=== PATIENT | female | born 1980 | race Caucasian/White ===

== ENCOUNTER 2016-06-12 15:00 | Inpatient (IN) | payer OTHER ==
--- NOTE | 2016-06-12 16:43 | ED ---
General Adult HPI - General Chief complaint: Extremity Problem,Nontraumatic Stated complaint: Arm Swelling Time Seen by Provider: 06/12/16 16:05 Source: patient, RN notes reviewed Mode of arrival: ambulatory Limitations: no limitations - History of Present Illness Initial comments: Patient is a 36-year-old female who presents emergency room today with a chief complaint of increased swelling to the left wrist and hand. She states she first noticed this approximately 4 days ago. She states swelling seemed to come and go until today where the swelling has stayed. She states there is some local tenderness. Denies any injury or trauma. States never had similar symptoms in the past. Patient does admit to history of blood clot. States she' s not on any blood thinners. Does admit that she is she please approximate 5 months. Denies any vaginal bleeding or discharge. Denies any abdominal pain. Admits that at times she's felt short of breath. Denies any shortness breath at this time. Patient denies any recent fever, chills, chest pain, back pain, abdominal pain, nausea or vomiting, numbness or tingling, dysuria or hematuria, constipation or diarrhea, headaches or visual changes, or any other complaints. - Related Data Home Medications Medication Instructions Recorded Confirmed Albuterol Inhaler [Ventolin Hfa 1 - 2 puff INHALATION RT-Q4H PRN 06/12/16 Inhaler] Albuterol Nebulized [Ventolin 2.5 mg INHALATION RT-Q4H PRN 06/12/16 06/12/16 Nebulized] Gabapentin [Neurontin] 300 mg PO TID 06/12/16 06/12/16 Methadone [Dolophine] 90 mg PO DAILY 06/12/16 06/12/16 Njp-Xqnq-Hxzoy Acid 1 cap PO DAILY 06/12/16 06/12/16 [-U Capsule (formulary)] Allergies Allergy/AdvReac Type Severity Reaction Status Date / Time moxifloxacin [From Avelox] Allergy Unknown Verified 06/12/16 16:30 shellfish derived [Shellfish] Allergy Unknown Verified 06/12/16 16:30 Review of Systems ROS Statement: Those systems with pertinent positive or pertinent negative responses have been documented in the HPI. ROS Other: All systems not noted in ROS Statement are negative. 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 Eye: Pupils are equal, round and reactive to light, extra-ocular movements are intact. No nystagmus. There is normal conjunctiva bilaterally. No signs of icterus. Ears, nose, mouth and throat: There are moist mucous membranes and no oral lesions. Neck: The neck is supple, there is no tenderness or JVD. Cardiovascular: There is a regular rate and rhythm. No murmur, rub or gallop is appreciated. Respiratory: Lungs are clear to auscultation, respirations are non-labored, breath sounds are equal. No wheezes, stridor, rales, or rhonchi. Gastrointestinal: Soft, non-distended, non-tender abdomen without masses or organomegaly noted. There is no rebound or guarding present. No CVA tenderness. Bowel sounds are unremarkable. Musculoskeletal: Normal ROM, no tenderness. Strength 5/5. Sensation intact. Pulses equal bilaterally 2+. Neurological: A&O x 3. CN II-XII intact, There are no obvious motor or sensory deficits. Coordination appears grossly intact. Speech is normal. Skin: Patient does have moderate swelling to the left wrist and hand. There is some local redness mild to the posterior aspect of the left hand. No lymphangitic streaking. Mild tenderness locally. No skin breakdown. Psychiatric: Cooperative, appropriate mood & affect, normal judgment. Limitations: no limitations Course Vital Signs 06/12/16 06/12/16 06/12/16 15:04 19:04 19:07 Temperature 98.1 F 97.0 F L Pulse Rate 94 94 100 Respiratory 20 18 Rate Blood Pressure 117/54 108/52 O2 Sat by Pulse 99 100 Oximetry Medical Decision Making - Medical Decision Making Case discussed in detail with attending physician Dr. Farris. Patient's labs reviewed. Patient's ultrasound does show single IUP measuring 24 weeks 4 days. Patient's ultrasound of the left upper extremity is negative for any evidence of DVT. Patient started on antibiotics here in the emergency room to cover for sinusitis infection of the left upper extremity. Patient does admit to use of short of breath with history of asthma. She states she's been doing. She was on and off at home. Given breathing treatment here in the emergency room is feeling better. Patient denies any other complaints or symptoms. Case was discussed with the admitting physician who will admit the patient. Also discussed case with [facility] doctor Krys will be consult. - Lab Data Result diagrams: 06/12/16 16:49 06/12/16 16:49 Lab Results 06/12/16 06/12/16 06/12/16 Range/Units 16:49 16:49 16:49 WBC 5.5 (3.8-10.6) k/uL RBC 3.20 L (3.80-5.40) m/uL Hgb 9.6 L (11.4-16.0) gm/dL Hct 28.7 L (34.0-46.0) % MCV 89.7 (80.0-100.0) fL MCH 29.9 (25.0-35.0) pg MCHC 33.4 (31.0-37.0) g/dL RDW 14.8 (11.5-15.5) % Plt Count 208 (150-450) k/uL Neutrophils % 77 % Lymphocytes % 18 % Monocytes % 2 % Eosinophils % 2 % Basophils % 0 % Neutrophils # 4.2 (1.3-7.7) k/uL Lymphocytes # 1.0 (1.0-4.8) k/uL Monocytes # 0.1 (0-1.0) k/uL Eosinophils # 0.1 (0-0.7) k/uL Basophils # 0.0 (0-0.2) k/uL Poikilocytosis Slight PT 9.9 (9.0-12.0) sec INR 1.0 (<1.1) APTT 22.2 (22.0-30.0) sec Sodium 138 (137-145) mmol/L Potassium 3.5 (3.5-5.1) mmol/L Chloride 101 (98-107) mmol/L Carbon Dioxide 26 (22-30) mmol/L Anion Gap 11 mmol/L BUN 11 (7-17) mg/dL Creatinine 0.62 (0.52-1.04) mg/dL Est GFR (MDRD) Af Amer >60 (>60 ml/min/1.73 sqM) Est GFR (MDRD) Non-Af >60 (>60 ml/min/1.73 sqM) Glucose 94 (74-99) mg/dL Calcium 9.4 (8.4-10.2) mg/dL Total Bilirubin 0.5 (0.2-1.3) mg/dL AST 38 H (14-36) U/L ALT 38 (9-52) U/L Alkaline Phosphatase 113 (38-126) U/L Total Protein 6.1 L (6.3-8.2) g/dL Albumin 3.2 L (3.5-5.0) g/dL Urine Color Urine Appearance (Clear) Urine pH (5.0-8.0) Ur Specific [place] (1.001-1.035) Urine Protein (Negative) Urine Glucose (UA) (Negative) Urine Ketones (Negative) Urine Blood (Negative) Urine Nitrite (Negative) Urine Bilirubin (Negative) Urine Urobilinogen (<2.0) mg/dL Ur Leukocyte Esterase (Negative) Urine RBC (0-5) /hpf Urine WBC (0-5) /hpf Ur Squamous Epith Cells (0-4) /hpf Urine Bacteria (None) /hpf Hyaline Casts (0-2) /lpf Urine Mucus (None) /hpf 06/12/16 Range/Units 16:49 WBC (3.8-10.6) k/uL RBC (3.80-5.40) m/uL Hgb (11.4-16.0) gm/dL Hct (34.0-46.0) % MCV (80.0-100.0) fL MCH (25.0-35.0) pg MCHC (31.0-37.0) g/dL RDW (11.5-15.5) % Plt Count (150-450) k/uL Neutrophils % % Lymphocytes % % Monocytes % % Eosinophils % % Basophils % % Neutrophils # (1.3-7.7) k/uL Lymphocytes # (1.0-4.8) k/uL Monocytes # (0-1.0) k/uL Eosinophils # (0-0.7) k/uL Basophils # (0-0.2) k/uL Poikilocytosis PT (9.0-12.0) sec INR (<1.1) APTT (22.0-30.0) sec Sodium (137-145) mmol/L Potassium (3.5-5.1) mmol/L Chloride (98-107) mmol/L Carbon Dioxide (22-30) mmol/L Anion Gap mmol/L BUN (7-17) mg/dL Creatinine (0.52-1.04) mg/dL Est GFR (MDRD) Af Amer (>60 ml/min/1.73 sqM) Est GFR (MDRD) Non-Af (>60 ml/min/1.73 sqM) Glucose (74-99) mg/dL Calcium (8.4-10.2) mg/dL Total Bilirubin (0.2-1.3) mg/dL AST (14-36) U/L ALT (9-52) U/L Alkaline Phosphatase (38-126) U/L Total Protein (6.3-8.2) g/dL Albumin (3.5-5.0) g/dL Urine Color Yellow Urine Appearance Clear (Clear) Urine pH 6.5 (5.0-8.0) Ur Specific [place] 1.019 (1.001-1.035) Urine Protein Negative (Negative) Urine Glucose (UA) Negative (Negative) Urine Ketones Negative (Negative) Urine Blood Negative (Negative) Urine Nitrite Negative (Negative) Urine Bilirubin Negative (Negative) Urine Urobilinogen <2.0 (<2.0) mg/dL Ur Leukocyte Esterase Trace H (Negative) Urine RBC 1 (0-5) /hpf Urine WBC <1 (0-5) /hpf Ur Squamous Epith Cells 2 (0-4) /hpf Urine Bacteria Rare H (None) /hpf Hyaline Casts 1 (0-2) /lpf Urine Mucus Rare H (None) /hpf Disposition Clinical Impression: Cellulitis Disposition: ADMITTED IP TO THIS [facility] Condition: Good Referrals: Nonstaff,Physician [Primary Care Provider] - 1-2 days Time of Disposition: 18:50
[2016-06-12 17:06] LABS: Basophils % (A) 0 %; CH 29.9; CHCM 33.5; Eosinophils # (A) 0.1 k/uL (0-0.7); Eosinophils % (A) 2 %; HCT 28.7 % (34.0-46.0); HDW 3.56; HGB 9.6 gm/dL (11.4-16.0); Luc # (Auto) 0.06; Luc % (Auto) 1; Lymphocytes % (A) 18 %; MCH 29.9 pg (25.0-35.0); MCHC 33.4 g/dL (31.0-37.0); MCV 89.7 fL (80.0-100.0); Mean Platelet Volume 7.5; Monocytes # (A) 0.1 k/uL (0-1.0); Monocytes % (A) 2 %; Neutrophils # (A) 4.2 k/uL (1.3-7.7); Neutrophils % (A) 77 %; Poikilocytosis Slight; RDW 14.8 % (11.5-15.5); WBC 5.5 k/uL (3.8-10.6); WBC (Perox) 5.33
[2016-06-12 17:14] LABS: ALT 38 U/L (9-52); AST 38 U/L (14-36); Alkaline Phosphatase 113 U/L (38-126); Anion Gap 11 mmol/L; Blood Urea Nitrogen 11 mg/dL (7-17); Calcium 9.4 mg/dL (8.4-10.2); Carbon Dioxide 26 mmol/L (22-30); Chloride 101 mmol/L (98-107); Glucose 94 mg/dL (74-99); Non-African American GFR(MDRD) >60 (>60 ml/min/1.73 sqM); Partial Thromboplastin Time 22.2 sec (22.0-30.0); Potassium 3.5 mmol/L (3.5-5.1); Prothrombin Time 9.9 sec (9.0-12.0); Sodium 138 mmol/L (137-145); Total Bilirubin 0.5 mg/dL (0.2-1.3); Total Protein 6.1 g/dL (6.3-8.2)
--- NOTE | 2016-06-12 17:17 | XR ---
EXAMINATION TYPE: XR wrist complete LT DATE OF EXAM: 06/12/2016 5:08 PM COMPARISON: NONE HISTORY: Wrist swelling for 2 days. Pain. TECHNIQUE: 4 views FINDINGS: I see no fracture nor dislocation. There is soft tissue swelling of the forearm. This is mo re noticeable on the anterior aspect. There are no erosions. IMPRESSION: Subcutaneous edema. No fracture seen.
[2016-06-12 17:18] LABS: Appearance,Urine Clear (Clear); Bacteria,Urine Rare /hpf; Bilirubin,Urine Negative (Negative); Glucose,Urine (UA) Negative (Negative); Ketones,Urine Negative (Negative); Leukocyte Esterase,Urine Trace (Negative); Mucus,Urine Rare /hpf; Nitrite,Urine Negative (Negative); PH, Urine 6.5 (5.0-8.0); Particle Count 2675; Protein,Urine Negative (Negative); RBC,Urine 1 /hpf (0-5); Specific Gravity,Urine 1.019 (1.001-1.035); Squamous Epithelial Cell,Urine 2 /hpf (0-4); UA Billing (MACRO vs. MICRO) MICRO; Urobilinogen,Urine <2.0 mg/dL (<2.0); WBC,Urine <1 /hpf (0-5)
--- NOTE | 2016-06-12 18:47 | US ---
EXAMINATION TYPE: US OB >= 14 wk fetus DATE OF EXAM: 06/12/2016 6:07 PM COMPARISON: None CLINICAL HISTORY: PainUnknown LMP. Patient states not having a period for a few years-- Positive pre gnancy test in January. Has not seen an OB yet for this . . TECHNIQUE: Transabdominal (TA) GESTATIONAL AGE / DATING Dates by LMP: Unknown EDC: Dates by Current Scan: (24 weeks/4 days) EDC: 09/28/2016 SURVEY IUP: Single PLACENTA: Posterior PREVIA: No Previa DELIA: 16.3 cm Normal CERVICAL LENGTH (transabdominal: norm > 3.0cm): 3.9 cm BIOMETRY PRESENTATION: Vertex LIE: Longitudinal BPD: 6.2 cm 25 weeks / 1 days HC: 22.6 cm 24 weeks / 5 days AC: 21.2 cm 25 weeks / 5 days FL: 4.4 cm 24 weeks / 3 days ESTIMATED WEIGHT IN GRAMS: 770.0 grams ESTIMATED WEIGHT IN LBS/OZS: 1 lbs. 11 oz. WEIGHT PERCENTAGE BASED ON ESTABLISHED DATES: unknown HC/AC: 1.1 Normal FL/AC: 20.7 Normal HEART RATE: 166 bpm RHYTHM: Normal Live single IUP measuring 24 weeks 4 days IMPRESSION: The ultrasound gestational age is 24 weeks 4 days. I see no complicating process.
--- NOTE | 2016-06-12 18:47 | US ---
EXAMINATION TYPE: US venous doppler duplex UE LT DATE OF EXAM: 06/12/2016 6:37 PM COMPARISON: NONE CLINICAL HISTORY: Pain. Swelling left wrist SIDE PERFORMED: Left Left Arm: Negative for DVT IMPRESSION: Negative exam. No evidence of deep venous thrombosis in the left arm.
[2016-06-12] MEDS ORDERED: AMPICILLIN-SULBACTAM 1.5 GM in SODIUM CHLORIDE 0.9% 50 ML IVPB STA (18:54)
[2016-06-12] MEDS ORDERED: ALBUTEROL NEBULIZED 2.5 MG/3 ML INHALATION STA (18:55)
[2016-06-12] MEDS ORDERED: NALOXONE 0.4 MG/ML 1 ML VIAL IV PRN (19:11)
[2016-06-12] MEDS ORDERED: SODIUM CHLORIDE 0.9% 1,000 ML IV ONE (19:11)
[2016-06-12] MEDS: ACETAMINOPHEN TAB 325 MG TAB PO PRN (19:37)
[2016-06-12] MEDS ORDERED: ALBUTEROL NEBULIZED 2.5 MG/3 ML INHALATION PRN (21:04)
[2016-06-12] MEDS: GABAPENTIN 300 MG CAP PO SCH (22:05)
[2016-06-12] MEDS: ALBUTEROL NEBULIZED 2.5 MG/3 ML INHALATION PRN (22:25)
[2016-06-13] MEDS: AMPICILLIN-SULBACTAM 1.5 GM in SODIUM CHLORIDE 0.9% 50 ML IVPB SCH ×4 (01:06→17:04)
[2016-06-13] MEDS: ALBUTEROL NEBULIZED 2.5 MG/3 ML INHALATION PRN ×6 (02:06→19:26)
[2016-06-13 08:11] LABS: Anion Gap 8 mmol/L; Blood Urea Nitrogen 8 mg/dL (7-17); Calcium 8.9 mg/dL (8.4-10.2); Carbon Dioxide 23 mmol/L (22-30); Chloride 105 mmol/L (98-107); Glucose 88 mg/dL (74-99); Non-African American GFR(MDRD) >60 (>60 ml/min/1.73 sqM); Potassium 3.8 mmol/L (3.5-5.1); Sodium 136 mmol/L (137-145)
[2016-06-13] MEDS: BUDESONIDE 1 MG/2 ML NEBU INHALATION SCH ×2 (09:00→19:27)
[2016-06-13] MEDS: FORMOTEROL FUMARATE 20 MCG/2 ML NEBU INHALATION SCH ×2 (09:00→19:26)
[2016-06-13] MEDS: PRENATAL VIT-IRON-FOLIC ACID 1 EACH CAP PO SCH (09:12)
[2016-06-13] MEDS: GABAPENTIN 300 MG CAP PO SCH ×2 (09:12→15:45)
[2016-06-13] MEDS: METHADONE 10 MG TAB PO SCH (09:12)
--- NOTE | 2016-06-13 09:42 | HP ---
DATE OF ADMISSION: DATE OF SERVICE: 06/12/2016 Chief complaints are left arm swelling as well as shortness of breath. HISTORY OF PRESENT ILLNESS: This 36-year-old woman with a past medical history of multiple medical problems including heroin abuse, history of asthma, DVT, history of GERD, history of pneumonia, history of seizure disorder, history of cellulitis of the hand, history of C-sections, history of 5 miscarriages, history of bone marrow transplantation, history of depression, being followed by a primary physician in the [place] area. Is apparently having rehab in [place] regarding methadone. The patient is 24 weeks and patient did not have any care so far. In the [place], the patient was noted to have swelling over the left arm with some pain and some increased in shortness of breath and coughing with mucoid sputum and patient was referred to [facility] and was admitted for further evaluation and treatment. A venous Doppler was done on admission, which showed no evidence of any DVT in the left arm. 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 A wrist x-ray was also done, which showed subcutaneous edema. There was no fractures seen and ultrasound was also done which showed gestation of 24 weeks and no complicating process also noted. There is no history of any fever, rigors. No history of headache, loss of consciousness or seizures. PAST MEDICAL HISTORY: History of asthma, DVT, history of rhabdomyosarcoma of the left arm, history of liver disease, history of pneumonia, seizure disorder, cellulitis, history of empyema, bone marrow transplant, history of heroin abuse, history of MRSA. Medications prior to admission include: 1. Methadone 90 mg p.o. daily. 2. Multivitamin 1 p.o. daily. 3. Ventolin 2.5 q.4 p.r.n. 4. Neurontin 300 mg t.i.d. 5. Albuterol 2 puffs q.4 p.r.n. Allergies are AVELOX and SHELLFISH. FAMILY HISTORY: History of overdose with methadone and Xanax. SOCIAL HISTORY: History of smoking and history of substance abuse. The patient's last heroin use was in 2004 according to her. REVIEW OF SYSTEMS: ENT: No diminishing hearing, diminished vision. CARDIOVASCULAR: As mentioned earlier. RESPIRATORY: As mentioned earlier. GI: As mentioned earlier. : As mentioned earlier. NERVOUS SYSTEM: No numbness or weakness. ALLERGY/IMMUNOLOGY: No asthma. MUSCULOSKELETAL: As mentioned earlier. HEMATOLOGY: As mentioned earlier. ENDOCRINE: No history of diabetes or hypothyroidism. CONSTITUTIONAL: As mentioned earlier. DERMATOLOGY: As mentioned earlier. RHEUMATOLOGY: Negative. PSYCHIATRY: As mentioned earlier. PHYSICAL EXAM: Patient is alert and oriented x3. The pulse is 100, blood pressure 108/52, respirations 18, temperature 97 degrees, pulse ox 100% on room air. HEENT: Conjunctivae normal, oral mucosa moist. NECK: No jugular venous distention. No carotid bruit, no lymph node enlargement. CARDIOVASCULAR: S1, S2, muffled. No S3, no S4. RESPIRATORY: Markedly increased, bilateral scattered rhonchi and expiratory wheezing and crackles also. ABDOMEN: Distended, 24 weeks . EXTREMITIES: Legs bilateral leg edema present. Pulses normal. NERVOUS SYSTEM: Higher function as mentioned earlier. Moves all 4 limbs. No focal motor or sensory deficits. LYMPHATICS: No lymph node enlargement in the neck, axillae or groin. SKIN: No ulcer, rash, bleeding. Minimal erythema of the left arm present and examination of the left arm shows status post old surgery, surgical scar and as well as significant swelling and some erythema also in the distal part of the left arm. There is a finger amputation of the left index finger as well. LAB INVESTIGATION: WBC 5.5, hemoglobin is 9.6 as well as AST is 38, and albumin is 3.2. UA some bacteria noted. ASSESSMENT: 1. Pain and swelling of the left arm with possible acute cellulitis. 2. Bronchial asthma acute exacerbation with acute purulent tracheobronchitis. 3. Anemia, normocytic; secondary to poor intake possibly. 4. Hypoalbuminemia with mild to moderate protein calorie malnutrition. 5. Increased AST. 6. 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 7. History of deep venous thrombosis. 8. History of asthma. 9. History of gastroesophageal reflux disease. 10. History of liver disease. 11. History of pneumonia. 12. History of seizure disorder. 13. History of IV drug abuse, on methadone. 14. History of scoliosis. 15. History of sections. 16. History of multiple miscarriages. 17. History of bone marrow transplant. 18. History of empyema. 19. 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 20. Depression, not otherwise specified. 21. History of nicotine dependence. 22. FULL CODE. RECOMMENDATION: In this 36-year-old woman who presented with multiple complex medical issues, will monitor the patient closely. I would recommend empiric antibiotics and bronchodilators. The overall prognosis extremely guarded because of the multiple complex medical issues. I would also recommend evaluation with [facility]. Dr. Dhillon also has been requested. Otherwise, prognosis guarded. See orders, resume the home medications. Discussed with the patient who understands. Further recommendations to follow.
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
[2016-06-13] MEDS: FOLIC ACID 1 MG TAB PO SCH (12:26)
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
--- NOTE | 2016-06-13 14:57 | US ---
EXAMINATION TYPE: US OB anatomy transabd DATE OF EXAM: 06/13/2016 2:35 PM COMPARISON: NONE HISTORY: 24 weeks anatomical ultrasound Anatomy scan TECHNIQUE: Transabdominal (TA) EXAM MEASUREMENTS: GESTATIONAL AGE / DATING Physician Established: Not yet established Dates by LMP: Unknown Dates by First Scan: (24 weeks/5 days) EDC: 09/28/2016 Dates by Current Scan for: (24 weeks/4 days) EDC: 09/29/2016 SURVEY IUP: Single PLACENTA: Posterior PREVIA: No previa DELIA: 12.9 cm Normal CERVICAL LENGTH (transabdominal: norm > 3.0cm): 3.3 cm BIOMETRY PRESENTATION: Vertex BPD: 6.4 cm 26 weeks / 0 days HC: 23.7 cm 25 weeks / 6 days AC: 20.4 cm 25 weeks / 0 days FL: 4.2 cm 23 weeks / 4 days ESTIMATED WEIGHT IN GRAMS: 715 grams ESTIMATED WEIGHT IN LBS/OZS: 1 lbs. 9 oz. WEIGHT PERCENTAGE BASED ON ESTABLISHED DATE: 35.5 % HC/AC: 1.17 Normal FL/AC: 21 Normal HEART RATE: 142 bpm RHYTHM: Normal ANATOMY SEEN (within normal limits): * Lateral Vent (< 1 cm) 0.4 cm * Cisterna Magna (< 1.1 cm) 0.5 cm * Nuchal Fold (< 0.6 cm) 0.3 cm * Cerebellum (varies with age) 2.9 cm Choroid Plexus (bilateral) Midline Falx Cavus Septi Pellucidi Four Chamber Heart Outflow tracts: LVOT/RVOT Nose / Lips Diaphragm Kidneys (bilateral) Bladder Cord Insert Three Vessel Cord Longitudinal Spine Transverse Spine Arms (bilateral) Legs (bilateral) ANATOMY NOT SEEN: Stomach- Not visualized during entire exam Situs Single, viable IUP/ Stomach not visualized during entire exam, otherwise appeared wnl The femur length to biparietal diameter and femur length head circumference are slightly diminished i n ratio from the normal range. IMPRESSION: 1. Single intrauterine gestation estimated at 24 weeks 4 days gestation based on current ultrasound m easurements. This would have a calculated EDC of 09/29/2016. 2. Cardiac activity measures 142 bpm. 3. Ratio slightly off which may be related to femur length. Monitoring is recommended.
[2016-06-13] MEDS: METOCLOPRAMIDE 5 MG TAB PO PRN (15:44)
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
[2016-06-13] MEDS: CALCIUM CARBONATE 500 MG CHEWABLE PO PRN (20:32)
[2016-06-13] MEDS: diphenhydrAMINE 25 MG CAP PO SCH (20:33)
[2016-06-13] MEDS: ACETAMINOPHEN TAB 325 MG TAB PO PRN (20:33)
[2016-06-13] MEDS: levETIRAcetam 500 MG TAB PO SCH (20:35)
[2016-06-13] MEDS: DAPTOmycin 500 MG in SODIUM CHLORIDE 0.9% 50 ML IV SCH (21:19)
--- NOTE | 2016-06-13 22:08 | PN ---
DATE OF SERVICE: 06/13/2016 This 36-year-old woman who was admitted with pain and swelling of the left arm with possible acute cellulitis, also bronchial asthma acute exacerbation with significant Patient feeling slightly better. Patient also complaining of right breast swelling and some minimal discharge, also. The patient is being closely monitored. Patient is 24 weeks . The patient has no care. PAST MEDICAL HISTORY: Reviewed. REVIEW OF SYSTEMS: CARDIOVASCULAR: No angina, palpitations. RESPIRATORY: As mentioned earlier. GI: As mentioned earlier. : No dysuria. NERVOUS: No numbness or weakness. Current medications are reviewed and include: 1. Tylenol 650 every 6 hours p.r.n. 2. Ventolin. 3. Unasyn 1.5 every 6. 4. Pulmicort 1 b.i.d. 5. Folic acid 1 mg daily. 6. Perforomist b.i.d. 7. Neurontin 300 mg t.i.d. 9. Reglan. 10. Narcan. PHYSICAL EXAM: Patient is alert and oriented x3. Pulse 93, blood pressure 90/60, respirations 18, temperature 97.8, pulse ox 97% on room air. HEENT: Conjunctivae normal. NECK: No jugular venous distension. CARDIOVASCULAR: S1 and S2 muffled. RESPIRATORY: Breath sounds diminished in the bases. A few scattered rhonchi. No crackles. ABDOMEN: Soft, 24 weeks . LEGS: No edema. No swelling. NERVOUS SYSTEM: No focal deficits. Right breast has swelling and some induration also present in the right lateral part; otherwise, pain and swelling and erythema of the left distal arm also present. LABS: Sodium 136. Hemoglobin 9.6. Urine tox screen is methadone positive. ASSESSMENT: 1. Pain and swelling of the left arm with possible acute cellulitis. 2. Bronchial asthma acute exacerbation with acute purulent tracheobronchitis with significant difficulties, present on admission. 3. Right breast swelling and some tenderness, cellulitis, rule out breast abscess. 4. Anemia, normocytic; secondary to poor intake possibly. 5. Hypoalbuminemia with mild to moderate protein-calorie malnutrition. 6. Hyponatremia, hypovolemic. 7. Increased AST. 8. 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 9. History of deep venous thrombosis. 10. History of asthma. 11. History of gastroesophageal reflux disease. 12. History of liver disease. 13. History of pneumonia. 14. History of seizure disorder. 15. IV drug abuse on methadone. 16. History of scoliosis. 17. section. 18. Multiple miscarriages. 19. History of bone marrow transplant. 20. History of empyema. 21. 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 22. Depression, not otherwise specified. 23. History of nicotine dependence. 24. History of seizure disorder. 25. FULL CODE. RECOMMENDATIONS AND DISCUSSION: In this 36-year-old woman who presented with multiple complex medical issues, will monitor the patient closely. Continue the current medications. Continue symptomatic treatment. Continue with bronchodilators. Continue with treatment. Continue with IV antibiotics. Infectious Disease evaluation, breast ultrasound. Guarded prognosis because of multiple complex medical issues. Further recommendations to follow. Otherwise, SCRUB NURSE consult appreciated from Dr. Marcano. Will also recommend Neurology to be seen because of history of seizure disorder. [facility]
--- NOTE | 2016-06-13 22:22 | P.CON ---
Consult Note - . 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 She also has history of hepatitis C which has not been treated. She is currently 24 weeks . Patient states that since Friday she's had increased swelling to the left hand and distal forearm that comes and goes. She denies any redness to the area. She denies any fever or chills. She also states she's had some itchiness all over her body that's been coming and going for the past month. She presented to [facility] emergency center with the above complaints. She underwent an ultrasound of the left upper extremity which was negative for DVT. X-ray of the left wrist showed soft tissue swelling and no fracture. She underwent a ultrasound that showed 24 week 4 day gestation with no complications. She was started on Unasyn and admitted to the oncology floor. She has been afebrile, white count 5.5, GFR greater than 60, albumin 3.2. Urinalysis was clear, leukoesterase trace, nitrate negative. Urine culture is in progress. Urine drug screen was positive for methadone. Patient does have history of heroin use and last use in December 2014. Patient denies any vaginal bleeding or drainage. She has had some nausea due to but no vomiting or diarrhea. She denies any cough , sputum production, but does have some shortness of breath. Patient is also complaining of painful right breast that has been going on for 1 week. Please see the consult note as dictated by nurse practitioner Amalia Seda. With the nurse present she is evaluated there is evidence of tenderness to the right breast under the aerola at about the 9 o'clock position, it is quite tender. There appears to be a drained pustule in the inferior aspect of the breast that is less tender. The extensive swelling to her left arm is distally improved. She's come to Hospital has had some antibiotic therapy. As noted she staying in a rehabilitation center which further increases her risk of MRSA infection. Is noted has a history of prior heroin use. Also has the cancer in the left arm status post resection as well as left axillary resection and radiation therapy. The patient likely is having difficulties with intermittent lymphedema and venous stasis as a result of her injection drug use and prior cancer interventions. 40 she's improving however why cultures are process will utilize daptomycin, category B agent. Elevation of the wrist while she is at rest is helpful. Methadone as per the primary care service She does have evidence of the process to the right breast which is concerned to a potential abscess and ultrasound was ordered been requested. Gynecology will also evaluate that tomorrow to assure there is no need for any surgical drainage. Cultures are process. I agree with evaluation, assessment and plan as dictated by nurse practitioner Mrs. Amalia Casillas.
[2016-06-14] MEDS: ALBUTEROL NEBULIZED 2.5 MG/3 ML INHALATION PRN ×5 (02:22→20:17)
[2016-06-14] MEDS: ACETAMINOPHEN TAB 325 MG TAB PO PRN (03:57)
[2016-06-14] MEDS: CALCIUM CARBONATE 500 MG CHEWABLE PO PRN (03:57)
--- NOTE | 2016-06-14 06:45 | USB ---
Reason for exam: clinical finding. US Breast RT Right breast ultrasound includes all four quadrants, the retroareolar region and axilla. Finding demonstrate edematous tissue throughout breast, no cystic or solid lesion seen. ASSESSMENT: Probably benign, BI-RAD 3 RECOMMENDATION: Clinical management of the right breast. Manage patient on a clinical basis.
[2016-06-14] MEDS: FORMOTEROL FUMARATE 20 MCG/2 ML NEBU INHALATION SCH ×2 (07:47→20:17)
[2016-06-14] MEDS: BUDESONIDE 1 MG/2 ML NEBU INHALATION SCH ×2 (07:47→20:17)
[2016-06-14 08:36] LABS: Anion Gap 8 mmol/L; Blood Urea Nitrogen 8 mg/dL (7-17); Calcium 9.2 mg/dL (8.4-10.2); Carbon Dioxide 27 mmol/L (22-30); Chloride 104 mmol/L (98-107); Glucose 84 mg/dL (74-99); Non-African American GFR(MDRD) >60 (>60 ml/min/1.73 sqM); Potassium 4.1 mmol/L (3.5-5.1); Sodium 139 mmol/L (137-145)
[2016-06-14] MEDS: diphenhydrAMINE 25 MG CAP PO SCH ×3 (08:41→19:50)
[2016-06-14] MEDS: PRENATAL VIT-IRON-FOLIC ACID 1 EACH CAP PO SCH (08:41)
[2016-06-14] MEDS: METHADONE 10 MG TAB PO SCH (08:41)
[2016-06-14] MEDS: levETIRAcetam 500 MG TAB PO SCH ×2 (08:42→21:40)
[2016-06-14] MEDS: FOLIC ACID 1 MG TAB PO SCH (12:04)
--- NOTE | 2016-06-14 18:28 | P.PN ---
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 She also has history of hepatitis C which has not been treated. She is currently 24 weeks . Patient states that since Friday she's had increased swelling to the left hand and distal forearm that comes and goes. She denies any redness to the area. She denies any fever or chills. She also states she's had some itchiness all over her body that's been coming and going for the past month. She presented to [facility] emergency center with the above complaints. She underwent an ultrasound of the left upper extremity which was negative for DVT. X-ray of the left wrist showed soft tissue swelling and no fracture. She underwent a ultrasound that showed 24 week 4 day gestation with no complications. She was started on Unasyn and admitted to the oncology floor. She has been afebrile, white count 5.5, GFR greater than 60, albumin 3.2. Urinalysis was clear, leukoesterase trace, nitrate negative. Urine culture is in progress. Urine drug screen was positive for methadone. Patient does have history of heroin use and last use in December 2014. Patient denies any vaginal bleeding or drainage. She has had some nausea due to but no vomiting or diarrhea. She denies any cough , sputum production, but does have some shortness of breath. Patient is also complaining of painful right breast that has been going on for 1 week. Ultrasound has now been performed without evidence of abscess. Arm is improved. Follow-up with obstetrics gynecology is pending Objective - Vital Signs Vital signs: Vital Signs Temp 97.7 F 06/14/16 15:00 Pulse 88 06/14/16 16:24 Resp 18 06/14/16 16:00 BP 98/61 06/14/16 15:00 Pulse Ox 98 06/14/16 15:00 Intake & Output 06/13/16 06/14/16 06/14/16 18:59 06:59 18:59 Intake Total 300 Output Total 800 Balance -500 Weight 70.307 kg Intake: IV 300 0.9 NS @20 300 Output: Urine 800 Other: Voiding Method Toilet # Voids 2 3 - Exam Gen: This is a 86-year-old female. She is sitting up in bed and appears to be in no acute distress. HEENT: Head is atraumatic, normocephalic. Pupils equal, round. Sclerae is anicteric. Conjunctiva pink. Mucous members of the mouth are moist. Patient is edentulous. No lesions or thrush noted. NECK: Supple. No JVD. No lymphadenopathy. No thyromegaly. LUNGS: Clear to auscultation. No wheezes or rhonchi. No intercostal retractions. HEART: Regular rate and rhythm. No murmur. BREASTS: With the nurse present the right breast is evaluated. At the areola at about the 9 o'clock position is a area that still very tender. The ultrasound was done at the site and did not find an abscess. ABDOMEN: abdomen. Soft. Bowel sounds are present. No masses. No tenderness. EXTREMITIES: No pedal edema. No calf tenderness. Dorsalis pedis +2 bilaterally. The swelling to the left wrist has resolved No redness or warmth. NEUROLOGICAL: Patient is awake, alert and oriented x3 - Labs CBC & Chem 7: 06/12/16 16:49 06/14/16 07:32 Labs: Laboratory Results WBC 5.5 k/uL (3.8-10.6) 06/12/16 16:49 RBC 3.20 m/uL (3.80-5.40) L 06/12/16 16:49 Hgb 9.6 gm/dL (11.4-16.0) L 06/12/16 16:49 Hct 28.7 % (34.0-46.0) L 06/12/16 16:49 MCV 89.7 fL (80.0-100.0) 06/12/16 16:49 MCH 29.9 pg (25.0-35.0) 06/12/16 16:49 MCHC 33.4 g/dL (31.0-37.0) 06/12/16 16:49 RDW 14.8 % (11.5-15.5) 06/12/16 16:49 Plt Count 208 k/uL (150-450) 06/12/16 16:49 Neutrophils % 77 % 06/12/16 16:49 Lymphocytes % 18 % 06/12/16 16:49 Monocytes % 2 % 06/12/16 16:49 Eosinophils % 2 % 06/12/16 16:49 Basophils % 0 % 06/12/16 16:49 Neutrophils # 4.2 k/uL (1.3-7.7) 06/12/16 16:49 Lymphocytes # 1.0 k/uL (1.0-4.8) 06/12/16 16:49 Monocytes # 0.1 k/uL (0-1.0) 06/12/16 16:49 Eosinophils # 0.1 k/uL (0-0.7) 06/12/16 16:49 Basophils # 0.0 k/uL (0-0.2) 06/12/16 16:49 Poikilocytosis Slight 06/12/16 16:49 PT 9.9 sec (9.0-12.0) 06/12/16 16:49 INR 1.0 (<1.1) 06/12/16 16:49 APTT 22.2 sec (22.0-30.0) 06/12/16 16:49 Sodium 139 mmol/L (137-145) 06/14/16 07:32 Potassium 4.1 mmol/L (3.5-5.1) 06/14/16 07:32 Chloride 104 mmol/L (98-107) 06/14/16 07:32 Carbon Dioxide 27 mmol/L (22-30) 06/14/16 07:32 Anion Gap 8 mmol/L 06/14/16 07:32 BUN 8 mg/dL (7-17) 06/14/16 07:32 Creatinine 0.56 mg/dL (0.52-1.04) 06/14/16 07:32 Est GFR (MDRD) Af Amer >60 (>60 ml/min/1.73 sqM) 06/14/16 07:32 Est GFR (MDRD) Non-Af >60 (>60 ml/min/1.73 sqM) 06/14/16 07:32 Glucose 84 mg/dL (74-99) 06/14/16 07:32 Calcium 9.2 mg/dL (8.4-10.2) 06/14/16 07:32 Total Bilirubin 0.5 mg/dL (0.2-1.3) 06/12/16 16:49 AST 38 U/L (14-36) H 06/12/16 16:49 ALT 38 U/L (9-52) 06/12/16 16:49 Alkaline Phosphatase 113 U/L (38-126) 06/12/16 16:49 Total Protein 6.1 g/dL (6.3-8.2) L 06/12/16 16:49 Albumin 3.2 g/dL (3.5-5.0) L 06/12/16 16:49 Urine Color Yellow 06/12/16 16:49 Urine Appearance Clear (Clear) 06/12/16 16:49 Urine pH 6.5 (5.0-8.0) 06/12/16 16:49 Ur Specific [place] 1.019 (1.001-1.035) 06/12/16 16:49 Urine Protein Negative (Negative) 06/12/16 16:49 Urine Glucose (UA) Negative (Negative) 06/12/16 16:49 Urine Ketones Negative (Negative) 06/12/16 16:49 Urine Blood Negative (Negative) 06/12/16 16:49 Urine Nitrite Negative (Negative) 06/12/16 16:49 Urine Bilirubin Negative (Negative) 06/12/16 16:49 Urine Urobilinogen <2.0 mg/dL (<2.0) 06/12/16 16:49 Ur Leukocyte Esterase Trace (Negative) H 06/12/16 16:49 Urine RBC 1 /hpf (0-5) 06/12/16 16:49 Urine WBC <1 /hpf (0-5) 06/12/16 16:49 Ur Squamous Epith Cells 2 /hpf (0-4) 06/12/16 16:49 Urine Bacteria Rare /hpf (None) H 06/12/16 16:49 Hyaline Casts 1 /lpf (0-2) 06/12/16 16:49 Urine Mucus Rare /hpf (None) H 06/12/16 16:49 Urine Opiates Screen Not Detected (NotDetected) 06/13/16 05:47 Ur Oxycodone Screen Not Detected (NotDetected) 06/13/16 05:47 Urine Methadone Screen Detected (NotDetected) H 06/13/16 05:47 Ur Propoxyphene Screen Not Detected (NotDetected) 06/13/16 05:47 Ur Barbiturates Screen Not Detected (NotDetected) 06/13/16 05:47 U Tricyclic Antidepress Not Detected (NotDetected) 06/13/16 05:47 Ur Phencyclidine Scrn Not Detected (NotDetected) 06/13/16 05:47 Ur Amphetamines Screen Not Detected (NotDetected) 06/13/16 05:47 U Methamphetamines Scrn Not Detected (NotDetected) 06/13/16 05:47 U Benzodiazepines Scrn Not Detected (NotDetected) 06/13/16 05:47 Urine Cocaine Screen Not Detected (NotDetected) 06/13/16 05:47 U Marijuana (THC) Screen Not Detected (NotDetected) 06/13/16 05:47 Microbiology 06/12/16 16:49 Urine,Voided Urine Culture - Final 06/12/16 16:49 Blood Blood Culture - Preliminary No Growth after 24 hours Assessment and Plan (1) Cellulitis Narrative/Plan: 36-year-old woman who presents to Hospital because of swelling and discomfort to her left arm. This is of concern with her history of prior rhabdomyosarcoma the area that required surgical correction as well as lymph node dissection to her axilla. This unfortunately is doing quite well despite a well-developed current antibiotic therapy. The right breast is evaluate with the nurse. Is still quite tender. Ultrasound failed to show evidence of abscess. Is likely swollen ductal tissue that is quite tender. Cold is applied to the area to see if this will not help. Await DIRECTOR OF RETAIL OPERATIONS input as to potential for discharge. She has responded well to the therapy with daptomycin. At the time of discharge since she is in her second trimester be placed on trimethoprim sulfamethoxazole to complete 7 day course of therapy cellulitis to the wrist which is much improved. Status: Acute (2) Seizure disorder in Status: Acute (3) Heroin use disorder, severe, in early remission, in controlled environment, dependence Status: Acute
[2016-06-14] MEDS: DAPTOmycin 500 MG in SODIUM CHLORIDE 0.9% 50 ML IV SCH (20:08)
--- NOTE | 2016-06-14 20:57 | PN ---
DATE OF ADMISSION: 06/13/2016 This 36 -year-old woman who was admitted with pain and swelling in her left arm as well as acute cellulitis, also had bronchial asthma, acute exacerbations as well as cellulitis of the right breast. The patient improved significantly. No chest pain. No palpitations. No fever. On exam, alert and oriented x3. Pulse is 95. Blood pressure 98/61. Respirations 18, temperature 97.7. Pulse ox 99% on room air. HEENT: Conjunctivae normal. NECK: No jugular venous distention. CARDIOVASCULAR: S1, S2 muffled. No S3, no S4. RESPIRATORY: Breath sounds diminished at the bases. Scattered rhonchi and crackles. No cough. ABDOMEN: Soft. 24 weeks . LEGS: No edema. No swelling. Nervous system: No focal deficits. Examination of the left arm, cellulitis present. Right breast also cellulitis and some induration. LABS: WBC 5.0, hemoglobin is 9.6. Sodium 130, potassium 3.9. ASSESSMENT: 1. Pain and swelling of the left arm with possible acute cellulitis. 2. Bronchial asthma acute exacerbation with acute purulent tracheobronchitis with significant difficulties present on admission. 3. Right breast swelling and some tenderness, possibly breast cellulitis, no evidence of abscess on the ultrasound. 4. Anemia, normocytic; secondary to poor p.o. intake. 5. Hypoalbuminemia with mild to moderate protein calorie malnutrition. 6. Hyponatremia hypovolemic. 7. Increased AST. 8. History of rhabdomyosarcoma of the left arm surgery. 9. History of deep venous thrombosis. 10. History of asthma. 11. History of gastroesophageal reflux disease. 13. History of pneumonia. 14. History of seizure disorder. 15. IV drug abuse on methadone. 16. History of scoliosis. 17. History of section. 18. Multiple miscarriages. 19. History of bone marrow transplant. 20. History of empyema. 21. 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 22. Depression not otherwise specified. 23. Nicotine dependence. 24. History of seizure disorder. 25. FULL CODE. RECOMMENDATIONS AND DISCUSSION: In this 36 -year-old woman who presented with multiple complex medical issues. We will monitor the patient closely. Continue the current medications. Continue symptomatic. We will continue broad spectrum IV antibiotics. Ultrasound as mentioned earlier. Guarded prognosis because of multiple complex medical issues. Further recommendations to follow. MTDD
[2016-06-14] MEDS: DOCUSATE 100 MG CAP PO SCH (21:40)
[2016-06-14] MEDS: MAG HYDROX/AL HYDROX/SIMETH 30 ML CUP PO PRN (23:30)
[2016-06-15] MEDS: diphenhydrAMINE 25 MG CAP PO SCH ×4 (00:16→18:08)
[2016-06-15] MEDS: ALBUTEROL NEBULIZED 2.5 MG/3 ML INHALATION PRN ×5 (02:24→21:23)
[2016-06-15] MEDS: FORMOTEROL FUMARATE 20 MCG/2 ML NEBU INHALATION SCH ×2 (07:36→21:23)
[2016-06-15] MEDS: BUDESONIDE 1 MG/2 ML NEBU INHALATION SCH ×2 (07:36→21:23)
[2016-06-15] MEDS: PRENATAL VIT-IRON-FOLIC ACID 1 EACH CAP PO SCH (07:50)
[2016-06-15] MEDS: levETIRAcetam 500 MG TAB PO SCH ×2 (07:50→21:45)
[2016-06-15] MEDS: DOCUSATE 100 MG CAP PO SCH ×2 (07:55→21:45)
[2016-06-15 09:28] LABS: Anion Gap 10 mmol/L; Blood Urea Nitrogen 8 mg/dL (7-17); Calcium 8.8 mg/dL (8.4-10.2); Carbon Dioxide 25 mmol/L (22-30); Chloride 102 mmol/L (98-107); Glucose 77 mg/dL (74-99); Non-African American GFR(MDRD) >60 (>60 ml/min/1.73 sqM); Sodium 137 mmol/L (137-145)
[2016-06-15] MEDS: METHADONE 10 MG TAB PO SCH (09:49)
[2016-06-15] MEDS: METOCLOPRAMIDE 5 MG TAB PO PRN (09:50)
[2016-06-15] MEDS: MICONAZOLE 2% VAGINAL CREAM 45 GM TUBE/KIT VAGINAL SCH (12:54)
--- NOTE | 2016-06-15 13:01 | P.PN ---
Progress Note - Text Patient states baby is moving well. Denies any pain or bleeding. States she forgot to tell me about her right breast tenderness when I saw her the 1st time. She stated approximately 2 days before she came into the hospital, she noticed some pimple-like areas that she picked at and got some thicker pussy discharge out. Since then it has been very tender to touch and she feels a lump in the area. She has been using cold packs which does help a little with the pain. Breast US was done and was negative. She does state she has a new appt. on . with a doctor out of [facility] for OB care. I reviewed that her anatomy US was normal. R. breast: lump approximately 3 cm, tender on edge of areola 7-9 o'clock position., no redness seen Impression is at approximately 25 weeks, R. breast lump with tenderness. Plan: I am in agreement with her outpatient follow-up with maternal medicine for OB care. I would suggest general surgery evaluation for her breast lump, since it has not improved with IV antibiotics. No further LICENSED LOAN OFFICER ASSISTANT recommendations.
[2016-06-15] MEDS: MAG HYDROX/AL HYDROX/SIMETH 30 ML CUP PO PRN (15:06)
[2016-06-15] MEDS: DAPTOmycin 500 MG in SODIUM CHLORIDE 0.9% 50 ML IV SCH (19:24)
[2016-06-16] MEDS: diphenhydrAMINE 25 MG CAP PO SCH ×5 (02:25→20:14)
[2016-06-16] MEDS: ALBUTEROL NEBULIZED 2.5 MG/3 ML INHALATION PRN ×5 (03:10→19:37)
[2016-06-16] MEDS: FORMOTEROL FUMARATE 20 MCG/2 ML NEBU INHALATION SCH ×2 (06:56→19:37)
[2016-06-16] MEDS: BUDESONIDE 1 MG/2 ML NEBU INHALATION SCH ×2 (06:56→19:37)
[2016-06-16 07:37] LABS: Anion Gap 8 mmol/L; Blood Urea Nitrogen 8 mg/dL (7-17); Calcium 9.1 mg/dL (8.4-10.2); Carbon Dioxide 25 mmol/L (22-30); Chloride 103 mmol/L (98-107); Glucose 90 mg/dL (74-99); Non-African American GFR(MDRD) >60 (>60 ml/min/1.73 sqM); Potassium 4.1 mmol/L (3.5-5.1); Sodium 136 mmol/L (137-145)
[2016-06-16] MEDS: levETIRAcetam 500 MG TAB PO SCH ×2 (07:52→20:13)
[2016-06-16] MEDS: METHADONE 10 MG TAB PO SCH (07:52)
[2016-06-16] MEDS: DOCUSATE 100 MG CAP PO SCH ×2 (07:52→20:14)
[2016-06-16] MEDS: PRENATAL VIT-IRON-FOLIC ACID 1 EACH CAP PO SCH (07:53)
[2016-06-16 08:01] VITALS: RESP 16
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
--- NOTE | 2016-06-16 10:24 | PN ---
DATE OF SERVICE: 06/15/2016 This 36-year-old woman who was admitted with significant cellulitis as well as breast cellulitis is on IV antibiotics. Patient being closely monitored. Patient is 24 weeks . The patient also had seizure yesterday, history of seizure disorder and substance abuse also. No chest pain or palpitation. No fever. On exam, alert and oriented x3. Pulse is 92, blood pressure 90/57, respiratory rate 16, temperature 97.4, pulse ox 97% on room air. HEENT: Conjunctivae normal. NECK: No jugular venous distention. CARDIOVASCULAR: S1 and S2, muffled. RESPIRATORY: Breath sounds diminished in the bases. A few rhonchi, no crackles. ABDOMEN: Soft, nontender. LEGS: No edema, no swelling. NERVOUS SYSTEM: No focal deficits. LABS: Hemoglobin 9.6, sodium 137. ASSESSMENT: 1. Pain and swelling of the left arm with possible acute cellulitis. 2. Bronchial asthma acute exacerbation with acute purulent tracheobronchitis with significant difficulties present on admission. 3. There is right breast swelling and cellulitis with no evidence of abscess on ultrasound. 4. Anemia, normocytic; secondary to poor p.o. intake. 5. Hypoalbuminemia with mild to moderate protein calorie malnutrition. 6. Hyponatremia hypovolemic. 7. Increased AST. 8. History of rhabdomyosarcoma with left arm surgery. 9. History of deep venous thrombosis. 10. History of asthma. 11. History of gastroesophageal reflux disease. 12. History of pneumonia. 13. History of seizure disorder. 14. IV drug abuse on methadone. 15. History of scoliosis. 16. History of section. 17. Multiple miscarriages. 18. History of bone marrow transplant. 19. History empyema. 20. 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 21. Depression, not otherwise specified. 22. History of nicotine dependence. 23. History of seizure disorder. 24. FULL CODE. RECOMMENDATIONS AND DISCUSSION: I recommend to continue the current medications, continue monitoring and symptomatic treatment. Continue with antibiotics. Will also obtain a surgical evaluation also. Further recommendations to follow.
[2016-06-16] MEDS: METOCLOPRAMIDE 5 MG TAB PO PRN ×2 (10:47→20:13)
--- NOTE | 2016-06-16 19:28 | PN ---
DATE OF SERVICE: 06/16/2016 This 36-year-old woman who was admitted with pain and swelling of the left arm with possible acute cellulitis, also had bronchial asthma and other multiple medical issues, also. The patient is 24 weeks . No chest pain, no palpitation. Dr. Mistry has seen the patient and recommended continue the current medications for breast cellulitis. No evidence of abscess currently. On exam, alert and oriented x3. Pulse is 96, blood pressure 90/50, respiratory rate 16, temperature 96.8, pulse ox 99% on room air. HEENT: Conjunctivae normal. NECK: No jugular venous distention. CARDIOVASCULAR: S1 and S2, muffled. RESPIRATORY: Breath sounds diminished in the bases. A few scattered rhonchi and end respiratory wheezes. ABDOMEN: Soft. 24 weeks . Right breast induration present. No mass. NERVOUS SYSTEM: No focal deficits. LABS: Sodium 136. Urine methadone is positive. ASSESSMENT: 1. Pain and swelling of the left arm with possible acute cellulitis. 2. Bronchial asthma acute exacerbation with acute purulent tracheobronchitis with significant difficulties present on admission. 3. There is right breast swelling with cellulitis with no evidence of breast abscess on ultrasound at this time. 4. Anemia, normocytic; secondary to extreme poor p.o. intake. 5. Hypoalbuminemia with mild to moderate protein calorie malnutrition. 6. Hyponatremia hypovolemic. 7. Increased AST. 8. History of rhabdomyosarcoma with left arm surgery. 9. History of deep venous thrombosis. 10. History of asthma. 11. History of gastroesophageal reflux disease. 12. History of pneumonia. 13. History of seizure disorder. 14. 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 15. History of scoliosis. 16. History of section. 17. Multiple miscarriages. 18. History of bone marrow transplant. 19. History empyema. 20. 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 21. Depression, not otherwise specified. 22. History of nicotine dependence. 23. History of seizure disorder. 24. FULL CODE. RECOMMENDATIONS AND DISCUSSION: In this 36-year-old woman who presented with multiple complex medical issues, will monitor the patient closely, continue the current medication, continue symptomatic treatment. Otherwise, at this time, continue the antibiotics and bronchodilators. Otherwise, case operator arrange Brovana and Pulmicort in the outpatient. Further recommendations to follow.
[2016-06-16] MEDS: DAPTOmycin 500 MG in SODIUM CHLORIDE 0.9% 50 ML IV SCH (19:54)
[2016-06-16] MEDS: MICONAZOLE 2% VAGINAL CREAM 45 GM TUBE/KIT VAGINAL SCH (20:14)
[2016-06-16] MEDS: MAG HYDROX/AL HYDROX/SIMETH 30 ML CUP PO PRN (23:13)
[2016-06-17] MEDS: ALBUTEROL NEBULIZED 2.5 MG/3 ML INHALATION PRN ×4 (00:08→11:00)
[2016-06-17] MEDS: FORMOTEROL FUMARATE 20 MCG/2 ML NEBU INHALATION SCH (07:19)
[2016-06-17] MEDS: BUDESONIDE 1 MG/2 ML NEBU INHALATION SCH (07:19)
[2016-06-17 08:00] VITALS: BP 99/55; TEMP 98.4
[2016-06-17 08:31] LABS: Anion Gap 9 mmol/L; Blood Urea Nitrogen 9 mg/dL (7-17); Carbon Dioxide 22 mmol/L (22-30); Chloride 105 mmol/L (98-107); Glucose 98 mg/dL (74-99); Non-African American GFR(MDRD) >60 (>60 ml/min/1.73 sqM); Potassium 3.9 mmol/L (3.5-5.1); Sodium 136 mmol/L (137-145)
[2016-06-17] MEDS: levETIRAcetam 500 MG TAB PO SCH (08:40)
[2016-06-17] MEDS: diphenhydrAMINE 25 MG CAP PO SCH ×2 (08:40→12:19)
[2016-06-17] MEDS: DOCUSATE 100 MG CAP PO SCH (08:40)
[2016-06-17] MEDS: PRENATAL VIT-IRON-FOLIC ACID 1 EACH CAP PO SCH (08:40)
[2016-06-17] MEDS: METHADONE 10 MG TAB PO SCH (09:24)
[2016-06-17 11:02] VITALS: PULSE 84
--- NOTE | 2016-06-17 18:11 | PN ---
The patient is seen on rounds in followup of her breast cellulitis. She says she is having less pain. PHYSICAL EXAM: She has been afebrile. The erythema on the breast is much improved. The area at the 9 o'clock position is softer. No evidence of any drainable abscess. ASSESSMENT: Cellulitis of the breast, improving. PLAN: Currently nonsurgical. Will follow up on a p.r.n. basis.
--- NOTE | 2016-06-18 11:51 | DS ---
DATE OF ADMISSION: 06/13/2016 DATE OF DISCHARGE: 06/17/2016 FINAL DIAGNOSES: 1. Pain and swelling of the left arm with possible acute cellulitis. 2. Some bronchial asthma acute exacerbation, with acute purulent tracheobronchitis with significant difficulties present on admission. 3. Right breast swelling with cellulitis with no evidence of breast capsule ultrasound and the ultrasound at this time. 4. Anemia, normocytic; secondary to extremely poor p.o. intake. 5. Hypoalbuminemia with mild to moderate protein calorie malnutrition. 6. Hyponatremia, hypovolemia. 7. Increased AST. 8. 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 9. History of deep venous thrombosis. 10. History of asthma. 11. History of gastroesophageal reflux disease. 12. History of pneumonia. 13. History of seizure disorder. 14. 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 15. History of scoliosis. 16. History of section, multiple miscarriages. 17. History of bone marrow transplant. 18. History of emphysema. 19. 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 20. Depression, not otherwise specified. 21. History of nicotine dependence. 22. History of seizure disorder. 23. FULL CODE. DISCHARGE DISPOSITION: The patient will be discharged in a stable condition with guarded prognosis. Multiple consultants cleared the patient for discharge. HISTORY OF PRESENT ILLNESS: This is a 36-year-old woman with the past medical history of multiple medical problems admitted with significant cellulitis in the arm and in the breast deferred from [facility]. and the cultures are negative and ultrasound of the breast did not show any acute abscess. The surgeons recommended continued followup with. On exam, vitals are stable. CARDIOVASCULAR SYSTEM: S1, S2, muffled. ABDOMEN: Soft. NERVOUS SYSTEM: No focal deficits. DISCHARGE ADVICE: 1. Diet is cardiac. 2. Activity limited until followup. 3. Followup with the primary physician after discharge from the rehab. 4. Otherwise, follow with Dr. Mistry as advised. 5. Follow up with Dr. Rigo Choi as advised. 6. Follow up with Dr. Dhillon as recommended. Medications are: 1. Ventolin nebulizer q.i.d. and p.r.n. 2. Symbicort 160/4.5 two puffs b.i.d. 3. Methadone 90 mg p.o. daily. 4. Miconazole 2% cream as before. 5. vitamins. 6. Bactrim DS 1 p.o. b.i.d. for 7 days. 7. Keppra 500 mg p.o. b.i.d. per Neurology. Once again, the patient will be discharged in a stable condition with guarded prognosis. MTDD
== END 2016-06-17 13:30 | disposition designated cancer center or children's hospital (05) | DRG 781 ==
LOC: EC 15:00 → 5ONC 19:39 → OBSVTOIN 06-13 15:08
PROVIDERS: ADMIT Internal Medicine; ATTEND Internal Medicine
DX: O99.712 Diseases of the skin and subcutaneous tissue complicating pregnancy, second trimester (principal); G40.919 Epilepsy, unspecified, intractable, without status epilepticus; Z94.81 Bone marrow transplant status; E87.1 Hypo-osmolality and hyponatremia; O99.352 Diseases of the nervous system complicating pregnancy, second trimester; O98.412 Viral hepatitis complicating pregnancy, second trimester; J45.901 Unspecified asthma with (acute) exacerbation; L03.114 Cellulitis of left upper limb; M41.9 Scoliosis, unspecified; E86.1 Hypovolemia; J20.9 Acute bronchitis, unspecified; O09.32 Supervision of pregnancy with insufficient antenatal care, second trimester; O91.112 Abscess of breast associated with pregnancy, second trimester; O99.512 Diseases of the respiratory system complicating pregnancy, second trimester; O99.012 Anemia complicating pregnancy, second trimester; O99.322 Drug use complicating pregnancy, second trimester; O25.12 Malnutrition in pregnancy, second trimester; Z3A.24 24 weeks gestation of pregnancy; O99.342 Other mental disorders complicating pregnancy, second trimester; O99.332 Smoking (tobacco) complicating pregnancy, second trimester; O99.282 Endocrine, nutritional and metabolic diseases complicating pregnancy, second trimester; O99.612 Diseases of the digestive system complicating pregnancy, second trimester; F11.99 Opioid use, unspecified with unspecified opioid-induced disorder; B19.20 Unspecified viral hepatitis C without hepatic coma; D64.9 Anemia, unspecified; K21.9 Gastro-esophageal reflux disease without esophagitis; F32.9 Major depressive disorder, single episode, unspecified; I87.8 Other specified disorders of veins; I89.0 Lymphedema, not elsewhere classified; F17.210 Nicotine dependence, cigarettes, uncomplicated; Z86.718 Personal history of other venous thrombosis and embolism; Z87.01 Personal history of pneumonia (recurrent); Z86.14 Personal history of Methicillin resistant Staphylococcus aureus infection; Z85.831 Personal history of malignant neoplasm of soft tissue; Z92.3 Personal history of irradiation; Z92.21 Personal history of antineoplastic chemotherapy; Z79.899 Other long term (current) drug therapy
CPT/HCPCS: 36415; 76805; 76811; 80048; 80053; 80306; 81001; 85025; 85610; 85730; 87040; 87086; 94640; 96361; 96365; 96366; 99285

== ENCOUNTER 2016-07-14 16:02 | Inpatient (IN) | payer OTHER ==
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
--- NOTE | 2016-07-14 17:14 | US ---
EXAMINATION TYPE: US venous doppler duplex UE LT DATE OF EXAM: 07/14/2016 4:58 PM COMPARISON: Previous upper extremity Doppler duplex 12 June 2016 CLINICAL HISTORY: Pain. left hand and wrist are swollen SIDE PERFORMED: left Soft tissue edema noted at wrist. Grayscale, color Doppler, spectral Doppler imaging performed of the deep veins of the left upper extr emity. The left internal jugular vein, visualized portions of the subclavian vein, axillary vein, bra chial vein, radial veins, ulnar veins are compressible and show no abnormal luminal echoes. There is normal color flow. Cephalic vein and basilic vein also normal. Left Arm: Negative for DVT IMPRESSION: No evident deep venous thrombosis within the visualized left upper extremity. Soft tissue swelling is present.
[2016-07-14] MEDS ORDERED: AMPICILLIN-SULBACTAM 3 GM in SODIUM CHLORIDE 0.9% 100 ML IVPB STA (17:23)
[2016-07-14] MEDS ORDERED: SODIUM CHLORIDE 0.9% 1,000 ML IV ONE (17:34)
[2016-07-14] MEDS ORDERED: ACETAMINOPHEN TAB 325 MG TAB PO PRN (17:34)
[2016-07-14] MEDS ORDERED: NALOXONE 0.4 MG/ML 1 ML VIAL IV PRN (17:34)
[2016-07-14 18:23] LABS: Basophils % (A) 0 %; CH 30.3; CHCM 32.7; Eosinophils # (A) 0.1 k/uL (0-0.7); Eosinophils % (A) 3 %; HCT 31.3 % (34.0-46.0); HDW 2.81; HGB 10.1 gm/dL (11.4-16.0); Luc # (Auto) 0.13; Luc % (Auto) 3; Lymphocytes % (A) 23 %; MCH 30.1 pg (25.0-35.0); MCHC 32.3 g/dL (31.0-37.0); MCV 93.2 fL (80.0-100.0); Mean Platelet Volume 7.6; Monocytes # (A) 0.1 k/uL (0-1.0); Monocytes % (A) 3 %; Neutrophils # (A) 2.9 k/uL (1.3-7.7); Neutrophils % (A) 68 %; RBC 3.36 m/uL (3.80-5.40); RDW 14.9 % (11.5-15.5); WBC 4.3 k/uL (3.8-10.6); WBC (Perox) 4.35
[2016-07-14 18:37] LABS: ALT 45 U/L (9-52); AST 42 U/L (14-36); Alkaline Phosphatase 105 U/L (38-126); Anion Gap 6 mmol/L; Blood Urea Nitrogen 8 mg/dL (7-17); Calcium 9.4 mg/dL (8.4-10.2); Carbon Dioxide 26 mmol/L (22-30); Chloride 105 mmol/L (98-107); Glucose 65 mg/dL (74-99); Non-African American GFR(MDRD) >60 (>60 ml/min/1.73 sqM); Potassium 3.7 mmol/L (3.5-5.1); Sodium 137 mmol/L (137-145); Total Bilirubin 0.5 mg/dL (0.2-1.3)
[2016-07-14] MEDS ORDERED: DOCUSATE 100 MG CAP PO PRN (20:55)
[2016-07-14] MEDS: FAMOTIDINE 20 MG TAB PO SCH (21:17)
[2016-07-14] MEDS: levETIRAcetam 500 MG TAB PO SCH (21:17)
[2016-07-14] MEDS: SYMBICORT 160-4.5 MCG INHALER INHALATION SCH (22:22)
[2016-07-14] MEDS: AMPICILLIN-SULBACTAM 3 GM in SODIUM CHLORIDE 0.9% 100 ML IVPB SCH (23:37)
[2016-07-15 07:40] VITALS: BP 108/76; PULSE 104; RESP 16; TEMP 97.5
[2016-07-15] MEDS: SYMBICORT 160-4.5 MCG INHALER INHALATION SCH (07:45)
[2016-07-15] MEDS: AMPICILLIN-SULBACTAM 3 GM in SODIUM CHLORIDE 0.9% 100 ML IVPB SCH (08:29)
[2016-07-15] MEDS: FAMOTIDINE 20 MG TAB PO SCH (08:30)
[2016-07-15] MEDS: levETIRAcetam 500 MG TAB PO SCH (08:30)
[2016-07-15] MEDS ORDERED: METHADONE 10 MG TAB PO SCH (12:00)
--- NOTE | 2016-07-15 17:34 | HP ---
H&P AND DISCHARGE SUMMARY DATE OF ADMISSION: Patient is a 36-year-old who came in from drug abuse rehab facility. Patient is currently . Patient came from the facility where they treat drug abuse in women. Patient apparently was admitted for cellulitis of the left hand a few centimeters proximal to the wrist, although when I evaluated the patient, patient did not have any redness. Patient does have a little bit of swelling. Patient was telling me that she did have swelling and some redness, which she believes is just because of the . She states she does not have any localization of temperature. Patient denied any fever or chills. Patient denied any nausea or vomiting. Patient denied any abdominal pain. I did not see any cellulitis on exam, although patient may have had cellulitis. Because of that reason, patient will be discharged with Keflex, which is safe for , for 5 days, although my suspicion is extremely low for cellulitis. Patient denied any pain at present. Patient had a little bit of discomfort in that area, because of which I do not suspect any fractures. Patient's last drug abuse was last year around December. Ultrasound is negative for any DVT in the left upper arm. REVIEW OF SYSTEMS: CONSTITUTIONAL: No fever, no malaise, no fatigue. HEENT: No recent visual problems or hearing problems. Denied any sore throat. CARDIOVASCULAR: No chest pain, orthopnea, PND, no palpitations, no syncope. PULMONARY: No shortness of breath, no cough, no hemoptysis. GASTROINTESTINAL: No diarrhea, no nausea, no vomiting, no abdominal pain. Normoactive bowel sounds. NEUROLOGICAL: No headaches, no weakness, no numbness. HEMATOLOGICAL: Denies any bleeding or petechiae. GENITOURINARY: Denies any burning micturition, frequency, or urgency. MUSCULOSKELETAL/RHEUMATOLOGICAL: Denies any joint pain, swelling, or any muscle pain. ENDOCRINE: Denies any polyuria or polydipsia. DERMATOLOGIC: As described in HPI. The rest of the 14 point review of systems is negative. HOME MEDICATIONS: 1. Acetaminophen. 2. Albuterol. 3. Budesonide/Formoterol. 4. Symbicort. 5. Calcium carbonate. 6. Ferrous sulfate. 7. Metoclopramide. 8. Ranitidine. 9. Diphenhydramine. 10. Levetriacetam. ALLERGIES: 1. MOXIFLOXACIN. 2. SHELLFISH. Past medical history is significant for: 1. Asthma. 2. Rhabdomyosarcoma in the past. 3. DVT in the past. 4. Gastroesophageal reflux disease. 5. Liver disease. 6. Pneumonia. 7. Seizure disorder. 8. History of hepatitis C from IV drug use. SOCIAL HISTORY: Significant for smoking 2 packs per day. Denied any alcohol abuse or ( ) FAMILY HISTORY: Significant for father dying from overdose. Mother from overdose of methadone and Xanax. Other siblings without any major medical problems. PHYSICAL EXAMINATION: VITAL SIGNS: Temperature 97.5, pulse of 100, respiratory rate of 16. Blood pressure is 108/76. Saturating at 97% on room air. Patient is starting to have opiate withdrawal, because of which I will go ahead and give her a dose of methadone that she is getting at the rehabilitation facility. GENERAL: The patient is alert and oriented x3, not in any acute distress. Well developed, well nourished. HEENT: Pupils are round and equally reacting to light. EOMI. No scleral icterus. No conjunctival pallor. Normocephalic, atraumatic. No pharyngeal erythema. No thyromegaly. CARDIOVASCULAR: S1 and S2 present. No murmurs, rubs, or gallops. PULMONARY: Chest is clear to auscultation, no wheezing or crackles. ABDOMEN: Soft, nontender, nondistended, normoactive bowel sounds. No palpable organomegaly. MUSCULOSKELETAL: No joint swelling or deformity. EXTREMITIES: No cyanosis, clubbing, or pedal edema. NEUROLOGICAL: Gross neurological examination did not reveal any focal deficits. SKIN: No rashes. LABORATORY DATA: CBC, CMP essentially within normal limits except for mildly low hemoglobin of 10.1. ASSESSMENT AND PLAN: 1. Possible cellulitis of the left hand, completely resolved. I am not sure whether patient actually had cellulitis when she came in, as I did not examine her at that time. I do not believe patient has fractures. Patient will be discharged on Keflex, giving her benefit of doubt, although patient herself does not believe she had cellulitis. 2. Opioid rehabilitation program, through which patient is getting methadone. Will go ahead and give her methadone. I believe patient started having withdrawals; started having tachycardia at this time. 3. status. Management as per her [employer] as an outpatient. 4. Asthma or chronic obstructive pulmonary disease without any acute exacerbation. Patient can continue her home medication. 5. Patient does have seizure disorder, for which she is on Keppra, which will be continued. 6. History of deep venous thrombosis in the past. No such issues at this point of time. 7. Gastroesophageal reflux disease. This dictation is both H&P and discharge summary.
== END 2016-07-15 13:28 | DRG 781 ==
LOC: EC 16:02 → 4MS4W 17:56
PROVIDERS: ADMIT Hospitalist; ATTEND Hospitalist
DX: O98.812 Other maternal infectious and parasitic diseases complicating pregnancy, second trimester (principal); O99.322 Drug use complicating pregnancy, second trimester; L03.114 Cellulitis of left upper limb; F11.23 Opioid dependence with withdrawal; M41.9 Scoliosis, unspecified; O99.352 Diseases of the nervous system complicating pregnancy, second trimester; G40.909 Epilepsy, unspecified, not intractable, without status epilepticus; O99.89 Other specified diseases and conditions complicating pregnancy, childbirth and the puerperium; O98.412 Viral hepatitis complicating pregnancy, second trimester; B19.20 Unspecified viral hepatitis C without hepatic coma; Z3A.24 24 weeks gestation of pregnancy; O99.512 Diseases of the respiratory system complicating pregnancy, second trimester; J44.9 Chronic obstructive pulmonary disease, unspecified; J45.909 Unspecified asthma, uncomplicated; O99.612 Diseases of the digestive system complicating pregnancy, second trimester; K21.9 Gastro-esophageal reflux disease without esophagitis; O99.342 Other mental disorders complicating pregnancy, second trimester; O99.332 Smoking (tobacco) complicating pregnancy, second trimester; F32.9 Major depressive disorder, single episode, unspecified; F17.210 Nicotine dependence, cigarettes, uncomplicated; Z86.718 Personal history of other venous thrombosis and embolism; Z79.51 Long term (current) use of inhaled steroids; Z79.899 Other long term (current) drug therapy
CPT/HCPCS: 80053; 85025; 87040; 94640; 96365; 99285

== ENCOUNTER 2016-07-21 17:25 | Emergency (ER) | payer OTHER ==
[2016-07-21] MEDS ORDERED: ACETAMINOPHEN TAB 500 MG TAB PO STA (17:58)
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
[2016-07-21 18:47] LABS: Basophils % (A) 0 %; CHCM 30.5; Eosinophils # (A) 0.1 k/uL (0-0.7); Eosinophils % (A) 1 %; HCT 35.9 % (34.0-46.0); HDW 2.65; Hypochromasia Moderate; Luc # (Auto) 0.07; Luc % (Auto) 1; Lymphocytes # (A) 0.8 k/uL (1.0-4.8); Lymphocytes % (A) 14 %; MCH 30.4 pg (25.0-35.0); MCHC 30.7 g/dL (31.0-37.0); Mean Platelet Volume 7.6; Monocytes # (A) 0.1 k/uL (0-1.0); Monocytes % (A) 2 %; Neutrophils # (A) 5.1 k/uL (1.3-7.7); Neutrophils % (A) 82 %; RBC 3.63 m/uL (3.80-5.40); RDW 14.4 % (11.5-15.5); WBC 6.2 k/uL (3.8-10.6); WBC (Perox) 6.13
[2016-07-21 18:51] LABS: MCV 98.8 fL (80.0-100.0)
--- NOTE | 2016-07-21 19:26 | XR ---
EXAMINATION TYPE: XR wrist complete LT DATE OF EXAM: 07/21/2016 7:00 PM COMPARISON: NONE HISTORY: Pain TECHNIQUE: 4 views FINDINGS: I see no fracture nor dislocation. Joint spaces are normal. Carpal bones are intact. There is soft tissue swelling of the wrist IMPRESSION: Soft tissue swelling. No fracture.
--- NOTE | 2016-07-21 19:26 | XR ---
EXAMINATION TYPE: XR hand complete LT DATE OF EXAM: 07/21/2016 7:01 PM COMPARISON: NONE HISTORY: Pain TECHNIQUE: 3 views FINDINGS: There is amputation deformity of the index finger at the DIP joint. I see no fracture nor d islocation. There is soft tissue swelling of the hand. IMPRESSION: Soft tissue swelling. No fracture.
[2016-07-21 19:32] LABS: ALT 54 U/L (9-52); AST 50 U/L (14-36); Alkaline Phosphatase 117 U/L (38-126); Anion Gap 11 mmol/L; Blood Urea Nitrogen 10 mg/dL (7-17); Calcium 9.2 mg/dL (8.4-10.2); Carbon Dioxide 21 mmol/L (22-30); Chloride 104 mmol/L (98-107); Glucose 131 mg/dL (74-99); Non-African American GFR(MDRD) >60 (>60 ml/min/1.73 sqM); Potassium 3.4 mmol/L (3.5-5.1); Sodium 136 mmol/L (137-145); Total Bilirubin 0.4 mg/dL (0.2-1.3); Total Protein 5.9 g/dL (6.3-8.2)
--- NOTE | 2016-07-21 19:50 | US ---
EXAMINATION TYPE: US venous doppler duplex UE LT DATE OF EXAM: 07/21/2016 7:37 PM COMPARISON: done 1 wk ago CLINICAL HISTORY: Pain. left arm swelling and pain, pt states she may have had a dvt over 10 yrs ago, not currently on thinners, preg in 3rd trimester SIDE PERFORMED: left Left Arm: neg for LUE dvt IMPRESSION: Normal exam. No evidence of deep venous thrombosis in the left arm.
[2016-07-21 19:52] LABS: Prothrombin Time 10.2 sec (9.0-12.0)
[2016-07-21 20:07] LABS: Partial Thromboplastin Time 20.1 sec (22.0-30.0)
[2016-07-21] MEDS ORDERED: ALBUTEROL NEBULIZED 2.5 MG/3 ML INHALATION STA (20:18)
[2016-07-21] MEDS ORDERED: PIPERACILLIN-TAZOBACTAM 3.375 GM in DEXTROSE/WATER 1 50ML.BAG IVPB STA (20:47)
[2016-07-21] MEDS ORDERED: SODIUM CHLORIDE 0.9% 1,000 ML IV SCH (21:00)
[2016-07-21 21:18] VITALS: BP 122/67; PULSE 100; RESP 18; TEMP 98.3
== END 2016-07-21 21:18 | disposition left against medical advice (07) ==
LOC: EC 17:25
DX: O99.713 Diseases of the skin and subcutaneous tissue complicating pregnancy, third trimester (principal); L03.114 Cellulitis of left upper limb; O99.353 Diseases of the nervous system complicating pregnancy, third trimester; G40.909 Epilepsy, unspecified, not intractable, without status epilepticus; O99.513 Diseases of the respiratory system complicating pregnancy, third trimester; J45.909 Unspecified asthma, uncomplicated; O99.613 Diseases of the digestive system complicating pregnancy, third trimester; K21.9 Gastro-esophageal reflux disease without esophagitis; O99.333 Smoking (tobacco) complicating pregnancy, third trimester; F17.210 Nicotine dependence, cigarettes, uncomplicated; Z86.14 Personal history of Methicillin resistant Staphylococcus aureus infection; Z3A.24 24 weeks gestation of pregnancy; Z85.828 Personal history of other malignant neoplasm of skin; Z89.022 Acquired absence of left finger(s); Z79.51 Long term (current) use of inhaled steroids; Z79.899 Other long term (current) drug therapy; Z88.1 Allergy status to other antibiotic agents; Z91.013 Allergy to seafood
CPT/HCPCS: 36415; 80053; 85025; 85610; 85730; 94640; 99284

== ENCOUNTER 2016-08-25 14:59 | Emergency (ER) | payer OTHER ==
[2016-08-25] MEDS ORDERED: SODIUM CHLORIDE 0.9% 1,000 ML IV STA (15:04)
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
[2016-08-25] MEDS ORDERED: levETIRAcetam IV 1,000 MG in SALINE 1 100ML.BAG IVPB STA (15:26)
[2016-08-25] MEDS: MAGNESIUM SULFATE-D5W PMX 1 GM in DEXTROSE/WATER 1 100ML.BAG IVPB SCH ×2 (16:30→17:47)
[2016-08-25 16:34] LABS: Appearance,Urine Clear (Clear); Bilirubin,Urine Negative (Negative); Glucose,Urine (UA) Negative (Negative); Ketones,Urine Negative (Negative); Leukocyte Esterase,Urine Trace (Negative); Mucus,Urine Rare /hpf; Nitrite,Urine Negative (Negative); Particle Count 1888; Protein,Urine Negative (Negative); RBC,Urine <1 /hpf (0-5); Specific Gravity,Urine 1.024 (1.001-1.035); Squamous Epithelial Cell,Urine 1 /hpf (0-4); UA Billing (MACRO vs. MICRO) MICRO; WBC,Urine <1 /hpf (0-5)
[2016-08-25 16:44] LABS: Basophils % (A) 0 %; CH 30.7; CHCM 32.9; Eosinophils # (A) 0.1 k/uL (0-0.7); Eosinophils % (A) 2 %; HCT 31.9 % (34.0-46.0); HDW 2.83; HGB 10.7 gm/dL (11.4-16.0); Luc # (Auto) 0.05; Luc % (Auto) 1; Lymphocytes % (A) 22 %; MCH 31.3 pg (25.0-35.0); MCHC 33.5 g/dL (31.0-37.0); Mean Platelet Volume 7.3; Monocytes # (A) 0.1 k/uL (0-1.0); Monocytes % (A) 2 %; Neutrophils # (A) 3.5 k/uL (1.3-7.7); Neutrophils % (A) 73 %; RBC 3.41 m/uL (3.80-5.40); RDW 14.2 % (11.5-15.5); WBC 4.8 k/uL (3.8-10.6); WBC (Perox) 5.07
[2016-08-25 16:55] LABS: ALT 52 U/L (9-52); AST 47 U/L (14-36); Alcohol <10 mg/dL; Alkaline Phosphatase 160 U/L (38-126); Anion Gap 9 mmol/L; Blood Urea Nitrogen 10 mg/dL (7-17); Calcium 9.3 mg/dL (8.4-10.2); Carbon Dioxide 21 mmol/L (22-30); Chloride 107 mmol/L (98-107); Glucose 72 mg/dL (74-99); Magnesium 1.2 mg/dL (1.6-2.3); Non-African American GFR(MDRD) >60 (>60 ml/min/1.73 sqM); Potassium 3.5 mmol/L (3.5-5.1); Sodium 137 mmol/L (137-145); Total Bilirubin 0.6 mg/dL (0.2-1.3); Total Protein 5.5 g/dL (6.3-8.2)
[2016-08-25 17:04] LABS: MCV 93.6 fL (80.0-100.0)
[2016-08-25 17:36] VITALS: TEMP 97.6
[2016-08-25 18:01] VITALS: BP 103/64; PULSE 92; RESP 18
== END 2016-08-25 18:01 | disposition other institution (70) ==
LOC: EC 14:59
DX: O99.353 Diseases of the nervous system complicating pregnancy, third trimester (principal); G40.409 Other generalized epilepsy and epileptic syndromes, not intractable, without status epilepticus; O99.333 Smoking (tobacco) complicating pregnancy, third trimester; F17.210 Nicotine dependence, cigarettes, uncomplicated; Z3A.32 32 weeks gestation of pregnancy; Z88.1 Allergy status to other antibiotic agents; Z91.013 Allergy to seafood; Z79.899 Other long term (current) drug therapy
CPT/HCPCS: 99285; 96365; 96366; 96368; 36415; 93005; 80053; 83735; 85025; 81001; 80306; 80320; J3475; J1953

== ENCOUNTER 2016-09-08 15:36 | Outpatient (CLI) | payer OTHER ==
[2016-09-08 19:25] VITALS: BP 103/55; PULSE 78; RESP 20; TEMP 36.2
== END 2016-09-08 17:25 | disposition home or self-care (01) ==
LOC: FBPOP 15:36
PROVIDERS: ATTEND Obstetrics & Gynecology
DX: O47.1 False labor at or after 37 completed weeks of gestation (principal); Z3A.37 37 weeks gestation of pregnancy
CPT/HCPCS: 59025; G0463; 99213

== ENCOUNTER → 2016-11-18 | Outpatient (CLI) | payer OTHER ==
[2016-11-18 10:41] LABS: ALT 126 U/L (9-52); AST 104 U/L (14-36); Alkaline Phosphatase 120 U/L (38-126); Anion Gap 9 mmol/L; Blood Urea Nitrogen 14 mg/dL (7-17); Calcium 9.4 mg/dL (8.4-10.2); Carbon Dioxide 31 mmol/L (22-30); Chloride 100 mmol/L (98-107); Glucose 93 mg/dL (74-99); Non-African American GFR(MDRD) >60 (>60 ml/min/1.73 sqM); Potassium 4.4 mmol/L (3.5-5.1); Sodium 140 mmol/L (137-145); Total Bilirubin 0.9 mg/dL (0.2-1.3)
[2016-11-18 11:13] LABS: Basophils % (A) 0 %; Eosinophils # (A) 0.1 k/uL (0-0.7); Eosinophils % (A) 5 %; HCT 39.4 % (34.0-46.0); HDW 2.74; HGB 12.9 gm/dL (11.4-16.0); Luc # (Auto) 0.03; Luc % (Auto) 1; Lymphocytes # (A) 1.1 k/uL (1.0-4.8); Lymphocytes % (A) 33 %; MCHC 32.9 g/dL (31.0-37.0); MCV 94.3 fL (80.0-100.0); Mean Platelet Volume 7.1; Monocytes # (A) 0.1 k/uL (0-1.0); Monocytes % (A) 3 %; Neutrophils # (A) 1.8 k/uL (1.3-7.7); Neutrophils % (A) 58 %; RBC 4.17 m/uL (3.80-5.40); RDW 13.7 % (11.5-15.5); WBC 3.1 k/uL (3.8-10.6)
[2016-11-18 15:33] LABS: Treponemal Ab Non-Reactive (Non-Reactive)
[2016-11-18 16:58] LABS: Hepatitis B Surface Antibody Non-Reactive (Non-Reactive)
== END | disposition home or self-care (01) ==
LOC: LABWHC1 09:26
PROVIDERS: ATTEND Psychologist Clinical
DX: F19.10 Other psychoactive substance abuse, uncomplicated (principal)
CPT/HCPCS: 36415; 80053; 85025; 86706; 86780

== ENCOUNTER → 2017-04-30 | Outpatient (CLI) | payer OTHER ==
[2017-04-30 14:33] LABS: ALT 87 U/L (9-52); AST 93 U/L (14-36); Albumin 4.1 g/dL (3.5-5.0); Alkaline Phosphatase 92 U/L (38-126); Anion Gap 9 mmol/L; Blood Urea Nitrogen 15 mg/dL (7-17); Calcium 9.1 mg/dL (8.4-10.2); Carbon Dioxide 31 mmol/L (22-30); Chloride 100 mmol/L (98-107); Glucose 78 mg/dL (74-99); Potassium 4.2 mmol/L (3.5-5.1); Sodium 140 mmol/L (137-145); Total Bilirubin 0.7 mg/dL (0.2-1.3)
[2017-04-30 20:55] LABS: T4, Free (Free Thyroxine) 0.36 ng/dL (0.78-2.19)
== END | disposition home or self-care (01) ==
LOC: LABWHC1 13:33
PROVIDERS: ATTEND Nurse Practitioner Family
DX: E03.9 Hypothyroidism, unspecified (principal)
CPT/HCPCS: 36415; 80053; 84439; 84443

== ENCOUNTER → 2017-05-14 | Outpatient (CLI) | payer OTHER ==
--- NOTE | 2017-05-14 13:07 | US ---
EXAMINATION TYPE: US thyroid st tissue head/neck DATE OF EXAM: 05/14/2017 COMPARISON: NONE CLINICAL HISTORY: E04.1 history of thyroid nodule. Pt states history of thyroid issues many years ago , was recently put on thyroid meds GLAND SIZE: Right Lobe: 3.8 x 1.9 x 1.5 cm Overall Parenchyma: heterogenous Left Lobe: 3.6 x 1.4 x 1.3 cm Overall Parenchyma: heterogeneous Isthmus Thickness: 0.5 cm NODULES RIGHT: # of nodules measured on right: 1 1. 0.6 X 0.5 x 0.6 cm echogenic solid nodule at the lower pole with well-defined margins; This nod ule is wider than tall and shows intranodular vascularity. Prior size: No prior LEFT: # of nodules measured on left: 1 1. 0.6 X 0.6 x 0.6 cm calcified nodule at the mid pole; This nodule is wider than tall and shows no intranodular vascularity. Prior size: No prior Bilateral neck scanned, no evidence of lymphadenopathy. Sub-centimeter nodules right and left lobes. IMPRESSION: Subcentimeter nodules bilateral heterogenous appearing thyroid lobes
== END | disposition home or self-care (01) ==
LOC: RADUSWWP 10:58
PROVIDERS: ATTEND Family Medicine
DX: Z09 Encounter for follow-up examination after completed treatment for conditions other than malignant neoplasm (principal); E04.2 Nontoxic multinodular goiter
CPT/HCPCS: 76536

== ENCOUNTER → 2017-08-21 | Outpatient (CLI) | payer OTHER ==
[2017-08-21 09:00] LABS: Basophils % (A) 0 %; Eosinophils # (A) 0.2 k/uL (0-0.7); Eosinophils % (A) 4 %; HCT 44.1 % (34.0-46.0); HGB 14.3 gm/dL (11.4-16.0); Lymphocytes # (A) 0.9 k/uL (1.0-4.8); Lymphocytes % (A) 20 %; MCH 30.4 pg (25.0-35.0); MCHC 32.4 g/dL (31.0-37.0); MCV 93.6 fL (80.0-100.0); Mean Platelet Volume 7.1; Monocytes # (A) 0.1 k/uL (0-1.0); Monocytes % (A) 3 %; Neutrophils # (A) 3.3 k/uL (1.3-7.7); Neutrophils % (A) 72 %; Platelet Count 137 k/uL (150-450); RBC 4.71 m/uL (3.80-5.40); RDW 13.5 % (11.5-15.5); WBC 4.6 k/uL (3.8-10.6)
[2017-08-21 09:35] LABS: ALT 66 U/L (9-52); AST 71 U/L (14-36); Albumin 4.4 g/dL (3.5-5.0); Alkaline Phosphatase 125 U/L (38-126); Anion Gap 15 mmol/L; Blood Urea Nitrogen 14 mg/dL (7-17); Calcium 9.5 mg/dL (8.4-10.2); Carbon Dioxide 29 mmol/L (22-30); Chloride 99 mmol/L (98-107); Cholesterol 167 mg/dL (<200); Glucose 84 mg/dL (74-99); HDL Cholesterol 30 mg/dL (40-60); LDL Cholesterol,Calculated 113 mg/dL (0-99); Potassium 4.2 mmol/L (3.5-5.1); Sodium 143 mmol/L (137-145); Total Bilirubin 1.2 mg/dL (0.2-1.3); Total Protein 7.3 g/dL (6.3-8.2); Triglycerides 121 mg/dL (<150)
[2017-08-22 15:22] LABS: Hepatits C Virus RNA DETECTED (Not detected)
== END | disposition home or self-care (01) ==
LOC: LABWHC1 08:20
PROVIDERS: ATTEND Nurse Practitioner Family
DX: J40 Bronchitis, not specified as acute or chronic (principal); J02.9 Acute pharyngitis, unspecified; M79.89 Other specified soft tissue disorders
CPT/HCPCS: 36415; 80053; 80061; 82306; 83036; 84443; 85025; 87522

== ENCOUNTER 2017-10-17 10:32 | Emergency (ER) | payer OTHER ==
[2017-10-17 10:41] VITALS: BP 104/71; PULSE 78; RESP 18; TEMP 98.7
[2017-10-17] MEDS ORDERED: ONDANSETRON 4 MG TAB PO STA (10:55)
[2017-10-17] MEDS ORDERED: KETOROLAC 30 MG/ML 1 ML VIAL IM STA (10:55)
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
--- NOTE | 2017-10-17 11:51 | US ---
EXAMINATION TYPE: US venous doppler duplex LE BI DATE OF EXAM: 10/17/2017 11:42 AM COMPARISON: NONE CLINICAL HISTORY: 37-year-old female Pain and swelling. SIDE PERFORMED: Bilateral TECHNIQUE: The lower extremity deep venous system is examined utilizing real time linear array sonog eva with graded compression, doppler sonography and color-flow sonography. FINDINGS: VESSELS IMAGED: External Iliac Vein (EIV) Common Femoral Vein Deep Femoral Vein Greater Saphenous Vein * Femoral Vein Popliteal Vein Small Saphenous Vein * Proximal Calf Veins (* superficial vessels) Metal Grader notes: Patient of large body habitus. Right Leg: Negative for DVT Left Leg: Negative for DVT IMPRESSION: No evidence for DVT within the bilateral lower extremities imaged from the groin to the upper calves.
== END 2017-10-17 12:57 | disposition home or self-care (01) ==
LOC: EC 10:32
DX: M25.571 Pain in right ankle and joints of right foot (principal); M25.572 Pain in left ankle and joints of left foot; M25.471 Effusion, right ankle; M25.472 Effusion, left ankle; G40.909 Epilepsy, unspecified, not intractable, without status epilepticus; F17.200 Nicotine dependence, unspecified, uncomplicated; Z85.831 Personal history of malignant neoplasm of soft tissue; Z86.718 Personal history of other venous thrombosis and embolism; Z92.21 Personal history of antineoplastic chemotherapy; Z86.14 Personal history of Methicillin resistant Staphylococcus aureus infection; Z98.890 Other specified postprocedural states; Z79.899 Other long term (current) drug therapy; Z88.1 Allergy status to other antibiotic agents; Z91.013 Allergy to seafood
CPT/HCPCS: 93970; 99283; 96372; J1885

== ENCOUNTER 2017-12-25 16:11 | Emergency (ER) | payer OTHER ==
[2017-12-25 16:15] VITALS: RESP 20; TEMP 98.2
[2017-12-25] MEDS ORDERED: SODIUM CHLORIDE 0.9% 1,000 ML IV STA (16:43)
[2017-12-25 17:19] LABS: Basophils % (A) 0 %; Eosinophils # (A) 0.2 k/uL (0-0.7); Eosinophils % (A) 6 %; HCT 39.3 % (34.0-46.0); HGB 13.1 gm/dL (11.4-16.0); Lymphocytes # (A) 1.5 k/uL (1.0-4.8); Lymphocytes % (A) 41 %; MCH 31.7 pg (25.0-35.0); MCHC 33.3 g/dL (31.0-37.0); MCV 95.2 fL (80.0-100.0); Mean Platelet Volume 7.2; Monocytes # (A) 0.1 k/uL (0-1.0); Monocytes % (A) 2 %; Neutrophils # (A) 1.8 k/uL (1.3-7.7); Neutrophils % (A) 49 %; Platelet Count 148 k/uL (150-450); RBC 4.12 m/uL (3.80-5.40); RDW 13.6 % (11.5-15.5); WBC 3.6 k/uL (3.8-10.6)
[2017-12-25 17:27] LABS: ALT 65 U/L (9-52); AST 72 U/L (14-36); Acetaminophen <10.0 ug/mL; Albumin 4.1 g/dL (3.5-5.0); Alcohol <10 mg/dL; Alkaline Phosphatase 101 U/L (38-126); Anion Gap 7 mmol/L; Blood Urea Nitrogen 11 mg/dL (7-17); Calcium 9.1 mg/dL (8.4-10.2); Carbon Dioxide 30 mmol/L (22-30); Chloride 101 mmol/L (98-107); Glucose 125 mg/dL (74-99); Potassium 3.8 mmol/L (3.5-5.1); Salicylate <1.0 mg/dL; Sodium 138 mmol/L (137-145); Total Bilirubin 0.9 mg/dL (0.2-1.3)
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
[2017-12-25 18:30] VITALS: BP 116/80; PULSE 82
--- NOTE | 2017-12-25 18:42 | CT ---
EXAMINATION TYPE: CT brain wo con DATE OF EXAM: 12/25/2017 COMPARISON: None HISTORY: Seizure yesterday. Complain of memory loss and headache CT DLP: 889.1 mGycm. Automated Exposure Control for Dose Reduction was Utilized. TECHNIQUE: CT scan of the head is performed without contrast. FINDINGS: Ventricles and sulci appear normal. There is no mass effect nor midline shift. There is no sign of intracranial hemorrhage. The calvarium is intact. There is mucosal thickening right maxillary sinus. IMPRESSION: Right maxillary sinusitis. Negative CT scan of the brain.
[2017-12-25 18:52] LABS: Amphetamine Screen,Urine Not Detected (NotDetected); Barbiturate Screen,Urine Not Detected (NotDetected); Benzodiazepines Screen,Urine Not Detected (NotDetected); Cocaine Screen,Urine Not Detected (NotDetected); Methadone Screen, Urine Detected (NotDetected); Opiate Screen,Urine Not Detected (NotDetected); Oxycodone Screen, Urine Not Detected (NotDetected); Phencyclidine Screen,Urine Not Detected (NotDetected); Tricyclic Antidepressant,Urine Not Detected (NotDetected); Urn Cannabinoid Scrn Not Detected (NotDetected)
== END 2017-12-25 18:55 | disposition home or self-care (01) ==
LOC: EC 16:11
DX: O99.352 Diseases of the nervous system complicating pregnancy, second trimester (principal); G40.909 Epilepsy, unspecified, not intractable, without status epilepticus; O99.512 Diseases of the respiratory system complicating pregnancy, second trimester; J45.909 Unspecified asthma, uncomplicated; O99.612 Diseases of the digestive system complicating pregnancy, second trimester; K21.9 Gastro-esophageal reflux disease without esophagitis; O99.332 Smoking (tobacco) complicating pregnancy, second trimester; F17.200 Nicotine dependence, unspecified, uncomplicated; Z3A.24 24 weeks gestation of pregnancy; Z86.14 Personal history of Methicillin resistant Staphylococcus aureus infection; Z86.19 Personal history of other infectious and parasitic diseases; Z79.899 Other long term (current) drug therapy; Z88.1 Allergy status to other antibiotic agents; Z91.013 Allergy to seafood; Z85.89 Personal history of malignant neoplasm of other organs and systems
CPT/HCPCS: 36415; 80053; 85025; 80306; 83520 ×2; 70450; 99284; 96360; G0480; 80320

== ENCOUNTER 2018-01-23 09:15 | Emergency (ER) | payer OTHER ==
--- NOTE | 2018-01-23 10:59 | XR ---
EXAMINATION TYPE: XR wrist complete LT DATE OF EXAM: 01/23/2018 COMPARISON: NONE HISTORY: Pain TECHNIQUE: Four views submitted. FINDINGS: The osseous structures are intact. The joint spaces are preserved and there is no acute fracture or dislocation. Sclerotic density overlying the capitate most typical of bone island. IMPRESSION: 1. No definite acute fracture or dislocation if symptoms persist, follow-up study in 7 to 10 days wo uld be suggested
[2018-01-23] MEDS ORDERED: KETOROLAC 60 MG/2 ML VIAL IVP STA (11:08)
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
--- NOTE | 2018-01-23 12:12 | XR ---
EXAMINATION TYPE: XR forearm LT DATE OF EXAM: 01/23/2018 CLINICAL HISTORY: Hand and wrist swelling. TECHNIQUE: Two views of the left forearm are obtained. COMPARISON: None. FINDINGS: Moderate diffuse subcutaneous edema and soft tissue swelling is seen. No acute fracture or dislocation is evident. Visualized elbow and wrist joints are within normal limits. IMPRESSION: As above.
[2018-01-23] MEDS ORDERED: KETOROLAC 30 MG/ML 1 ML VIAL IM STA (12:21)
[2018-01-23 12:43] LABS: Basophils % (A) 0 %; Eosinophils # (A) 0.2 k/uL (0-0.7); Eosinophils % (A) 5 %; HCT 39.2 % (34.0-46.0); HGB 13.3 gm/dL (11.4-16.0); Lymphocytes # (A) 1.7 k/uL (1.0-4.8); Lymphocytes % (A) 37 %; MCH 32.1 pg (25.0-35.0); MCV 94.6 fL (80.0-100.0); Mean Platelet Volume 7.3; Monocytes # (A) 0.2 k/uL (0-1.0); Monocytes % (A) 4 %; Neutrophils # (A) 2.4 k/uL (1.3-7.7); Neutrophils % (A) 53 %; Platelet Count 146 k/uL (150-450); RBC 4.15 m/uL (3.80-5.40); RDW 13.7 % (11.5-15.5); WBC 4.5 k/uL (3.8-10.6)
[2018-01-23 12:56] LABS: Albumin 4.3 g/dL (3.5-5.0); Anion Gap 9 mmol/L; Blood Urea Nitrogen 15 mg/dL (7-17); C Reactive Protein 20.8 mg/L (<10.0); Calcium 9.4 mg/dL (8.4-10.2); Carbon Dioxide 29 mmol/L (22-30); Chloride 101 mmol/L (98-107); Glucose 85 mg/dL (74-99); Sodium 139 mmol/L (137-145); Total Bilirubin 0.8 mg/dL (0.2-1.3); Total Protein 7.4 g/dL (6.3-8.2)
[2018-01-23 12:57] LABS: ALT 61 U/L (9-52); AST 82 U/L (14-36); Potassium 4.8 mmol/L (3.5-5.1)
[2018-01-23 12:58] LABS: Alkaline Phosphatase 103 U/L (38-126)
--- NOTE | 2018-01-23 13:14 | US ---
EXAMINATION TYPE: US venous doppler duplex UE LT DATE OF EXAM: 01/23/2018 COMPARISON: Prior left upper extremity venous ultrasound July 21, 2016 CLINICAL HISTORY: Pain. Pain and edema left arm SIDE PERFORMED: left Left Arm: No evidence of DVT or SVT as visualized. Technical limitations due to large amount of soft tissue edema Grayscale, color doppler, spectral doppler imaging performed of the deep veins of the left upper extr emity. There is normal flow, compressibility and vascular waveforms. IMPRESSION: Suboptimal study due to extensive subcutaneous edema especially distally, no evidence of acute DVT or SVT in the left upper extremity.
[2018-01-23 15:12] VITALS: BP 104/70; PULSE 93; RESP 18; TEMP 97.7
--- NOTE | 2018-01-26 13:35 | XR ---
EXAMINATION TYPE: XR hand complete LT DATE OF EXAM: 01/23/2018 CLINICAL HISTORY: EXAMINATION TYPE: XR hand complete LT DATE OF EXAM: 01/23/2018 CLINICAL HISTORY: pain TECHNIQUE: Frontal, lateral and oblique images of the left wrist and hand are obtained. COMPARISON: None. FINDINGS: There is no acute fracture/dislocation evident. The joint spaces appear within normal limits. Moderate soft tissue swelling about the wrist and left hand which may be posttraumatic in nature or related to cellulitis. Correlate clinically. IMPRESSION: There is no acute fracture or dislocation seen. MTDD
== END 2018-01-23 15:11 | disposition home or self-care (01) ==
LOC: EC 09:15
DX: M79.89 Other specified soft tissue disorders (principal); J45.909 Unspecified asthma, uncomplicated; K21.9 Gastro-esophageal reflux disease without esophagitis; F17.200 Nicotine dependence, unspecified, uncomplicated; Z79.899 Other long term (current) drug therapy; Z86.718 Personal history of other venous thrombosis and embolism; Z88.1 Allergy status to other antibiotic agents; Z91.013 Allergy to seafood
CPT/HCPCS: 36415; 80053; 85025; 86140; 73090; 73110; 73130; 93971; 99284; 96372; J1885

== ENCOUNTER → 2019-11-05 | Outpatient (CLI) | payer OTHER ==
--- NOTE | 2019-11-05 13:12 | US ---
EXAMINATION TYPE: US abdomen complete DATE OF EXAM: 11/05/2019 COMPARISON: NONE CLINICAL HISTORY: Chronic HEP C B18.2. Hep C EXAM MEASUREMENTS: Liver Length: 15.3 cm Gallbladder Wall: .2 cm CBD: 1.1 cm Spleen: 14 cm Right Kidney: 8.5 x 3.9 x 4.0 cm Left Kidney: 8.2 x 4.7 x 3.8 cm Pancreas: Tail obscured by overlying bowel gas Liver: Increased attenuation Gallbladder: No stones seen Evidence for sonographic Ding's sign: No CBD: Dilated Spleen: Splenomegaly Right Kidney: Limited due to bowel gas Left Kidney: Limited due to bowel gas Upper IVC: wnl Abd Aorta: wnl The liver is homogenous. The intrahepatic portion of the IVC and proximal abdominal aorta are within normal limits. There is no evidence of cholelithiasis. The Visualized portions of the pancreas are homogenous. Kidneys are symmetric and free of hydronephrosis. No renal lesions are seen. IMPRESSION: 1. Splenomegaly. 2. Dilated common bile duct of uncertain etiology.
== END | disposition home or self-care (01) ==
LOC: RADUSWWP 12:25
PROVIDERS: ATTEND Internal Medicine Gastroenterology
DX: B18.2 Chronic viral hepatitis C (principal); K83.8 Other specified diseases of biliary tract
CPT/HCPCS: 76700

== ENCOUNTER 2020-02-05 11:21 | Emergency (ER) | payer OTHER ==
[2020-02-05 11:35] VITALS: BP 141/92; PULSE 109; RESP 18; TEMP 99.5
--- NOTE | 2020-02-05 12:45 | XR ---
EXAMINATION TYPE: XR knee 4V RT DATE OF EXAM: 02/05/2020 CLINICAL HISTORY: Pain after fall injury. TECHNIQUE: 4 views of the right knee are obtained. COMPARISON: None. FINDINGS: There is no acute fracture/dislocation evident in right knee. The tri-compartment joint s paces appear within normal limits. Meniscal calcification is present. Patellar articulation satisfac tory and sunrise view. Mild diffuse subcutaneous edema is seen. IMPRESSION: There is no acute fracture or dislocation in the right knee.
[2020-02-05] MEDS ORDERED: cefTRIAXone 1,000 MG VIAL (IM USE) IM STA (13:12)
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
[2020-02-05] MEDS ORDERED: IBUPROFEN 600 MG TAB PO STA (13:26)
== END 2020-02-05 13:52 | disposition home or self-care (01) ==
LOC: EC 11:21
DX: L03.115 Cellulitis of right lower limb (principal); J45.909 Unspecified asthma, uncomplicated; K21.9 Gastro-esophageal reflux disease without esophagitis; G40.909 Epilepsy, unspecified, not intractable, without status epilepticus; Z79.51 Long term (current) use of inhaled steroids; Z79.899 Other long term (current) drug therapy; Z91.013 Allergy to seafood; Z88.1 Allergy status to other antibiotic agents; Z85.831 Personal history of malignant neoplasm of soft tissue; Z86.718 Personal history of other venous thrombosis and embolism; Z92.3 Personal history of irradiation; Z92.21 Personal history of antineoplastic chemotherapy; Z98.890 Other specified postprocedural states
CPT/HCPCS: 73564; 99284; 96372; J0696

== ENCOUNTER 2020-02-08 13:15 | Observation (INO) | payer OTHER ==
[2020-02-08] MEDS ORDERED: SODIUM CHLORIDE 0.9% 500 ML 500 ML IV STA (14:02)
[2020-02-08] MEDS ORDERED: KETOROLAC 15 MG/ML 1 ML VIAL IVP STA (14:03)
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
[2020-02-08 14:49] LABS: Basophils % (A) 0 %; Eosinophils # (A) 0.2 k/uL (0-0.7); Eosinophils % (A) 2 %; HCT 34.8 % (34.0-46.0); HGB 11.8 gm/dL (11.4-16.0); Lymphocytes # (A) 1.1 k/uL (1.0-4.8); Lymphocytes % (A) 16 %; MCH 31.8 pg (25.0-35.0); MCHC 33.8 g/dL (31.0-37.0); Mean Platelet Volume 7.2; Monocytes # (A) 0.2 k/uL (0-1.0); Monocytes % (A) 2 %; Neutrophils # (A) 5.5 k/uL (1.3-7.7); Neutrophils % (A) 78 %; Platelet Count 149 k/uL (150-450); RDW 13.1 % (11.5-15.5)
[2020-02-08 15:02] LABS: ALT 20 U/L (4-34); AST 28 U/L (14-36); African American GFR (CKD) >90 (>60 ml/min/1.73 sqM); Albumin 3.5 g/dL (3.5-5.0); Alkaline Phosphatase 104 U/L (38-126); Anion Gap 6 mmol/L; Blood Urea Nitrogen 12 mg/dL (7-17); Calcium 8.8 mg/dL (8.4-10.2); Carbon Dioxide 31 mmol/L (22-30); Chloride 97 mmol/L (98-107); Glucose 155 mg/dL (74-99); Non-African American GFR(CKD) 84 (>60 ml/min/1.73 sqM); Potassium 3.5 mmol/L (3.5-5.1); Sodium 134 mmol/L (137-145); Total Bilirubin 1.2 mg/dL (0.2-1.3); Total Protein 6.3 g/dL (6.3-8.2)
[2020-02-08 15:16] LABS: C Reactive Protein 264.4 mg/L (<10.0)
[2020-02-08] MEDS ORDERED: VANCOMYCIN IV PER PHARMACY 1 EACH MISC MISCELLANE PRN (15:32)
[2020-02-08] MEDS ORDERED: VANCOMYCIN 1,500 MG in SODIUM CHLORIDE 0.9% 250 ML IVPB STA (15:37)
[2020-02-08] MEDS ORDERED: cefTRIAXone IN SWFI 1,000 MG/10 ML SYRINGE IVP STA (15:54)
[2020-02-08] MEDS ORDERED: NALOXONE 0.4 MG/ML 1 ML VIAL IV PRN (15:56)
[2020-02-08] MEDS ORDERED: ONDANSETRON 4 MG/2 ML VIAL IVP PRN (15:56)
[2020-02-08] MEDS: SODIUM CHLORIDE 0.9% 1,000 ML IV SCH (17:26)
--- NOTE | 2020-02-08 18:26 | US ---
EXAMINATION TYPE: US venous doppler duplex LE RT DATE OF EXAM: 02/08/2020 6:15 PM COMPARISON: NONE CLINICAL HISTORY: pain in right lower leg, swelling. SIDE PERFORMED: Right TECHNIQUE: The lower extremity deep venous system is examined utilizing real time linear array sonog eva with graded compression, doppler sonography and color-flow sonography. VESSELS IMAGED: Common Femoral Vein Deep Femoral Vein Greater Saphenous Vein * Femoral Vein Popliteal Vein Small Saphenous Vein * Proximal Calf Veins (* superficial vessels) Right Leg: Negative for DVT IMPRESSION: No evidence of deep vein thrombosis in the right leg.
[2020-02-08] MEDS: KETOROLAC 15 MG/ML 1 ML VIAL IVP PRN (20:15)
[2020-02-09] MEDS: VANCOMYCIN 1,250 MG in SODIUM CHLORIDE 0.9% 250 ML IVPB SCH ×3 (01:04→15:47)
[2020-02-09] MEDS: KETOROLAC 15 MG/ML 1 ML VIAL IVP PRN ×4 (03:52→23:41)
[2020-02-09] MEDS ORDERED: DOXEPIN 25 MG CAP PO PRN (09:03)
[2020-02-09] MEDS ORDERED: DICLOFENAC SODIUM GEL 100 GM TUBE TOPICAL PRN (09:03)
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
--- NOTE | 2020-02-09 10:17 | XR ---
Right knee HISTORY: Swelling, erythema, infection, trauma 3 views the right knee Correlation to prior exam 02/05/2020 There is no significant change. Chondrocalcinosis is noted. There is soft tissue swelling suspected. Suprapatellar joint effusion is suspected. IMPRESSION: Stable exam. Correlate for cellulitis, prepatellar bursitis, edema or hematoma. Joint eff usion.
[2020-02-09] MEDS: METHADONE 10 MG TAB PO SCH (11:08)
[2020-02-09 11:23] LABS: African American GFR (CKD) 106.9 (60.0-200.0); Non-African American GFR(CKD) 92.2 (60.0-200.0)
[2020-02-09] MEDS: ALBUTEROL NEBULIZED 2.5 MG/3 ML INHALATION PRN ×2 (11:34→20:51)
[2020-02-09] MEDS: PANTOPRAZOLE 40 MG/10 ML VIAL IVP SCH (11:34)
[2020-02-09] MEDS: LEVOTHYROXINE 125 MCG TAB PO SCH (11:35)
[2020-02-09] MEDS: SODIUM CHLORIDE 0.9% 1,000 ML IV SCH (11:37)
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
--- NOTE | 2020-02-09 20:01 | CONS ---
CONSULTATION DATE OF SERVICE: 02/09/2020 REASON FOR CONSULTATION: Right knee cellulitis. HISTORY OF PRESENT ILLNESS: The patient is a 39-year-old female who presented to the ER at [facility] yesterday afternoon for evaluation of right knee pain, swelling, redness and the pain started about 4 days ago. The patient mentioned that it started as a small pimple that has gradually increased in size to becoming more swollen, red and painful. The patient described the pain to be more of a throbbing at times dull aching 5-6/10, no radiation and the pain is worse when she walks on it. Currently with no open wound or any drainage. The patient did have some chills. Denies high-grade fever. With these symptoms the patient was evaluated by the ER physician. On arrival to the ER, the patient was afebrile. The patient did have a normal white count. Kidney function was normal. The patient did have x-rays of the right knee that shows cellulitis, prepatellar bursitis. Venous Doppler was negative for DVT. The patient was started on vancomycin. Infectious Disease was consulted for further management of antibiotic therapy. REVIEW OF SYSTEMS: Positive points have been mentioned in HPI. Rest of systems are negative. PAST MEDICAL HISTORY: Asthma, DVT, gastroesophageal reflux disease, pneumonia, seizure disorder, also history of rhabdomyosarcoma, previous history of MRSA infection. PAST SURGICAL HISTORY: , right lower lobe lobectomy secondary to empyema and bone marrow transplant. SOCIAL HISTORY: Current everyday smoker. Denies drinking or drug use. FAMILY HISTORY: Father from overdose and mother from overdose as well. ALLERGIES: MOXIFLOXACIN. MEDICATIONS: The patient is currently on vancomycin, Pharmacy to dose, Tylenol, doxepin, Motrin, Toradol, Synthroid, methadone, morphine sulfate, Narcan, Zofran, Protonix and IV fluid. PHYSICAL EXAMINATION: VITAL SIGNS: Blood pressure 142/91 with a pulse of 100, temperature 98.4. She is 96% on room air. GENERAL DESCRIPTION: A middle-aged female lying in bed in no distress. No tachypnea or accessory muscles of respiration use. HEENT: Examination shows no pallor or scleral icterus. Oral mucous membranes are dry. No pharyngeal erythema or thrush. NECK: Trachea central. No thyromegaly. LUNGS: Unlabored breathing, clear to auscultation anteriorly. No wheeze or crackle. HEART: S1, S2. Regular rate and rhythm. ABDOMEN: Soft, no tenderness. Right knee did have swelling on the prepatellar area, slightly warm and tender to touch. No open wound or any drainage. NEUROLOGICAL: Patient is awake, alert, oriented times three. Mood and affect normal. LABS: Hemoglobin 1.1, white count 7.0, BUN of 12, creatinine 0.87. CRP 264. X-rays of the knee and ultrasound report as mentioned above. DIAGNOSTIC IMPRESSION AND PLAN: 1. Patient with right knee prepatellar bursitis, likely from a gram-positive skin olga with a previous history of MRSA infection, could be MRSA, MSSA or strep. PLAN: 1. Ortho evaluation for possible right knee bursectomy deep culture. 2. Vancomycin to pharmacy to dose target of 15 while watching kidney function and Vancomycin trough closely. 3. We will follow on clinical condition and culture to further adjust medication if needed. Thank you for this consultation. Will follow this patient along with you. MMODL / IJN: [id number] /
[2020-02-09] MEDS ORDERED: VANCOMYCIN TROUGH DUE 1 EACH MISC MISCELLANE ONE (23:00)
[2020-02-10] MEDS: VANCOMYCIN 1,250 MG in SODIUM CHLORIDE 0.9% 250 ML IVPB SCH ×3 (00:54→19:23)
[2020-02-10] MEDS: SODIUM CHLORIDE 0.9% 1,000 ML IV SCH ×2 (00:57→21:30)
[2020-02-10] MEDS: ACETAMINOPHEN TAB 325 MG TAB PO PRN ×2 (04:55→11:29)
[2020-02-10] MEDS: LEVOTHYROXINE 125 MCG TAB PO SCH (05:32)
[2020-02-10] MEDS: NEOMYCIN-BACITRACIN-POLY OINT 14 GM TUBE TOPICAL PRN (06:21)
[2020-02-10] MEDS: LACTATED RINGERS 1,000 ML IV SCH ×2 (06:29→19:23)
[2020-02-10] MEDS: ALBUTEROL NEBULIZED 2.5 MG/3 ML INHALATION PRN ×3 (07:20→20:28)
[2020-02-10 09:20] LABS: African American GFR (CKD) >90 (>60 ml/min/1.73 sqM); Non-African American GFR(CKD) 87 (>60 ml/min/1.73 sqM)
[2020-02-10] MEDS: METHADONE 10 MG TAB PO SCH (09:31)
[2020-02-10] MEDS: MORPHINE SULFATE 4 MG/ML SYRINGE IV PRN ×2 (09:33→14:44)
[2020-02-10] MEDS: PANTOPRAZOLE 40 MG/10 ML VIAL IVP SCH (09:33)
[2020-02-10] MEDS ORDERED: hydrALAZINE HCL 20 MG/ML 1 ML VIAL IVP PRN (12:08)
[2020-02-10] MEDS ORDERED: IV FLUID CONTINUATION 600 ML IV ONE (15:27)
[2020-02-10] MEDS ORDERED: ONDANSETRON 4 MG/2 ML VIAL IVP ONE (15:57)
[2020-02-10] MEDS ORDERED: DEXAMETHASONE SOD PHOSPHATE 4 MG/ML 1 ML VIAL IVP ONE (15:58)
[2020-02-10] MEDS ORDERED: LIDOCAINE 1% INJ 10MG/ML (20 ML MDV) ONE (16:55)
[2020-02-10] MEDS ORDERED: GLYCOPYRROLATE 0.2 MG/ML 2 ML VIAL ONE (16:55)
[2020-02-10] MEDS ORDERED: PROPOFOL 10 MG/ML 20 ML VIAL IV ONE (16:55)
[2020-02-10] MEDS ORDERED: KETAMINE 10 MG/ML 20 ML VIAL ONE (16:55)
[2020-02-10] MEDS ORDERED: MIDAZOLAM 2 MG/2 ML VIAL ONE (16:55)
[2020-02-10] MEDS ORDERED: fentaNYL (PF) 50 MCG/ML 2 ML AMP ONE (16:55)
[2020-02-10] MEDS ORDERED: HYDROmorphone 0.5 MG/0.5 ML SYRINGE IVP PRN (17:47)
[2020-02-10] MEDS ORDERED: ONDANSETRON 4 MG/2 ML VIAL IVP PRN (17:47)
[2020-02-10] MEDS ORDERED: HYDROcodone/APAP 5-325MG 1 EACH TAB PO PRN ×2 (17:47)
[2020-02-10] MEDS ORDERED: HYDROmorphone 0.2 MG/1 ML SYRINGE IVP PRN (17:47)
--- NOTE | 2020-02-10 17:47 | P.OP ---
Date of Procedure: 02/10/20 Preoperative Diagnosis: Right knee septic prepatellar bursitis Postoperative Diagnosis: Same Procedure(s) Performed: 1. Right knee prepatellar bursectomy 2. Incision with irrigation right knee Anesthesia: FRANCA Surgeon: Gerson Martinez Financial Data Analyst #1: Kamlesh Gloria Estimated Blood Loss (ml): 10 Pathology: other (Cultures) Condition: stable Disposition: PACU Indications for Procedure: 39-year-old patient seen with right knee septic prepatellar bursitis. We discussed incision with irrigation and bursectomy. Patient was agreeable and consent was obtained. Operative Findings: See description of procedure Description of Procedure: The patient was taken to the operative suite. The patient underwent a general anesthetic by the department of anesthesia. A well-padded tourniquet placed proximal right thigh. The right lower extremity was prepped and draped in the normal sterile orthopedic fashion. The extremity was elevated and tourniquet insufflated to 300. An incision was made sharply through the anterior aspect of the right knee. We immediately encountered a significant amount of purulent fluid. Cultures were obtained. I now evaluated the wound. There was thickened bursal tissue subcutaneously. There was no penetration of the capsule as a quadriceps and patellar tendon as well as a were all intact. I now performed a partial prepatellar bursectomy. The residual tissue appeared stable. The wound was irrigated copiously with pulse lavage mechanical irrigation. The subcutaneous soft tissues were tacked down to the capsule with 2-0 Vicryl. The Skin Was Then approximated nylon suture over a drain. Sterile dressings were applied. The tourniquet was released with immediate capillary refill noted. A sterile Alec bandage was applied. The patient was awakened having entire procedure well. Zaid SIMENTAL assisted the procedure.
[2020-02-10] MEDS: HYDROmorphone 1 MG/ML 1 ML SYRINGE IVP ONE ×4 (18:10→18:24)
[2020-02-10] MEDS ORDERED: diphenhydrAMINE 50 MG/ML 1 ML VIAL IVP ONE (18:10)
[2020-02-10] MEDS: HYDROmorphone 0.5 MG/0.5 ML SYRINGE IVP PRN (19:27)
--- NOTE | 2020-02-10 23:30 | PN ---
PROGRESS NOTE DATE OF SERVICE: 02/10/2020 REASON FOR FOLLOWUP: Right knee septic prepatellar bursitis. INTERVAL HISTORY: The patient is currently afebrile. The patient did have spontaneous drainage from her right knee area. Culture has been obtained. She was also taken to the OR and is status post bursectomy by Orthopedics. The patient denies having any chest pain or shortness of breath or cough. Still complains of pain in the knee, but no worsening. PHYSICAL EXAMINATION: Blood pressure 155/93 with a pulse of 95, temperature 98. She is 94% on 3 L nasal cannula. General description is a middle-aged female lying in bed in no distress. RESPIRATORY SYSTEM: Unlabored breathing. Clear to auscultation anteriorly. HEART: S1, S2. Regular rate and rhythm. ABDOMEN: Soft. No tenderness. Right knee did have swelling, redness; minimal drainage. LABS: Blood culture negative so far. DIAGNOSTIC IMPRESSION AND PLAN: Patient with right knee prepatellar bursitis followed by surgical drainage. We will wait for the culture to finalize. Patient will benefit from IV antibiotic on discharge. Continue vancomycin. Adjust antibiotic further on the basis of culture report. Continue with supportive care. MMODL / IJN: [id number] / STACI
--- NOTE | 2020-02-11 00:04 | P.PN ---
Subjective This is a pleasant 39 years old female with multiple medical problems as below, she is a patient of Dr. denny. She presents because and has given they last she fell from a height while she was trying to hang something and she hurt her right knee and then gradually started to get more swollen red and tender so she decided to come to the hospital. She denies chest pain or dyspnea, no nausea vomiting or coughing. No fever She states that her knee looks better today after she got antibiotics in the emergency room Patient smokes about 8 cigarettes per day, patient was counseled to quit and she agrees but she declines the nicotine patch, no alcohol or illicit drugs Patient denies (although it was mentioned by mistake she is and 23, she agrees to check for hCG in the serum) She denies depression or suicidal ideation She states she has history of blood in her neck about 10 years ago and currently she is not on anticoagulation She is currently taking methadone from [facility] She states that she was to take seizure medication for history of seizure but now she is off this medication by her doctor Labs showing no leukocytosis and an unremarkable CBC, BMP and liver enzymes are unremarkable Venous ultrasound is negative for DVT in the right leg In the emergency room she received ceftriaxone and started on vancomycin Also I discussed with bed side nurse, she contacted the pharmacy point informed her that the patient is on methadone from [facility] and that is been verified. The patient has the medicine actually on her pocket and is going to be sent to the pharmacy to be verified 02/10/2020 Her right knee bursa still swollen and tender, there is some spontaneous opening on the top with some purulent discharge we going to send it for culture. No other issue Orthopedic team are planning to do I&D with right knee prepatellar bursectomy today Patient remains on IV vancomycin with creatinine is a stable and normal Review of Systems CONSTITUTIONAL: No fever, no malaise, no fatigue. HEENT: No recent visual problems or hearing problems. Denied any sore throat. CARDIOVASCULAR: No orthopnea, PND, no palpitations, no syncope. PULMONARY: No shortness of breath, no cough, no hemoptysis. GASTROINTESTINAL: No diarrhea, no nausea, no vomiting, no abdominal pain. Normoactive bowel sounds. NEUROLOGICAL: No headaches, no weakness, no numbness. HEMATOLOGICAL: Denies any bleeding or petechiae. Active Medications Generic Name Dose Route Start Last Admin Trade Name Freq PRN Reason Stop Dose Admin Acetaminophen 650 mg 02/08/20 15:56 02/10/20 11:29 Acetaminophen Tab 325 Mg Tab PO 650 mg Q6HR PRN Administration Mild Pain or Fever > 100.5 Hydrocodone Bitart/Acetaminophen 1 each 02/10/20 17:47 Hydrocodone/Apap 5-325mg 1 Each Tab PO Q6HR PRN Pain Scale 1 to 5 Hydrocodone Bitart/Acetaminophen 2 each 02/10/20 17:47 Hydrocodone/Apap 5-325mg 1 Each Tab PO Q6HR PRN Pain Scale 6 to 10 Albuterol Sulfate 2.5 mg 02/09/20 09:03 02/10/20 20:28 Albuterol Nebulized 2.5 Mg/3 Ml INHALATION 2.5 mg RT-QID PRN Administration Shortness Of Breath Diclofenac Sodium 4 gm 02/09/20 09:03 Diclofenac Sodium Gel 100 Gm Tube TOPICAL QID PRN Pain Doxepin HCl 50 mg 02/09/20 09:03 Doxepin 25 Mg Cap PO HS PRN SLEEP Heparin Sodium (Porcine) 5,000 unit 02/11/20 00:00 Heparin Sodium,Porcine 5,000 Unit/Ml 1 Ml Vial SQ Q8HR [facility] Hydralazine HCl 10 mg 02/10/20 12:08 Hydralazine Hcl 20 Mg/Ml 1 Ml Vial IVP ONCE PRN Blood Pressure - High Hydromorphone HCl 0.5 mg 02/10/20 17:47 02/10/20 19:27 Hydromorphone 0.5 Mg/0.5 Ml Syringe IVP 0.5 mg Q3HR PRN Administration Pain Scale 7 to 10 Hydromorphone HCl 0.125 mg 02/10/20 17:47 Hydromorphone 0.5 Mg/0.5 Ml Syringe IVP Q3HR PRN Pain Scale 1 to 3 Hydromorphone HCl 0.2 mg 02/10/20 17:47 Hydromorphone 0.2 Mg/1 Ml Syringe IVP Q3HR PRN Pain Scale 4 to 6 Vancomycin HCl 1,250 mg/ 250 mls @ 125 mls/hr 02/09/20 00:00 02/10/20 19:23 Sodium Chloride IVPB 125 mls/hr Q8HR [facility] Administration Sodium Chloride 1,000 mls @ 60 mls/hr 02/08/20 16:00 02/10/20 21:30 Saline 0.9% IV Not Given .[id number] [facility] Lactated Ringer's 1,000 mls @ 20 mls/hr 02/10/20 05:53 02/10/20 06:29 Lactated Ringers IV Not Given .Q24H [facility] Lactated Ringer's 1,000 mls @ 100 mls/hr 02/10/20 18:00 02/10/20 19:23 Lactated Ringers IV 100 mls/hr .Q10H [facility] Administration Ibuprofen 400 mg 02/08/20 15:56 Ibuprofen 400 Mg Tab PO Q6HR PRN Mild Pain or Fever > 100.5 Ketorolac Tromethamine 15 mg 02/08/20 15:56 02/09/20 23:41 Ketorolac 15 Mg/Ml 1 Ml Vial IVP 02/11/20 15:57 15 mg Q6HR PRN Administration Moderate Pain Levothyroxine Sodium 125 mcg 02/09/20 09:30 02/10/20 05:32 Levothyroxine 125 Mcg Tab PO 125 mcg DAILY@0630 [facility] Administration Methadone HCl 130 mg 02/09/20 09:30 02/10/20 09:31 Methadone 10 Mg Tab PO Not Given DAILY [facility] Miscellaneous Information 0 each 02/11/20 07:00 Vancomycin Trough Due 1 Each Misc MISCELLANE 02/11/20 07:01 DIRECTED ONE Morphine Sulfate 4 mg 02/08/20 15:56 02/10/20 14:44 Morphine Sulfate 4 Mg/Ml Syringe IV 4 mg Q4HR PRN Administration Severe Pain Naloxone HCl 0.2 mg 02/08/20 15:56 Naloxone 0.4 Mg/Ml 1 Ml Vial IV Q2M PRN Opioid Reversal Neomycin/Polymyxin/Bacitracin 1 applic 02/09/20 13:27 02/10/20 06:21 Hrubeunk-Ncpllbgspr-Fsyp Oint 14 Gm Tube TOPICAL 1 applic DAILY PRN Administration Skin Irritation Ondansetron HCl 4 mg 02/08/20 15:56 Ondansetron 4 Mg/2 Ml Vial IVP Q8HR PRN Nausea And Vomiting Ondansetron HCl 4 mg 02/10/20 17:47 Ondansetron 4 Mg/2 Ml Vial IVP DAILY PRN Nausea And Vomiting Pantoprazole Sodium 40 mg 02/09/20 09:30 02/10/20 09:33 Pantoprazole 40 Mg/10 Ml Vial IVP 40 mg DAILY [facility] Administration Objective - Vital Signs Vital signs: Vital Signs Temp 98.2 F 02/10/20 15:19 Pulse 103 H 02/10/20 15:19 Resp 16 02/10/20 15:19 BP 168/97 02/10/20 15:19 Pulse Ox 95 02/10/20 15:19 Intake & Output 02/09/20 02/10/20 02/10/20 18:59 06:59 18:59 Intake Total 200 240 Balance 200 240 Intake: Oral 240 Other 200 Other: Voiding Method Toilet Toilet Toilet # Voids 1 1 - Exam GENERAL: The patient is alert and oriented x3, not in any acute distress. Well developed, well nourished. HEENT: Pupils are round and equally reacting to light. EOMI. No scleral icterus. No conjunctival pallor. Normocephalic, atraumatic. No pharyngeal erythema. No thyromegaly. CARDIOVASCULAR: S1 and S2 present. No murmurs, rubs, or gallops. PULMONARY: Chest is clear to auscultation, no wheezing or crackles. ABDOMEN: Soft, nontender, nondistended, normoactive bowel sounds. No palpable organomegaly. MUSCULOSKELETAL: No joint swelling or deformity. -EXTREMITIES: No cyanosis, clubbing, or pedal edema. Right knee prepatellar bursa is a swollen, red and tender NEUROLOGICAL: Gross neurological examination did not reveal any focal deficits. SKIN: No rashes. no petechiae. 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 Continue with antibiotics, but we will consult infectious disease for antibiotics and follow- up. We'll order a right knee x-ray and consult orthopedic service. Continue gentle hydration. Labs and medication were reviewed.. Continue same treatment. Continue with symptomatic treatment. Resume home medication. Monitor lytes and vitals. DVT and GI prophylaxis. Further recommendations depends on the clinical course of the patient DVT prophylaxis: Subcutaneous heparin GI Prophylaxis: Pepcid PT/OT: Pending. Alert after orthopedic evaluation and knee x-ray Prognosis is guarded
[2020-02-11] MEDS: HEPARIN SODIUM,PORCINE 5,000 UNIT/ML 1 ML VIAL SQ SCH ×4 (01:27→20:14)
[2020-02-11] MEDS: VANCOMYCIN 1,250 MG in SODIUM CHLORIDE 0.9% 250 ML IVPB SCH ×2 (01:27→08:26)
[2020-02-11] MEDS: LACTATED RINGERS 1,000 ML IV SCH ×3 (03:44→15:20)
[2020-02-11] MEDS: HYDROmorphone 0.5 MG/0.5 ML SYRINGE IVP PRN ×4 (05:01→23:20)
[2020-02-11] MEDS: LEVOTHYROXINE 125 MCG TAB PO SCH (05:02)
[2020-02-11] MEDS ORDERED: VANCOMYCIN TROUGH DUE 1 EACH MISC MISCELLANE ONE (07:00)
[2020-02-11] MEDS: ALBUTEROL NEBULIZED 2.5 MG/3 ML INHALATION PRN (07:48)
[2020-02-11] MEDS: PANTOPRAZOLE 40 MG/10 ML VIAL IVP SCH (08:25)
[2020-02-11] MEDS: METHADONE 10 MG TAB PO SCH (08:43)
[2020-02-11 09:09] LABS: African American GFR (CKD) >90 (>60 ml/min/1.73 sqM); Non-African American GFR(CKD) >90 (>60 ml/min/1.73 sqM)
--- NOTE | 2020-02-11 10:41 | P.PN ---
Subjective Progress Note Date: 02/11/20 Principal diagnosis: Status post I&D right septic prepatellar bursitis Patient evaluated at bedside, she is resting comfortably. Her pain is well- controlled. She's ambulated minimally at this time. She denies any fever or chills. She has no shortness of breath or chest pain. Objective - Vital Signs Vital signs: Vital Signs Temp 98.9 F 02/11/20 10:17 Pulse 92 02/11/20 10:17 Resp 12 02/11/20 10:17 BP 135/80 02/11/20 10:17 Pulse Ox 98 02/11/20 08:21 Intake & Output 02/10/20 02/11/20 02/11/20 18:59 06:59 18:59 Intake Total 400 Output Total 10 Balance 390 Intake: IV 400 Output: Estimated Blood Loss 10 Other: Voiding Method Toilet Toilet Bedside Commode # Voids 1 2 - Exam Right lower extremity: Postop bandage was removed, dry bloody drainage noted on the bandage. No active drainage visualized. Gladys drain is in good position, stitches are in good position. Minimal soft tissue swelling over the anterior aspect of the knee, erythema has improved. No streaking erythema noted proximal distal to the incision. No effusion is appreciated over the knee. Calf is soft, no tenderness with palpation. Plantar flexion, dorsiflexion, EHL, FHL are intact. Sensory exam to light touch throughout the extremity is intact, dorsalis pedis pulses 2+. - Labs CBC & Chem 7: 02/08/20 14:33 02/11/20 08:24 Labs: Microbiology - Last 24 Hours (Table) 02/10/20 10:30 Gram Stain - Preliminary Knee - Right Wound Culture - Preliminary Presumptive MRSA 02/10/20 17:36 Gram Stain - Preliminary Knee - Right Wound Culture - Preliminary 02/10/20 17:36 Anaerobic Culture - Preliminary Knee - Right 02/10/20 10:30 Anaerobic Culture - Preliminary Knee - Right 02/08/20 15:55 Blood Culture - Preliminary Blood No Growth after 48 hours Assessment and Plan Assessment: Status post I&D right septic prepatellar bursitis Plan: Dressing was changed today at bedside, we'll leave drain intact for 1 additional day, I will pull tomorrow morning Pain control, restart patient's methadone and plan for discontinuation of [place] and other narcotics Await final culture and sensitivity results, appreciate infectious disease recommendations Anticipated patient will be here in hospital through the weekend for continuation of IV antibiotics and waiting for final cultures Other nuclear medical technologist and recommendations DVT prophylaxis, continue current medication Further recommendations to follow Time with Patient: Less than 30
[2020-02-11] MEDS: SODIUM CHLORIDE 0.9% 1,000 ML IV SCH (13:43)
[2020-02-11] MEDS: VANCOMYCIN 1,000 MG in SODIUM CHLORIDE 0.9% 250 ML IVPB SCH ×2 (15:28→23:37)
--- NOTE | 2020-02-11 22:22 | PN ---
PROGRESS NOTE DATE OF SERVICE: 02/11/2020 REASON FOR FOLLOWUP: Right knee septic prepatellar bursitis. INTERVAL HISTORY: Patient is currently afebrile. Patient is breathing comfortably. Pain to the right knee is currently controlled. No chest pain, shortness of breath or cough. No abdominal pain. No diarrhea. PHYSICAL EXAMINATION: Blood pressure 148/76, pulse of 93, temperature 97.9. She is 98% on room air. General description: The patient is a middle-aged female lying in bed in no distress. Respiratory system: Unlabored breathing, clear to auscultation anteriorly. Heart S1, S2. Regular rate and rhythm. Abdomen soft, no tenderness. Right leg is currently dressed up. No obvious drainage on the dressing. LABS: Blood culture negative. Right knee culture with presumptive MRSA. DIAGNOSTIC IMPRESSION AND PLAN: Patient with right knee septic prepatellar bursitis status post bursectomy. Culture with presumptive MRSA. Patient is covered with vancomycin in view of extensive infection, she will benefit from a PICC line and at least 2 weeks of IV vancomycin in the outpatient setting. Continue supportive care. MMODL / IJN: [id number] /
[2020-02-12] MEDS: LACTATED RINGERS 1,000 ML IV SCH ×3 (02:59→22:18)
[2020-02-12] MEDS: ACETAMINOPHEN TAB 325 MG TAB PO PRN ×2 (04:17→16:19)
[2020-02-12] MEDS: PANTOPRAZOLE 40 MG TABLET PO SCH (06:54)
[2020-02-12] MEDS: LEVOTHYROXINE 125 MCG TAB PO SCH (06:54)
[2020-02-12] MEDS: HYDROmorphone 0.5 MG/0.5 ML SYRINGE IVP PRN (07:58)
[2020-02-12] MEDS: HEPARIN SODIUM,PORCINE 5,000 UNIT/ML 1 ML VIAL SQ SCH ×2 (08:07→16:19)
[2020-02-12] MEDS: ALBUTEROL NEBULIZED 2.5 MG/3 ML INHALATION PRN (08:31)
--- NOTE | 2020-02-12 09:31 | P.PN ---
Subjective Progress Note Date: 02/12/20 Principal diagnosis: Status post I&D right septic prepatellar bursitis Patient evaluated at bedside, she is resting comfortably. Her pain is well- controlled. She denies any fever or chills. She has no shortness of breath or chest pain. Objective - Vital Signs Vital signs: Vital Signs Temp 97.0 F L 02/12/20 08:03 Pulse 98 02/12/20 08:40 Resp 18 02/12/20 08:40 BP 134/65 02/12/20 08:03 Pulse Ox 95 02/12/20 08:03 Intake & Output 02/11/20 02/12/20 02/12/20 18:59 06:59 18:59 Intake Total 2580 Balance 2580 Intake: Intake, IV Titration 1000 Amount Sodium Chloride 0.9% 1, 500 000 ml @ 60 mls/hr IV . [id number] [facility] Rx#:[id number] Vancomycin 1,000 mg In 500 Sodium Chloride 0.9% 250 ml @ 125 mls/hr IVPB Q8HR [facility] Rx#:[id number] Oral 1580 Other: Voiding Method Bedside Commode Toilet # Voids 5 1 - Exam Right lower extremity: Gladys drain was removed today at bedside, small amount of bloody drainage noted. No streaking erythema noted proximal distal to the incision. No effusion is appreciated over the knee. Calf is soft, no tenderness with pal pation. Plantar flexion, dorsiflexion, EHL, FHL are intact. Sensory exam to light touch throughout the extremity is intact, dorsalis pedis pulses 2+. - Labs CBC & Chem 7: 02/08/20 14:33 02/11/20 08:24 Labs: Microbiology - Last 24 Hours (Table) 02/10/20 17:36 Gram Stain - Preliminary Knee - Right Wound Culture - Preliminary Presumptive MRSA 02/08/20 15:55 Blood Culture - Preliminary Blood No Growth after 72 hours 02/10/20 10:30 Gram Stain - Preliminary Knee - Right Wound Culture - Preliminary Presumptive MRSA Assessment and Plan Assessment: Status post I&D right septic prepatellar bursitis Plan: Monitor dressing, okay to change every 2 days Discontinued all narcotics, patient can resume her methadone along with Tylenol Await final culture and sensitivity results, appreciate infectious disease recommendations Other medical hospital sales and recommendations DVT prophylaxis, continue current medication Plan for discharge 02/14/2020 Time with Patient: Less than 30
[2020-02-12] MEDS: METHADONE 10 MG TAB PO SCH (09:47)
[2020-02-12] MEDS: VANCOMYCIN 1,000 MG in SODIUM CHLORIDE 0.9% 250 ML IVPB SCH ×2 (10:00→17:29)
[2020-02-12 10:09] LABS: Basophils % (A) 0 %; Eosinophils # (A) 0.2 k/uL (0-0.7); Eosinophils % (A) 4 %; HCT 35.4 % (34.0-46.0); HGB 11.4 gm/dL (11.4-16.0); Hypochromasia Slight; Lymphocytes # (A) 2.4 k/uL (1.0-4.8); Lymphocytes % (A) 43 %; MCH 29.9 pg (25.0-35.0); MCHC 32.3 g/dL (31.0-37.0); MCV 92.5 fL (80.0-100.0); Mean Platelet Volume 8.5; Monocytes # (A) 0.2 k/uL (0-1.0); Monocytes % (A) 3 %; Neutrophils # (A) 2.7 k/uL (1.3-7.7); Neutrophils % (A) 49 %; Platelet Count 200 k/uL (150-450); RBC 3.82 m/uL (3.80-5.40); RDW 13.5 % (11.5-15.5); WBC 5.6 k/uL (3.8-10.6)
[2020-02-12 10:21] LABS: African American GFR (CKD) >90 (>60 ml/min/1.73 sqM); Anion Gap 8 mmol/L; Blood Urea Nitrogen 21 mg/dL (7-17); Calcium 9.2 mg/dL (8.4-10.2); Carbon Dioxide 33 mmol/L (22-30); Chloride 101 mmol/L (98-107); Glucose 104 mg/dL (74-99); Non-African American GFR(CKD) 86 (>60 ml/min/1.73 sqM); Sodium 142 mmol/L (137-145)
[2020-02-12 10:25] LABS: Potassium 4.3 mmol/L (3.5-5.1)
--- NOTE | 2020-02-12 10:28 | P.PN ---
Subjective This is a pleasant 39 years old female with multiple medical problems as below, she is a patient of Dr. denny. She presents because and has given they last she fell from a height while she was trying to hang something and she hurt her right knee and then gradually started to get more swollen red and tender so she decided to come to the hospital. She denies chest pain or dyspnea, no nausea vomiting or coughing. No fever She states that her knee looks better today after she got antibiotics in the emergency room Patient smokes about 8 cigarettes per day, patient was counseled to quit and she agrees but she declines the nicotine patch, no alcohol or illicit drugs Patient denies (although it was mentioned by mistake she is and 23, she agrees to check for hCG in the serum) She denies depression or suicidal ideation She states she has history of blood in her neck about 10 years ago and currently she is not on anticoagulation She is currently taking methadone from [place] She states that she was to take seizure medication for history of seizure but now she is off this medication by her doctor Labs showing no leukocytosis and an unremarkable CBC, BMP and liver enzymes are unremarkable Venous ultrasound is negative for DVT in the right leg In the emergency room she received ceftriaxone and started on vancomycin Also I discussed with bed side nurse, she contacted the pharmacy point informed her that the patient is on methadone from [facility] and that is been verified. The patient has the medicine actually on her pocket and is going to be sent to the pharmacy to be verified 02/10/2020 Her right knee bursa still swollen and tender, there is some spontaneous opening on the top with some purulent discharge we going to send it for culture. No other issue Orthopedic team are planning to do I&D with right knee prepatellar bursectomy today Patient remains on IV vancomycin with creatinine is a stable and normal 01/12/2020 Patient is a status post I&D for her right knee prepatellar bursitis. Culture is growing MRSA. Patient is on IV vancomycin and infectious disease on the case. Patient looks pleasant and improvement with significantly less pain and warmth and tenderness around her right knee. Objective - Vital Signs Vital signs: Vital Signs Temp 98.5 F 02/11/20 15:16 Pulse 89 02/11/20 15:16 Resp 19 02/11/20 15:16 BP 129/78 02/11/20 15:16 Pulse Ox 98 02/11/20 15:16 Intake & Output 02/10/20 02/11/20 02/11/20 18:59 06:59 18:59 Intake Total 400 Output Total 10 Balance 390 Intake: IV 400 Output: Estimated Blood Loss 10 Other: Voiding Method Toilet Toilet Bedside Commode # Voids 1 2 - Exam GENERAL: The patient is alert and oriented x3, not in any acute distress. Well developed, well nourished. HEENT: Pupils are round and equally reacting to light. EOMI. No scleral icterus. No conjunctival pallor. Normocephalic, atraumatic. No pharyngeal erythema. No thyromegaly. CARDIOVASCULAR: S1 and S2 present. No murmurs, rubs, or gallops. PULMONARY: Chest is clear to auscultation, no wheezing or crackles. ABDOMEN: Soft, nontender, nondistended, normoactive bowel sounds. No palpable organomegaly. MUSCULOSKELETAL: No joint swelling or deformity. -EXTREMITIES: No cyanosis, clubbing, or pedal edema. Right knee prepatellar bursa is a swollen, red and tender NEUROLOGICAL: Gross neurological examination did not reveal any focal deficits. SKIN: No rashes. no petechiae. - Labs CBC & Chem 7: 02/12/20 09:22 02/12/20 09:22 Labs: Microbiology - Last 24 Hours (Table) 02/10/20 10:30 Gram Stain - Preliminary Knee - Right Wound Culture - Preliminary Presumptive MRSA 02/10/20 17:36 Gram Stain - Preliminary Knee - Right Wound Culture - Preliminary 02/10/20 17:36 Anaerobic Culture - Preliminary Knee - Right 02/10/20 10:30 Anaerobic Culture - Preliminary Knee - Right 02/08/20 15:55 Blood Culture - Preliminary Blood No Growth after 48 hours Assessment and Plan Assessment: Right leg cellulitis versus right knee septic arthritis Recent history of trauma and falling from a height GERD History of DVT Chronic asthma, not in active tissue 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 Continue with antibiotics, but we will consult infectious disease for antibiotics and follow- up. Follow-up with orthopedic team recommendations. Continue gentle hydration. Labs and medication were reviewed.. Continue same treatment. Continue with symptomatic treatment. Resume home medication. Monitor lytes and vitals. DVT and GI prophylaxis. Further recommendations depends on the clinical course of the patient DVT prophylaxis: Subcutaneous heparin GI Prophylaxis: Pepcid PT/OT: Pending. Alert after orthopedic evaluation and knee x-ray Prognosis is guarded
--- NOTE | 2020-02-12 11:19 | P.PN ---
Subjective Progress Note Date: 02/12/20 Principal diagnosis: Right knee bursitis This patient was cared for during the [facility] and [facility] state of emergency secondary to COVID -19. Ms. Cortez is a 39-year-old female with multiple medical problems admitted to the hospital with a chief complaint of right knee pain. Patient is evaluated by orthopedic team due to suspicion for right knee bursitis. Patient had I & D of the right knee and also prepatellar bursectomy done on 02/10/2020. Patient's cultures grew MRSA and she is currently on IV vancomycin as per ID recommendations. Patient is comfortably sitting up in a chair by the bedside and states that her pain is much better. She does not have any active complaints. No fever chills or rigors, no chest pain or palpitations. No cough or difficulty in breathing. No abdominal pain nausea vomiting or diarrhea. No dysuria or hematuria. On reviewing the vitals temperature 90.7, heart rate 80, blood pressure 134 with 65, saturating at 95% on room air. On reviewing the labs from this morning white count of 5.6. Sodium 142. Creatinine 0.85. Vancomycin trough level 21.9. Objective - Vital Signs Vital signs: Vital Signs Temp 97.0 F L 02/12/20 08:03 Pulse 98 02/12/20 08:40 Resp 18 02/12/20 08:40 BP 134/65 02/12/20 08:03 Pulse Ox 95 02/12/20 10:45 Intake & Output 02/11/20 02/12/20 02/12/20 18:59 06:59 18:59 Intake Total 2580 480 Balance 2580 480 Intake: Intake, IV Titration 1000 Amount Sodium Chloride 0.9% 1, 500 000 ml @ 60 mls/hr IV . [id number] [facility] Rx#:[id number] Vancomycin 1,000 mg In 500 Sodium Chloride 0.9% 250 ml @ 125 mls/hr IVPB Q8HR [facility] Rx#:[id number] Oral 1580 480 Other: Voiding Method Bedside Commode Toilet Toilet # Voids 5 1 1 - Exam GENERAL: The patient is alert and oriented x3, not in any acute distress. Well developed, well nourished. HEENT: no pallor or icterus CARDIOVASCULAR: S1 and S2 present. No murmurs, rubs, or gallops. PULMONARY: Chest is clear to auscultation, no wheezing or crackles. ABDOMEN: Soft, nontender, nondistended, normoactive bowel sounds. No palpable organomegaly. MUSCULOSKELETAL: No joint swelling or deformity. -EXTREMITIES: No cyanosis, clubbing, or pedal edema. Right knee wrapped in dressing NEUROLOGICAL: Gross neurological examination did not reveal any focal deficits. SKIN: No rashes. no petechiae. - Labs CBC & Chem 7: 02/12/20 09:22 02/12/20 09:22 Labs: Abnormal Lab Results - Last 24 Hours (Table) 02/12/20 Range/Units 09:22 Carbon Dioxide 33 H (22-30) mmol/L BUN 21 H (7-17) mg/dL Glucose 104 H (74-99) mg/dL Microbiology - Last 24 Hours (Table) 02/10/20 17:36 Gram Stain - Preliminary Knee - Right Wound Culture - Preliminary Presumptive MRSA 02/08/20 15:55 Blood Culture - Preliminary Blood No Growth after 72 hours 02/10/20 10:30 Gram Stain - Preliminary Knee - Right Wound Culture - Preliminary Presumptive MRSA Assessment and Plan Assessment: Assessment Right leg cellulitis versus right knee septic arthritis Recent history of trauma and falling from a height GERD History of DVT Chronic asthma, not in active tissue 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 Orthopedics team on board and following the patient closely. Continue with GI DVT prophylaxis. Plan is to get a PICC line placed on Friday as the patient will require 2 weeks of IV antibiotics. Further recommendations depending on the progress of the patient.
[2020-02-12] MEDS: NEOMYCIN-BACITRACIN-POLY OINT 14 GM TUBE TOPICAL PRN (12:43)
--- NOTE | 2020-02-12 21:35 | PN ---
PROGRESS NOTE DATE OF SERVICE: 02/12/2020 REASON FOR FOLLOWUP: Right knee septic prepatellar bursitis and MRSA. INTERVAL HISTORY: Patient is currently afebrile. Patient is breathing comfortably. Patient denies having any chest pain. No shortness of breath or cough. Overall pain and discomfort to the right knee is currently controlled. No nausea, vomiting or diarrhea. PHYSICAL EXAMINATION: Blood pressure 106/77, pulse of 84, temperature 99. She is 94% on room air. General description: The patient is a middle-aged female up in the room in no distress. Respiratory system: Unlabored breathing. Clear to auscultation anteriorly. Heart S1, S2. Regular rate and rhythm. Abdomen soft, no tenderness. Right knee is currently dressed up. No obvious drainage on the dressing. LABS: Hemoglobin 11.4, white count 5.7, BUN of 21, creatinine 0.85. Vancomycin trough is mildly elevated. DIAGNOSTIC IMPRESSION AND PLAN: Patient with MRSA right knee septic prepatellar bursitis status post bursectomy in view of extensive infection, she may benefit from a short course of IV vancomycin on discharge for about 10 days for a total of 2 week course of therapy. Continue supportive care. MMODL / IJN: [id number] /
[2020-02-13] MEDS: HEPARIN SODIUM,PORCINE 5,000 UNIT/ML 1 ML VIAL SQ SCH ×4 (00:10→23:27)
[2020-02-13] MEDS: ACETAMINOPHEN TAB 325 MG TAB PO PRN ×3 (00:22→15:58)
[2020-02-13] MEDS: VANCOMYCIN 1,000 MG in SODIUM CHLORIDE 0.9% 250 ML IVPB SCH ×2 (01:53→17:32)
[2020-02-13] MEDS: ALBUTEROL NEBULIZED 2.5 MG/3 ML INHALATION PRN ×3 (02:39→20:29)
[2020-02-13] MEDS: LACTATED RINGERS 1,000 ML IV SCH ×2 (06:08→19:48)
[2020-02-13] MEDS: LEVOTHYROXINE 125 MCG TAB PO SCH (06:09)
[2020-02-13] MEDS: PANTOPRAZOLE 40 MG TABLET PO SCH (06:09)
[2020-02-13 07:52] LABS: African American GFR (CKD) >90 (>60 ml/min/1.73 sqM); Anion Gap 10 mmol/L; Blood Urea Nitrogen 20 mg/dL (7-17); Calcium 9.2 mg/dL (8.4-10.2); Carbon Dioxide 32 mmol/L (22-30); Chloride 100 mmol/L (98-107); Glucose 81 mg/dL (74-99); Non-African American GFR(CKD) 78 (>60 ml/min/1.73 sqM); Sodium 142 mmol/L (137-145)
[2020-02-13 07:57] LABS: Potassium 4.5 mmol/L (3.5-5.1)
[2020-02-13] MEDS: METHADONE 10 MG TAB PO SCH (08:28)
[2020-02-13] MEDS ORDERED: VANCOMYCIN TROUGH DUE 1 EACH MISC MISCELLANE ONE (09:00)
[2020-02-13] MEDS: NEOMYCIN-BACITRACIN-POLY OINT 14 GM TUBE TOPICAL PRN (11:35)
--- NOTE | 2020-02-13 12:48 | P.PN ---
Subjective Progress Note Date: 02/13/20 Principal diagnosis: Status post I&D right septic prepatellar bursitis Patient evaluated at bedside, she is resting comfortably. Her pain is well- controlled. She denies any fever or chills. She has no shortness of breath or chest pain. Objective - Vital Signs Vital signs: Vital Signs Temp 97.2 F L 02/13/20 12:05 Pulse 84 02/13/20 12:05 Resp 16 02/13/20 12:05 BP 125/83 02/13/20 12:05 Pulse Ox 95 02/13/20 12:05 Intake & Output 02/12/20 02/13/20 02/13/20 18:59 06:59 18:59 Intake Total 1560 2000 Balance 1560 1999 Intake: Intake, IV Titration 1250 Amount Lactated Ringers 1,000 ml 1000 @ 100 mls/hr IV .Q10H [facility] Rx#:[id number] Vancomycin 1,000 mg In 250 Sodium Chloride 0.9% 250 ml @ 125 mls/hr IVPB Q8HR [facility] Rx#:[id number] Oral 1560 750 Other: Voiding Method Toilet Toilet Toilet # Voids 1 6 1 # Bowel Movements 1 - Exam Right lower extremity: Incision is clean, dry and intact, no active drainage visualized. No fluctuance is appreciated over the prepatellar bursal region. Calf is soft, no tenderness with palpation. Plantar flexion, dorsiflexion, EHL, FHL are intact. Sensory exam to light touch throughout the extremity is intact, dorsalis pedis pulses 2+. - Labs CBC & Chem 7: 02/12/20 09:22 02/13/20 07:02 Labs: Abnormal Lab Results - Last 24 Hours (Table) 02/13/20 02/13/20 Range/Units 07:02 07:02 Carbon Dioxide 32 H (22-30) mmol/L BUN 20 H (7-17) mg/dL Vancomycin Trough 30.3 H* ug/mL Microbiology - Last 24 Hours (Table) 02/10/20 17:36 Anaerobic Culture - Preliminary Knee - Right 02/10/20 17:36 Gram Stain - Final Knee - Right Wound Culture - Final Methicillin resist S. aureus 02/08/20 15:55 Blood Culture - Preliminary Blood No Growth after 96 hours 12/03/20 10:30 Anaerobic Culture - Preliminary Knee - Right 02/10/20 10:30 Gram Stain - Final Knee - Right Wound Culture - Final Methicillin resist S. aureus Assessment and Plan Assessment: Status post I&D right septic prepatellar bursitis Plan: Continue daily dressing changes, okay to shower continue covering incision when showering. Continue Tylenol and methadone Final cultures are showing MRSA, patient is scheduled for PICC line on 02/14/2020 Other medical staff director and recommendations DVT prophylaxis, continue current medication Plan for discharge 02/14/2020 after placement of PICC line and set up for IV antibiotics Time with Patient: Less than 30
--- NOTE | 2020-02-13 18:30 | PN ---
PROGRESS NOTE DATE OF SERVICE: 02/13/2020. REASON FOR CONSULTATION: Right knee septic prepatellar bursitis. The patient is currently afebrile. Patient is breathing comfortably. The patient denies having any chest pain or shortness of breath or cough. No nausea or vomiting. The patient PAIN to the right knee is currently controlled with PHYSICAL EXAMINATION: Blood pressure 110/60 pulse of 84, temperature 99.2, she is 95 % on room air. General description: The patient is a middle-aged female sitting in the chair in no distress. Respiratory system: Unlabored breathing. Clear to auscultation anteriorly. Heart S1, S2. Regular rate and rhythm. Abdomen soft, no tenderness. Right knee swelling and redness is slightly decreased. LABS: BUN of 20, creatinine 0.92. Vancomycin trough of 30.3. DIAGNOSTIC IMPRESSION AND PLAN: Patient with MRSA right knee septic prepatellar bursitis status post bursectomy. In view of extensive infection, may benefit from another ten day course of IV Vancomycin. However, the dosing should be cut back to keep the trough around 15 and kidney functions monitored closely. MMODL / IJN: [id number] / [facility]
[2020-02-14] MEDS: ACETAMINOPHEN TAB 325 MG TAB PO PRN (00:37)
[2020-02-14] MEDS: LACTATED RINGERS 1,000 ML IV SCH (02:13)
[2020-02-14 02:14] VITALS: RESP 16
[2020-02-14] MEDS: IBUPROFEN 400 MG TAB PO PRN ×2 (05:29→14:53)
[2020-02-14] MEDS: VANCOMYCIN 1,000 MG in SODIUM CHLORIDE 0.9% 250 ML IVPB SCH ×2 (05:30→14:34)
[2020-02-14] MEDS: LEVOTHYROXINE 125 MCG TAB PO SCH (05:36)
[2020-02-14] MEDS: PANTOPRAZOLE 40 MG TABLET PO SCH (06:31)
[2020-02-14 07:47] LABS: INR 1.1 (<1.2); Prothrombin Time 10.9 sec (9.0-12.0)
[2020-02-14 08:04] LABS: C Reactive Protein 34.5 mg/L (<10.0)
[2020-02-14] MEDS: HEPARIN SODIUM,PORCINE 5,000 UNIT/ML 1 ML VIAL SQ SCH ×2 (08:15→16:52)
[2020-02-14] MEDS: METHADONE 10 MG TAB PO SCH (08:49)
--- NOTE | 2020-02-14 10:25 | P.PN ---
Subjective Progress Note Date: 02/14/20 Principal diagnosis: Status post I&D right septic prepatellar bursitis Patient evaluated at bedside, she is resting comfortably. Her pain is well- controlled. She denies any fever or chills. She has no shortness of breath or chest pain. Objective - Vital Signs Vital signs: Vital Signs Temp 98 F 02/14/20 09:09 Pulse 74 02/14/20 08:48 Resp 16 02/14/20 08:48 BP 105/69 02/14/20 08:48 Pulse Ox 96 02/14/20 02:13 Intake & Output 02/13/20 02/14/20 02/14/20 18:59 06:59 18:59 Intake Total 980 237 Balance 980 237 Intake: Oral 980 237 Other: Voiding Method Toilet Toilet # Voids 1 1 1 # Bowel Movements 1 - Exam Right lower extremity: Bandages in good position and condition. Calf is soft, no tenderness with palp ation. Plantar flexion, dorsiflexion, EHL, FHL are intact. Sensory exam to light touch throughout the extremity is intact, dorsalis pedis pulses 2+. - Labs CBC & Chem 7: 02/12/20 09:22 02/14/20 07:19 Labs: Abnormal Lab Results - Last 24 Hours (Table) 02/14/20 02/14/20 Range/Units 07:19 07:19 ESR 63 H (0-20) mm/hr Chloride 97 L (98-107) mmol/L Carbon Dioxide 33 H (22-30) mmol/L Glucose 136 H (74-99) mg/dL C-Reactive Protein 34.5 H (<10.0) mg/L Microbiology - Last 24 Hours (Table) 02/08/20 15:55 Blood Culture - Preliminary Blood No Growth after 120 hours Assessment and Plan Assessment: Status post I&D right septic prepatellar bursitis Plan: Continue daily dressing changes, okay to shower continue covering incision when showering. Continue Tylenol and methadone Patient scheduled for PICC line today Other medical cash poster and recommendations Orthopedically stable for discharge today Time with Patient: Less than 30
[2020-02-14] MEDS: LIDOCAINE 1% INJ 10MG/ML (20 ML MDV) SQ ONE ×2 (10:36→10:43)
--- NOTE | 2020-02-14 11:23 | IR ---
PICC LINE PLACEMENT: HISTORY: Infection requiring long-term antibiotic therapy PROCEDURE: Ultrasound and fluoroscopic guidance of PICC line placement. COMPLICATIONS: None ANESTHESIA: 1. 1% Lidocaine locally. FINDINGS/TECHNIQUE: The procedure was explained to the patient. The risks, complications, benefits and alternatives were discussed and any questions were answered. Informed consent was obtained. The patient was placed supine on the fluoroscopic table and prepped and draped in the usual sterile fash ion. Utilizing a 21 gauge needle and sonographic and fluoroscopic guidance, access in the right bas ilic vein was achieved and there is placement of a 0.018 guidewire. The vein is patent. A 4-F sheat h was placed over the guidewire. The guidewire and dilator were removed and a 4-F. PICC line was martin audra through the sheath with the tip at the level of the SVC. The sheath was removed, the catheter wa s flushed and sutured into position. The patient was stable throughout the procedure and remained st able upon discharge from the Department of Radiology. The vein puncture was patent under ultrasound. A harper scale image was obtained to document patency of the vein punctured. All elements of the maximal barrier technique were utilized. FLUOROSCOPY TIME: 0.4 minutes and one image submitted IMPRESSION: Successful PICC line placement under ultrasound and fluoroscopic guidance.
[2020-02-14 15:14] VITALS: BP 115/77; PULSE 85; TEMP 97.1
--- NOTE | 2020-02-14 15:39 | P.PN ---
Subjective Progress Note Date: 02/13/20 Principal diagnosis: Right knee bursitis This patient was cared for during the [facility] and [facility] state of emergency secondary to COVID -19. Ms. Cortez is a 39-year-old female with multiple medical problems admitted to the hospital with a chief complaint of right knee pain. Patient is evaluated by orthopedic team due to suspicion for right knee bursitis. Patient had I & D of the right knee and also prepatellar bursectomy done on 02/10/2020. Patient's cultures grew MRSA and she is currently on IV vancomycin as per ID recommendations. Patient is comfortably sitting up in a chair by the bedside and states that her pain is much better. She does not have any active complaints. No fever chills or rigors, no chest pain or palpitations. No cough or difficulty in breathing. No abdominal pain nausea vomiting or diarrhea. No dysuria or hematuria. On reviewing the vitals temperature 90.7, heart rate 80, blood pressure 134 with 65, saturating at 95% on room air. On reviewing the labs from this morning white count of 5.6. Sodium 142. Creatinine 0.85. Vancomycin trough level 21.9. On 02/13/2020 - patient was seen and examined. She is comfortably sitting up in a chair by the bedside and appears to be no acute distress. She denies having any pain in her right knee. No swelling of her right leg. Patient denies having any chest pain or palpitations or cough or difficulty in breathing. No abdominal pain nausea vomiting or diarrhea. No dysuria or hematuria. On reviewing vitals she is afebrile, heart rate 84, respiratory 16, blood pressure 120/80, saturating at 95% on room air. Reviewed patient's labs and urine lites within normal limits. Vancomycin trough level 30.3. Active Medications Acetaminophen (Acetaminophen Tab 325 Mg Tab) 650 mg PO Q6HR PRN PRN Reason: Mild Pain or Fever > 100.5 Last Admin: 02/14/20 00:37 Dose: 650 mg Documented by: Albuterol Sulfate (Albuterol Nebulized 2.5 Mg/3 Ml) 2.5 mg INHALATION RT-QID PRN PRN Reason: Shortness Of Breath Last Admin: 02/13/20 20:29 Dose: 2.5 mg Documented by: Diclofenac Sodium (Diclofenac Sodium Gel 100 Gm Tube) 4 gm TOPICAL QID PRN PRN Reason: Pain Doxepin HCl (Doxepin 25 Mg Cap) 50 mg PO HS PRN PRN Reason: SLEEP Heparin Sodium (Porcine) (Heparin Sodium,Porcine 5,000 Unit/Ml 1 Ml Vial) 5,000 unit SQ Q8HR [facility] Last Admin: 02/13/20 23:27 Dose: 5,000 unit Documented by: Hydralazine HCl (Hydralazine Hcl 20 Mg/Ml 1 Ml Vial) 10 mg IVP ONCE PRN PRN Reason: Blood Pressure - High Lactated Ringer's (Lactated Ringers) 1,000 mls @ 100 mls/hr IV .Q10H [facility] Last Admin: 02/13/20 19:48 Dose: Not Given Documented by: Vancomycin HCl 1,000 mg/ (Sodium Chloride) 250 mls @ 125 mls/hr IVPB Q12H [facility] Last Admin: 02/13/20 17:32 Dose: 125 mls/hr Documented by: Ibuprofen (Ibuprofen 400 Mg Tab) 400 mg PO Q6HR PRN PRN Reason: Mild Pain or Fever > 100.5 Levothyroxine Sodium (Levothyroxine 125 Mcg Tab) 125 mcg PO DAILY@0630 [facility] Last Admin: 02/13/20 06:09 Dose: 125 mcg Documented by: Methadone HCl (Methadone 10 Mg Tab) 130 mg PO DAILY [facility] Last Admin: 02/13/20 08:28 Dose: 130 mg Documented by: Naloxone HCl (Naloxone 0.4 Mg/Ml 1 Ml Vial) 0.2 mg IV Q2M PRN PRN Reason: Opioid Reversal Neomycin/Polymyxin/Bacitracin (Rdrpglkx-Qljsljwwtb-Majb Oint 14 Gm Tube) 1 applic TOPICAL DAILY PRN PRN Reason: Skin Irritation Last Admin: 02/13/20 11:35 Dose: 1 applic Documented by: Ondansetron HCl (Ondansetron 4 Mg/2 Ml Vial) 4 mg IVP Q8HR PRN PRN Reason: Nausea And Vomiting Last Admin: 02/13/20 19:12 Dose: 4 mg Documented by: Ondansetron HCl (Ondansetron 4 Mg/2 Ml Vial) 4 mg IVP DAILY PRN PRN Reason: Nausea And Vomiting Pantoprazole Sodium (Pantoprazole 40 Mg Tablet) 40 mg PO AC-BRKFST [facility] Last Admin: 12/06/20 06:09 Dose: 40 mg Documented by: Objective - Vital Signs Vital signs: Vital Signs Temp 97.9 F 02/13/20 20:10 Pulse 88 02/13/20 20:38 Resp 18 02/13/20 20:10 BP 126/60 02/13/20 20:10 Pulse Ox 92 L 02/13/20 20:10 Intake & Output 02/13/20 02/13/20 02/14/20 06:59 18:59 06:59 Intake Total 1999 980 Balance 1999 980 Intake: Intake, IV Titration 1250 Amount Lactated Ringers 1,000 ml 1000 @ 100 mls/hr IV .Q10H [facility] Rx#:[id number] Vancomycin 1,000 mg In 250 Sodium Chloride 0.9% 250 ml @ 125 mls/hr IVPB Q8HR [facility] Rx#:[id number] Oral 750 980 Other: Voiding Method Toilet Toilet Toilet # Voids 6 1 # Bowel Movements 1 - Exam PHYSICAL EXAM GENERAL: The patient is alert and oriented x3, not in any acute distress. Well developed, well nourished. HEENT: no pallor or icterus CARDIOVASCULAR: S1 and S2 present. No murmurs, rubs, or gallops. PULMONARY: Chest is clear to auscultation, no wheezing or crackles. ABDOMEN: Soft, nontender, nondistended, normoactive bowel sounds. No palpable organomegaly. MUSCULOSKELETAL: No joint swelling or deformity. -EXTREMITIES: No cyanosis, clubbing, or pedal edema. Right knee wrapped in dressing NEUROLOGICAL: Gross neurological examination did not reveal any focal deficits. SKIN: No rashes. no petechiae. - Labs CBC & Chem 7: 02/12/20 09:22 02/14/20 07:19 Labs: Abnormal Lab Results - Last 24 Hours (Table) 02/13/20 02/13/20 Range/Units 07:02 07:02 Carbon Dioxide 32 H (22-30) mmol/L BUN 20 H (7-17) mg/dL Vancomycin Trough 30.3 H* ug/mL Microbiology - Last 24 Hours (Table) 02/08/20 15:55 Blood Culture - Preliminary Blood No Growth after 120 hours 02/10/20 17:36 Anaerobic Culture - Preliminary Knee - Right Assessment and Plan Assessment: Assessment Right leg cellulitis versus right knee septic arthritis Recent history of trauma and falling from a height GERD History of DVT Chronic asthma, not in active tissue 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 Orthopedics team on board and following the patient closely. Continue with GI DVT prophylaxis. Plan is to get a PICC line placed tomorrow as the patient will require 2 weeks of IV antibiotics. Further recommendations depending on the progress of the patient.
--- NOTE | 2020-02-14 15:50 | P.DS ---
Providers Date of admission: 02/08/20 15:53 Expected date of discharge: 02/14/20 Attending physician: Willem Dodd Consults: 02/09/20 08:33 Consult Physician Routine Consulting Provider: Bhavani Bragg Consult Reason/Comments: right knee cellulits Do you want consulting provider notified?: Yes 02/09/20 13:09 Consult Physician Routine Consulting Provider: Gerson Martinez Consult Reason/Comments: right knee swelling Do you want consulting provider notified?: Yes Primary care physician: Eloisa [facility] Course: HPI - Ms. Cortez is a pleasant 39 years old female with multiple medical problems as below, she is a patient of Dr. Amin. She presents because and has given they last she fell from a height while she was trying to hang something and she hurt her right knee and then gradually started to get more swollen red and tender so she decided to come to the hospital. She denies chest pain or dyspnea, no nausea vomiting or coughing. No fever She states that her knee looks better today after she got antibiotics in the emergency room Patient smokes about 8 cigarettes per day, patient was counseled to quit and she agrees but she declines the nicotine patch, no alcohol or illicit drugs Patient denies (although it was mentioned by mistake she is and 23, she agrees to check for hCG in the serum) She denies depression or suicidal ideation She states she has history of blood in her neck about 10 years ago and currently she is not on anticoagulation She is currently taking methadone from [place] She states that she was to take seizure medication for history of seizure but now she is off this medication by her doctor Hospital course - patient was started on ceftriaxone and vancomycin and admitted for further management. Lower extremity Doppler was negative for DVT. Orthopedic services have been consulted and she had I & D of the right knee and also prepatellar bursectomy done on 02/10/2020. Patient's cultures grew MRSA and she is currently was IV vancomycin. Patient showed significant improvement in her symptoms. I did Dr. Bragg he suggested the patient be on IV vancomycin for 2 weeks for which a PICC line was done on 02/14/2020. Patient is being discharged home on IV antibiotics in the form of IV vancomycin for 2 weeks. Home health care has been arranged. Vital Signs 02/14/20 02/14/20 02/14/20 08:48 09:09 14:28 Temperature 98 F 97.1 F L Pulse Rate [ 74 85 Pulse Oximetery ] Respiratory 16 16 Rate Blood Pressure 105/69 115/77 [Left Arm] O2 Sat by Pulse 97 94 L Oximetry PHYSICAL EXAM GENERAL: The patient is alert and oriented x3, not in any acute distress. Well developed, well nourished. HEENT: no pallor or icterus CARDIOVASCULAR: S1 and S2 present. No murmurs, rubs, or gallops. PULMONARY: Chest is clear to auscultation, no wheezing or crackles. ABDOMEN: Soft, nontender, nondistended, normoactive bowel sounds. No palpable organomegaly. MUSCULOSKELETAL: No joint swelling or deformity. -EXTREMITIES: No cyanosis, clubbing, or pedal edema. Right knee wrapped in dressing NEUROLOGICAL: Gross neurological examination did not reveal any focal deficits. SKIN: No rashes. no petechiae. 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 Home health care has been arranged. Patient to follow-up with his primary care physician in 2-3 days and orthopedic in couple of weeks. More than 33 minutes spent towards the discharge of the patient. Patient Condition at Discharge: Stable Plan - Discharge Summary New Discharge Prescriptions: New Pantoprazole [Protonix] 40 mg PO -KFST 30 Days #30 tablet. Vancomycin 1,000 mg IVPB Q12H vial Continue Levothyroxine Sodium 125 mcg PO DAILY Ibuprofen [Motrin Ib] 600 mg PO Q8H PRN PRN Reason: SLEEP Acetaminophen [Tylenol] 1,000 mg PO Q4-6H PRN PRN Reason: Pain Omeprazole 20 mg PO DAILY Doxepin HCl 50 mg PO HS PRN PRN Reason: SLEEP Diclofenac Sodium [Voltaren Gel] 1 applicate TOPICAL QID PRN PRN Reason: Pain Cephalexin [Keflex] 500 mg PO QID Albuterol Sulfate [Proair Hfa] 1 - 2 puff INHALATION RT-Q4H PRN PRN Reason: Shortness Of Breath Albuterol Nebulized [Ventolin Nebulized] 2.5 mg INHALATION RT-QID PRN PRN Reason: Shortness Of Breath Fluticasone/Salmeterol [Advair 500-50 Diskus] 1 puff INHALATION RT-BID Methadone HCl [Methadone Intensol] 132 mg PO DAILY Discharge Medication List Levothyroxine Sodium 125 mcg PO DAILY 12/25/17 [History] Acetaminophen [Tylenol] 1,000 mg PO Q4-6H PRN 02/08/20 [History] Albuterol Nebulized [Ventolin Nebulized] 2.5 mg INHALATION RT-QID PRN 02/08/20 [History] Albuterol Sulfate [Proair Hfa] 1 - 2 puff INHALATION RT-Q4H PRN 02/08/20 [History] Cephalexin [Keflex] 500 mg PO QID 02/08/20 [History] Diclofenac Sodium [Voltaren Gel] 1 applicate TOPICAL QID PRN 02/08/20 [History] Doxepin HCl 50 mg PO HS PRN 02/08/20 [History] Fluticasone/Salmeterol [Advair 500-50 Diskus] 1 puff INHALATION RT-BID 02/08/20 [History] Ibuprofen [Motrin Ib] 600 mg PO Q8H PRN 02/08/20 [History] Methadone HCl [Methadone Intensol] 132 mg PO DAILY 02/08/20 [History] Omeprazole 20 mg PO DAILY 02/08/20 [History] Pantoprazole [Protonix] 40 mg PO AC-BRKFST 30 Days #30 tablet. 02/14/20 [Rx] Vancomycin 1,000 mg IVPB Q12H vial 02/14/20 [Rx] Follow up Appointment(s)/Referral(s): [facility], [NON-STAFF] - Eloisa Cordova MD [Primary Care Provider] - 1-2 days Kamlesh Gloria PAC [PHYSICIAN REPAIR DEPARTMENT SUPERVISOR] - 03/01/20 1:30 pm [facility], [REFERRING] - Activity/Diet/Wound Care/Special Instructions: Orthopedic discharge instructions: 1. Daily dressing changes 2. Keep incision covered and dry while showering 3. Avoid excess flexion of knee, avoid kneeling 4. Follow up with infectious disease with regards to the PICC line and IV antibiotics 5. Plan for follow-up in the outpatient setting at [facility] in 2 weeks Last received Motrin 400mg at 3PM Home Care to follow up tomorrow with first home dose of Antibiotics. Regular diet. drink fluids. Activity as tolerated with limitations stated by [facility]. Home care to [facility]. [facility] should be contacted with any fever, chills, increased pain not controlled with over the counter pain meds, increased redness or discolored drainage from incision site or any concerns. no tub baths or soaks. Good Hand washing for all in the house. Discharge Disposition: HOME SELF-CARE
--- NOTE | 2020-02-14 16:38 | PN ---
PROGRESS NOTE DATE OF SERVICE: 02/14/2020 REASON FOR FOLLOWUP: Right knee septic prepatellar bursitis. INTERVAL HISTORY: The patient is currently afebrile. The patient is feeling better, breathing comfortably. Overall pain is improved, no chest pain. No cough. She did get a PICC line. Currently on outpatient antibiotic and discharged. PHYSICAL EXAMINATION: Blood pressure 115/77, pulse of 85, temperature 97.1. She is 94% on room air. General description is a middle-aged female up in the chair in no distress. RESPIRATORY SYSTEM: Unlabored breathing, clear to auscultation anteriorly. HEART: S1, S2. Regular rate and rhythm. ABDOMEN: Soft, no tenderness. Right knee is currently dressed up. No obvious drainage on the dressing. LABS: Sedimentation rate of 63. C-reactive 34.5, creatinine 0.97. DIAGNOSTIC IMPRESSION AND PLAN: Patient with right knee septic prepatellar bursitis, status post bursectomy. Patient to continue vancomycin for at least 2 weeks. Kidney function will be monitored closely and follow up in the office in 2 weeks. MMODL / IJN: [id number] / [facility]
[2020-02-14] MEDS ORDERED: VANCOMYCIN TROUGH DUE 1 EACH MISC MISCELLANE ONE (17:00)
== END 2020-02-14 18:08 | disposition home or self-care (01) ==
LOC: EC 13:15 → INTOOBSV 15:53 → 4SSUR 15:53 → 5NMEDONC 22:47 → 6PED 02-11 21:46 → UNDODISIN 02-14 18:08
PROVIDERS: ADMIT Hospitalist; ATTEND Hospitalist
DX: M71.161 Other infective bursitis, right knee (principal); L03.115 Cellulitis of right lower limb; F17.210 Nicotine dependence, cigarettes, uncomplicated; B95.62 Methicillin resistant Staphylococcus aureus infection as the cause of diseases classified elsewhere; F32.9 Major depressive disorder, single episode, unspecified; K21.9 Gastro-esophageal reflux disease without esophagitis; G40.909 Epilepsy, unspecified, not intractable, without status epilepticus; M41.9 Scoliosis, unspecified; J45.909 Unspecified asthma, uncomplicated; Z79.2 Long term (current) use of antibiotics; Z79.890 Hormone replacement therapy; Z86.14 Personal history of Methicillin resistant Staphylococcus aureus infection; Z86.718 Personal history of other venous thrombosis and embolism; Z92.21 Personal history of antineoplastic chemotherapy; Z92.3 Personal history of irradiation; Z88.1 Allergy status to other antibiotic agents; Z91.013 Allergy to seafood; Z87.01 Personal history of pneumonia (recurrent); Z98.891 History of uterine scar from previous surgery; Z98.890 Other specified postprocedural states; Z91.81 History of falling; Z85.89 Personal history of malignant neoplasm of other organs and systems; Z79.891 Long term (current) use of opiate analgesic; Z86.19 Personal history of other infectious and parasitic diseases; Z86.711 Personal history of pulmonary embolism; M79.89 Other specified soft tissue disorders; F19.11 Other psychoactive substance abuse, in remission; Z90.2 Acquired absence of lung [part of]; Z94.81 Bone marrow transplant status; Z79.1 Long term (current) use of non-steroidal anti-inflammatories (NSAID); Z84.89 Family history of other specified conditions; J44.9 Chronic obstructive pulmonary disease, unspecified; E66.9 Obesity, unspecified; Z68.31 Body mass index [BMI] 31.0-31.9, adult
CPT/HCPCS: 96376 ×2; 96366 ×2; 96375 ×2; 96365; 99284; 36415; 94640 ×8; 36573; 81025; 80053; 80048 ×3; 85652; 82565 ×3; 83605; 85025 ×2; 80202 ×3; 85610; 86140 ×2; 84703; 87040; 87070; 87205; 87075; 87077; 87186; 73562; 93971; 27340; 27301; G0378 ×9; C1751; C1769; J2250; J3370 ×7; J2270; J1200; J1644 ×4; J1100; J2405 ×2; J2001 ×2; J0696; J3010; S0109 ×5; J1170 ×4; J1885 ×2; J2704; C9113 ×3

== ENCOUNTER 2020-02-24 12:10 | Emergency (ER) | payer OTHER ==
[2020-02-24 12:20] VITALS: RESP 18
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
[2020-02-24 13:49] LABS: Basophils % (A) 0 %; Eosinophils # (A) 0.2 k/uL (0-0.7); Eosinophils % (A) 6 %; HCT 33.4 % (34.0-46.0); Hypochromasia Slight; Lymphocytes # (A) 1.5 k/uL (1.0-4.8); Lymphocytes % (A) 40 %; MCH 30.9 pg (25.0-35.0); MCHC 33.1 g/dL (31.0-37.0); MCV 93.4 fL (80.0-100.0); Mean Platelet Volume 7.3; Monocytes # (A) 0.1 k/uL (0-1.0); Monocytes % (A) 3 %; Neutrophils # (A) 1.8 k/uL (1.3-7.7); Neutrophils % (A) 49 %; Platelet Count 163 k/uL (150-450); RBC 3.58 m/uL (3.80-5.40); RDW 13.9 % (11.5-15.5); WBC 3.7 k/uL (3.8-10.6)
[2020-02-24 14:16] LABS: African American GFR (CKD) >90 (>60 ml/min/1.73 sqM); Anion Gap 4 mmol/L; Blood Urea Nitrogen 12 mg/dL (7-17); C Reactive Protein 20.1 mg/L (<10.0); Calcium 9.3 mg/dL (8.4-10.2); Carbon Dioxide 32 mmol/L (22-30); Chloride 100 mmol/L (98-107); Glucose 164 mg/dL (74-99); Non-African American GFR(CKD) 86 (>60 ml/min/1.73 sqM); Sodium 136 mmol/L (137-145)
[2020-02-24 14:57] VITALS: BP 130/77; PULSE 90; TEMP 98
== END 2020-02-24 14:57 | disposition home or self-care (01) ==
LOC: EC 12:10
DX: T82.898A Other specified complication of vascular prosthetic devices, implants and grafts, initial encounter (principal); J45.909 Unspecified asthma, uncomplicated; K21.9 Gastro-esophageal reflux disease without esophagitis; F32.9 Major depressive disorder, single episode, unspecified; F17.200 Nicotine dependence, unspecified, uncomplicated; Z79.51 Long term (current) use of inhaled steroids; Z79.890 Hormone replacement therapy; Z79.899 Other long term (current) drug therapy; Z79.891 Long term (current) use of opiate analgesic; Z88.1 Allergy status to other antibiotic agents; Z91.013 Allergy to seafood; Z94.81 Bone marrow transplant status; Z86.718 Personal history of other venous thrombosis and embolism; Z85.831 Personal history of malignant neoplasm of soft tissue
CPT/HCPCS: 36415; 80048; 85025; 80202; 86140; 99283; 96374; J1642

== ENCOUNTER 2020-02-27 13:22 | Emergency (ER) | payer OTHER ==
[2020-02-27 13:35] VITALS: RESP 18; TEMP 98.3
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
[2020-02-27 14:37] LABS: Basophils % (A) 1 %; Eosinophils # (A) 0.3 k/uL (0-0.7); Eosinophils % (A) 9 %; HCT 32.7 % (34.0-46.0); HGB 10.8 gm/dL (11.4-16.0); Hypochromasia Slight; Lymphocytes # (A) 1.3 k/uL (1.0-4.8); Lymphocytes % (A) 36 %; MCHC 33.1 g/dL (31.0-37.0); MCV 93.7 fL (80.0-100.0); Monocytes # (A) 0.1 k/uL (0-1.0); Monocytes % (A) 3 %; Neutrophils # (A) 1.8 k/uL (1.3-7.7); Neutrophils % (A) 49 %; Platelet Count 121 k/uL (150-450); RBC 3.49 m/uL (3.80-5.40); RDW 13.7 % (11.5-15.5); WBC 3.7 k/uL (3.8-10.6)
[2020-02-27 14:46] LABS: ALT 18 U/L (4-34); AST 31 U/L (14-36); African American GFR (CKD) >90 (>60 ml/min/1.73 sqM); Albumin 3.5 g/dL (3.5-5.0); Alkaline Phosphatase 91 U/L (38-126); Anion Gap 3 mmol/L; Blood Urea Nitrogen 12 mg/dL (7-17); Carbon Dioxide 33 mmol/L (22-30); Chloride 101 mmol/L (98-107); Glucose 120 mg/dL (74-99); Non-African American GFR(CKD) 86 (>60 ml/min/1.73 sqM); Potassium 4.1 mmol/L (3.5-5.1); Sodium 137 mmol/L (137-145); Total Bilirubin 0.8 mg/dL (0.2-1.3); Total Protein 6.2 g/dL (6.3-8.2)
[2020-02-27 14:58] LABS: INR 1.1 (<1.2); Partial Thromboplastin Time 23.2 sec (22.0-30.0); Prothrombin Time 10.8 sec (9.0-12.0)
[2020-02-27 15:04] LABS: D-Dimer 1.05 mg/L FEU (<0.60)
--- NOTE | 2020-02-27 15:18 | XR ---
EXAMINATION TYPE: XR chest 1V portable DATE OF EXAM: 02/27/2020 COMPARISON: NONE HISTORY: Short of breath TECHNIQUE: Single view FINDINGS: Heart is normal. Lungs are clear of consolidation. There is slight coarsening of the lung m arkings. There are no hilar masses. There are chest leads. There is no pleural effusion. IMPRESSION: Mild increased lung markings. No pulmonary consolidation or heart failure.
--- NOTE | 2020-02-27 15:48 | US ---
EXAMINATION TYPE: US venous doppler duplex LE DATE OF EXAM: 02/27/2020 2:25 PM COMPARISON: US's CLINICAL HISTORY: B/l LE swelling, pain. SIDE PERFORMED: Bilateral TECHNIQUE: The lower extremity deep venous system is examined utilizing real time linear array sonog eva with graded compression, doppler sonography and color-flow sonography. VESSELS IMAGED: Common Femoral Vein Deep Femoral Vein Greater Saphenous Vein * Femoral Vein Popliteal Vein Small Saphenous Vein * Proximal Calf Veins (* superficial vessels) Right Leg: Negative for DVT Left Leg: Negative for DVT IMPRESSION: No evidence of deep vein thrombosis in both legs.
--- NOTE | 2020-02-27 16:04 | CT ---
EXAMINATION TYPE: CT angio chest DATE OF EXAM: 02/27/2020 COMPARISON: None HISTORY: SOB, elevated d-dimer CT DLP: 326 mGycm Automated exposure control for dose reduction was used. CONTRAST: Performed with IV Contrast, patient injected with 68cc mL of Isovue 370. There are 3-D post processed images. There is some mild patchy peripheral pulmonary interstitial infiltrates. There is no suspicious pulmo nary mass. There is no pleural effusion. Heart size is fairly normal. There is no pericardial effusio n. There is normal contrast opacification of the pulmonary arteries. There are no filling defects. There are a few anterior mediastinal lymph nodes that measure up to 1 cm. There is 1.3 cm pretracheal lymp h node. Thoracic aorta is intact. There is no aneurysm or dissection. There is thoracic dextroscoliosis. I see no bony destructive process. IMPRESSION: No evidence of pulmonary embolism. Mild pulmonary patchy interstitial pneumonia.
[2020-02-27 16:43] VITALS: BP 118/57; PULSE 94
== END 2020-02-27 16:43 | disposition home or self-care (01) ==
LOC: EC 13:22
DX: R60.0 Localized edema (principal); R91.8 Other nonspecific abnormal finding of lung field; R79.89 Other specified abnormal findings of blood chemistry; R06.02 Shortness of breath; J45.909 Unspecified asthma, uncomplicated; K21.9 Gastro-esophageal reflux disease without esophagitis; G40.909 Epilepsy, unspecified, not intractable, without status epilepticus; F32.9 Major depressive disorder, single episode, unspecified; M41.9 Scoliosis, unspecified; K59.00 Constipation, unspecified; F17.210 Nicotine dependence, cigarettes, uncomplicated; Z79.51 Long term (current) use of inhaled steroids; Z79.899 Other long term (current) drug therapy; Z88.1 Allergy status to other antibiotic agents; Z91.013 Allergy to seafood; Z86.19 Personal history of other infectious and parasitic diseases; Z86.718 Personal history of other venous thrombosis and embolism; Z79.890 Hormone replacement therapy; Z86.14 Personal history of Methicillin resistant Staphylococcus aureus infection
CPT/HCPCS: 36415; 93005; 85379; 83880; 80053; 85025; 85610; 85730; 71045; 93970; 71275; 99285; Q9967

== ENCOUNTER → 2020-03-01 | Outpatient (CLI) | payer OTHER ==
[~2020-03-01] MED LIST: ALTEPLASE 2 MG VIAL (CATHFLO) IV STA; DAPTOmycin 500 MG in SODIUM CHLORIDE 0.9% 50 ML IVPB NR; SODIUM CHLORIDE 0.9% 500 ML 500 ML in EMPTY BAG 1 BAG IV PRN
[2020-03-01 11:04] VITALS: BP 132/88; PULSE 94; RESP 16; TEMP 98.4
[2020-03-01 12:29] LABS: Basophils % (A) 0 %; Eosinophils # (A) 0.3 k/uL (0-0.7); Eosinophils % (A) 9 %; HCT 32.4 % (34.0-46.0); HGB 10.6 gm/dL (11.4-16.0); Hypochromasia Slight; Lymphocytes # (A) 1.5 k/uL (1.0-4.8); Lymphocytes % (A) 41 %; MCH 30.6 pg (25.0-35.0); MCHC 32.8 g/dL (31.0-37.0); MCV 93.3 fL (80.0-100.0); Mean Platelet Volume 7.4; Monocytes # (A) 0.1 k/uL (0-1.0); Monocytes % (A) 4 %; Neutrophils # (A) 1.6 k/uL (1.3-7.7); Neutrophils % (A) 44 %; Platelet Count 140 k/uL (150-450); RBC 3.48 m/uL (3.80-5.40); RDW 13.7 % (11.5-15.5); WBC 3.6 k/uL (3.8-10.6)
[2020-03-01 13:10] LABS: Albumin 3.7 g/dL (3.5-5.0); C Reactive Protein 17.4 mg/L (<10.0); Calcium 8.6 mg/dL (8.4-10.2); Potassium 3.8 mmol/L (3.5-5.1); Total Bilirubin 0.9 mg/dL (0.2-1.3); Total Protein 6.7 g/dL (6.3-8.2)
[2020-03-01 13:42] LABS: Erythrocyte Sedimentation Rate 19 mm/hr (0-20)
== END | disposition home or self-care (01) ==
LOC: PROCWHC3 10:48
PROVIDERS: ATTEND Internal Medicine Infectious Disease
DX: M70.41 Prepatellar bursitis, right knee (principal); A49.02 Methicillin resistant Staphylococcus aureus infection, unspecified site
CPT/HCPCS: 80053; 85652; 82553; 85025; 86140; 96365; 36591; 36593; J0878; J2997

== ENCOUNTER 2020-03-07 12:56 | Day surgery (SDC) | payer OTHER ==
[2020-03-06 14:12] VITALS: BMI 31.1
[~2020-03-07 12:56] MED LIST changes: -ALTEPLASE 2 MG VIAL (CATHFLO) IV STA; -DAPTOmycin 500 MG in SODIUM CHLORIDE 0.9% 50 ML IVPB NR; +GLYCOPYRROLATE 0.2 MG/ML 2 ML VIAL ONE; +HYDROmorphone (PF) 1 MG/ML ONE; +LIDOCAINE 1% INJ 10MG/ML (20 ML MDV) ONE; +NEOSTIGMINE 1 MG/ML 10 ML VIAL ONE; +PHENYLEPHRINE 10 MG/ML VIAL ONE; +PROPOFOL 10 MG/ML 20 ML VIAL IV ONE; +ROCURONIUM 10 MG/ML (10 ML VIAL) IV ONE; +SODIUM CHLORIDE 0.9% 100 ML BAG ONE; -SODIUM CHLORIDE 0.9% 500 ML 500 ML in EMPTY BAG 1 BAG IV PRN; +SUCCINYLCHOLINE CHLORIDE 100 MG/5 ML SYR IV ONE; +TRANEXAMIC ACID 1,000 MG/10 ML VIAL ONE; +fentaNYL (PF) 50 MCG/ML 2 ML AMP ONE
[2020-03-07 14:07] LABS: Glucose,Whole Blood 99 mg/dL (75-99)
[2020-03-07] MEDS ORDERED: LACTATED RINGERS 1,000 ML IV ONE ×2 (14:07→17:31)
[2020-03-07] MEDS ORDERED: ONDANSETRON 4 MG/2 ML VIAL ONE (14:31)
[2020-03-07] MEDS ORDERED: ONDANSETRON 4 MG/2 ML VIAL IVP ONE ×2 (14:33→18:14)
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
[2020-03-07] MEDS ORDERED: LIDOCAINE 1% INJ 10MG/ML (20 ML MDV) ONE (16:06)
[2020-03-07] MEDS ORDERED: fentaNYL (PF) 50 MCG/ML 2 ML AMP ONE (16:06)
[2020-03-07] MEDS ORDERED: PROPOFOL 10 MG/ML 20 ML VIAL IV ONE (16:06)
[2020-03-07] MEDS ORDERED: MIDAZOLAM 2 MG/2 ML VIAL ONE (16:06)
[2020-03-07] MEDS ORDERED: CEFAZOLIN IRRIGATION ONE (16:42)
[2020-03-07] MEDS ORDERED: SODIUM CHLORIDE 0.9% IRRIGATION ONE (16:42)
[2020-03-07] MEDS ORDERED: ACETAMINOPHEN TAB 325 MG TAB PO PRN (17:44)
[2020-03-07] MEDS ORDERED: HYDROmorphone 0.5 MG/0.5 ML SYRINGE IVP PRN (17:44)
[2020-03-07] MEDS ORDERED: NALOXONE 0.4 MG/ML 1 ML VIAL IV PRN (17:44)
[2020-03-07] MEDS ORDERED: ONDANSETRON 4 MG/2 ML VIAL IVP PRN (17:44)
[2020-03-07] MEDS ORDERED: ALBUTEROL HFA INHALER INHALATION PRN (17:50)
[2020-03-07] MEDS ORDERED: DOXEPIN 25 MG CAP PO PRN (17:50)
[2020-03-07] MEDS ORDERED: DICLOFENAC SODIUM GEL 100 GM TUBE TOPICAL PRN (17:50)
[2020-03-07] MEDS: HYDROmorphone 1 MG/ML 1 ML SYRINGE IVP ONE ×4 (17:55→18:16)
[2020-03-07] MEDS ORDERED: KETOROLAC 15 MG/ML 1 ML VIAL IVP ONE (18:05)
[2020-03-07] MEDS: SYMBICORT 160-4.5 MCG INHALER INHALATION SCH (19:54)
[2020-03-07] MEDS: ALBUTEROL NEBULIZED 2.5 MG/3 ML INHALATION PRN (19:54)
[2020-03-07] MEDS ORDERED: SENNOSIDES-DOCUSATE SODIUM 1 EACH TAB PO SCH (21:00)
[2020-03-07] MEDS ORDERED: DAPTOmycin 500 MG in SODIUM CHLORIDE 0.9% 50 ML IVPB SCH (23:30)
[2020-03-08] MEDS: HYDROmorphone 1 MG/ML 1 ML SYRINGE IVP PRN ×3 (00:28→09:00)
[2020-03-08] MEDS ORDERED: CYCLOBENZAPRINE 10 MG TAB PO PRN (05:47)
[2020-03-08] MEDS ORDERED: LEVOTHYROXINE 125 MCG TAB PO SCH (06:30)
[2020-03-08 06:36] LABS: Basophils % (A) 1 %; Eosinophils # (A) 0.5 k/uL (0-0.7); Eosinophils % (A) 8 %; HCT 38.7 % (34.0-46.0); HGB 12.4 gm/dL (11.4-16.0); Hypochromasia Moderate; Lymphocytes # (A) 2.4 k/uL (1.0-4.8); Lymphocytes % (A) 43 %; MCH 29.8 pg (25.0-35.0); MCHC 31.9 g/dL (31.0-37.0); MCV 93.3 fL (80.0-100.0); Mean Platelet Volume 7.9; Monocytes # (A) 0.2 k/uL (0-1.0); Monocytes % (A) 3 %; Neutrophils # (A) 2.5 k/uL (1.3-7.7); Neutrophils % (A) 44 %; Platelet Count 204 k/uL (150-450); RBC 4.15 m/uL (3.80-5.40); WBC 5.6 k/uL (3.8-10.6)
[2020-03-08] MEDS: ALBUTEROL NEBULIZED 2.5 MG/3 ML INHALATION PRN ×2 (07:21→11:00)
[2020-03-08] MEDS: SYMBICORT 160-4.5 MCG INHALER INHALATION SCH (07:26)
[2020-03-08] MEDS ORDERED: PANTOPRAZOLE 40 MG TABLET PO SCH (07:30)
[2020-03-08 08:22] VITALS: BP 118/81; PULSE 88; RESP 16; TEMP 98.6
[2020-03-08] MEDS ORDERED: ENOXAPARIN 40 MG/0.4 ML SYRINGE SQ SCH (09:00)
[2020-03-08] MEDS ORDERED: METHADONE 10 MG TAB PO SCH (11:00)
--- NOTE | 2020-03-08 11:08 | P.PN ---
Subjective Progress Note Date: 03/08/20 Principal diagnosis: Status post revision incision and drainage with irrigation and debridement, wound closure Patient evaluated at bedside today, she is resting comfortably. She did have some muscle spasms earlier this morning, a flexeril was given which provided relief. She has ambulated with therapy. Her pain is controlled with current medication. Currently he has no headaches, lightheadedness, chest pain, shortness of breath, fever or chills. Objective - Vital Signs Vital signs: Vital Signs Temp 98.6 F 03/08/20 08:20 Pulse 88 03/08/20 08:20 Resp 16 03/08/20 08:20 BP 118/81 03/08/20 08:20 Pulse Ox 99 03/08/20 08:20 Intake & Output 03/07/20 03/08/20 03/08/20 18:59 06:59 18:59 Intake Total 1001 Output Total 25 Balance 976 Weight 77.111 kg Intake: IV 1001 Output: Estimated Blood Loss 25 Other: # Voids 3 - Exam Right lower extremity: Postoperative bandage was removed today at bedside, all nylon stitches are in good position and condition. There is very minimal erythema noted. Skin edges are well approximated at this time. No areas of fluctuance appreciated. Range of motion was not assessed of the knee. Calf is soft, no tenderness with palpation. Plantar flexion, dorsiflexion, EHL, FHL are intact. Her sensory exam to light touch throughout the extremity is intact. Her distalis pedis pulses 2+. - Labs CBC & Chem 7: 03/08/20 06:05 Assessment and Plan Assessment: Postop day #1 status post revision incision and drainage with irrigation and debridement, wound closure Plan: Patient continues to do very well at this time, I was able to discuss the case with the infectious disease doctor. She'll remain on the daptomycin via the PICC line that is in place. She is scheduled to follow-up with the infectious disease doctor in the next 7-10 days. Local wound care was discussed with the patient today at bedside, I did change postop bandage Activity level and restrictions were discussed, this included mainly avoiding flexion of the knee We'll prescribe Flexeril 5 mg #21 as needed for muscle spasms Plan for discharge home today, she'll follow up in the outpatient setting in 2 weeks Time with Patient: Less than 30
--- NOTE | 2020-03-08 11:13 | P.DS ---
Providers Date of admission: 03/07/2020 Expected date of discharge: 03/08/20 Attending physician: Maldonado Galaviz DO Consults: 03/07/20 17:44 Consult Physician Routine Consulting Provider: Bhavani Bragg Consult Reason/Comments: Recent picc line, possible outpatient antibiotic change Do you want consulting provider notified?: Yes Primary care physician: [facility] Course: Date of admission: 03/07/2020 Date of discharge: 03/08/2020 Admission diagnosis: Status post revision incision and drainages irrigation and debridement right prepatellar bursitis, wound closure Discharge diagnosis: Same Attending physician: Dr. Galaviz Surgical procedures: Revision incision and drainage with irrigation and debridement right prepatellar bursitis, wound closure Brief history: Patient is a 40-year-old female who was initially seen back in early February by Dr. Martinez in the inpatient setting for a septic prepatellar bursitis. She didn't initially underwent incision and drainage with irrigation and debridement procedure. She was also prescribed a PICC line via the infectious disease team and was discharged home. At the patient's most recent postoperative visit, there was notable wound dehiscence with small amounts of drainage and erythema. It was determined the patient would benefit from a revision incision and drainages irrigation and debridement procedure along with secondary wound closure. She was scheduled for 03/07/2020 Hospital course: Details of patient's surgery can be found in operative report. Patient tolerated the procedure well and was subsequently transported to orthopedic floor. Patient's orthopeidc and medical care was provided daily. Patient had daily laboratory tests performed for evaluation of overall blood counts. Patient had daily physical therapy to include strengthening range of motion as well as education with walker ambulation. Patient was noted to have a relatively uneventful postoperative course. Patient reported satisfactory pain control with oral pain medications by postoperative day 0. Patient showed satisfactory progress with physical therapy. Patient moved steadily through the program and had no difficulty meeting the goals by postoperative day 1. Given patient's otherwise satisfactory course and having met physical therapy goals, plan is to discharge patient home on postoperative day 1. Discharge condition/disposition: Patient will be discharged home in stable condition. Discharge medications: Instructions are given on resumption of patient's normal daily medications per primary care recommendation, in addition patient will be prescribed Flexeril 5 mg. Discharge instructions: 1. Wound care and infection precautions, keep incision dry and covered while showering, no lotions, creams, moisturizers. No soaking, tubs, pools, hottubs. Do not scrub over the incision. 2. Weight-bear as tolerated with walker / cane until follow-up. 3. Ice and elevate when necessary. Do not exceed 20 minutes per hour with ice pack. 4. Utilize compression sleeve until seen at first follow up appointment. 5. Visiting nursing care. 6. Home physical therapy including home CPM. 7. Pain meds and anticoagulants per prescription. 8. Pain medication has potential to cause constipation. Increase oral fluid and fiber intake. Contact primary care provider if you have not had a bowel movement within 48 hours after discharge 9. No anti-inflammatory medication until discussed at first post operative visit, this including Motrin, Aleve, Mobic, Diclofenac. 10. Follow up in office at 2 weeks postop with Zaid Gloria PA-C 11. Follow up with your primary care doctor 7-10 days after discharge. 12. Contact [facility] with any questions, . Procedures: Revision incision and drainage with irrigation and debridement, wound closure Patient Condition at Discharge: Good Plan - Discharge Summary Discharge Rx Participant: Yes New Discharge Prescriptions: New Cyclobenzaprine [Flexeril] 5 mg PO BID PRN #21 tablet PRN Reason: Muscle Spasm No Action Levothyroxine Sodium 125 mcg PO DAILY Acetaminophen [Tylenol] 1,000 mg PO Q4-6H PRN PRN Reason: Pain Omeprazole 20 mg PO DAILY Doxepin HCl 50 mg PO HS PRN PRN Reason: SLEEP Diclofenac Sodium [Voltaren Gel] 1 applicate TOPICAL QID PRN PRN Reason: Pain Albuterol Sulfate [Proair Hfa] 1 - 2 puff INHALATION RT-Q4H PRN PRN Reason: Shortness Of Breath Albuterol Nebulized [Ventolin Nebulized] 2.5 mg INHALATION RT-QID PRN PRN Reason: Shortness Of Breath Fluticasone/Salmeterol [Advair 500-50 Diskus] 1 puff INHALATION RT-BID Methadone HCl [Methadone Intensol] 132 mg PO 1100 ondansetron HCL [Zofran] 8 mg PO Q8HR PRN PRN Reason: Nausea DAPTOmycin [Cubicin] 500 mg IV DAILY predniSONE 50 mg PO DAILY Discharge Medication List Levothyroxine Sodium 125 mcg PO DAILY 12/25/17 [History] Acetaminophen [Tylenol] 1,000 mg PO Q4-6H PRN 02/08/20 [History] Albuterol Nebulized [Ventolin Nebulized] 2.5 mg INHALATION RT-QID PRN 02/08/20 [History] Albuterol Sulfate [Proair Hfa] 1 - 2 puff INHALATION RT-Q4H PRN 02/08/20 [History] Diclofenac Sodium [Voltaren Gel] 1 applicate TOPICAL QID PRN 02/08/20 [History] Doxepin HCl 50 mg PO HS PRN 02/08/20 [History] Fluticasone/Salmeterol [Advair 500-50 Diskus] 1 puff INHALATION RT-BID 02/08/20 [History] Methadone HCl [Methadone Intensol] 132 mg PO 1100 02/08/20 [History] Omeprazole 20 mg PO DAILY 02/08/20 [History] ondansetron HCL [Zofran] 8 mg PO Q8HR PRN 02/27/20 [History] DAPTOmycin [Cubicin] 500 mg IV DAILY 03/06/20 [History] predniSONE 50 mg PO DAILY 03/06/20 [History] Cyclobenzaprine [Flexeril] 5 mg PO BID PRN #21 tablet 03/08/20 [Rx] Follow up Appointment(s)/Referral(s): Maldonado Galaviz DO [Doctor of Osteopathic Medicine] - 2 Weeks Activity/Diet/Wound Care/Special Instructions: Orthopedic discharge instructions: 1. Resume home medications after discharge 2. Flexeril 5 mg as needed for muscle spasms 3. Dressing changes every 1-2 days, keep incision dry and covered while showering 4. Avoid excess flexion of the knee 5. Continue use of the IV antibiotics prescribed by infectious disease, plan for follow-up with infectious disease doctor in the next 7-10 days 6. Plan for follow-up at [facility] in 10-14 days for recheck, please contact office with any questions Discharge Disposition: HOME WITH HOME HEALTH SERVICES
--- NOTE | 2020-03-08 13:13 | P.OP ---
Date of Procedure: 03/07/20 Preoperative Diagnosis: 1. R knee wound dehiscence with continued drainage s/p I&D for septic prepatellar bursitis. Postoperative Diagnosis: 1. R knee wound dehiscence with continued drainage s/p I&D for septic prepatellar bursitis. Procedure(s) Performed: 1. INcision and drainage of R prepatellar bursa using 10 blade 2. Irrigation and debridment of skin, soft tissue and muscle Right knee using the following: -15 blade for necrotic skin debridement -Curette and ronguere for soft tissue, bursa and skin debridmenet of nerotic fat and skin -Irrigation with betadine solution, irricept and NSS for washout. 3. Complex wound closure R knee 9 cm x 5 cm x 2 cm Implants: none Anesthesia: MAC Surgeon: Maldonado Galaviz Neurology Epilepsy Physician #1: Kamlesh Gloria (KAMILLE Pearson was present for the entire case and was necessary due to the complexity of the case) Estimated Blood Loss (ml): 25 IV fluids (ml): 900 Urine output (ml): 0 Pathology: none sent Condition: stable Disposition: PACU Indications for Procedure: 40 yo female presented with continued drainage from her R knee after I&D 4 weeks ago my my partner Dr. Martinez. She continues to have swelling and pain about this knee with purulent drainage and the proximal portion has come back open. She states subjective chills and fevers. Deneis any numbness tingling. Denies any weakness. No sob/cp at this time. Operative Findings: Wound dehiscence of R knee proximally with continued drainage. Description of Procedure: The patient was seen and examined in the preoperative area. All preoperative protocols were followed. Informed consent was obtained risks and benefits of the procedure were discussed at length. Risks including bleeding infection damage to the surrounding tissue and risk of reoperation were discussed with the patient. Risk of anesthesia up to and including was a discussed with the patient. These are outlined in the risk reviewed. They were willing to accept these risks and all of the risks of surgery. The patient was given a weight- based dose of antibiotics in the form of 2 g of Ancef preoperatively the patient was on daptomycin previously through her PICC line. The patient was seen and evaluated by the anesthesia team who deemed them fit for surgery. The site was marked, the patient was willing to proceed with the procedure. The patient was transferred to the operative suite by the Department of anesthesia. There were then drifted off to sleep by the department of anesthesia and LMA anesthesia was used. Once adequate anesthesia had been obtained the patient was carefully transferred to the operative bed. All bony prominences were padded accordingly. SCDs were placed on the nonoperative lower extremities. Arms were well padded. The right lower extremity was then exposed, a bump was placed underneath the patient's right hip. A tourniquet was placed around the patient's right upper thigh and was well-padded. Preoperative briefing was done with the operative team and everyone was ready for the procedure to start. The patients right leg was then prepped and draped in the normal sterile fashion. Timeout was then performed and all parties in agreement with the procedure to be performed. Previous nylon sutures were then removed from the wound which was dehisced. The wound was then easily reopened and curet and rongeur were used to remove necrotic subcutaneous fat as well as previous Vicryl stitches. Curet was used to obtain bleeding surfaces within the subcu region as well as over the retinaculum and patellar tendon. The patellar tendon and the quad tendon were completely intact. A Betadine irrigation solution was then used through the pulse house wrecker followed by normal sterile saline 1 L followed by Irricept followed by 3 L of normal sterile saline all the while irrigating and curetting out any and/or dying material and loose material. Once this was accomplished a 15 blade was used to freshen the skin edges which had been come necrotic. The 15 blade was used to remove the skin edges as well as the subcutaneous fat that had become necrotic. This created some tension on closure and so tension stitches were placed in the form of open PDS. A complex wound closure was then performed using 2-0 PDS in the subcu tissue followed by a horizontal mattress stitch in the skin. This is done sequentially from proximal to distal and when the tension sutures were encountered they were snapped and replaced with nylon sutures. Once the closure had been accomplished which was in 30 of flexion, the wound was then cleaned with alcohol and dressed sterilely with sterile Adaptic 4 x 4's ABDs Kerlix and an Alec wrap. The patient was then transferred back to their hospital bed. There were awakened by department of anesthesia having tolerated the procedure very well with no complications. The patient was then transported to the postoperative care unit in stable condition.
--- NOTE | 2020-03-08 14:39 | CONS ---
CONSULTATION DATE OF SERVICE: 03/08/2020 REASON FOR CONSULTATION: Right knee septic prepatellar bursitis and nonhealing wound. HISTORY OF PRESENT ILLNESS: The patient is a 40-year-old female who was recently admitted to this facility with right knee septic prepatellar bursitis in this patient status post bursectomy. The patient's cultures were positive for MRSA. Blood cultures were negative. In view of the extensive infection, she did get a PICC line and was advised a 2-week course of IV vancomycin with the patient receiving outpatient setting. She was evaluated in the outpatient setting. Still having some inflammatory changes and the wound was not healing. Antibiotic at that time was switched over to daptomycin. The patient subsequently has been evaluated by Orthopedics with nonhealing of the wound and wound dehiscence. The patient has been readmitted to the hospital. This patient is status post debridement and primary closure of her wound. As per discussion with Surgery, there was no purulent material so no cultures were done. The patient did have a normal white count. Infectious Disease was consulted for continued followup on antibiotic therapy. She was on preoperative cefazolin and was switched to daptomycin last night. As of this morning, the patient denies having any fever or any chills. The patient's pain to the right knee is currently covered, more of a dull aching pain at 3 to 4 out of 10, no radiation. Denies having any chest pain. No shortness of breath or cough. No nausea, no vomiting, no abdominal pain and no diarrhea. REVIEW OF SYSTEMS: Positive points have been mentioned in HPI. Rest of systems are negative. PAST MEDICAL HISTORY: Her past medical history is significant for asthma, DVT, gastroesophageal reflux disease, pneumonia, seizure disorder, rhabdomyosarcoma, and previous MRSA right knee septic bursitis. PAST SURGICAL HISTORY: Patient's past surgical history is , right lower lobectomy empyema, bone marrow transplant and right knee bursectomy. SOCIAL HISTORY: Patient a current everyday smoker. Denies drinking or drug use. FAMILY HISTORY: Father from overdose. Mother from overdose as well. ALLERGIES: Allergies to MOXIFLOXACIN and SHELLFISH. MEDICATIONS: The medications include the patient is currently on Tylenol, Ventolin, Flexeril, daptomycin 500 mg daily. She is on Voltaren gel, doxepin, Lovenox, Dilaudid, Synthroid, Narcan, Zofran, Protonix. PHYSICAL EXAMINATION: Blood pressure 118/81 with a pulse of 88, temperature 98.6. She is 99% on 2 L nasal cannula. General description is a middle-aged female lying in bed in no distress. No tachypnea or accessory muscle respiration use. HEENT: Examination shows no pallor or scleral icterus. Oral mucous membranes are dry. NECK: Trachea central. No thyromegaly. LUNGS: Unlabored breathing, clear to auscultation anteriorly. No wheeze or crackle. HEART: S1, S2. Regular rate and rhythm. ABDOMEN: Soft, no tenderness. Right leg is currently dressed with no obvious drainage on the dressing. EXTREMITIES: No edema of feet. NEUROLOGICAL: Patient is awake, alert, oriented x3. Mood and affect normal. LABS: Hemoglobin is 12.4, white count 5.6. DIAGNOSTIC IMPRESSION: Patient with right knee septic prepatellar bursitis in this patient who is status post bursectomy. Previous culture positive for MRSA. The patient admitted to the hospital with dehiscence of the wound, more likely acute dehiscence as no evidence of any worsening infection as per recommendation with Surgery. PLAN: 1. We will keep the patient on daptomycin 4 mg/kg daily for another 10 days to 2 weeks. 2. Local wound care per Surgery. 3. . Thank you for this consultation. Will follow this patient along with you. MMODL / IJN: [id number] /
== END 2020-03-08 14:24 | disposition home health service (06) ==
LOC: OR 12:56 → EDSTATUS 14:30 → 4SSUR 17:41 → OR 03-08 14:24
PROVIDERS: ATTEND Orthopaedic Surgery
DX: T81.31XA Disruption of external operation (surgical) wound, not elsewhere classified, initial encounter (principal); M71.161 Other infective bursitis, right knee; B95.62 Methicillin resistant Staphylococcus aureus infection as the cause of diseases classified elsewhere; Z88.1 Allergy status to other antibiotic agents; Z91.013 Allergy to seafood; J45.909 Unspecified asthma, uncomplicated; F17.210 Nicotine dependence, cigarettes, uncomplicated; K21.9 Gastro-esophageal reflux disease without esophagitis; C49.9 Malignant neoplasm of connective and soft tissue, unspecified; G40.909 Epilepsy, unspecified, not intractable, without status epilepticus; M41.9 Scoliosis, unspecified; Z79.890 Hormone replacement therapy; Z79.51 Long term (current) use of inhaled steroids; Z79.52 Long term (current) use of systemic steroids; Z79.899 Other long term (current) drug therapy; Z86.718 Personal history of other venous thrombosis and embolism; Z86.19 Personal history of other infectious and parasitic diseases; Z87.01 Personal history of pneumonia (recurrent); Z98.891 History of uterine scar from previous surgery; Z98.890 Other specified postprocedural states; Z92.21 Personal history of antineoplastic chemotherapy; Z92.3 Personal history of irradiation
CPT/HCPCS: 94640 ×3; 97161; 81025; 85025; 11043; 11046 ×2; J2250; J2370; J2710; J2405; J0690; J2001; J1650; J3010; J0878; S0109; J1170 ×3; J1885; J0330; J2704

== ENCOUNTER 2020-03-15 01:39 | Inpatient (IN) | payer OTHER ==
[2020-03-15] MEDS ORDERED: HYDROmorphone 1 MG/ML 1 ML SYRINGE IVP STA (01:43)
[2020-03-15] MEDS ORDERED: ONDANSETRON 4 MG/2 ML VIAL IVP STA (01:43)
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
--- NOTE | 2020-03-15 02:40 | XR ---
EXAM: XR Right Knee, 3 Views CLINICAL HISTORY: ITS.REASON XR Reason: Right knee injury; recent surgery TECHNIQUE: Three views of the right knee. COMPARISON: Right knee radiograph on 02/09/2020 FINDINGS: Bones/joints: No displaced fracture or dislocation identified. Chondrocalcinosis in the medial and lateral compartments. No significant knee joint effusion. Osteopenia. Soft tissues: Soft tissue swelling. IMPRESSION: No displaced fracture or dislocation identified.
[2020-03-15] MEDS ORDERED: ONDANSETRON 4 MG/2 ML VIAL IVP PRN (02:46)
[2020-03-15] MEDS ORDERED: NALOXONE 0.4 MG/ML 1 ML VIAL IV PRN (02:46)
[2020-03-15] MEDS: SODIUM CHLORIDE 0.9% 1,000 ML IV SCH ×3 (04:26→23:14)
[2020-03-15] MEDS: HYDROmorphone 1 MG/ML 1 ML SYRINGE IVP PRN ×4 (04:54→19:26)
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
[2020-03-15] MEDS ORDERED: ACETAMINOPHEN TAB 500 MG TAB PO PRN (09:21)
[2020-03-15] MEDS ORDERED: ONDANSETRON 4 MG TAB PO PRN (09:21)
[2020-03-15] MEDS ORDERED: ALBUTEROL HFA INHALER INHALATION PRN (09:21)
[2020-03-15] MEDS ORDERED: DICLOFENAC SODIUM GEL 100 GM TUBE TOPICAL PRN (09:21)
[2020-03-15] MEDS ORDERED: CYCLOBENZAPRINE 5 MG TAB PO PRN (09:21)
[2020-03-15] MEDS ORDERED: DOXEPIN 25 MG CAP PO PRN (09:21)
[2020-03-15] MEDS: ALBUTEROL NEBULIZED 2.5 MG/3 ML INHALATION PRN ×3 (09:55→20:17)
[2020-03-15] MEDS: METHADONE 10 MG TAB PO SCH (10:07)
[2020-03-15 10:22] LABS: Basophils % (A) 1 %; Eosinophils # (A) 0.3 k/uL (0-0.7); Eosinophils % (A) 6 %; HCT 33.8 % (34.0-46.0); HGB 10.9 gm/dL (11.4-16.0); Hypochromasia Moderate; Lymphocytes # (A) 1.8 k/uL (1.0-4.8); Lymphocytes % (A) 41 %; MCHC 32.4 g/dL (31.0-37.0); MCV 92.7 fL (80.0-100.0); Mean Platelet Volume 7.5; Monocytes # (A) 0.1 k/uL (0-1.0); Monocytes % (A) 3 %; Neutrophils % (A) 47 %; Platelet Count 132 k/uL (150-450); RBC 3.65 m/uL (3.80-5.40); RDW 13.8 % (11.5-15.5); WBC 4.4 k/uL (3.8-10.6)
[2020-03-15 10:35] LABS: African American GFR (CKD) >90 (>60 ml/min/1.73 sqM); Anion Gap 2 mmol/L; Blood Urea Nitrogen 11 mg/dL (7-17); C Reactive Protein 20.2 mg/L (<10.0); Carbon Dioxide 36 mmol/L (22-30); Chloride 101 mmol/L (98-107); Glucose 84 mg/dL (74-99); Non-African American GFR(CKD) >90 (>60 ml/min/1.73 sqM); Potassium 4.5 mmol/L (3.5-5.1); Sodium 139 mmol/L (137-145)
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
[2020-03-15] MEDS: DAPTOmycin 500 MG in SODIUM CHLORIDE 0.9% 50 ML IVPB SCH (11:54)
[2020-03-15 12:07] LABS: Erythrocyte Sedimentation Rate 18 mm/hr (0-20)
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
[2020-03-15] MEDS ORDERED: PROPOFOL 10 MG/ML 20 ML VIAL IV ONE (16:37)
[2020-03-15] MEDS ORDERED: fentaNYL (PF) 50 MCG/ML 2 ML AMP ONE (16:37)
[2020-03-15] MEDS ORDERED: MIDAZOLAM 2 MG/2 ML VIAL ONE (16:37)
[2020-03-15] MEDS ORDERED: KETAMINE 10 MG/ML 20 ML VIAL ONE (16:37)
[2020-03-15] MEDS ORDERED: LIDOCAINE 1% INJ 10MG/ML (20 ML MDV) ONE (16:37)
[2020-03-15] MEDS ORDERED: LACTATED RINGERS 1,000 ML IV ONE (16:39)
--- NOTE | 2020-03-15 17:54 | P.OP ---
Date of Procedure: 03/15/20 Preoperative Diagnosis: Right knee wound dehiscence status post fall from standing Postoperative Diagnosis: Same Procedure(s) Performed: 1. Irrigation and debridement of right anterior knee wound skin soft tissue and tendon 9 cm x 4 cm x 2 cm with the following instruments -Curettes and rongeur were used to debride necrotic fat in the subcutaneous region as well as necrotic skin. -Curet was used to scrape the anterior portion of the patellar retinaculum and tendon for debridement. 2. Complex wound closure right knee 9 cm x 4 cm x 2 cm Implants: None Anesthesia: GETA Surgeon: Maldonado Galaviz Estimated Blood Loss (ml): 20 IV fluids (ml): 150 Urine output (ml): 0 Pathology: none sent Condition: stable Disposition: PACU Indications for Procedure: 40-year-old female who is a week and a half out from a revision irrigation and debridement of her right knee and bursectomy with primary closure presents status post fall from standing. Patient states that she was using her walker when it caught on the edge of a rug and she went down into her bilateral knees. She complains of pain in her right knee as well as left knee. Her incision split open and her stitches failed on the right knee causing dehiscence in this area secondary to the fall. Patient also complains of pain in her left knee with an abrasion over the anterior portion of her left knee. She denies any other symptoms at this time. She states she did not break anything but she simply split open her wound which is painful. She states that she thought it was healing very well as well and so she is frustrated. She denies any fevers chills shortness of breath or chest pain at this time. She denies any leg pain she denies any weakness. Operative Findings: Incisional dehiscnence of the RIGHT knee. No note of infectious process. Description of Procedure: The patient was seen and examined in the preoperative area. All preoperative protocols were followed. Informed consent was obtained risks and benefits of the procedure were discussed at length. Risks including bleeding infection damage to the surrounding tissue and risk of reoperation were discussed with the patient. Risk of anesthesia up to and including was a discussed with the patient. These are outlined in the risk reviewed. They were willing to accept these risks and all of the risks of surgery. The patient was given a weight- based dose of antibiotics in the form of 2 g and foot soft IVPB 1 patient is also on daptomycin through her PICC line. The patient was seen and evaluated by the anesthesia team who deemed them fit for surgery. The site was marked, the patient was willing to proceed with the procedure. The patient was transferred to the operative suite by the Department of anesthesia. There were then drifted off to sleep by the department of anesthesia and general endotracheal intubation anesthesia was used. Once adequate anesthesia had been obtained the patient was carefully transferred to the operative bed. All bony prominences were padded accordingly. SCDs were placed on the nonoperative lower extremities. Arms were well padded. Right leg was exposed. Tourniquet was placed on the patient's right upper thigh and secured and well padded. 10:15 was placed from this. Patient's right hip was bumped. Preoperative briefing was done with the operative team and everyone was ready for the procedure to start. The patients right leg was then prepped and draped in the normal sterile fashion. Timeout was then performed and all parties in agreement with the procedure to be performed. Dehisced wound was cleaned. Previous sutures were removed with a rongeur as well as a curet. Patient's wound was then irrigated with 3 L normal sterile saline intermittently with Irricept. This is done through a pulse lavage. Curet was used to scrape skin soft tissue and tendon in this area. There is no evidence of purulence. The stitches proximally and distally had broken open secondary to the patient's fall. Once irrigation was complete any necrotic tissue fat or skin was debrided. There are good skin edges for closure. 0 PDS was then used in the subcu region to approximate the wound edges for airtight closure this was done without any issues. 2-0 nylon was then placed in the skin in a horizontal mattress fashion. Skin braulio and were placed over these 2 relieve tension on the skin and continue with closure. The wound was then cleaned and dried and dressed sterilely with sterile Adaptic 4 x 4 ABDs and web roll. This was overwrapped with an Alec wrap and the patient was placed in a knee immobilizer that was well-padded and well fitted. After drape removal of the patient's left knee was attended to and a sterile dressing was placed on this as she has a superficial abrasion of this knee. The patient was then transferred back to their hospital bed. There were awakened by department of anesthesia having tolerated the procedure very well with no complications. The patient was then transported to the postoperative care unit in stable condition.
[2020-03-15] MEDS: SYMBICORT 160-4.5 MCG INHALER INHALATION SCH (20:17)
[2020-03-15] MEDS: HYDROcodone/APAP 5-325MG 1 EACH TAB PO PRN (20:41)
[2020-03-15] MEDS: HEPARIN SODIUM,PORCINE 5,000 UNIT/ML 1 ML VIAL SQ SCH (20:41)
[2020-03-16] MEDS: HYDROmorphone 1 MG/ML 1 ML SYRINGE IVP PRN ×2 (01:50→09:21)
[2020-03-16] MEDS: HYDROcodone/APAP 5-325MG 1 EACH TAB PO PRN (05:57)
[2020-03-16] MEDS ORDERED: LEVOTHYROXINE 125 MCG TAB PO SCH (06:30)
[2020-03-16] MEDS ORDERED: PANTOPRAZOLE 40 MG TABLET PO SCH (07:30)
[2020-03-16] MEDS: HEPARIN SODIUM,PORCINE 5,000 UNIT/ML 1 ML VIAL SQ SCH (07:33)
[2020-03-16] MEDS: METHADONE 10 MG TAB PO SCH (07:36)
[2020-03-16 07:51] VITALS: BP 110/61; RESP 18; TEMP 99
[2020-03-16] MEDS: SYMBICORT 160-4.5 MCG INHALER INHALATION SCH (09:26)
[2020-03-16] MEDS: ALBUTEROL NEBULIZED 2.5 MG/3 ML INHALATION PRN (09:26)
[2020-03-16 09:40] VITALS: PULSE 101
[2020-03-16] MEDS: DAPTOmycin 500 MG in SODIUM CHLORIDE 0.9% 50 ML IVPB SCH (10:40)
--- NOTE | 2020-03-16 11:10 | P.PN ---
Subjective Progress Note Date: 03/16/20 Principal diagnosis: s/p irrigation and debridement right knee wound with complex closure Patient was evaluated today at bedside, she is resting comfortably. She has generalized discomfort on the anterior aspect of the knee. It is controlled with current medication. She has no fevers, chills, nausea or vomiting at this time. She is utilizing a knee immobilizer. She has been evaluated by both internal medicine and infectious disease. She'll be following up with infectio us disease in 1 week, likely discontinuation of the PICC line at that time. Patient denies any headaches, lightheadedness, chest pain or shortness of breath. Objective - Vital Signs Vital signs: Vital Signs Temp 99.0 F 03/16/20 07:50 Pulse 101 H 03/16/20 09:36 Resp 18 03/16/20 07:50 BP 110/61 03/16/20 07:50 Pulse Ox 93 L 03/16/20 09:26 Intake & Output 03/15/20 03/16/20 03/16/20 18:59 06:59 18:59 Intake Total 450 1200 Output Total 20 Balance 430 1200 Intake: IV 450 Intake, IV Titration 900 Amount Sodium Chloride 0.9% 1, 900 000 ml @ 75 mls/hr IV . [id number] LENCHO Rx#:[id number] Oral 300 Output: Estimated Blood Loss 20 Other: # Voids 3 2 - Exam Right lower extremity: Postoperative bandage was removed Bedside, the incision is clean, dry and intact. Nylon stitches and braulio are all in good position and condition. There is minimal erythema noted over the anterior aspect of the knee, the skin edges appear well adhered. There is no effusion present over the knee, there is no areas of fluctuance. Mild tenderness with palpation of the anterior aspect knee. Patient remains in extension at this time, flexion was not assessed. Compartments the lower leg are soft. Calf is soft, tenderness with palpation. Plantar flexion, dorsiflexion, EHL, FHL are intact, no strength deficits appreciated. Dorsalis pedis pulse and posterior tibialis pulses 2+ - Labs CBC & Chem 7: 03/15/20 09:50 03/15/20 09:50 Assessment and Plan Assessment: Status post irrigation and debridement right knee wound with wound closure Plan: Pain control, patient will resume her normal and prescribed methadone after discharge DVT prophylaxis, she has received during inpatient stay Wound care instructions were discussed with patient, she will utilize daily dressing changes Activity level instructions are discussed, she will utilize the knee immobilizer. She will avoid any flexion with the knee at this time. Recommend weight-bear with a walker over the next week or 2 Other medical billing clerk recommendations Plan for follow-up in the outpatient setting in 2 weeks Time with Patient: Less than 30
--- NOTE | 2020-03-16 11:20 | P.DS ---
Providers Date of admission: 03/15/20 10:20 Expected date of discharge: 03/16/20 Attending physician: Naveed Bartholomew Consults: 03/15/20 09:08 Consult Physician Routine Consulting Provider: Bhavani Bragg Consult Reason/Comments: R knee septic prepatellar bursitis, wound dehiscence Do you want consulting provider notified?: Yes 03/15/20 11:23 Consult Physician Routine Consulting Provider: Herbert Solorio Consult Reason/Comments: medical management Do you want consulting provider notified?: Already Contacted Primary care physician: Eloisa Cordova [facility] Course: Date of admission: 03/15/2020 Date of discharge: 03/16/2020 Admission diagnosis: Right knee wound dehiscence Discharge diagnosis: Status post irrigation and debridement with closure right knee wound Attending physician: Dr. Galaviz Surgical procedures: Irrigation and debridement with closure right knee wound Brief history: Patient is a 40-year female who had initially undergone an incision and drainage and irrigation and debridement of a septic prepatellar bursitis involving the right knee back in early February 2020. At her first postop visit, it was noted the patient had developed some superficial dehiscence along with continuation of erythema on the skin edges. She was boarded for irrigation and debridement with wound closure on 03/07/2020. Patient was doing very well postoperatively, on 03/15/2020 she did trip and fall over her walker and rug and landed directly on the right knee. She noticed immediate dehiscence of the wound, she reported to [facility] for further evaluation. She was then admitted under our care with plan for likely surgical intervention. Hospital course: Details of patient's surgery can be found in operative report. Patient tolerated the procedure well and was subsequently transported to orthopedic floor. Patient's orthopeidc and medical care was provided daily. Patient had daily laboratory tests performed for evaluation of overall blood counts. Patient was treated with heparin for their postoperative DVT prophylaxis during their inpatient stay. Patient was noted to have a relatively uneventful postoperative course. Patient reported satisfactory pain control with oral pain medications by postoperative day 0. atient showed satisfactory progress with physical therapy. Patient moved steadily through the program and had no difficulty meeting the goals by postoperative day 1. Given patient's otherwise satisfactory course and having met physical therapy goals, plan is to discharge patient home on postoperative day 1. Discharge condition/disposition: Patient will be discharged home in stable condition. Discharge medications: Instructions are given on resumption of patient's normal daily medications per primary care recommendation, in addition patient will be prescribed no new medication Discharge instructions: 1. Wound care and infection precautions, keep incision dry and covered while showering, no lotions, creams, moisturizers. No soaking, tubs, pools, hottubs. Do not scrub over the incision. 2. Weight-bear as tolerated with walker / cane until follow-up. Utilize the immobilizer when up and about. 3. Ice and elevate when necessary. Do not exceed 20 minutes per hour with ice pack. 4. Utilize compression sleeve until seen at first follow up appointment. 5. Visiting nursing care. 7. Pain meds and anticoagulants per prescription. 8. Pain medication has potential to cause constipation. Increase oral fluid and fiber intake. Contact primary care provider if you have not had a bowel movement within 48 hours after discharge 9. No anti-inflammatory medication until discussed at first post operative visit, this including Motrin, Aleve, Mobic, Diclofenac 10. Follow up in office at [address] Galaviz 11. Follow up with your primary care doctor 7-10 days after discharge. 12. Contact [facility] with any questions, . Procedures: Irrigation and debridement right knee wound with wound closure Patient Condition at Discharge: Serious Plan - Discharge Summary New Discharge Prescriptions: No Action Levothyroxine Sodium 125 mcg PO DAILY Acetaminophen [Tylenol] 1,000 mg PO Q4-6H PRN PRN Reason: Pain Omeprazole 20 mg PO DAILY Doxepin HCl 50 mg PO HS PRN PRN Reason: SLEEP Diclofenac Sodium [Voltaren Gel] 1 applicate TOPICAL QID PRN PRN Reason: Pain Albuterol Sulfate [Proair Hfa] 1 - 2 puff INHALATION RT-Q4H PRN PRN Reason: Shortness Of Breath Albuterol Nebulized [Ventolin Nebulized] 2.5 mg INHALATION RT-QID PRN PRN Reason: Shortness Of Breath Fluticasone/Salmeterol [Advair 500-50 Diskus] 1 puff INHALATION RT-BID Methadone HCl [Methadone Intensol] 132 mg PO DAILY@1100 ondansetron HCL [Zofran] 8 mg PO Q8HR PRN PRN Reason: Nausea DAPTOmycin [Cubicin] 500 mg IV DAILY Cyclobenzaprine [Flexeril] 5 mg PO BID PRN #21 tablet PRN Reason: Muscle Spasm Discharge Medication List Levothyroxine Sodium 125 mcg PO DAILY 12/25/17 [History] Acetaminophen [Tylenol] 1,000 mg PO Q4-6H PRN 02/08/20 [History] Albuterol Nebulized [Ventolin Nebulized] 2.5 mg INHALATION RT-QID PRN 02/08/20 [History] Albuterol Sulfate [Proair Hfa] 1 - 2 puff INHALATION RT-Q4H PRN 02/08/20 [History] Diclofenac Sodium [Voltaren Gel] 1 applicate TOPICAL QID PRN 02/08/20 [History] Doxepin HCl 50 mg PO HS PRN 02/08/20 [History] Fluticasone/Salmeterol [Advair 500-50 Diskus] 1 puff INHALATION RT-BID 02/08/20 [History] Methadone HCl [Methadone Intensol] 132 mg PO DAILY@1100 02/08/20 [History] Omeprazole 20 mg PO DAILY 02/08/20 [History] ondansetron HCL [Zofran] 8 mg PO Q8HR PRN 02/27/20 [History] DAPTOmycin [Cubicin] 500 mg IV DAILY 03/06/20 [History] Cyclobenzaprine [Flexeril] 5 mg PO BID PRN #21 tablet 03/08/20 [Rx] Follow up Appointment(s)/Referral(s): [facility], [NON-STAFF] - As Needed Eloisa Cordova MD [Primary Care Provider] - 1-2 days [facility], [REFERRING] - As Needed Maldonado Galaviz DO [Doctor of Osteopathic Medicine] - 1 Week Patient Instructions/Handouts: Joint Incision and Drainage (DC) Activity/Diet/Wound Care/Special Instructions: Orthopedic discharge instructions: 1. Daily dressing changes, keep incision dry and covered while showering 2. Utilize knee immobilizer when ambulating 3. Utilize walker when ambulating 4. Continue with IV antibiotics as prescribed infectious disease 5. Ice and elevate often 6. Plan for follow-up at [facility] weeks, contact office for any questions or Discharge Disposition: HOME WITH HOME HEALTH SERVICES
--- NOTE | 2020-03-16 13:16 | P.PN ---
Subjective Progress Note Date: 03/16/20 - Reason for Consult Prepatellar bursitis headaches - History of Present Illness Patient is a 40-year-old female admitted for a right knee prepatellar bursitis and patient is status post incision and drainage. Patient had similar events and had IND in month of February. Patient was treated at the time with daptomycin and patient was started on daptomycin again infectious disease evaluated the patient patient denied any nausea vomiting fever chills. Patient had history of IV drug use in the past history of hepatitis C and the on methadone rehabilitation at this time. 03/16/2020 Patient is seen and evaluated today with no acute overnight issues. Patient is maintained on IV daptomycin and will continue at this time. Disease is following. Patient does have a PICC line and will continue with outpatient IV antibiotic therapy. Review of systems: Constitutional: No reports of fatigue, fever, or chills Cardiovascular: No reports of chest pain or palpitations Respiratory: No reports of shortness of breath or cough GI: No reports of nausea, vomiting, or diarrhea : No reports of dysuria or retention Neurovascular: No reports of weakness or numbness All medications have been reviewed Objective - Vital Signs Vital signs: Vital Signs Temp 99.0 F 03/16/20 07:50 Pulse 101 H 03/16/20 09:36 Resp 18 03/16/20 07:50 BP 110/61 03/16/20 07:50 Pulse Ox 93 L 03/16/20 09:26 Intake & Output 03/15/20 03/16/20 03/16/20 18:59 06:59 18:59 Intake Total 450 1200 Output Total 20 Balance 430 1200 Intake: IV 450 Intake, IV Titration 900 Amount Sodium Chloride 0.9% 1, 900 000 ml @ 75 mls/hr IV . [id number] [facility] Rx#:[id number] Oral 300 Output: Estimated Blood Loss 20 Other: # Voids 3 2 - Exam GENERAL: The patient is alert and oriented x3, not in any acute distress. Well developed, well nourished. HEENT: Pupils are round and equally reacting to light. EOMI. No scleral icterus. No conjunctival pallor. Normocephalic, atraumatic. No pharyngeal erythema. No thyromegaly. CARDIOVASCULAR: S1 and S2 present. No murmurs, rubs, or gallops. PULMONARY: Chest is clear to auscultation, no wheezing or crackles. ABDOMEN: Soft, nontender, nondistended, normoactive bowel sounds. No palpable organomegaly. MUSCULOSKELETAL: Right knee, surgical bandage and dressing is dry and intact and right knee immobilizer noted EXTREMITIES: No cyanosis, clubbing, or pedal edema. NEUROLOGICAL: Gross neurological examination did not reveal any focal deficits. SKIN: No rashes. - Labs CBC & Chem 7: 03/15/20 09:50 03/15/20 09:50 Assessment and Plan Assessment: -Right knee prepatellar bursitis, infected: Patient is maintained on daptomycin and will continue in the outpatient setting, patient has a PICC line -Status post incision and drainage -History of DVT in the past, patient is presently not on anticoagulation, defer to orthopedic surgery for possible outpatient anticoagulant -Asthma without any acute exacerbation, smoking cessation counseling was provided -Continued ongoing nicotine dependence -Gastroesophageal reflux disease -Seizure disorder last seizure was in 2016. Patient is presently not on any antiseizure medications -Hypothyroidism continue with levothyroxine Plan: Continue current medications. Home medications have been resumed. Will cont inue to follow with orthopedic surgery rehospitalization. Patient is maintained on IV daptomycin and has a PICC line and will continue in the outpatient setting. Further recommendations to follow. Patient states she is being discharged today.
--- NOTE | 2020-03-16 15:02 | PN ---
PROGRESS NOTE DATE OF SERVICE: 03/16/2020 REASON FOR FOLLOWUP: Right knee septic bursitis and recent trauma. INTERVAL HISTORY: The patient was seen on rounds early this morning. The patient has been afebrile. Overall pain and discomfort to the right knee is currently controlled. The patient denies having any chest pain, no shortness of breath or cough. No abdominal pain or diarrhea. PHYSICAL EXAMINATION: Blood pressure 110/61 with a pulse of 72, temperature 99. She is 93% on room air. General description is a middle-aged female up in the chair in no distress. RESPIRATORY SYSTEM: Unlabored breathing, clear to auscultation anteriorly. HEART: S1, S2. Regular rate and rhythm. ABDOMEN: Soft, no tenderness. Right knee is currently dressed. LABS: Hemoglobin is 10.9, white count 4.4, BUN of 11, creatinine 0.78. DIAGNOSTIC IMPRESSION AND PLAN: Patient with right knee laceration following trauma in this patient with recent right knee septic prepatellar bursitis. Culture with MRSA. Patient to continue with IV daptomycin until March 27. At that time, patient will be evaluated in the office to see if need for any further antibiotic therapy. Continue supportive care. MMODL / IJN: [id number] /
--- NOTE | 2020-03-24 09:11 | CDI ---
Documentation Clarification Form Date: 03/24/2020 08:48:00 AM From: Amena Peguero Phone: If you have a question about this query, please contact Lenka Carroll Physician Interventional Cardiologist at [phone] between 8am and 5pm. Admit Date: 03/15/2020 10:20:00 AM Patient Name: Jazz Cortez Visit Number: [id number] Discharge Date: 03/16/2020 12:20:00 PM ATTENTION: The Clinical Documentation Specialists (CDI) and [facility] Coding Staff appreciate your assistance in clarifying documentation. Please respond to the clarification below the line at the bottom and electronically sign. The CDI & [facility] Coding staff will review the response and follow-up if needed. Please note: Queries are made part of the Legal Health Record. If you have any questions, please contact the author of this message via ITS. Dr. Maldonado Galaviz, Per your operative note, a debridement was performed on 03/15. History/Risk Factors: asthma, cancer, DVT, GERD/reflux, liver disease, pneumonia, seizure disorder Clinical Indicators: Right knee wound dehiscence following a fall from standing. Treatment: 1.Irrigation and debridement of right anterior knee wound skin soft tissue and tendon 9 cm x 4 cm x 2 cm with the following instruments -Curettes and rongeur were used to debride necrotic fat in the subcutaneous region as well as necrotic skin. Five elements required for accurate and compliant documentation of a debridement: 1. Technique used (e.g., excisional, excised, cutting, etc.) 2. Instrument(s) used (e.g., scalpel, curette, etc.) 3. Nature of the tissue removed (e.g., necrotic, devitalized tissues, non- viable tissue, etc.) 4. Appearance and size of the wound (e.g., down to fresh bleeding tissue, 7cm x 10cm, etc.) 5. Depth of the debridement* (e.g., skin, subcutaneous tissue, fascia, muscle, bone, etc.) In order to capture the severity of condition and code the appropriate procedure; could you please document the following: Excisional debridement (the removal of necrotic, devitalized tissue or slough by means of cutting away of tissue) Non-excisional debridement (the removal of necrotic, devitalized tissue or slough by means of flushing, brushing, or washing. (Irrigation) Other; please specify Unable to determine Non-excisional debridement (the removal of necrotic, devitalized tissue or slough by means of flushing, brushing, or washing. (Irrigation) MIGUED
== END 2020-03-16 12:20 | disposition home health service (06) | DRG 908 ==
LOC: EC 01:39 → 4SSUR 03:23 → OBSVTOIN 10:20
PROVIDERS: ADMIT Orthopaedic Surgery; ATTEND Orthopaedic Surgery
PROC: 0QDD0ZZ Extraction of Right Patella, Open Approach (ICD-10-PCS; principal; 2020-03-15 14:10)
DX: T81.31XA Disruption of external operation (surgical) wound, not elsewhere classified, initial encounter (principal); I96 Gangrene, not elsewhere classified; Z94.81 Bone marrow transplant status; S81.011A Laceration without foreign body, right knee, initial encounter; G40.909 Epilepsy, unspecified, not intractable, without status epilepticus; F11.21 Opioid dependence, in remission; M71.161 Other infective bursitis, right knee; S80.212A Abrasion, left knee, initial encounter; S80.02XA Contusion of left knee, initial encounter; M41.9 Scoliosis, unspecified; K21.9 Gastro-esophageal reflux disease without esophagitis; J45.909 Unspecified asthma, uncomplicated; K76.9 Liver disease, unspecified; F17.210 Nicotine dependence, cigarettes, uncomplicated; Z71.6 Tobacco abuse counseling; Z79.890 Hormone replacement therapy; Z79.2 Long term (current) use of antibiotics; Z79.51 Long term (current) use of inhaled steroids; Z79.899 Other long term (current) drug therapy; Z86.59 Personal history of other mental and behavioral disorders; Z86.718 Personal history of other venous thrombosis and embolism; Z86.19 Personal history of other infectious and parasitic diseases; Z87.01 Personal history of pneumonia (recurrent); Z90.2 Acquired absence of lung [part of]; Z87.828 Personal history of other (healed) physical injury and trauma; Z86.14 Personal history of Methicillin resistant Staphylococcus aureus infection; Z85.831 Personal history of malignant neoplasm of soft tissue; Z92.21 Personal history of antineoplastic chemotherapy; Z92.3 Personal history of irradiation; Z89.022 Acquired absence of left finger(s); Z98.891 History of uterine scar from previous surgery; Z98.890 Other specified postprocedural states; Z88.1 Allergy status to other antibiotic agents; Z91.013 Allergy to seafood; Y92.009 Unspecified place in unspecified non-institutional (private) residence as the place of occurrence of the external cause; W01.0XXA Fall on same level from slipping, tripping and stumbling without subsequent striking against object, initial encounter; Z81.4 Family history of other substance abuse and dependence
CPT/HCPCS: 80048; 81025; 82550; 85025; 85652; 86140; 94640; 94760; 96374; 96375; 99284

== ENCOUNTER 2020-03-30 14:43 | Inpatient (IN) | payer OTHER ==
[2020-03-30] MEDS ORDERED: ONDANSETRON 4 MG/2 ML VIAL IVP PRN (16:16)
[2020-03-30] MEDS ORDERED: ACETAMINOPHEN TAB 325 MG TAB PO PRN (16:16)
[2020-03-30] MEDS ORDERED: ALPRAZolam 0.25 MG TAB PO PRN (16:16)
[2020-03-30] MEDS ORDERED: DOCUSATE 100 MG CAP PO PRN (16:16)
[2020-03-30] MEDS ORDERED: NALOXONE 0.4 MG/ML 1 ML VIAL IV PRN (16:16)
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
[2020-03-30 16:51] LABS: Basophils % (A) 1 %; Eosinophils # (A) 0.2 k/uL (0-0.7); Eosinophils % (A) 5 %; HCT 34.1 % (34.0-46.0); HGB 11.4 gm/dL (11.4-16.0); Hypochromasia Slight; Lymphocytes % (A) 52 %; MCH 29.9 pg (25.0-35.0); MCHC 33.5 g/dL (31.0-37.0); MCV 89.3 fL (80.0-100.0); Mean Platelet Volume 7.3; Monocytes # (A) 0.1 k/uL (0-1.0); Monocytes % (A) 3 %; Neutrophils # (A) 1.4 k/uL (1.3-7.7); Neutrophils % (A) 37 %; Platelet Count 174 k/uL (150-450); RBC 3.82 m/uL (3.80-5.40); RDW 13.7 % (11.5-15.5); WBC 3.8 k/uL (3.8-10.6)
[2020-03-30 17:01] LABS: African American GFR (CKD) >90 (>60 ml/min/1.73 sqM); Anion Gap 5 mmol/L; Blood Urea Nitrogen 11 mg/dL (7-17); Calcium 8.8 mg/dL (8.4-10.2); Carbon Dioxide 32 mmol/L (22-30); Chloride 102 mmol/L (98-107); Glucose 70 mg/dL (74-99); Non-African American GFR(CKD) 89 (>60 ml/min/1.73 sqM); Potassium 3.9 mmol/L (3.5-5.1); Sodium 139 mmol/L (137-145)
[2020-03-30] MEDS: SODIUM CHLORIDE 0.9% 1,000 ML IV SCH (17:51)
[2020-03-30] MEDS: MORPHINE SULFATE 4 MG/ML SYRINGE IV PRN (20:27)
[2020-03-30] MEDS ORDERED: ALBUTEROL NEBULIZED 2.5 MG/3 ML INHALATION PRN (23:02)
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
--- NOTE | 2020-03-30 23:14 | CONS ---
CONSULTATION DATE OF SERVICE: 03/30/2020 REASON FOR CONSULTATION: Right knee infection. HISTORY OF PRESENT ILLNESS: The patient is a 40-year-old female, initially presenting to the hospital at the beginning of February 2020 with right knee septic prepatellar bursitis in this patient who was status post bursectomy. The patient's cultures were positive for MRSA. Blood cultures were negative. The patient did get a PICC line and she was advised a 3- week course of IV vancomycin. Subsequently the patient was readmitted to the hospital on March 07, 2020, with concern about continued drainage status post bursectomy. The patient did have a repeat I and D on the same bursa. The patient was continued on daptomycin in the outpatient setting with a readmission hospital on March 15, 2020, after the patient did have a fall with resulting laceration to the right hip area. The patient did have a repeat I and D and closure of the laceration. The patient was discharged again on IV daptomycin, which the patient completed yesterday after almost 7 weeks of antibiotic therapy. The patient was evaluated by the orthopedist today and she was noted to have more swelling and inflammation to the right knee area. The patient has been complaining of more pain to the right knee, more of a dull aching to sharp, 6 to 7 out of 10, and no radiation. She did have mild drainage. Apparently she was complaining of some subjective fever to the surgeon, though no fever has been recorded here. The patient subsequently was admitted to the hospital with a planned incision and drainage tomorrow. On admission to the hospital the patient did have a normal white count with no left shift. Kidney function has been normal. Blood culture has been obtained; currently pending. Infectious Disease was consulted for further management of antibiotic therapy. REVIEW OF SYSTEMS: Positive points have been mentioned in HPI. Rest of the systems are negative. PAST MEDICAL HISTORY: Right knee septic prepatellar bursitis and MRSA, history of asthma and DVT, gastroesophageal reflux disease, pneumonia, seizure disorder, rhabdomyosarcoma. PAST SURGICAL HISTORY: , right lower lobectomy for empyema, bone marrow transplant, right knee bursectomy x3. SOCIAL HISTORY: Current everyday smoker. Denies drinking or any drug use. FAMILY HISTORY: Father from overdose. Mother from overdose as well. ALLERGIES: MOXIFLOXACIN. MEDICATIONS: The patient is currently on Tylenol, Xanax, Colace, Narcan, Zofran, Percocet and IV fluid. PHYSICAL EXAMINATION: Blood pressure 124/83 with a pulse of 90, temperature 98.8. She is 92% on room air. General description is a middle-aged female lying in bed in no distress. No tachypnea or accessory muscle of respiration use. HEENT: Examination shows no pallor or scleral icterus. Oral mucous membrane is dry. No pharyngeal erythema or thrush. NECK: Trachea is central. No thyromegaly. LUNGS: Unlabored breathing. Clear to auscultation anteriorly. No wheeze or crackle. HEART: S1, S2. Regular rate and rhythm. ABDOMEN: Soft. No tenderness. No guarding or rigidity. No organomegaly. EXTREMITIES: No edema of the feet. Examination of the right knee did show incision slightly opened up with minimal swelling, minimal redness, minimal drainage, not foul-smelling. Neurologically the patient is awake, alert, oriented x3. Mood and affect normal. LABS: Hemoglobin 11.4, white count 3.8. BUN of 11, creatinine 0.82. DIAGNOSTIC IMPRESSION AND PLAN: Patient admitted to hospital with right knee pain with non-healing right knee surgery in this patient who did have a history of right knee septic bursitis, status post multiple bursectomies with laceration after a fall and trauma. Initial cultures were positive for MRSA, for which the patient received almost 7 weeks of IV antibiotic therapy. The PICC line was just discontinued yesterday, as the patient was feeling better and never called the office with concern for any worsening of her wound. No fever or elevated white count has been recorded so far. Concern for possible continued infectious process. PLAN: 1. Blood culture has been await the ID tomorrow. 2. Will request cultures to make sure they show no evidence of any infection with a different bacteria. 3. The patient is currently not septic; did not have elevated white count and no IV access. Will hold on any systemic antibiotic therapy at this point. 4. Will follow her clinical condition and culture to further adjust medication if needed. Thank you for this consultation. Will follow this patient along with you. MMODL / IJN: [id number] /
[2020-03-30] MEDS ORDERED: DOXEPIN 25 MG CAP PO PRN (23:30)
[2020-03-31] MEDS: MORPHINE SULFATE 4 MG/ML SYRINGE IV PRN ×2 (04:43→11:59)
[2020-03-31] MEDS: LEVOTHYROXINE 125 MCG TAB PO SCH (04:45)
[2020-03-31] MEDS: PANTOPRAZOLE 40 MG TABLET PO SCH (07:06)
[2020-03-31] MEDS: SYMBICORT 160-4.5 MCG INHALER INHALATION SCH ×2 (07:29→19:55)
[2020-03-31 07:58] LABS: Basophils % (A) 1 %; Eosinophils # (A) 0.2 k/uL (0-0.7); Eosinophils % (A) 5 %; HCT 38.3 % (34.0-46.0); HGB 12.5 gm/dL (11.4-16.0); Hypochromasia Slight; Lymphocytes # (A) 1.7 k/uL (1.0-4.8); Lymphocytes % (A) 42 %; MCH 29.2 pg (25.0-35.0); MCHC 32.7 g/dL (31.0-37.0); MCV 89.2 fL (80.0-100.0); Mean Platelet Volume 6.8; Monocytes # (A) 0.1 k/uL (0-1.0); Monocytes % (A) 3 %; Neutrophils # (A) 1.9 k/uL (1.3-7.7); Neutrophils % (A) 47 %; Platelet Count 174 k/uL (150-450); RBC 4.29 m/uL (3.80-5.40); WBC 4.1 k/uL (3.8-10.6)
--- NOTE | 2020-03-31 08:32 | P.PN ---
Subjective Progress Note Date: 03/31/20 Principal diagnosis: Right knee wound dehiscence Patient seen and examined spine. No issues overnight. Resting comfortably. Objective - Vital Signs Vital signs: Vital Signs Temp 98.4 F 03/31/20 01:07 Pulse 95 03/31/20 08:00 Resp 18 03/31/20 08:00 BP 137/84 03/31/20 01:07 Pulse Ox 96 03/31/20 01:07 Intake & Output 03/30/20 03/31/20 03/31/20 18:59 06:59 18:59 Intake Total 980 160 Balance 980 160 Weight 81 kg Intake: Intake, IV Titration 20 160 Amount Sodium Chloride 0.9% 1, 20 160 000 ml @ 20 mls/hr IV . Q24H LENCHO Rx#:[id number] Oral 960 Other: Voiding Method Toilet Toilet Toilet # Voids 2 2 - Exam Stable exam. Dehiscence of the distal portion of her right knee incision. Erythema surrounding the incision. Painful tenderness to palpation throughout. No pain with range of motion of the knee. 5 out of 5 dorsiflexion plantar flexion and EHL FHL currently bilaterally. Sensation is intact to light touch. She has positive distal pulses. - Labs CBC & Chem 7: 03/31/20 07:43 03/30/20 16:41 Labs: Abnormal Lab Results - Last 24 Hours (Table) 03/30/20 Range/Units 16:41 Carbon Dioxide 32 H (22-30) mmol/L Glucose 70 L (74-99) mg/dL Assessment and Plan Assessment: Right prepatellar septic bursitis continued infection and wound dehiscence status post multiple debridements Plan: Medicine and ID input appreciated Pain control Nothing by mouth after midnight GI DVT prophylaxis Plan for OR today Orthopedic Surgery Risk Review Jazz Cortez is a 40 yo female with history of septic prepatellar bursitis s/p I&D presenting for evaluation of continued drainage, purulence, erythema and extreme pain, difficulty with ambulation secondary to this and subjective chills. It was my pleasure to have seen and examined Jazz Cortez. In our visit today we have had a chance to go over subjective complaints, physical examination findings and treatments including the natural course history without intervention and various interventional options. Her imaging demonstrates intact R knee with no evidence of effusion. On physical exam, Jazz Cortez demonstrates pain with motion of R knee with continued drainage 4 weeks s/p I&D with purulence and erythema about the knee, which is NV intact at this time. I have explained to the patient that this fracture needs stabilization. Based on the patients imaging, physical exam, and the rapid progression and disabling nature of her symptoms, at this time I recommend surgery in the form or a: incision and drainage with irrigation and debridment of R knee patellar bursa I discussed the risk and benefits of this procedure at length with Jazz Cortez. Questions were invited and answered, and the patient wishes to proceed as outlined below. Currently, I am recommendin. Revision incision and drainage with irrigation and debridment of RIGHT pre patellar bursa 2. Review of surgical risks and benefits as well as an educational packet on the proposed surgical procedure. Risks: All surgical procedures come with inherent risks, including those related to positioning, anesthesia, intraoperative findings, and postoperative com plications. It is important to understand that surgery does not come with any guarantee of a successful outcome as complications and adverse events are always possible. The patient was given a handout discussing the surgical procedure and risks associated with the intervention, both of which were discussed with the patient. These risks include but are not limited to the following: - Experiencing same, different or even worse symptoms compared to before surgery. - Requiring further surgery or other forms of treatment presently or at some time in the future . - On an extreme but fortunately relatively rare basis severe complication such as blindness, stroke, heart attack, temporary and/or permanent nerve injury, paralysis, coma, or may occur, sometimes without known explanation. - Surgical complications may include but are not limited to risk of inf ection, fluid accumulation in the surgical dissection site, including a seroma or hematoma, that requires additional surgery, wound drainage, bleeding, new numbness or weakness, vision changes/loss, spinal fluid leakage, non-healing and/or infected incision, headaches, difficulty or inability to swallow, hoarseness, hemopneumothorax, pneumothorax, injury to nerves, spinal cord, blood vessels, lymphatics or other vital organs (i.e., bowel injury, injury to the great vessels); heterotopic bone formation; complications related to the hardware such as screws, rods, including misplaced hardware, device failure, hardware fracture/breakage, or hardware loosening; retained surgical instrumentations or devices and the need for further surgery. - Medical risks of the planned surgery include but are not limited to generalized Infections to the whole body or local areas outside of the surgical site (sepsis), heart attack, bleeding, anaphylaxis, meningitis, seizure, epilepsy, hearing loss, burn cleaning, laceration of the head or other areas of the body, bruising, hypersensitivity of the skin, bladder over distension; allergic reaction; shoulder injury related to positioning; fat, blood and air clots to other areas of the body like heart, lungs, brain; failure of internal organs james ch as lungs, kidneys, liver and excessive bleeding. If blood transfusions are necessary, note that transfusions may cause intolerance reactions such as anaphylaxis or other complex reactions. Despite best efforts, the results of surgery might not heal in terms of bone, soft tissues such as skin, fascia, ligaments, and joints. [facility] is an educational center that serves as a training facility for physician assistants, nurses, orthopedic residents and fellows. Residents are physicians who are completing their surgical intensive training following medical school. They assist in the operating room with direct supervision of the attending surgeons. Nelson are surgeons who have completed their training and eligible for board certification. They have opted for an elective year of more specialized training in their field. They assist in the operating room under the supervision of the attending surgeons. Physician assistants are medically trained surgical providers who function in the outpatient, inpatient, and operating room setting under the direct supervision of the attending surgeon. [facility] has multiple operating rooms with single and overlapping rooms running daily. They currently function under the required guidelines as produced by the [facility] Finance Committee with regards to the overlapping rooms and will continue to comply with changes to this policy as they occur. The requirements include and are complied with as follows: (1) the critical portions of the overlapping rooms will not occur at the same time, (2) the attending phys ician will be physically present during the critical portions of the procedure and immediately available during the entire case, and (3) a back-up attending is designated should the primary attending not be immediately available. The patient has had a chance to review all the listed information, has been given print outs detailing this information, and has had all his/her questions answered to their satisfaction. It was my pleasure to have seen and examined Jazz Cortez. In our visit today we have had a chance to go over my understanding of our patient's current cond ition, the natural course history without intervention and various interventional options. Questions were invited and answered, and the patient wishes to proceed as outlined above. I have seen and examined the patient for 25 minutes and we have spent more than 50% of the time in repeat and detailed counseling about the patient's condition, its natural course history with out and as much as can be predicted with surgery and re-review of various surgical treatment options. In conclusion, Jazz Cortez requested we proceed with the above suggested surgery and are willing to accept risks and limitations of the suggested surgery as nature of the disease process and our best attempts at treatment for the condition. Thank you again for allowing us to be part of your patient's care. Please don't hesitate to contact me if you have any further questions.
[2020-03-31 09:17] LABS: Erythrocyte Sedimentation Rate 17 mm/hr (0-20)
[2020-03-31 11:24] LABS: Anion Gap 7.7 mmol/L (4.00-12.00); C Reactive Protein 1.2 mg/dL (0.0-0.8); Calcium 9.4 mg/dL (8.7-10.3); Carbon Dioxide 30.3 mmol/L (21.6-31.8); Non-African American GFR(CKD) 69.9 (60.0-200.0); Potassium 4.2 mmol/L (3.5-5.5)
[2020-03-31] MEDS ORDERED: LACTATED RINGERS 1,000 ML IV ONE (13:22)
[2020-03-31] MEDS ORDERED: DEXAMETHASONE SOD PHOSPHATE 4 MG/ML 1 ML VIAL IVP ONE (13:30)
[2020-03-31] MEDS ORDERED: ONDANSETRON 4 MG/2 ML VIAL IVP ONE (13:30)
[2020-03-31] MEDS ORDERED: VANCOMYCIN 1,000 MG in SODIUM CHLORIDE 0.9% 250 ML IVPB STA (13:30)
[2020-03-31] MEDS ORDERED: PROPOFOL 10 MG/ML 20 ML VIAL IV ONE (13:42)
[2020-03-31] MEDS ORDERED: HYDROmorphone (PF) 1 MG/ML ONE (13:42)
[2020-03-31] MEDS ORDERED: LIDOCAINE 1% INJ 10MG/ML (20 ML MDV) ONE (13:42)
[2020-03-31] MEDS ORDERED: MIDAZOLAM 2 MG/2 ML VIAL ONE (13:42)
[2020-03-31] MEDS ORDERED: SUCCINYLCHOLINE CHLORIDE VIAL 200 MG/10 ML VIAL IV ONE (13:42)
[2020-03-31] MEDS ORDERED: fentaNYL (PF) 50 MCG/ML 2 ML AMP ONE (13:42)
[2020-03-31] MEDS ORDERED: ceFAZolin 3,000 MG in SODIUM CHLORIDE 0.9% IRRIGATIO 3,000 ML IRRIGATION ONE (14:12)
--- NOTE | 2020-03-31 15:21 | P.OP ---
Date of Procedure: 03/31/20 Preoperative Diagnosis: Right prepatellar wound dehiscence Postoperative Diagnosis: Right prepatellar wound dehiscence Procedure(s) Performed: 1. Incision and drainage of right knee prepatellar bursa 2. Irrigation and debridment of skin soft tissue and tendon of the right knee pre-patellar region -Knife used to remove necrotic skin -Curette used to remove necrotic fat and subcutaneous tissue 3. Complex wound closure of right prepatellar region 8 cm x 4 cm x 2 cm Implants: Cellerate Anesthesia: MORENITAA Surgeon: Maldonado Galaviz Estimated Blood Loss (ml): 25 IV fluids (ml): 500 Urine output (ml): 0 Pathology: other (x4 right knee) Condition: stable Disposition: PACU Indications for Procedure: 40-year-old female presented to the office today complaining of continued right knee pain as well as wound dehiscence and drainage. Patient states that she recently had her PICC line discontinued as she was doing better but as she presented today her knee is in severe pain it is erythematous swollen and continue to have drainage from the inferior portion of the wound. She has been ambulating with her knee immobilizer which she has been wearing. She states she is not bending the knee. Previously she had an irrigation debridement of a septic prepatellar bursitis she then had a fall and he has to the wound. This was again fixed. She has not had any falls recently. She states some subjective fevers at home however nothing measured. She denies any shortness of breath chest pain nausea or vomiting at this time. She denies any numbness or tingling she states only pain around her knee which is fairly severe and getting worse Operative Findings: Non purulent drainage with distal and proximal wound dehiscence. Description of Procedure: The patient was seen and examined in the preoperative area. All preoperative protocols were followed. Informed consent was obtained risks and benefits of the procedure were discussed at length. Risks including bleeding infection damage to the surrounding tissue and risk of reoperation were discussed with the patient. Risk of anesthesia up to and including was a discussed with the patient. These are outlined in the risk reviewed. They were willing to accept these risks and all of the risks of surgery. The patient was given a weight- based dose of antibiotics in the form of vancomycin 1 g IV PB 1. The patient was seen and evaluated by the anesthesia team who deemed them fit for surgery. The site was marked, the patient was willing to proceed with the procedure. The patient was transferred to the operative suite by the Department of anesthesia. There were then drifted off to sleep by the department of anesthesia and Gen. intubation anesthesia was used. Once adequate anesthesia had been obtained the patient was carefully transferred to the operative bed. All bony prominences were padded accordingly. SCDs were placed on the nonoperative lower extremities. Arms were well padded. Right leg was then exposed to your was placed around the patient's right upper thigh and well-padded. 10:15 was placed on the patient's tourniquet. Preoperative briefing was done with the operative team and everyone was ready for the procedure to start. The patients right leg was then prepped and draped in the normal sterile fashion. Timeout was then performed and all parties in agreement with the procedure to be performed. Patient's previous incision was then cleaned sutures were removed as were in place and holding fairly well except for one portion in the proximal portion of the incision was dehiscence of the wound as well as the distal portion incision approximately 1-2 cm from the distal end where there is a large dehiscence portion which tracked down. There is some granulation tissue in this area which over live the patellar tendon which was not involved but the skin had not granulated in this area very well. The skin edges were not approximated and the sutures had pulled through the skin. Skin knife was then used to incise the incision from proximal to distal and open up the PDS sutures which were in place were removed. Supra patellar and prepatellar bursal areas were then bluntly dissected there is no purulence noted. Cultures were then taken of the distal portion and the proximal portion and labeled 12 and 3 perspective lay. 3 L of antibiotic irrigation were then passed in the wound along with curetting of the see danelle David M.D. various terminal necrotic fat skin knife was used to remove necrotic skin due to the stellate nature of the distal wound dehiscence a skin incision was made perpendicular to the original incision to allow for closure of this approximation as best as possible. Once irrigation and debridement had ensued cellerate powder was placed in the subcu region and the subcu was closed with 2-0 Vicryl in a simple fashion and the skin was closed with a 2-0 nylon in simple fashion. The stellate region was able to be approximated however there is still a small quarter by quarter area that was unable to be approximated at the skin edges due to high tensile forces on the skin and friable skin tissue which was extremely evident throughout. The rest of this closed very well more of the sellar it was then placed over the incision and it was sterilely cleaned and dressed with sterile Telfa 4 x 4's Kerlix and overwrapped with an Alec wrap. The patient was placed in a knee immobilizer. The patient was then transferred back to their hospital bed. There were awakened by department of anesthesia having tolerated the procedure very well with no complications. The patient was then transported to the postoperative care unit in stable condition.
[2020-03-31] MEDS: DAPTOmycin 500 MG in SODIUM CHLORIDE 0.9% 50 ML IVPB SCH (17:31)
[2020-03-31] MEDS: SODIUM CHLORIDE 0.9% 1,000 ML IV SCH (17:32)
--- NOTE | 2020-03-31 18:23 | PN ---
PROGRESS NOTE DATE OF SERVICE: 03/31/2020 REASON FOR FOLLOWUP: Recurrent right knee infection. INTERVAL HISTORY: The patient was taken to the OR. The patient is status post I and D of the right knee prepatellar bursa, debridement of soft tissue and tendon of the right knee prepatellar region. Patient did have cultures, which are currently pending. The patient denies having any chest pain or shortness of breath or cough. No nausea, vomiting. No abdominal pain or diarrhea. PHYSICAL EXAMINATION: Blood pressure 116/64 with a pulse of 91, temperature 98. She is 93% on room air. General description is a middle-aged female lying in bed in no distress. RESPIRATORY SYSTEM: Unlabored breathing. Clear to auscultation anteriorly. HEART: S1, S2. Regular rate and rhythm. ABDOMEN: Soft. No tenderness. Right knee is currently dressed. No obvious drainage on the dressing. LABS: Hemoglobin is 12.5, white count 4.1 with a BUN of 10, creatinine 1.0. DIAGNOSTIC IMPRESSION AND PLAN: Patient with a recurrent problem to the right knee in this patient whose symptoms started with right knee septic arthritis, status post bursectomy with multiple surgeries. Patient at this time will be started on vancomycin in view of the previous culture positive for MRSA while waiting for the culture to finalize to determine her discharge antibiotics. Continue supportive care. MMODL / IJN: [id number] /
[2020-04-01] MEDS: MORPHINE SULFATE 4 MG/ML SYRINGE IV PRN ×2 (01:45→23:18)
[2020-04-01] MEDS: oxyCODONE-APAP 5-325MG 1 EACH TAB PO PRN ×3 (03:01→17:39)
[2020-04-01] MEDS: LEVOTHYROXINE 125 MCG TAB PO SCH (06:41)
[2020-04-01] MEDS: SYMBICORT 160-4.5 MCG INHALER INHALATION SCH ×2 (07:53→19:56)
[2020-04-01] MEDS: PANTOPRAZOLE 40 MG TABLET PO SCH (08:33)
--- NOTE | 2020-04-01 11:24 | P.PN ---
Progress Note - Text Progress Note Date: 04/01/20 SUBJECTIVE: Patient seen and examined. She is doing fairly well. Her pain is better controlled. She is due for her methadone however. Denies any fevers chills shortness of breath or chest pain. The patient's past medical history; past surgical history; family history; medicines; allergies and social history have been reviewed and are as stated elsewhere in the chart. 14 points review of systems completed and as stated in HPI, all other systems reviewed are negative. PHYSICAL EXAM: Stable. Vital signs stable. Patient is afebrile. Right lower extremity dressing is removed incision is clean dry and intact slightly erythematous but better. No drainage. Patient is intact light touch pinprick sensation L2 S1 nerve this patient. She is 5 of 5 strength in dorsi flexion 5 flexion EHL FHL bilateral lower extremity's. She has distal pulses intact to a 4. RADIOGRAPHS: No new films ASSESSMENT: 1. Postoperative day 1 right knee revision I&D with complex closure doing well PLAN: -Appreciate medicine management. -Pain control: [ methadone 130 mg at 8 AM daily] -Aggressive ambulation protocol. OOB with all meals. OOB or in chair 4-5x daily. -PT/OT -Knee immobilizer at all times when up and about do not bend knee. -TEDs, SCDs, mechanical ppx. OK for heparin today. Early ambulation is best. -GI ppx. -[No further imaging needed at this time] -Trend labs. -Dispo: Pending
[2020-04-01] MEDS: METHADONE 10 MG TAB PO SCH (13:02)
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
[2020-04-01] MEDS: DAPTOmycin 500 MG in SODIUM CHLORIDE 0.9% 50 ML IVPB SCH (17:41)
[2020-04-01] MEDS: SODIUM CHLORIDE 0.9% 1,000 ML IV SCH (17:54)
[2020-04-01] MEDS ORDERED: CALCIUM CARBONATE 500 MG CHEWABLE PO PRN (19:21)
--- NOTE | 2020-04-01 20:30 | PN ---
PROGRESS NOTE DATE OF SERVICE: 04/01/2020 REASON FOR FOLLOWUP: Right knee infection. INTERVAL HISTORY: The patient is currently afebrile. The patient is breathing comfortably. Denies having any chest pain or any cough. No abdominal pain. Pain to the right knee is currently controlled. No diarrhea. PHYSICAL EXAMINATION: Blood pressure 152/74 with a pulse of 71. Temperature 97.9. She is 95% on room air. General description: The patient is a middle-aged female lying in bed in no distress. Respiratory system: Unlabored breathing. Clear to auscultation anteriorly. Heart S1, S2. Regular rate and rhythm. Abdomen soft, no tenderness. LABS: Wound culture showing Gram-negative bacilli. DIAGNOSTIC IMPRESSION AND PLAN: Patient with right knee septic arthritis status post bursectomy. Previous culture positive for MRSA in this patient admitted to the hospital with recurrent cellulitis, now with culture showing a Gram-negative. Antibiotic will be adjusted to cefepime 2 grams q.12 hours while waiting for the final ID to determine discharge antibiotics. Continue supportive care. MMODL / IJN: [id number] /
[2020-04-01] MEDS: CEFEPIME 2 GM in SODIUM CHLORIDE 0.9% 100 ML IVPB SCH (20:36)
[2020-04-02] MEDS: MORPHINE SULFATE 4 MG/ML SYRINGE IV PRN ×3 (06:32→20:44)
[2020-04-02] MEDS: LEVOTHYROXINE 125 MCG TAB PO SCH (06:33)
[2020-04-02 07:24] LABS: Basophils % (A) 0 %; Eosinophils # (A) 0.2 k/uL (0-0.7); Eosinophils % (A) 3 %; HCT 38.9 % (34.0-46.0); HGB 12.6 gm/dL (11.4-16.0); Hypochromasia Slight; Lymphocytes # (A) 2.8 k/uL (1.0-4.8); Lymphocytes % (A) 37 %; MCH 28.6 pg (25.0-35.0); MCHC 32.3 g/dL (31.0-37.0); MCV 88.7 fL (80.0-100.0); Mean Platelet Volume 6.9; Monocytes # (A) 0.2 k/uL (0-1.0); Monocytes % (A) 3 %; Neutrophils # (A) 4.2 k/uL (1.3-7.7); Neutrophils % (A) 56 %; Platelet Count 175 k/uL (150-450); RBC 4.39 m/uL (3.80-5.40); RDW 14.2 % (11.5-15.5); WBC 7.5 k/uL (3.8-10.6)
[2020-04-02 07:41] LABS: Calcium 9.8 mg/dL (8.4-10.2); Potassium 4.1 mmol/L (3.5-5.1)
[2020-04-02] MEDS: SYMBICORT 160-4.5 MCG INHALER INHALATION SCH ×2 (07:49→19:07)
[2020-04-02] MEDS: METHADONE 10 MG TAB PO SCH (08:23)
[2020-04-02] MEDS: PANTOPRAZOLE 40 MG TABLET PO SCH ×2 (08:23→17:13)
[2020-04-02] MEDS: CEFEPIME 2 GM in SODIUM CHLORIDE 0.9% 100 ML IVPB SCH ×2 (08:24→20:45)
[2020-04-02] MEDS ORDERED: METHADONE 10 MG TAB PO SCH (09:00)
--- NOTE | 2020-04-02 10:10 | P.PN ---
Subjective Progress Note Date: 04/02/20 Principal diagnosis: Status post revision incision and drainage right septic prepatellar bursitis. The patient notes improvement. She's been ambulatory with her brace on. Objective - Vital Signs Vital signs: Vital Signs Temp 98.0 F 04/02/20 08:00 Pulse 92 04/02/20 08:00 Resp 18 04/02/20 08:00 BP 122/83 04/02/20 08:00 Pulse Ox 96 04/02/20 08:00 Intake & Output 04/01/20 04/02/20 04/02/20 18:59 06:59 18:59 Intake Total 80 Balance 80 Intake: Oral 80 Other: Voiding Method Toilet # Voids 2 1 1 - Exam Right knee incision/mild serosanguineous drainage. Mild erythema. Homans negative right lower extremity. Right lower extremity distal neurovascular exam intact. - Labs CBC & Chem 7: 04/02/20 07:02 04/02/20 07:12 Labs: Abnormal Lab Results - Last 24 Hours (Table) 04/02/20 Range/Units 07:12 Sodium 136 L (137-145) mmol/L BUN 18 H (7-17) mg/dL Microbiology - Last 24 Hours (Table) 03/30/20 16:41 Blood Culture - Preliminary Blood No Growth after 48 hours 03/31/20 14:34 Gram Stain - Preliminary Knee - Right Wound Culture - Preliminary Gram Neg Bacilli 03/31/20 14:33 Gram Stain - Preliminary Knee - Right Wound Culture - Preliminary Gram Neg Bacilli 03/31/20 14:32 Gram Stain - Preliminary Knee - Right Wound Culture - Preliminary Gram Neg Bacilli Assessment and Plan Assessment: Status post revision incision and drainage and wound closure right septic prepatellar bursitis Plan: Continue antibiotics per infectious disease. Continue mobilization in the brace. Continue wound care. Time with Patient: Less than 30
[2020-04-02] MEDS: oxyCODONE-APAP 5-325MG 1 EACH TAB PO PRN ×3 (10:21→22:28)
[2020-04-02] MEDS: SODIUM CHLORIDE 0.9% 1,000 ML IV SCH (17:10)
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
--- NOTE | 2020-04-02 18:51 | PN ---
PROGRESS NOTE DATE OF SERVICE: 04/02/2020 REASON FOR FOLLOWUP: Right knee infection. INTERVAL HISTORY: The patient is currently afebrile. The patient is feeling better. Breathing comfortably. Complaining of more pain to the right knee area, but no worsening. Denies any chest pain or shortness of breath or cough. No abdominal pain. No diarrhea. PHYSICAL EXAMINATION: Blood pressure 124/80 with a pulse of 87. Temperature 97.9. She is 96% on room air. General description: The patient is a middle-aged female up in the bed in no distress. Respiratory system: Unlabored breathing. Clear to auscultation anteriorly. Heart S1, S2. Regular rate and rhythm. Abdomen soft, no tenderness. LABS: Hemoglobin is 12.6, white count 7.5, creatinine 0.95. DIAGNOSTIC IMPRESSION AND PLAN: Patient with right knee septic arthritis, multiple surgeries. At this time, culture now showing gram-negative. Patient is covered with cefepime. We will wait for the ID sensitivity to determine discharge antibiotics. Continue supportive care. MMODL / IJN: [id number] /
[2020-04-03] MEDS: MORPHINE SULFATE 4 MG/ML SYRINGE IV PRN ×2 (02:44→11:21)
[2020-04-03 04:18] LABS: Basophils % (A) 0 %; Eosinophils # (A) 0.2 k/uL (0-0.7); Eosinophils % (A) 4 %; HCT 38.4 % (34.0-46.0); HGB 12.4 gm/dL (11.4-16.0); Hypochromasia Slight; Lymphocytes # (A) 2.7 k/uL (1.0-4.8); Lymphocytes % (A) 46 %; MCHC 32.3 g/dL (31.0-37.0); MCV 89.6 fL (80.0-100.0); Monocytes # (A) 0.2 k/uL (0-1.0); Monocytes % (A) 4 %; Neutrophils # (A) 2.6 k/uL (1.3-7.7); Neutrophils % (A) 45 %; Platelet Count 161 k/uL (150-450); RBC 4.29 m/uL (3.80-5.40); RDW 14.2 % (11.5-15.5); WBC 5.8 k/uL (3.8-10.6)
[2020-04-03 04:36] LABS: Calcium 9.4 mg/dL (8.4-10.2); Potassium 3.8 mmol/L (3.5-5.1)
[2020-04-03 05:01] VITALS: RESP 16
[2020-04-03] MEDS: PANTOPRAZOLE 40 MG TABLET PO SCH (06:28)
[2020-04-03] MEDS: LEVOTHYROXINE 125 MCG TAB PO SCH (06:28)
[2020-04-03] MEDS: oxyCODONE-APAP 5-325MG 1 EACH TAB PO PRN ×2 (06:37→14:58)
[2020-04-03] MEDS: SYMBICORT 160-4.5 MCG INHALER INHALATION SCH (07:14)
[2020-04-03] MEDS: CEFEPIME 2 GM in SODIUM CHLORIDE 0.9% 100 ML IVPB SCH (08:57)
[2020-04-03] MEDS: METHADONE 10 MG TAB PO SCH (08:58)
--- NOTE | 2020-04-03 09:11 | P.PN ---
Subjective Progress Note Date: 04/03/20 Principal diagnosis: Right knee wound dehiscence Patient seen and examined she is doing fairly well as morning. She denies any fevers chills shortness of breath or chest pain. She states some pain in her right knee and is getting better. She has been wearing a knee immobilizer and walking around the halls. She denies any purulence from the wound. Objective - Vital Signs Vital signs: Vital Signs Temp 98.6 F 04/03/20 02:45 Pulse 83 04/03/20 02:45 Resp 16 04/03/20 02:45 BP 136/89 04/03/20 02:45 Pulse Ox 96 04/03/20 02:45 Intake & Output 04/02/20 04/03/20 04/03/20 18:59 06:59 18:59 Other: # Voids 2 1 1 - Exam Vital signs stable patient afebrile Alert and oriented 3 well-nourished well-hydrated Walking around halls with knee immobilizer no issues. Stable appearing right knee wound. There is healing happening. There is no purulence. Incision is clean dry and intact stitches are in place. Dressing is clean and dry as well. No drainage. Cellerate in place no issues. 5/5 dorsiflexion and plantarflexion EHL FHL bilaterally 2/4 distal pulses lower extremities bilaterally sensation intact L2 to S1 bilaterally compartments soft and compressive - Labs CBC & Chem 7: 04/03/20 04:04 04/03/20 04:04 Labs: Abnormal Lab Results - Last 24 Hours (Table) 04/03/20 Range/Units 04:04 BUN 19 H (7-17) mg/dL Glucose 151 H (74-99) mg/dL Microbiology - Last 24 Hours (Table) 03/31/20 14:33 Gram Stain - Final Knee - Right Wound Culture - Final Serratia marcescens 03/31/20 14:34 Gram Stain - Final Knee - Right Wound Culture - Final Serratia marcescens 03/31/20 14:34 Anaerobic Culture - Preliminary Knee - Right 03/31/20 14:33 Anaerobic Culture - Preliminary Knee - Right 03/31/20 14:32 Anaerobic Culture - Preliminary Knee - Right 03/30/20 16:41 Blood Culture - Preliminary Blood No Growth after 72 hours 03/31/20 14:32 Gram Stain - Final Knee - Right Wound Culture - Final Serratia marcescens Assessment and Plan Assessment: 40-year-old female postop day 3 from revision I&D and closure of right knee prepatellar septic bursitis Cultures growing Serratia Plan: -Appreciate medicine management. Await ID recommendations for antibiotics -Pain control: Adequate at this time -Aggressive ambulation protocol. OOB with all meals. OOB or in chair 4-5x daily. -PT/OT -TEDs, SCDs, mechanical ppx. OK for heparin today. Early ambulation is best. -GI ppx. -No further imaging needed at this time -Trend labs. -Dispo: Home when cultures finalize antibiotics finalized and patient stable
[2020-04-03 09:30] VITALS: BP 127/82; PULSE 88; TEMP 97
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
--- NOTE | 2020-04-03 13:30 | P.PN ---
Subjective Progress Note Date: 04/03/20 HISTORY OF PRESENT ILLNESS This is a 40-year-old female patient being treated for right knee septic arthri tis status post multiple surgeries. Wound culture is Serratia marcescens. CBC is unremarkable. Electrolytes normal and creatinine 0.92. Patient has been afebrile, heart rate 88, blood pressure 127/82, pulse ox 97% on room air. Patient denies having any fevers. She is feeling well. No chest pain or shortness of breath. No cough. No abdominal pain or diarrhea. PHYSICAL EXAMINATION Gen: This is a 40-year-old female, resting in bed in no acute distress] HEENT: Head is atraumatic, normocephalic. Pupils equal, round. Sclerae is anicteric. NECK: Supple. No JVD. No lymphadenopathy. LUNGS: Clear to auscultation. No wheezes or rhonchi. No intercostal retractions. HEART: Regular rate and rhythm. No murmur. ABDOMEN: Soft. Bowel sounds are present. No masses. No tenderness. EXTREMITIES: No pedal edema. No calf tenderness. NEUROLOGICAL: Patient is awake, alert and oriented x3. ASSESSMENT Right knee septic arthritis PLAN Continue cefepime Plan for 3 weeks of cefepime 2 g every 12 hours IV piggyback, prescription provided to top case assembler Continue supportive care Follow-up in one to 2 weeks Patient is cleared for discharge once IV antibiotics are arranged from infectious disease. The above dictated assessment and findings were discussed with Dr. Bragg. The impression and plan of care have been directed as dictated. Amalia Thorpe nurse practitioner acting as scribe for Dr. Bragg. Objective - Vital Signs Vital signs: Vital Signs Temp 97.0 F L 04/03/20 08:48 Pulse 88 04/03/20 08:48 Resp 16 04/03/20 08:48 BP 127/82 04/03/20 08:48 Pulse Ox 97 04/03/20 08:48 Intake & Output 04/02/20 04/03/20 04/03/20 18:59 06:59 18:59 Other: # Voids 2 1 1 - Labs CBC & Chem 7: 04/03/20 04:04 04/03/20 04:04 Labs: Abnormal Lab Results - Last 24 Hours (Table) 04/03/20 Range/Units 04:04 BUN 19 H (7-17) mg/dL Glucose 151 H (74-99) mg/dL Microbiology - Last 24 Hours (Table) 03/31/20 14:33 Gram Stain - Final Knee - Right Wound Culture - Final Serratia marcescens 03/31/20 14:34 Gram Stain - Final Knee - Right Wound Culture - Final Serratia marcescens 03/31/20 14:34 Anaerobic Culture - Preliminary Knee - Right 03/31/20 14:33 Anaerobic Culture - Preliminary Knee - Right 03/31/20 14:32 Anaerobic Culture - Preliminary Knee - Right 03/30/20 16:41 Blood Culture - Preliminary Blood No Growth after 72 hours 03/31/20 14:32 Gram Stain - Final Knee - Right Wound Culture - Final Serratia marcescens
--- NOTE | 2020-04-03 15:03 | P.DS ---
Providers Date of admission: 03/30/20 15:19 Expected date of discharge: 04/03/20 Attending physician: Maldonado Galaviz DO Consults: 03/30/20 16:07 Consult Physician Routine Consulting Provider: Herbert Solorio Consult Reason/Comments: Medical management Do you want consulting provider notified?: Yes Placement Type Exists?: Yes 03/30/20 16:11 Consult Physician Routine Consulting Provider: Bhavani Bragg Consult Reason/Comments: Right knee bursa infection Do you want consulting provider notified?: Yes Placement Type Exists?: Yes Primary care physician: [facility] Course: Date of admission: 03/30/2020 Date of discharge: 04/03/2020 Admission diagnosis: Right prepatellar septic bursitis continued infection and wound dehiscence status post multiple debridements Discharge diagnosis: Same Attending physician: Dr. Galaviz Surgical procedures: Revision irrigation and debridement right prepatellar region with revision complex closure Brief history: Patient is a 40-year-old female who was evaluated in the outpatient setting for follow-up appointment with regards to her incision and drainage procedure of an infected right prepatellar bursa with wound dehiscence. Patient was complaining of increase in redness, further dehiscence and drainage from the wound. She is evaluated by Dr. Galaviz in the outpatient setting on 03/30/2020, she was directly admitted to the hospital on that day and scheduled for a I&D procedure for 03/31/2020. Hospital course: Details of patient's surgery can be found in operative report. Patient tolerated the procedure well and was subsequently transported to orthopedic floor. Patient's orthopeidc and medical care was provided daily. Patient had daily laboratory tests performed for evaluation of overall blood counts. Patient had daily physical therapy to include strengthening range of motion as well as education with walker ambulation. Patient was noted to have a relatively uneventful postoperative course. Patient reported satisfactory pain control with oral pain medications by postoperative day 0. Patient showed satisfactory progress with physical therapy. Patient moved steadily through the program and had no difficulty meeting the goals by postoperative day 3. Given patient's otherwise satisfactory course and having met physical therapy goals, plan is to discharge patient home on postoperative day 3. Discharge condition/disposition: Patient will be discharged home in stable condition. Discharge medications: Instructions are given on resumption of patient's normal daily medications per primary care recommendation, in addition patient will be prescribed Ceftin 2 g. Discharge instructions: 1. Wound care and infection precautions, keep incision dry and covered while showering, no lotions, creams, moisturizers. No soaking, tubs, pools, hottubs. Do not scrub over the incision. 2. Weight-bear [as tolerated] with walker / cane until follow-up. Utilize knee immobilizer when ambulating, no kneeling or deep flexion of the knee 3. Ice and elevate when necessary. Do not exceed 20 minutes per hour with ice pack. 4. Follow up with infectious disease as recommended 5. Follow up in office at [address] Galaviz 6. Follow up with your primary care doctor 7-10 days after discharge. 7. Contact [facility] with any questions, . Procedures: Revision irrigation and debridement right prepatellar region with revision complex closure Patient Condition at Discharge: Good Plan - Discharge Summary Discharge Rx Participant: No New Discharge Prescriptions: New Cefepime [Maxipime] 2 gm IVPB Q12H #42 bag Continue Levothyroxine Sodium 125 mcg PO DAILY Acetaminophen [Tylenol] 1,000 mg PO Q4-6H PRN PRN Reason: Pain Omeprazole 20 mg PO DAILY Doxepin HCl 50 mg PO HS PRN PRN Reason: SLEEP Diclofenac Sodium [Voltaren Gel] 1 applicate TOPICAL QID PRN PRN Reason: Pain Albuterol Sulfate [Proair Hfa] 1 - 2 puff INHALATION RT-Q4H PRN PRN Reason: Shortness Of Breath Albuterol Nebulized [Ventolin Nebulized] 2.5 mg INHALATION RT-QID PRN PRN Reason: Shortness Of Breath Fluticasone/Salmeterol [Advair 500-50 Diskus] 1 puff INHALATION RT-BID Methadone HCl [Methadone Intensol] 132 mg PO DAILY@1100 ondansetron HCL [Zofran] 8 mg PO Q8HR PRN PRN Reason: Nausea Ibuprofen [Motrin Ib] 400 mg PO Q8H PRN PRN Reason: Pain Cyclobenzaprine [Flexeril] 10 mg PO TID PRN PRN Reason: Muscle Pain Discharge Medication List Levothyroxine Sodium 125 mcg PO DAILY 12/25/17 [History] Acetaminophen [Tylenol] 1,000 mg PO Q4-6H PRN 02/08/20 [History] Albuterol Nebulized [Ventolin Nebulized] 2.5 mg INHALATION RT-QID PRN 02/08/20 [History] Albuterol Sulfate [Proair Hfa] 1 - 2 puff INHALATION RT-Q4H PRN 02/08/20 [History] Diclofenac Sodium [Voltaren Gel] 1 applicate TOPICAL QID PRN 02/08/20 [History] Doxepin HCl 50 mg PO HS PRN 02/08/20 [History] Fluticasone/Salmeterol [Advair 500-50 Diskus] 1 puff INHALATION RT-BID 02/08/20 [History] Methadone HCl [Methadone Intensol] 132 mg PO DAILY@1100 02/08/20 [History] Omeprazole 20 mg PO DAILY 02/08/20 [History] ondansetron HCL [Zofran] 8 mg PO Q8HR PRN 02/27/20 [History] Cyclobenzaprine [Flexeril] 10 mg PO TID PRN 03/30/20 [History] Ibuprofen [Motrin Ib] 400 mg PO Q8H PRN 03/30/20 [History] Cefepime [Maxipime] 2 gm IVPB Q12H #42 bag 04/03/20 [Rx] Follow up Appointment(s)/Referral(s): Maldonado Galaviz DO [Doctor of Osteopathic Medicine] - 2 Weeks Ambulatory/Diagnostic Orders: C Reactive Protein [LAB.AMB] Location: None Selected Complete Blood Count w/diff [LAB.AMB] Location: None Selected Comprehensive Metabolic Panel [LAB.AMB] Location: None Selected Erythrocyte Sedimentation Rate [LAB.AMB] Location: None Selected Activity/Diet/Wound Care/Special Instructions: Orthopedic Discharge and Recovery Instructions Date of Surgery: 03/31/2020 Diagnosis: Anterior wound dehiscence with drainage Procedure: Vision irrigation and debridement right prepatellar region with revision complex closure Medications: List Weight bearing status: Weightbearing as tolerated with knee immobilizer do not bend knee All medication refills should be obtained through your primary care doctor or your clinic orthopedic surgeon. Please discuss prescription refills at your follow up appointment. Do not call the hospital for medication refills. Dressing: Unless directed otherwise by your surgeon, leave your dressing in place for a total of 3 days post operatively. Then you may remove your dressing and leave open to air. Keep the area clean and if not able to keep area clean, then cover with sterile gauze and tape. Showering: You may shower 3 days after your procedure allowing soap and water to run over incision. Do not scrub. Do not soak. Blot dry. Follow up: Please confirm a follow up appointment with your surgeon 2 weeks post operatively. Please make an appointment to follow up with your PCP in 1-2 weeks after surgery for evaluation Cast Care: If you have a cast please keep it clean, dry and intact. Do not put anything down inside the cast. Do no scratch inside the cast. Do not weight bear on the cast. The patient was encouraged to follow a well balanced diet rich in fruits, vegetables as well as high quality, lean protein. DVT prophylaxis in the form of aspirin 81 mg daily as prescribed for the patient Discharge Disposition: HOME WITH HOME HEALTH SERVICES Plan of Treatment: Follow up with Dr Galaviz on 04/17/20 at 11:20
== END 2020-04-03 15:33 | disposition home health service (06) | DRG 909 ==
LOC: 5NMEDONC 15:19 → 6PED 03-31 15:47
PROVIDERS: ADMIT Orthopaedic Surgery; ATTEND Orthopaedic Surgery
PROC: 0MBN0ZZ Excision of Right Knee Bursa and Ligament, Open Approach (ICD-10-PCS; principal; 2020-03-31 08:45)
PROC: 05HF33Z Insertion of Infusion Device into Left Cephalic Vein, Percutaneous Approach (ICD-10-PCS; 2020-03-31 09:15)
DX: T81.31XA Disruption of external operation (surgical) wound, not elsewhere classified, initial encounter (principal); J44.9 Chronic obstructive pulmonary disease, unspecified; G40.909 Epilepsy, unspecified, not intractable, without status epilepticus; M71.161 Other infective bursitis, right knee; K21.9 Gastro-esophageal reflux disease without esophagitis; B19.20 Unspecified viral hepatitis C without hepatic coma; E03.9 Hypothyroidism, unspecified; G89.29 Other chronic pain; M41.9 Scoliosis, unspecified; F17.210 Nicotine dependence, cigarettes, uncomplicated; M79.5 Residual foreign body in soft tissue; W34.00XS Accidental discharge from unspecified firearms or gun, sequela; Z79.890 Hormone replacement therapy; Z79.899 Other long term (current) drug therapy; Z86.14 Personal history of Methicillin resistant Staphylococcus aureus infection; Z98.890 Other specified postprocedural states; Z85.831 Personal history of malignant neoplasm of soft tissue; Z86.718 Personal history of other venous thrombosis and embolism; Z87.01 Personal history of pneumonia (recurrent); Z92.3 Personal history of irradiation; Z92.21 Personal history of antineoplastic chemotherapy; Z90.2 Acquired absence of lung [part of]; Z88.1 Allergy status to other antibiotic agents; Z91.013 Allergy to seafood
CPT/HCPCS: 36410; 76937; 80048; 81025; 85025; 85652; 86140; 87040; 87070; 87075; 87077; 87186; 87205; 93005; 94640; 94760

== ENCOUNTER → 2020-04-06 | Outpatient (CLI) | payer OTHER ==
[2020-04-06 13:58] LABS: Basophils % (A) 0 %; Eosinophils # (A) 0.2 k/uL (0-0.7); Eosinophils % (A) 6 %; HCT 35.7 % (34.0-46.0); HGB 11.4 gm/dL (11.4-16.0); Hypochromasia Moderate; Lymphocytes # (A) 1.9 k/uL (1.0-4.8); Lymphocytes % (A) 44 %; MCH 28.6 pg (25.0-35.0); MCHC 31.9 g/dL (31.0-37.0); MCV 89.6 fL (80.0-100.0); Mean Platelet Volume 7.7; Monocytes # (A) 0.2 k/uL (0-1.0); Monocytes % (A) 3 %; Neutrophils # (A) 1.9 k/uL (1.3-7.7); Neutrophils % (A) 45 %; Platelet Count 154 k/uL (150-450); RBC 3.98 m/uL (3.80-5.40); RDW 14.3 % (11.5-15.5); WBC 4.3 k/uL (3.8-10.6)
[2020-04-06 14:56] LABS: Erythrocyte Sedimentation Rate 13 mm/hr (0-20)
[2020-04-06 22:00] LABS: Anion Gap 15.4 mmol/L (4.00-12.00); C Reactive Protein 1.2 mg/dL (0.0-0.8); Calcium 9.1 mg/dL (8.7-10.3); Carbon Dioxide 25.6 mmol/L (21.6-31.8); Non-African American GFR(CKD) 69.9 (60.0-200.0); Potassium 4.2 mmol/L (3.5-5.5)
== END | disposition home or self-care (01) ==
LOC: LABWHC1 12:32
PROVIDERS: ATTEND Nurse Practitioner Family
DX: M00.861 Arthritis due to other bacteria, right knee (principal)
CPT/HCPCS: 36415; 80048; 85025; 85652; 86140

== ENCOUNTER 2020-05-02 10:33 | Inpatient (IN) | payer OTHER ==
[2020-05-02] MEDS ORDERED: diphenhydrAMINE 50 MG/ML 1 ML VIAL IVP STA (11:13)
[2020-05-02] MEDS ORDERED: methylPREDNISolone SOD SUCCI 125 MG/2 ML VIAL IV STA (11:16)
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
[2020-05-02 11:57] LABS: Basophils % (A) 1 %; Eosinophils # (A) 0.3 k/uL (0-0.7); Eosinophils % (A) 10 %; HCT 32.5 % (34.0-46.0); Lymphocytes # (A) 0.3 k/uL (1.0-4.8); Lymphocytes % (A) 9 %; MCH 28.3 pg (25.0-35.0); MCHC 33.8 g/dL (31.0-37.0); Mean Platelet Volume 7.8; Monocytes # (A) 0.1 k/uL (0-1.0); Monocytes % (A) 2 %; Neutrophils # (A) 2.5 k/uL (1.3-7.7); Neutrophils % (A) 76 %; Poikilocytosis Slight; RBC 3.88 m/uL (3.80-5.40); RDW 15.4 % (11.5-15.5); WBC 3.3 k/uL (3.8-10.6)
[2020-05-02 11:59] LABS: MCV 83.6 fL (80.0-100.0)
[2020-05-02 12:04] LABS: ALT 35 U/L (4-34); AST 53 U/L (14-36); African American GFR (CKD) >90 (>60 ml/min/1.73 sqM); Albumin 4.1 g/dL (3.5-5.0); Alkaline Phosphatase 158 U/L (38-126); Anion Gap 10 mmol/L; Blood Urea Nitrogen 13 mg/dL (7-17); Calcium 8.9 mg/dL (8.4-10.2); Carbon Dioxide 27 mmol/L (22-30); Chloride 98 mmol/L (98-107); Glucose 84 mg/dL (74-99); Non-African American GFR(CKD) >90 (>60 ml/min/1.73 sqM); Potassium 4.5 mmol/L (3.5-5.1); Sodium 135 mmol/L (137-145)
--- NOTE | 2020-05-02 12:06 | XR ---
EXAMINATION TYPE: XR chest 2V DATE OF EXAM: 05/02/2020 COMPARISON: Chest x-ray and CT chest February 27, 2020 HISTORY: Shortness of breath. TECHNIQUE: Frontal and lateral views of the chest are obtained. FINDINGS: There is mild chronic parenchymal changes bilaterally redemonstrated without suspicious ne w focal air space opacity, pleural effusion, or pneumothorax seen. The cardiac silhouette size remai ns within normal limits. Underlying scoliosis redemonstrated. IMPRESSION: No new acute process. No significant change from prior studies.
[2020-05-02 12:23] LABS: Platelet Count 90 k/uL (150-450)
[2020-05-02] MEDS ORDERED: MORPHINE SULFATE 4 MG/ML SYRINGE IV PRN (13:15)
[2020-05-02] MEDS ORDERED: Acetaminophen-Codeine 300-30mg TAB PO PRN (13:15)
[2020-05-02] MEDS ORDERED: NALOXONE 0.4 MG/ML 1 ML VIAL IV PRN (13:15)
[2020-05-02] MEDS ORDERED: traMADol 50 MG TAB PO PRN (13:15)
[2020-05-02] MEDS ORDERED: HYDROmorphone 0.5 MG/0.5 ML SYRINGE IVP PRN (13:15)
[2020-05-02] MEDS ORDERED: ONDANSETRON 4 MG/2 ML VIAL IVP PRN (13:15)
[2020-05-02] MEDS ORDERED: LORazepam 2 MG/ML INJ IV PRN (13:15)
[2020-05-02] MEDS ORDERED: IBUPROFEN 400 MG TAB PO PRN (13:15)
[2020-05-02] MEDS ORDERED: VANCOMYCIN IV PER PHARMACY 1 EACH MISC MISCELLANE PRN (13:21)
[2020-05-02] MEDS ORDERED: VANCOMYCIN 1,500 MG in SODIUM CHLORIDE 0.9% 250 ML IVPB ONE (13:45)
[2020-05-02] MEDS: SODIUM CHLORIDE 0.9% 1,000 ML IV SCH ×2 (14:15→23:19)
[2020-05-02] MEDS ORDERED: diphenhydrAMINE 50 MG/ML 1 ML VIAL IVP PRN (14:54)
[2020-05-02] MEDS ORDERED: DICLOFENAC SODIUM GEL 100 GM TUBE TOPICAL PRN (16:13)
[2020-05-02] MEDS ORDERED: ONDANSETRON 4 MG TAB PO PRN (16:13)
[2020-05-02] MEDS ORDERED: ACETAMINOPHEN TAB 500 MG TAB PO PRN (16:13)
[2020-05-02] MEDS ORDERED: IPRATROPIUM-ALBUTEROL 3 ML NEB INHALATION PRN (16:13)
[2020-05-02] MEDS ORDERED: DOXEPIN 25 MG CAP PO PRN (16:13)
[2020-05-02] MEDS ORDERED: CYCLOBENZAPRINE 10 MG TAB PO PRN (16:13)
[2020-05-02] MEDS ORDERED: KETOROLAC 15 MG/ML 1 ML VIAL IVP PRN (16:19)
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
[2020-05-02 16:51] LABS: Appearance,Urine Clear (Clear); Bilirubin,Urine Negative (Negative); Blood,Urine Negative (Negative); Color,Urine Light Yellow; Glucose,Urine (UA) Negative (Negative); Ketones,Urine Negative (Negative); Leukocyte Esterase,Urine Negative (Negative); Nitrite,Urine Negative (Negative); PH, Urine 6.5 (5.0-8.0); Protein,Urine Negative (Negative); Specific Gravity,Urine 1.006 (1.001-1.035); Urobilinogen,Urine <2.0 mg/dL (<2.0)
[2020-05-02] MEDS: ACETAMINOPHEN TAB 325 MG TAB PO PRN ×2 (18:10→23:18)
[2020-05-02] MEDS: SYMBICORT 80-4.5 MCG INHALER INHALATION SCH (19:12)
[2020-05-02] MEDS: methylPREDNISolone SOD SUCCI 40 MG/ML 1 ML VIAL IV SCH (19:57)
[2020-05-02 21:01] LABS: Glucose,Whole Blood 312 mg/dL (75-99)
[2020-05-02] MEDS: AZTREONAM 2 GM in SODIUM CHLORIDE 0.9% 100 ML IVPB SCH (23:18)
[2020-05-03] MEDS ORDERED: VANCOMYCIN 1,500 MG in SODIUM CHLORIDE 0.9% 250 ML IVPB SCH (02:00)
[2020-05-03] MEDS ORDERED: LEVOTHYROXINE 125 MCG TAB PO SCH (06:30)
[2020-05-03 07:25] LABS: Glucose,Whole Blood 153 mg/dL (75-99)
[2020-05-03] MEDS ORDERED: PANTOPRAZOLE 40 MG TABLET PO SCH (07:30)
[2020-05-03] MEDS: methylPREDNISolone SOD SUCCI 40 MG/ML 1 ML VIAL IV SCH (07:51)
[2020-05-03] MEDS: AZTREONAM 2 GM in SODIUM CHLORIDE 0.9% 100 ML IVPB SCH (07:54)
[2020-05-03] MEDS: SYMBICORT 80-4.5 MCG INHALER INHALATION SCH (08:26)
[2020-05-03] MEDS ORDERED: METHADONE 10 MG TAB PO SCH (09:00)
[2020-05-03] MEDS ORDERED: ENOXAPARIN 40 MG/0.4 ML SYRINGE SQ SCH (09:00)
--- NOTE | 2020-05-03 09:10 | CONS ---
CONSULTATION DATE OF SERVICE: 05/02/2020 REASON FOR CONSULTATION: 1. Drug rash. 2. Right knee septic bursitis. HISTORY OF PRESENT ILLNESS: The patient is a 40-year-old female with recent multiple admissions at this facility. The patient initially admitted to hospital in the summer for a right knee septic prepatellar bursitis. Patient was status post bursectomy. Culture was positive for MRSA, treated with vancomycin followed by daptomycin. Subsequently admitted to hospital where the patient did have a fall with injury falling on the right knee with laceration, subsequently did have a repeat I and D. Afterwards, the patient did have prior admission hospital to the hospital on March 30 where the patient did have recurrent pain, swelling and redness. The patient did have an I and D of the right knee. Cultures at that time were positive for Serratia marcescens. The patient did get a PICC line and she was advised a 4-week course of IV cefepime which the patient was currently receiving at home. The patient is now presenting to the hospital complaining of rash that apparently developed about 2 days ago that has gradually increased in intensity. Patient complaining of itching to that area. The patient denies having any or mass lesion and no difficulty swallowing or difficulty breathing. With these symptoms, the patient was seen in the ER. On arrival to the ER, the patient has been afebrile. The patient did have white count of 3.3. Kidney function was normal. Liver enzymes mildly elevated. Urine is negative. Grijalva PCR was negative. The patient was started on vancomycin. Infectious Disease was consulted for further management of antibiotic therapy. REVIEW OF SYSTEMS: Positive points have been mentioned in HPI. Rest of systems negative. PAST MEDICAL HISTORY: Right knee septic prepatellar bursitis initially with MRSA and subsequently Serratia marcescens, DVT, asthma, gastroesophageal reflux disease, pneumonia, seizure disorder and rhabdomyosarcoma. PAST SURGICAL HISTORY: , right lower lobectomy for empyema, bone marrow transplant, right knee meniscectomy x3. SOCIAL HISTORY: Current everyday smoker. Denies drinking or drug use. FAMILY HISTORY: Father from overdose. Mother from overdose as well. ALLERGIES: Allergies to MOXIFLOXACIN with rash and SHELLFISH. MEDICATIONS: Medications include the patient is currently on Tylenol, DuoNeb, vancomycin pharmacy to dose, Symbicort, Flexeril, Benadryl, doxepin, Lovenox, Toradol, Synthroid, Solu-Medrol, Narcan, Zofran, Protonix, and Ultram. PHYSICAL EXAMINATION: Blood pressure 126/81 with a pulse of 103, temperature 98.2. She is 95% on room air. General description is a middle-aged female lying in bed in no distress. No tachypnea or accessory muscle of respiration use. HEENT: Examination shows pallor. No scleral icterus. Oral mucous membrane is dry. No pharyngeal erythema or thrush. NECK: Trachea central. No thyromegaly. LUNGS: Unlabored breathing, clear to auscultation anteriorly. No wheeze or crackle. HEART S1, S2. Regular rate and rhythm. ABDOMEN: Soft, no tenderness. No guarding or rigidity. EXTREMITIES: No edema of feet. Examination of the right knee still have some stitches with minimal swelling, redness. No drainage was noticed. SKIN EXAMINATION: Shows maculopapular rash. NEUROLOGICALLY: The patient is awake, alert, oriented x3. Mood and affect normal. LABS: Hemoglobin is 11 with white count 3.3, BUN of 13, creatinine 0.64. Urine is negative. DIAGNOSTIC IMPRESSION: 1. Patient admitted to the hospital with rash more likely related to cefepime which has been discontinued. This patient was receiving IV antibiotic for right knee septic prepatellar bursitis. Culture positive for Serratia marcescens. 2. Patient with QUINOLONE allergy that will limit the number of antibiotics safe to use. PLAN: 1. Discontinue the vancomycin. 2. Start the patient on Azactam 2 grams q.8 hours. 3. We will follow on clinical condition and further adjust medication if needed. Thank you for this consultation. Will follow this patient along with you. MMODL / IJN: [id number] /
[2020-05-03 11:26] LABS: Glucose,Whole Blood 272 mg/dL (75-99)
--- NOTE | 2020-05-03 15:26 | P.DS ---
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 She will continue with home care in the outpatient setting. Patient will follow-up with Dr. Cordova in the outpatient setting upon discharge. Patient is to continue with oral antibiotics in the form of Bactrim per infectious disease recommendations. Total time taken is greater than 35 minutes. Hospital course 40-year-old female came in with diffuse rash has been going on for last 3-4 days. Which she believes secondary to cefepime and started after supplementation although patient had has been on cefepime for about a month for right knee infection. Patient denied any fever chills patient had nausea vomiting abdominal pain dysuria. Patient doesn't have any throat swelling patient is not hypotensive at this time. Patient quit smoking 4 days ago although had does have significant wheezing was complaining of some shortness of breath denied any coughing. Chest x-ray did not show any pneumonia. 05/03/2020 Patient is seen in follow-up with no acute overnight issues. Patient currently maintained on IV antibiotics in the form of Invance and infectious disease following. Patient will be going on by mouth antibiotics in the form of Bactrim and would like to be discharged today. Infectious disease writing prescription for antibiotics. Patient will continue on a Medrol Dosepak and educated and instructed that blood sugars will be elevated and to monitor closely. Patient also instructed to follow-up with primary care provider along with hip surgeon in the outpatient setting. Patient to continue with home care. Currently no reports of chest pain, shortness of breath, or palpitations. Patient is afebrile. No reports of nausea or vomiting and patient is tolerating diet. Patient will be discharged home today. On exam vital signs are stable. Cardio S1, S2 are muffled. Respiratory system shows diminished breath sounds at the bases with no wheezing or rhonchi noted. Abdomen is soft and obese, and nontender. Nervous system shows no focal deficit. Please refer to medication reconciliation sheet for a list of medications. Patient Condition at Discharge: Fair Plan - Discharge Summary Discharge Rx Participant: Yes New Discharge Prescriptions: New methylPREDNISolone Dose Pack [Medrol Dose Pack] 4 mg PO DIRECTED #21 package Acetaminophen Tab [Tylenol] 650 mg PO Q6HR PRN tab PRN Reason: Mild Pain Or Fever > 100.5 Continue Levothyroxine Sodium 125 mcg PO DAILY Acetaminophen [Tylenol] 1,000 mg PO Q4-6H PRN PRN Reason: Pain Omeprazole 20 mg PO DAILY Doxepin HCl 50 mg PO HS PRN PRN Reason: SLEEP Diclofenac Sodium [Voltaren Gel] 1 applic TOPICAL QID PRN PRN Reason: Pain Albuterol Sulfate [Proair Hfa] 1 - 2 puff INHALATION RT-Q4H PRN PRN Reason: Shortness Of Breath Albuterol Nebulized [Ventolin Nebulized] 2.5 mg INHALATION RT-QID PRN PRN Reason: Shortness Of Breath Fluticasone/Salmeterol [Advair 500-50 Diskus] 1 puff INHALATION RT-BID Methadone HCl [Methadone Intensol] 132 mg PO DAILY ondansetron HCL [Zofran] 8 mg PO Q8HR PRN PRN Reason: Nausea Ibuprofen [Motrin Ib] 400 mg PO Q8H PRN PRN Reason: Pain Cyclobenzaprine [Flexeril] 10 mg PO TID PRN PRN Reason: Muscle Pain Discontinued Cefepime [Maxipime] 2 gm IVPB Q12H #42 bag Discharge Medication List Levothyroxine Sodium 125 mcg PO DAILY 12/25/17 [History] Acetaminophen [Tylenol] 1,000 mg PO Q4-6H PRN 02/08/20 [History] Albuterol Nebulized [Ventolin Nebulized] 2.5 mg INHALATION RT-QID PRN 02/08/20 [History] Albuterol Sulfate [Proair Hfa] 1 - 2 puff INHALATION RT-Q4H PRN 02/08/20 [History] Diclofenac Sodium [Voltaren Gel] 1 applic TOPICAL QID PRN 02/08/20 [History] Doxepin HCl 50 mg PO HS PRN 02/08/20 [History] Fluticasone/Salmeterol [Advair 500-50 Diskus] 1 puff INHALATION RT-BID 02/08/20 [History] Methadone HCl [Methadone Intensol] 132 mg PO DAILY 02/08/20 [History] Omeprazole 20 mg PO DAILY 02/08/20 [History] ondansetron HCL [Zofran] 8 mg PO Q8HR PRN 02/27/20 [History] Cyclobenzaprine [Flexeril] 10 mg PO TID PRN 03/30/20 [History] Ibuprofen [Motrin Ib] 400 mg PO Q8H PRN 03/30/20 [History] Acetaminophen Tab [Tylenol] 650 mg PO Q6HR PRN tab 05/03/20 [Rx] methylPREDNISolone Dose Pack [Medrol Dose Pack] 4 mg PO DIRECTED #21 package 05/03/20 [Rx] Follow up Appointment(s)/Referral(s): [facility], [NON-STAFF] - Eloisa Cordova MD [Primary Care Provider] - 1-2 days [facility], [REFERRING] - Activity/Diet/Wound Care/Special Instructions: Activity Limited until follow-up follow up with primary care provider upon discharge Continue with oral antibiotics per infectious disease recommendations Continue with medrol dose pack Follow-up with surgeon outpatient Discharge Disposition: HOME WITH HOME HEALTH SERVICES
[2020-05-03 15:39] VITALS: BP 128/80; PULSE 111; RESP 16; TEMP 98.2
--- NOTE | 2020-05-03 16:32 | PN ---
PROGRESS NOTE DATE OF SERVICE: 05/03/2020. REASON FOR FOLLOWUP: 1. Drug rash secondary to cefepime. 2. Patient with right knee septic bursitis. INTERVAL HISTORY: The patient is currently afebrile. Patient is feeling better. The patient's right knee pain and swelling have much improved. No drainage. Overall, rash has decreased in intensity. Patient is feeling better, wants to go home. PHYSICAL EXAMINATION: Blood pressure 136/83 with a pulse of 112, temperature 97.6. She is 100% on room air. General description is a middle-aged female up in the room in no distress. RESPIRATORY SYSTEM: Unlabored breathing, clear to auscultation anteriorly. HEART: S1, S2. Regular rate and rhythm. ABDOMEN: Soft, no tenderness. LABS: No new labs have been obtained today. DIAGNOSTIC IMPRESSION AND PLAN: 1. Patient with drug rash secondary to cefepime which has been discontinued, subsequently should be documented as allergy. 2. Right knee septic bursitis, last culture positive for Serratia, previous culture with MRSA. The patient has completed 4-week course of IV antibiotic. Will give her short course of oral Bactrim DS and close outpatient followup. MMODL / IJN: [id number] /
== END 2020-05-03 16:31 | disposition home health service (06) | DRG 607 ==
LOC: EC 10:33 → 4SSUR 13:07
PROVIDERS: ADMIT Internal Medicine; ATTEND Internal Medicine
DX: L27.0 Generalized skin eruption due to drugs and medicaments taken internally (principal); M00.9 Pyogenic arthritis, unspecified; L03.114 Cellulitis of left upper limb; J44.1 Chronic obstructive pulmonary disease with (acute) exacerbation; T36.1X5A Adverse effect of cephalosporins and other beta-lactam antibiotics, initial encounter; M71.161 Other infective bursitis, right knee; M41.9 Scoliosis, unspecified; M17.11 Unilateral primary osteoarthritis, right knee; Z20.822 Contact with and (suspected) exposure to COVID-19; L29.9 Pruritus, unspecified; K21.9 Gastro-esophageal reflux disease without esophagitis; G40.909 Epilepsy, unspecified, not intractable, without status epilepticus; F32.9 Major depressive disorder, single episode, unspecified; F17.200 Nicotine dependence, unspecified, uncomplicated; E66.9 Obesity, unspecified; E03.9 Hypothyroidism, unspecified; B18.2 Chronic viral hepatitis C; Z86.718 Personal history of other venous thrombosis and embolism; Z79.890 Hormone replacement therapy; Z68.32 Body mass index [BMI] 32.0-32.9, adult
CPT/HCPCS: 36415; 71046; 80053; 81003; 83605; 85025; 85652; 86140; 87040; 87635; 93005; 94640; 96365; 96366; 96375; 99285

== ENCOUNTER 2020-05-25 16:07 | Emergency (ER) | payer OTHER ==
[2020-05-25 16:51] VITALS: BP 132/89; PULSE 105; RESP 18; TEMP 97.7
[2020-05-25] MEDS ORDERED: KETOROLAC 15 MG/ML 1 ML VIAL IVP STA (18:00)
[2020-05-25 18:21] LABS: Basophils % (A) 0 %; Eosinophils # (A) 0.6 k/uL (0-0.7); Eosinophils % (A) 13 %; HCT 35.1 % (34.0-46.0); HGB 11.2 gm/dL (11.4-16.0); Hypochromasia Slight; Lymphocytes % (A) 21 %; MCH 26.8 pg (25.0-35.0); MCHC 31.8 g/dL (31.0-37.0); MCV 84.4 fL (80.0-100.0); Mean Platelet Volume 7.1; Monocytes # (A) 0.1 k/uL (0-1.0); Monocytes % (A) 3 %; Neutrophils # (A) 2.8 k/uL (1.3-7.7); Neutrophils % (A) 62 %; Poikilocytosis Slight; RBC 4.16 m/uL (3.80-5.40); RDW 15.9 % (11.5-15.5); WBC 4.5 k/uL (3.8-10.6)
[2020-05-25 18:38] LABS: Platelet Count 218 k/uL (150-450)
[2020-05-25 18:39] LABS: ALT 33 U/L (4-34); AST 66 U/L (14-36); African American GFR (CKD) >90 (>60 ml/min/1.73 sqM); Albumin 4.8 g/dL (3.5-5.0); Alkaline Phosphatase 158 U/L (38-126); Anion Gap 10 mmol/L; Blood Urea Nitrogen 13 mg/dL (7-17); C Reactive Protein 37.2 mg/L (<10.0); Calcium 9.8 mg/dL (8.4-10.2); Carbon Dioxide 29 mmol/L (22-30); Chloride 96 mmol/L (98-107); Glucose 89 mg/dL (74-99); Non-African American GFR(CKD) >90 (>60 ml/min/1.73 sqM); Sodium 135 mmol/L (137-145); Total Protein 8.3 g/dL (6.3-8.2)
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
[2020-05-25 19:02] LABS: Potassium 5.1 mmol/L (3.5-5.1)
[2020-05-25 19:10] LABS: Erythrocyte Sedimentation Rate 8 mm/hr (0-20)
[2020-05-25] MEDS ORDERED: ACET/COD 300 MG/30 MG STARTER PACK 6 TAB BTL PO STA (19:13)
== END 2020-05-25 19:29 | disposition home or self-care (01) ==
LOC: EC 16:07
DX: T81.31XA Disruption of external operation (surgical) wound, not elsewhere classified, initial encounter (principal); L03.115 Cellulitis of right lower limb; F32.9 Major depressive disorder, single episode, unspecified; F17.200 Nicotine dependence, unspecified, uncomplicated; J45.909 Unspecified asthma, uncomplicated; E03.9 Hypothyroidism, unspecified; G40.909 Epilepsy, unspecified, not intractable, without status epilepticus; K21.9 Gastro-esophageal reflux disease without esophagitis; Z79.890 Hormone replacement therapy; Z79.51 Long term (current) use of inhaled steroids; Z79.899 Other long term (current) drug therapy; Z88.1 Allergy status to other antibiotic agents; Z91.013 Allergy to seafood; Z85.831 Personal history of malignant neoplasm of soft tissue; Z92.21 Personal history of antineoplastic chemotherapy; Z92.3 Personal history of irradiation; Z86.14 Personal history of Methicillin resistant Staphylococcus aureus infection
CPT/HCPCS: 36415; 80053; 85652; 86140; 85025; 99283; 96374; J1885

== ENCOUNTER → 2020-06-08 | Outpatient (CLI) | payer OTHER | END | disposition home or self-care (01) | LOC: LABWHC1 15:59 | PROVIDERS: ATTEND Family Medicine | DX: Z20.822 Contact with and (suspected) exposure to COVID-19 (principal); R05 Cough; R53.83 Other fatigue; R52 Pain, unspecified | CPT/HCPCS: U0003; C9803; U0005 ==

== ENCOUNTER 2020-08-04 10:55 | Inpatient (IN) | payer OTHER ==
[2020-08-04] MEDS ORDERED: methylPREDNISolone SOD SUCCI 125 MG/2 ML VIAL IM ONE (12:01)
[2020-08-04] MEDS ORDERED: IPRATROPIUM-ALBUTEROL 3 ML NEB INHALATION STA ×2 (12:01→13:17)
[2020-08-04] MEDS ORDERED: ACETAMINOPHEN TAB 500 MG TAB PO STA (12:16)
[2020-08-04] MEDS ORDERED: ALBUTEROL HFA INHALER INHALATION STA (12:17)
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
--- NOTE | 2020-08-04 12:48 | XR ---
EXAMINATION TYPE: XR chest 2V DATE OF EXAM: 08/04/2020 COMPARISON: 05/02/2020 CT angiography chest 02/27/2020 HISTORY: Shortness of breath TECHNIQUE: Frontal and lateral views of the chest are obtained. FINDINGS: Multiple overlying leads. Heart size is within normal limits. Trachea is midline. Patchy p erihilar and bibasilar interstitial airspace opacities suggestive of the possible atypical infection superimposed on chronic interstitial lung changes. No pleural effusion or pneumothorax. Degenerative changes of the thoracic spine, with accentuated kyphosis. IMPRESSION: 1. Patchy perihilar and bibasilar interstitial airspace opacities appear increased since prior exam. Superimposed atypical infection, such as atypical interstitial pneumonia is not excluded. This is lik nayla superimposed on chronic interstitial lung changes.
[2020-08-04] MEDS ORDERED: cefTRIAXone 1,000 MG VIAL (IM USE) IM STA (13:17)
[2020-08-04 15:22] LABS: Anisocytosis Slight; Basophils % (A) 0 %; Eosinophils # (A) 0.1 k/uL (0-0.7); Eosinophils % (A) 2 %; HCT 33.1 % (34.0-46.0); HGB 10.7 gm/dL (11.4-16.0); Hypochromasia Moderate; Lymphocytes # (A) 0.5 k/uL (1.0-4.8); Lymphocytes % (A) 11 %; MCH 26.8 pg (25.0-35.0); MCHC 32.4 g/dL (31.0-37.0); MCV 82.8 fL (80.0-100.0); Mean Platelet Volume 7.6; Monocytes # (A) 0.1 k/uL (0-1.0); Monocytes % (A) 1 %; Neutrophils # (A) 3.7 k/uL (1.3-7.7); Neutrophils % (A) 85 %; Platelet Count 167 k/uL (150-450); RDW 16.3 % (11.5-15.5); WBC 4.4 k/uL (3.8-10.6)
[2020-08-04 15:27] LABS: ALT 22 U/L (4-34); AST 33 U/L (14-36); African American GFR (CKD) >90 (>60 ml/min/1.73 sqM); Albumin 4.3 g/dL (3.5-5.0); Alkaline Phosphatase 125 U/L (38-126); Anion Gap 8 mmol/L; Blood Urea Nitrogen 7 mg/dL (7-17); Calcium 9.5 mg/dL (8.4-10.2); Carbon Dioxide 34 mmol/L (22-30); Chloride 97 mmol/L (98-107); Glucose 172 mg/dL (74-99); Non-African American GFR(CKD) >90 (>60 ml/min/1.73 sqM); Phosphorus 2.3 mg/dL (2.5-4.5); Potassium 3.8 mmol/L (3.5-5.1); Sodium 139 mmol/L (137-145); Total Protein 7.1 g/dL (6.3-8.2)
[2020-08-04 15:34] LABS: Magnesium 0.9 mg/dL (1.6-2.3)
[2020-08-04] MEDS ORDERED: Magnesium Replacement Protocol 1 EACH MISC MISCELLANE PRN (15:40)
[2020-08-04] MEDS ORDERED: MAGNESIUM OXIDE 400 MG TAB PO STA ×2 (15:40→16:33)
[2020-08-04] MEDS ORDERED: MAGNESIUM SULFATE-D5W PMX 1 GM in DEXTROSE/WATER 1 100ML.BAG IVPB SCH ×2 (16:00→17:30)
[2020-08-04] MEDS ORDERED: NALOXONE 0.4 MG/ML 1 ML VIAL IV PRN (16:18)
[2020-08-04] MEDS: SODIUM CHLORIDE 0.9% 1,000 ML IV SCH (16:30)
[2020-08-04] MEDS ORDERED: DICLOFENAC SODIUM GEL 100 GM TUBE TOPICAL PRN (18:46)
[2020-08-04] MEDS ORDERED: IBUPROFEN 400 MG TAB PO PRN (18:46)
[2020-08-04] MEDS ORDERED: LORazepam 0.5 MG TAB PO PRN (18:49)
[2020-08-04] MEDS: ALBUTEROL NEBULIZED 2.5 MG/3 ML INHALATION SCH (20:15)
[2020-08-04] MEDS: SYMBICORT 160-4.5 MCG INHALER INHALATION SCH (20:15)
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
[2020-08-04 22:10] VITALS: RESP 18
[2020-08-04] MEDS: HEPARIN SODIUM,PORCINE/PF 5,000 UNIT/0.5 ML SYRINGE SQ SCH (22:14)
[2020-08-05] MEDS: LEVOTHYROXINE 125 MCG TAB PO SCH (05:48)
[2020-08-05] MEDS: SYMBICORT 160-4.5 MCG INHALER INHALATION SCH ×2 (07:28→19:40)
[2020-08-05] MEDS: ALBUTEROL NEBULIZED 2.5 MG/3 ML INHALATION SCH ×3 (07:28→19:38)
[2020-08-05 08:02] LABS: Anisocytosis Slight; Basophils % (A) 0 %; Eosinophils # (A) 0.1 k/uL (0-0.7); Eosinophils % (A) 1 %; HCT 32.2 % (34.0-46.0); HGB 10.3 gm/dL (11.4-16.0); Hypochromasia Moderate; Lymphocytes # (A) 0.7 k/uL (1.0-4.8); Lymphocytes % (A) 7 %; MCH 26.4 pg (25.0-35.0); MCV 82.5 fL (80.0-100.0); Mean Platelet Volume 7.8; Monocytes # (A) 0.3 k/uL (0-1.0); Monocytes % (A) 3 %; Neutrophils % (A) 89 %; Platelet Count 177 k/uL (150-450)
[2020-08-05 08:21] LABS: African American GFR (CKD) >90 (>60 ml/min/1.73 sqM); Anion Gap 8 mmol/L; Blood Urea Nitrogen 12 mg/dL (7-17); Calcium 9.4 mg/dL (8.4-10.2); Carbon Dioxide 31 mmol/L (22-30); Chloride 99 mmol/L (98-107); Glucose 119 mg/dL (74-99); Magnesium 1.4 mg/dL (1.6-2.3); Non-African American GFR(CKD) >90 (>60 ml/min/1.73 sqM); Sodium 138 mmol/L (137-145)
[2020-08-05] MEDS: HEPARIN SODIUM,PORCINE/PF 5,000 UNIT/0.5 ML SYRINGE SQ SCH ×2 (10:02→20:16)
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
[2020-08-05] MEDS: MAGNESIUM OXIDE 400 MG TAB PO SCH (12:54)
[2020-08-05] MEDS: MAGNESIUM SULFATE-D5W PMX 1 GM in DEXTROSE/WATER 1 100ML.BAG IVPB SCH ×2 (12:54→18:11)
[2020-08-05] MEDS: METHADONE 10 MG TAB PO SCH (12:54)
--- NOTE | 2020-08-05 14:47 | CONS ---
CONSULTATION REASON FOR CONSULT: Hypomagnesemia and hypophosphatemia. HISTORY OF PRESENT ILLNESS: Patient is a 40-year-old female who has a history of asthma, DVT, gastroesophageal reflux disease, which she was admitted to the hospital with complaints of shortness of breath. The patient was found to have an elevated QT interval. She was found to have hypomagnesemia and phosphorus was at 2.3. The patient states that she has had low magnesium levels previously as well. Of note is that patient is maintained on omeprazole. She states she has been taking that for about a year. No history of use of diuretics at home according to the patient. PAST MEDICAL HISTORY: DVT, gastroesophageal reflux disease, chronic liver disease, pneumonia, seizure disorder, previous history of hypomagnesemia, history of hepatitis C status post treatment January 2020, history of left neck history of DVT, history of chronic back pain. History of rhabdomyosarcoma, left arm, status post resection, radiation therapy and chemotherapy. PAST SURGICAL HISTORY: , knee surgery with irrigation, left index finger tip amputation. SOCIAL HISTORY: Negative for smoking, drug abuse or alcohol abuse. MEDICATIONS: Medications prior to admission included: Synthroid, Voltaren, Advair, omeprazole, methadone, Motrin, Flexeril, patient has also been on Tylenol. ALLERGIES: INCLUDE AVELOX, SHELLFISH. REVIEW OF SYSTEMS: As per HPI. Other systems negative. EXAMINATION: Currently comfortable, awake, not in any acute distress. Blood pressure 115/76, heart rate 112 per minute. Patient is afebrile. She has poor dental hygiene. Examination of lower extremities shows no evidence of edema. Lungs are clear. Heart sounds are heard. ABDOMEN: Soft, nontender. DIRECTOR OF TEACHING AND LEARNING exam grossly intact. LAB: Show sodium of 138, potassium 4.0, chloride 99, CO2 is 31, BUN 12, serum creatinine 0.65, magnesium is up to 1.4, phosphorus 2.3 yesterday and not repeated today. ASSESSMENT: 1. Hypomagnesemia, most likely secondary to the proton pump inhibitors, omeprazole. We will try to see if patient can tolerate Pepcid instead of PPIs. However, if she is not able to stay off omeprazole, she can resume that with aggressive replacement of magnesium. 2. Hypophosphatemia, most likely associated with decreased oral intake. Rule out EtOH abuse, status post replacement. 3. Volume depletion, status post IV fluids. PLAN: Replace magnesium. Try to hold off on omeprazole and use Pepcid. Repeat phosphorus level today. Encourage increased oral intake. Thank you for this consultation. We will continue to follow the patient with you during her hospitalization. ELAINE / MARISA: [id number] /
[2020-08-05] MEDS: POTAS-SOD-PHOS 278-164-250 MG 1 EACH PACKET PO SCH (20:16)
[2020-08-05] MEDS: ACETAMINOPHEN TAB 325 MG TAB PO PRN (20:16)
[2020-08-05] MEDS: SODIUM CHLORIDE 0.9% 1,000 ML IV SCH (20:20)
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
[2020-08-06] MEDS: LEVOTHYROXINE 125 MCG TAB PO SCH (06:18)
[2020-08-06] MEDS: ALBUTEROL NEBULIZED 2.5 MG/3 ML INHALATION SCH ×3 (07:52→13:04)
[2020-08-06] MEDS: SYMBICORT 160-4.5 MCG INHALER INHALATION SCH ×2 (07:52→09:00)
[2020-08-06 08:35] LABS: African American GFR (CKD) >90 (>60 ml/min/1.73 sqM); Anion Gap 11 mmol/L; Blood Urea Nitrogen 16 mg/dL (7-17); Calcium 9.2 mg/dL (8.4-10.2); Carbon Dioxide 30 mmol/L (22-30); Chloride 101 mmol/L (98-107); Glucose 90 mg/dL (74-99); Magnesium 1.5 mg/dL (1.6-2.3); Non-African American GFR(CKD) >90 (>60 ml/min/1.73 sqM); Potassium 4.4 mmol/L (3.5-5.1); Sodium 142 mmol/L (137-145)
[2020-08-06 08:52] LABS: Anisocytosis Slight; Basophils % (A) 0 %; Eosinophils # (A) 0.2 k/uL (0-0.7); Eosinophils % (A) 3 %; HCT 34.2 % (34.0-46.0); HGB 10.6 gm/dL (11.4-16.0); Hypochromasia Marked; Lymphocytes % (A) 13 %; MCHC 31.1 g/dL (31.0-37.0); MCV 83.7 fL (80.0-100.0); Mean Platelet Volume 8.7; Monocytes # (A) 0.1 k/uL (0-1.0); Monocytes % (A) 2 %; Neutrophils # (A) 5.9 k/uL (1.3-7.7); Neutrophils % (A) 81 %; Platelet Count 183 k/uL (150-450); Poikilocytosis Slight; RBC 4.08 m/uL (3.80-5.40); RDW 16.7 % (11.5-15.5); WBC 7.3 k/uL (3.8-10.6)
[2020-08-06] MEDS: METHADONE 10 MG TAB PO SCH (10:30)
[2020-08-06] MEDS: MAGNESIUM OXIDE 400 MG TAB PO SCH (10:30)
[2020-08-06] MEDS: POTAS-SOD-PHOS 278-164-250 MG 1 EACH PACKET PO SCH (10:31)
[2020-08-06] MEDS: HEPARIN SODIUM,PORCINE/PF 5,000 UNIT/0.5 ML SYRINGE SQ SCH (10:31)
--- NOTE | 2020-08-06 12:52 | PN ---
PROGRESS NOTE The patient is seen for followup for hypomagnesemia and hypophosphatemia. She had been on proton pump inhibitors which are currently on hold. Magnesium has been replaced, although still staying on the lower side. Repeat phosphorus yesterday was 2.4. Patient was started on Neutra-Phos. She denies any significant complaints today. PHYSICAL EXAMINATION: Blood pressure was 115/73, heart rate 105 per minute, she is afebrile. Examination shows the patient is euvolemic with no evidence of edema lower extremities. Abdomen is soft, nontender. Lungs are clear. Heart sounds are heard. JEWEL [employer]LE GAUGER exam grossly intact. LAB: Show sodium 142, potassium 4.4, chloride 101, BUN 16, creatinine 0.76. Phosphorus was 2.4 yesterday. Magnesium 1.5 today. ASSESSMENT: 1. Hypomagnesemia, most likely related to use of proton pump inhibitors, status post replacement, currently receiving another dose today. 2. Hypophosphatemia secondary to decreased oral intake and history of EtOH abuse, maintained on supplementation. 3. Secondary hyperparathyroidism. Serum calcium is not elevated. Check 25 hydroxy vitamin D levels, most likely that will be low. PLAN: Replace magnesium. Patient can be discharged from nephrology standpoint at 25 hydroxy vitamin D level. Do labs. MMODL / IJN: [id number] /
[2020-08-06] MEDS: MAGNESIUM SULFATE-D5W PMX 1 GM in DEXTROSE/WATER 1 100ML.BAG IVPB SCH ×2 (12:54→14:20)
--- NOTE | 2020-08-06 13:24 | P.PN ---
Subjective Progress Note Date: 08/06/20 The patient is a 40-year-old female with past medical history of asthma, DVT, and history of drug abuse on methadone, who is admitted to the hospital with prolonged QT interval and hypomagnesemia. Overall the patient states she's been feeling better since her admission. She states her breathing is significantly improved. No chest pain or chest pressure. No dizziness, lightheadedness. Her edema is much better. GENERAL: Well-appearing, well-nourished and in no acute distress. NECK: Supple without JVD or thyromegaly. LUNGS: Breath sounds clear to auscultation bilaterally. Respiration equal and unlabored. No wheezes, rales or rhonchi. HEART: Regular rate and rhythm without murmurs, rubs or gallops. S1 and S2 heard. Tachycardic EXTREMITIES: Normal range of motion, mild edema. No clubbing or cyanosis. Peripheral pulses intact and strong. VITALS: Blood pressure 115/73, pulse rate 105, respiratory rate 18, pulse ox 93% on room air TELEMETRY: Sinus rhythm to sinus tachycardia on the low 100s LABS: WBC 7.3, hemoglobin 10.6, hematocrit 34.2, platelet 183, sodium 142, potassium 4.4, BUN 16, creatinine 0.76, phosphorus 2.4, magnesium 1.5 IMPRESSION: Prolonged QT interval Hypomagnesemia Sinus tachycardia Lower extremity edema PLAN: Recommend titrating down on her dose of methadone Avoid any QT prolonging medications Recommend routine EKGs while on methadone Supplement magnesium at discharge Patient may be discharged from the cardiac standpoint The patient has been seen and evaluated. Plan of care has been reviewed and agreed upon by Dr Pate. Objective - Vital Signs Vital signs: Vital Signs Temp 97.9 F 08/05/20 20:00 Pulse 100 08/06/20 13:04 Resp 18 08/06/20 04:00 BP 115/73 08/06/20 04:00 Pulse Ox 93 L 08/06/20 04:00 Intake & Output 08/05/20 08/06/20 08/06/20 18:59 06:59 18:59 Intake Total 720 240 118 Balance 720 240 118 Weight 84.9 kg Intake: Oral 720 240 118 Other: # Voids 1 - Labs CBC & Chem 7: 08/06/20 07:46 08/06/20 07:46 Labs: Abnormal Lab Results - Last 24 Hours (Table) 08/05/20 08/05/20 08/06/20 Range/Units 13:27 13:27 07:46 Hgb 10.6 L (11.4-16.0) gm/dL RDW 16.7 H (11.5-15.5) % Phosphorus 2.4 L (2.5-4.5) mg/dL Magnesium (1.6-2.3) mg/dL PTH Intact 94.1 H (14.0-72.0) pg/mL 08/06/20 Range/Units 07:46 Hgb (11.4-16.0) gm/dL RDW (11.5-15.5) % Phosphorus (2.5-4.5) mg/dL Magnesium 1.5 L (1.6-2.3) mg/dL PTH Intact (14.0-72.0) pg/mL
[2020-08-06] MEDS: ACETAMINOPHEN TAB 325 MG TAB PO PRN (14:16)
[2020-08-06 14:54] VITALS: TEMP 98.6
[2020-08-06 17:02] VITALS: BP 130/84; PULSE 98
[2020-08-06] MEDS ORDERED: MAGNESIUM OXIDE 400 MG TAB PO SCH (21:00)
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
== END 2020-08-06 18:00 | disposition home or self-care (01) | DRG 202 ==
LOC: EC 10:55 → 3SCARD 17:16
PROVIDERS: ADMIT Hospitalist; ATTEND Hospitalist
DX: J45.901 Unspecified asthma with (acute) exacerbation (principal); N25.81 Secondary hyperparathyroidism of renal origin; E83.42 Hypomagnesemia; D63.8 Anemia in other chronic diseases classified elsewhere; E03.9 Hypothyroidism, unspecified; E83.39 Other disorders of phosphorus metabolism; E86.9 Volume depletion, unspecified; F17.200 Nicotine dependence, unspecified, uncomplicated; F32.9 Major depressive disorder, single episode, unspecified; G40.909 Epilepsy, unspecified, not intractable, without status epilepticus; K21.9 Gastro-esophageal reflux disease without esophagitis; M41.9 Scoliosis, unspecified; Z79.890 Hormone replacement therapy; Z86.14 Personal history of Methicillin resistant Staphylococcus aureus infection; Z86.718 Personal history of other venous thrombosis and embolism; Z87.01 Personal history of pneumonia (recurrent); Z89.022 Acquired absence of left finger(s); Z98.891 History of uterine scar from previous surgery
CPT/HCPCS: 36415; 71046; 80048; 80053; 82306; 83735; 83970; 84100; 85025; 85379; 87635; 93005; 94640; 96372; 99285

== ENCOUNTER → 2020-11-09 | Outpatient (CLI) | payer OTHER | END | disposition home or self-care (01) | LOC: LABWHC1 14:10 | PROVIDERS: ATTEND Nurse Practitioner Family | DX: Z20.822 Contact with and (suspected) exposure to COVID-19 (principal); J02.9 Acute pharyngitis, unspecified | CPT/HCPCS: U0003; C9803; U0005 ==

== ENCOUNTER 2020-12-07 13:47 | Inpatient (IN) | payer OTHER ==
[2020-12-07] MEDS ORDERED: IBUPROFEN 600 MG TAB PO STA (14:30)
[2020-12-07 15:19] LABS: Anisocytosis Slight; Basophils % (A) 0 %; Eosinophils # (A) 0.1 k/uL (0-0.7); Eosinophils % (A) 3 %; HCT 36.6 % (34.0-46.0); Hypochromasia Marked; Lymphocytes # (A) 0.8 k/uL (1.0-4.8); Lymphocytes % (A) 25 %; MCH 27.6 pg (25.0-35.0); MCHC 30.1 g/dL (31.0-37.0); MCV 91.5 fL (80.0-100.0); Mean Platelet Volume 8.8; Monocytes # (A) 0.1 k/uL (0-1.0); Monocytes % (A) 3 %; Neutrophils # (A) 2.3 k/uL (1.3-7.7); Neutrophils % (A) 68 %; Platelet Count 100 k/uL (150-450); WBC 3.4 k/uL (3.8-10.6)
[2020-12-07 15:30] LABS: Albumin 3.8 g/dL (3.5-5.0); C Reactive Protein 3.6 mg/dL (<1.0); Calcium 7.6 mg/dL (8.4-10.2); Potassium 3.4 mmol/L (3.5-5.1); Total Protein 6.7 g/dL (6.3-8.2)
[2020-12-07 15:35] LABS: Magnesium 0.7 mg/dL (1.6-2.3)
--- NOTE | 2020-12-07 17:15 | XR ---
EXAMINATION: XR chest 2V DATE AND TIME: 12/07/2020 4:57 PM CLINICAL INDICATION: PHH; pain TECHNIQUE: Departmental protocol COMPARISON: 08/04/2020 FINDINGS: There are a few scattered small zones of ill-defined mildly added opacity, nonspecific radiographic f indings but suggesting the possibility of multifocal pneumonia. Would suggest six-week follow-up PA a nd lateral chest radiographs to prove resolution. There is no silhouetting of the pleural reflections . The pleural spaces are negative. The cardiac silhouette is not enlarged. The remainder of the mediastinal silhouette is unremarkable. The skeletal structures and soft tissues are negative for acute findings. IMPRESSION: Scattered ill-defined opacities, can correlate with a clinical diagnosis of bronchopneumonia.
[2020-12-07] MEDS ORDERED: FUROSEMIDE 10 MG/ML 2 ML VIAL IV ONE (17:37)
[2020-12-07] MEDS ORDERED: MAGNESIUM OXIDE 400 MG TAB PO STA (17:39)
[2020-12-07] MEDS ORDERED: ONDANSETRON 4 MG/2 ML VIAL IVP PRN (17:49)
[2020-12-07] MEDS ORDERED: NALOXONE 0.4 MG/ML 1 ML VIAL IV PRN (17:49)
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
[2020-12-07] MEDS: MAGNESIUM SULFATE-D5W PMX 1 GM in DEXTROSE/WATER 1 100ML.BAG IVPB SCH ×2 (18:05→19:42)
[2020-12-07] MEDS: SODIUM CHLORIDE 0.9% 1,000 ML IV SCH (18:06)
[2020-12-07 18:18] LABS: Appearance,Urine Clear (Clear); Bilirubin,Urine 1+ (Negative); Blood,Urine Negative (Negative); Color,Urine Yellow; Glucose,Urine (UA) Negative (Negative); Hyaline Casts,Urine 6 /lpf (0-2); Ketones,Urine Negative (Negative); Leukocyte Esterase,Urine Trace (Negative); Mucus,Urine Rare /hpf; Nitrite,Urine Negative (Negative); PH, Urine 5.5 (5.0-8.0); Protein,Urine 1+ (Negative); RBC,Urine 1 /hpf (0-5); Specific Gravity,Urine 1.023 (1.001-1.035); Squamous Epithelial Cell,Urine 1 /hpf (0-4); WBC,Urine 3 /hpf (0-5)
--- NOTE | 2020-12-07 20:35 | US ---
EXAMINATION TYPE: US venous doppler duplex UE LT DATE OF EXAM: 12/07/2020 COMPARISON: NONE CLINICAL HISTORY: swelling, pain. Patient states she injured her left wrist (slammed it on something) 2 weeks ago. SIDE PERFORMED: left FINDINGS: Grayscale, color doppler, spectral doppler imaging performed of the deep veins of the upper extremities. There is normal flow, compressibility and vascular waveforms. IMPRESSION: Negative for DVT, left upper extremity.
--- NOTE | 2020-12-07 22:15 | US ---
EXAMINATION TYPE: US liver DATE OF EXAM: 12/07/2020 COMPARISON: NONE CLINICAL HISTORY: Transaminitis. Patient just ate cheez its and gusher candy 20 minutes before the ex am. Gallbladder evaluation is limited due to contracted state. EXAM MEASUREMENTS: Liver Length: 15.6 cm Gallbladder Wall: Unable to accurately measure CBD: 0.4 cm Right Kidney: 9.6 x 4.2 x 4.2 cm Pancreas: Tail obscured by overlying bowel gas Liver: Echogenic Gallbladder: Contracted Evidence for sonographic Dnig's sign: No CBD: wnl Right Kidney: No hydronephrosis or masses seen IMPRESSION: No discrete liver mass. No dilated ducts. Contracted gallbladder. No evidence of ascites. Right kidne y appears normal. No evidence of gallstones.
[2020-12-08] MEDS: MAGNESIUM SULFATE-D5W PMX 1 GM in DEXTROSE/WATER 1 100ML.BAG IVPB SCH ×3 (05:27→08:51)
[2020-12-08] MEDS: IBUPROFEN 400 MG TAB PO PRN ×2 (07:30→21:23)
[2020-12-08] MEDS: SODIUM CHLORIDE 0.9% 1,000 ML IV SCH (08:52)
[2020-12-08] MEDS ORDERED: ALBUTEROL NEBULIZED 2.5 MG/3 ML INHALATION PRN (11:19)
[2020-12-08] MEDS ORDERED: ONDANSETRON 4 MG TAB PO PRN (11:19)
[2020-12-08] MEDS ORDERED: POTASSIUM CHLORIDE ER 20 MEQ TAB.ER PO STA (11:20)
[2020-12-08] MEDS: METOPROLOL SUCCINATE (ER) 25 MG TAB.ER.24H PO SCH (12:25)
[2020-12-08] MEDS: PANTOPRAZOLE 40 MG TABLET PO SCH (12:25)
[2020-12-08] MEDS: METHADONE 5 MG TAB PO SCH (12:25)
[2020-12-08] MEDS: LEVOTHYROXINE 125 MCG TAB PO SCH (12:25)
[2020-12-08] MEDS: METHADONE 10 MG TAB PO SCH (12:26)
[2020-12-08] MEDS: FUROSEMIDE 10 MG/ML 4 ML VIAL IV SCH ×2 (12:27→21:21)
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
[2020-12-08] MEDS ORDERED: MAGNESIUM SULFATE-D5W PMX 1 GM in DEXTROSE/WATER 1 100ML.BAG IVPB ONE (14:00)
[2020-12-08 14:53] LABS: INR 1.1 (<1.2); Prothrombin Time 11.9 sec (9.0-12.0)
--- NOTE | 2020-12-08 16:44 | ECHOF ---
Referral Reason:Congestive heart failure MEASUREMENTS -------- HEIGHT: 160.0 cm WEIGHT: 78.5 kg BP: 132/94 RVIDd: 2.8 cm (< 3.3) IVSd: 1.1 cm (0.6 - 1.1) LVIDd: 3.8 cm (3.9 - 5.3) LVPWd: 1.0 cm (0.6 - 1.1) IVSs: 1.4 cm LVIDs: 2.5 cm LVPWs: 1.7 cm LA Diam: 3.4 cm (2.7 - 3.8) LAESV Index (A-L): 27.83 ml/m Ao Diam: 2.8 cm (2.0 - 3.7) AV Cusp: 1.7 cm (1.5 - 2.6) MV EXCURSION: 9.414 mm (> 18.000) MV EF SLOPE: 63 mm/s (70 - 150) EPSS: 1.5 cm MV E Geremias: 1.24 m/s MV DecT: 194 ms MV A Geremias: 0.44 m/s MV E/A Ratio: 2.80 RAP: 15.00 mmHg RVSP: 44.35 mmHg TAPSE: 13.54 mm FINDINGS -------- Sinus rhythm. This was a technically good study. The left ventricular size is normal. Left ventricular wall thickness is normal. Overall left vent ricular systolic function is normal with, an EF between 55 - 60 %. The right ventricle is normal in size. Normal LA size by volume 22+/-6 ml/m2. The right atrium is normal in size. Interatrial and interventricular septum intact. There is mild aortic valve sclerosis. The mitral valve leaflets are mildly thickened. Mild mitral regurgitation is present. Mild tricuspid regurgitation present. There is mild pulmonary hypertension. The right ventricular systolic pressure, as measured by Doppler, is 44.35mmHg. Trace/mild (physiologic) pulmonic regurgitation. The aortic root size is normal. The inferior vena cava is dilated with no significant inspiratory collapse which is consistent estima romero right atrial pressure of >15 mmHg. There is no pericardial effusion. CONCLUSIONS -------- 1. The left ventricular size is normal. 2. Left ventricular wall thickness is normal. 3. Overall left ventricular systolic function is normal with, an EF between 55 - 60 %. 4. Normal LA size by volume 22+/-6 ml/m2. 5. There is mild aortic valve sclerosis. 6. The mitral valve leaflets are mildly thickened. 7. Mild mitral regurgitation is present. 8. Mild tricuspid regurgitation present. 9. There is mild pulmonary hypertension. 10. The right ventricular systolic pressure, as measured by Doppler, is 44.35mmHg. 11. Trace/mild (physiologic) pulmonic regurgitation. 12. The inferior vena cava is dilated with no significant inspiratory collapse which is consistent es timated right atrial pressure of >15 mmHg. 13. There is no pericardial effusion. LOSS MITIGATION SPECIALIST: Lexus Llamas RDCS
[2020-12-09] MEDS: IBUPROFEN 400 MG TAB PO PRN (08:36)
[2020-12-09] MEDS: LEVOTHYROXINE 125 MCG TAB PO SCH (08:36)
[2020-12-09] MEDS: FUROSEMIDE 10 MG/ML 4 ML VIAL IV SCH ×2 (08:37→21:31)
[2020-12-09 08:52] LABS: ALT 175 U/L (4-34); AST 94 U/L (14-36); African American GFR (CKD) >90 (>60 ml/min/1.73 sqM); Albumin 3.9 g/dL (3.5-5.0); Albumin/Globulin Ratio 1.3; Alkaline Phosphatase 109 U/L (38-126); Anion Gap 10 mmol/L; Blood Urea Nitrogen 20 mg/dL (7-17); Calcium 8.3 mg/dL (8.4-10.2); Carbon Dioxide 35 mmol/L (22-30); Chloride 94 mmol/L (98-107); Globulin 3.1 g/dL; Glucose 76 mg/dL (74-99); Non-African American GFR(CKD) 85 (>60 ml/min/1.73 sqM); Potassium 4.3 mmol/L (3.5-5.1); Sodium 139 mmol/L (137-145); Total Bilirubin 1.6 mg/dL (0.2-1.3)
[2020-12-09 08:54] LABS: Magnesium 0.9 mg/dL (1.6-2.3)
[2020-12-09] MEDS: METHADONE 10 MG TAB PO SCH (08:54)
[2020-12-09] MEDS: METHADONE 5 MG TAB PO SCH (08:54)
[2020-12-09] MEDS: PANTOPRAZOLE 40 MG TABLET PO SCH (08:54)
[2020-12-09] MEDS: METOPROLOL SUCCINATE (ER) 25 MG TAB.ER.24H PO SCH (08:54)
[2020-12-09] MEDS ORDERED: Magnesium Replacement Protocol 1 EACH MISC MISCELLANE PRN (09:06)
[2020-12-09 13:34] LABS: HCT 37.5 % (37.2-46.3); HGB 10.8 g/dL (12.0-15.0); MCH 25.8 pg (27.0-32.0); MCHC 28.8 g/dL (32.0-37.0); MCV 89.7 fL (80.0-97.0); Mean Platelet Volume 11.7 fL (9.5-12.2); Platelet Count 125 X 10*3/uL (140-440); RBC 4.18 X 10*6/uL (4.10-5.20); RDW 17.1 % (11.5-14.5); WBC 2.65 X 10*3/uL (4.50-10.00)
[2020-12-09] MEDS: MAGNESIUM SULFATE-D5W PMX 1 GM in DEXTROSE/WATER 1 100ML.BAG IVPB SCH ×3 (15:05→18:01)
--- NOTE | 2020-12-09 16:15 | P.PN ---
Subjective Progress Note Date: 12/09/20 Patient is a pleasant 40-year-old female with known history of hepatitis C and as per the patient is cured no known history of cirrhosis came in with the complaints of achiness and swelling about bilateral lower limbs. Patient denied any significant shortness of breath although her orthopnea is questionable. Patient denied any cough. Patient had history of all call abuse has not been drinking lately patient had history of IV drug abuse, quit using drugs many years ago patient is on methadone at this time. Patient doesn't have any significant ascites. Patient does have swelling of the left upper limb as well. Doppler of bilateral lower extremity is did not show any DVT patient ultrasound of the liver is within normal limits. Patient does have a mild elevation of her ALT and AST with ALT being higher than AST. 12/09/2020 Patient is evaluated today ambulating in the hallway. She denies any current chest pain, chest pressure or shortness of breath. She is reporting an improvement in her swelling of her lower extremities. She continues on IV Lasix. Echocardiogram revealed an EF of 55-60%, with some mild pulmonary hypertension there's questionable diastolic dysfunction. TSH is within normal limits at 3.3. Otherwise including a magnesium of 0.9, replaced per protocol with 4 bags, potassium is 4.3, chloride 94, CO2 35, AST is trending down at 94 and ALT is trending down at 175. We will repeat these tomorrow. Her CRP is 2.6. Liver revealed no discrete liver mass, no dilated ducts, a contracted gallbladder, no evidence of ascites, right kidney appears normal, no evidence of gallstones. There is also no sonographic Ding's sign. Patient states that her shortness of breath that she was experiencing at home while ambulating is improved significantly. ROS Constitutional: Denied any fatigue denied any fever. Cardio vascular: denied any chest pain, palpitations Gastrointestinal denied any nausea vomiting Pulmonary: Denied any shortness of breath cough Neurologic denied any new focal deficits All inpatient medications were reviewed and appropriate changes in these medications as dictated in the interval history and assessment and plan. PHYSICAL EXAMINATION: GENERAL: The patient is alert and oriented x3, not in any acute distress. Well developed, well nourished. HEENT: Pupils are round and equally reacting to light. EOMI. No scleral icterus. No conjunctival pallor. Normocephalic, atraumatic. No pharyngeal erythema. No thyromegaly. CARDIOVASCULAR: S1 and S2 present. No murmurs, rubs, or gallops. Does have elevated JVD PULMONARY: Chest is clear to auscultation, no wheezing or crackles. ABDOMEN: Soft, nontender, nondistended, normoactive bowel sounds. No palpable organomegaly. MUSCULOSKELETAL: No joint swelling or deformity. EXTREMITIES: No cyanosis, clubbing, lower extremity edema is improving is now 1- 2+ pitting NEUROLOGICAL: Gross neurological examination did not reveal any focal deficits. SKIN: No rashes. Assessment and plan -Bilateral pedal edema: She and does appear to have elevated JVD, BNP is eleva romero to 3000, improving with IV Lasix Possible mild diastolic right-sided heart failure, EF of 55-60% with some mild pulmonary hypertension, dilated inferior vena cava and right atrial pressure of greater than 15 mmHg. Patient may need a right heart cath as outpatient to further evaluate. -Elevated liver enzymes: Secondary to chronic hepatitis. Patient will need to follow up with the gastroneurology as an outpatient. -Hypomagnesemia due to her history of alcohol use which she is not drinking now and will replace per protocol -hypokalemia secondary to hypomagnesemia this will be replaced, repleted -Hyperlipidemia patient is being evaluated for cirrhosis and the congestive heart failure patient will continue Lasix for now -History of DVT in the past -Gastroesophageal reflux disease -History of IV drug use and chronic hep C which patient is on methadone which will be resumed -Hypothyroidism continue with levothyroxine TSH within normal limits DVT prophylaxis: Lovenox GI prophylaxis: Protonix however this can also cause hypomagnesemia, we will change his medication to Pepcid. FULL CODE Plan Will replace magnesium per protocol, repeat labs tomorrow. Liver enzymes are trending down, we will recheck tomorrow. INR is within normal limits at 1.1. Continue with IV Lasix. We will transition to oral tomorrow. Objective - Vital Signs Vital signs: Vital Signs Temp 98.2 F 12/09/20 08:00 Pulse 83 12/09/20 08:00 Resp 18 12/09/20 08:00 BP 132/87 12/09/20 08:00 Pulse Ox 95 12/09/20 08:00 Intake & Output 12/08/20 12/09/20 12/09/20 18:59 06:59 18:59 Other: Voiding Method Toilet # Voids 2 3 - Labs CBC & Chem 7: 12/07/20 15:09 12/09/20 07:47 Labs: Abnormal Lab Results - Last 24 Hours (Table) 12/09/20 Range/Units 07:47 Chloride 94 L (98-107) mmol/L Carbon Dioxide 35 H (22-30) mmol/L BUN 20 H (7-17) mg/dL Calcium 8.3 L (8.4-10.2) mg/dL Magnesium 0.9 L* (1.6-2.3) mg/dL Total Bilirubin 1.6 H (0.2-1.3) mg/dL AST 94 H (14-36) U/L ALT 175 H (4-34) U/L Assessment and Plan Time with Patient: Greater than 30
[2020-12-09] MEDS: FAMOTIDINE 20 MG TAB PO SCH (21:31)
[2020-12-10] MEDS: LEVOTHYROXINE 125 MCG TAB PO SCH (06:01)
[2020-12-10 07:23] VITALS: RESP 16
[2020-12-10 07:39] LABS: African American GFR (CKD) >90 (>60 ml/min/1.73 sqM); Blood Urea Nitrogen 20 mg/dL (7-17); Chloride 86 mmol/L (98-107); Glucose 95 mg/dL (74-99); Non-African American GFR(CKD) 80 (>60 ml/min/1.73 sqM); Sodium 138 mmol/L (137-145)
[2020-12-10] MEDS: METHADONE 5 MG TAB PO SCH (07:44)
[2020-12-10] MEDS: METOPROLOL SUCCINATE (ER) 25 MG TAB.ER.24H PO SCH (07:44)
[2020-12-10] MEDS: FAMOTIDINE 20 MG TAB PO SCH (07:44)
[2020-12-10 07:45] LABS: Anion Gap 16 mmol/L; Carbon Dioxide 36 mmol/L (22-30)
[2020-12-10] MEDS: METHADONE 10 MG TAB PO SCH (07:45)
[2020-12-10] MEDS: FUROSEMIDE 10 MG/ML 4 ML VIAL IV SCH (07:46)
[2020-12-10 08:00] LABS: Magnesium 1.2 mg/dL (1.6-2.3); Potassium 4.4 mmol/L (3.5-5.1)
[2020-12-10 08:59] LABS: Basophils # (A) 0.02 X 10*3/uL (0.00-0.10); Basophils % (A) 0.6 %; Eosinophils # (A) 0.12 X 10*3/uL (0.04-0.35); Eosinophils % (A) 3.4 %; HCT 42.1 % (37.2-46.3); HGB 12.6 g/dL (12.0-15.0); Lymphocytes # (A) 0.62 X 10*3/uL (0.90-5.00); Lymphocytes % (A) 17.5 %; MCH 27.2 pg (27.0-32.0); MCHC 29.9 g/dL (32.0-37.0); MCV 90.7 fL (80.0-97.0); Monocytes # (A) 0.19 X 10*3/uL (0.20-1.00); Monocytes % (A) 5.4 %; Neutrophils # (A) 2.57 X 10*3/uL (1.80-7.70); Neutrophils % (A) 72.5 %; Platelet Count 105 X 10*3/uL (140-440); RBC 4.64 X 10*6/uL (4.10-5.20); RDW 16.9 % (11.5-14.5); WBC 3.54 X 10*3/uL (4.50-10.00)
[2020-12-10] MEDS: MAGNESIUM SULFATE-D5W PMX 1 GM in DEXTROSE/WATER 1 100ML.BAG IVPB SCH ×3 (09:48→15:13)
[2020-12-10] MEDS ORDERED: polyethylene glycoL 3350 17 GM POWD.PACK PO STA (11:11)
[2020-12-10] MEDS ORDERED: DOCUSATE 100 MG CAP PO SCH (11:15)
[2020-12-10 14:37] VITALS: BP 104/78; PULSE 72; TEMP 99.1
[2020-12-10] MEDS ORDERED: FUROSEMIDE 40 MG TAB PO SCH (16:00)
--- NOTE | 2020-12-11 21:43 | P.DS ---
Providers Date of admission: 12/07/20 17:49 Attending physician: Willem Dodd Primary care physician: [facility] Course: Final Diagnosis -Bilateral pedal edema: She and does appear to have elevated JVD, BNP is elevated to 3000 Possible mild diastolic right-sided heart failure, EF of 55-60% with some mild pulmonary hypertension, dilated inferior vena cava and right atrial pressure of greater than 15 mmHg. Patient may need a right heart cath as outpatient to further evaluate. -Elevated liver enzymes: Secondary to chronic hepatitis. Patient will need to follow up with the gastroneurology as an outpatient. -Hypomagnesemia due to her history of alcohol use which she is not drinking now -hypokalemia secondary to hypomagnesemia this will be replaced -Hyperlipidemia patient is being evaluated for cirrhosis -History of DVT in the past -Gastroesophageal reflux disease -History of IV drug use and chronic hep C which patient is on methadone which will be resumed -Hypothyroidism continue with levothyroxine TSH within normal limits Discharge Disposition Patient is cleared medically for discharge after IVPB magnesium supplementation today and she will be prescribe oral magnesium on discharge. Patient is also discharged on lasix, and pepcid. She will f/u with PCP and cardiology, and have repeat labs in 2 to 3 days. Patient overall states she is feeling well, and has no further complaints of shortness of breath while ambulating and states her edema in her ankles has drastically improved. Hospital Course This is a pleasant 40 year old female with a history of hepatitis C and previous history of remote IV drug use, and ETOH abuse. Patients main complaint is achiness and swelling in her bilateral lower extremities as well as shortness of breath and legs feeling weak while ambulating. Patient has not been drinking lately, and has quit using drugs many years ago, and has been maintained on methadone. In addition, patient states that her hepatitis has been cured, there is no known history of cirrhosis. Her left upper limb is also swollen. Doppler of the bilateral lower extremity is negative for DVT, and the ultrasound of the liver is within normal limits. Mild elevation of the ALT and AST with ALT being higher than the AST. Echocardiogram revealed an EF of 55-60%, with some mild pulmonary hypertension there's questionable diastolic dysfunction. TSH is within normal limits at 3.3. Otherwise including a magnesium of 0.9, replaced per protocol with 4 bags, potassium is 4.3, chloride 94, CO2 35, AST is trending down at 94 and ALT is trending down at 175. We will repeat these tomorrow. Her CRP is 2.6. Liver revealed no discrete liver mass, no dilated ducts, a contracted gallbladder, no evidence of ascites, right kidney appears normal, no evidence of gallstones. There is also no sonographic Ding's sign. Patient states that her shortness of breath that she was experiencing at home while ambulating is improved significantly. She received multiple bags of IVPB magnesium and finally reached a non critical level of 1.2. We did change protonix to pepcid for GI prophylaxis as protonix can cause low magnesium levels. Patients symptoms improved with IV lasix, and was subsequently discharged on oral lasix. We also sent patient home on magnesium 400 mg PO BID. Patients does admit to smoking 4 to 5 cigarettes per day and we counseled the patient on smoking cessation. She denied a need for nicotine patches while in the hospital. Vital signs have remained stable this admission; afebrile, heart rate of 72, and blood pressure of 123/87. She has maintained oxygen saturation in the high 90s on room air. We are recommending f/u with GI outpatient for elevated liver enzymes and possible chronic hepatitis. We would also recommend a follow up with cardiology for a possible heart cath from echocardiogram findings as described above. 12/10/2020 Patient is evaluated today while ambulating in the halls. She states her dyspnea while ambulating has resolved and she no longer feels weak in her lower extremities. Her lungs are clear today, heart sounds reveal normal rhythm and rate, there are no crackles or wheezing noted. Her ankles are a +1 non pitting. She denies chest pain, pressure, palpitations, or cough. Abdomen is soft, nontender, and pt denies any n/v/d or abdominal pain. Focal neurological exam is negative. Patient will receive 3 more bags of IVPB magnesium prior to discharge today. Vital signs remain stable, labs are reviewed. Scripts are given for repeat CBC and BMP in 2-3 days outpatient. Please see medication reconciliation for a list of current medications. Thank you for allowing us to participate in the care of this patient. Patient Condition at Discharge: Stable Plan - Discharge Summary Discharge Rx Participant: No New Discharge Prescriptions: New Docusate [Colace] 100 mg PO DAILY cap Furosemide [Lasix] 40 mg PO BID@0900,1600 #60 tab Magnesium Oxide [Mag-Ox] 400 mg PO BID #60 tablet Famotidine [Pepcid] 20 mg PO BID tab Continue Levothyroxine Sodium 125 mcg PO DAILY Albuterol Sulfate [Proair Hfa] 1 - 2 puff INHALATION RT-Q4H PRN PRN Reason: Shortness Of Breath Cyclobenzaprine [Flexeril] 10 mg PO TID PRN PRN Reason: Muscle Pain Ondansetron [Zofran] 4 mg PO DAILY PRN PRN Reason: Nausea Omeprazole 20 mg PO DAILY Metoprolol Succinate [Toprol XL] 25 mg PO DAILY Methadone HCl [Methadone Intensol] 124 mg PO DAILY Discharge Medication List Levothyroxine Sodium 125 mcg PO DAILY 12/25/17 [History] Albuterol Sulfate [Proair Hfa] 1 - 2 puff INHALATION RT-Q4H PRN 02/08/20 [History] Cyclobenzaprine [Flexeril] 10 mg PO TID PRN 03/30/20 [History] Methadone HCl [Methadone Intensol] 124 mg PO DAILY 12/07/20 [History] Metoprolol Succinate [Toprol XL] 25 mg PO DAILY 12/07/20 [History] Omeprazole 20 mg PO DAILY 12/07/20 [History] Ondansetron [Zofran] 4 mg PO DAILY PRN 12/07/20 [History] Docusate [Colace] 100 mg PO DAILY cap 12/10/20 [Rx] Famotidine [Pepcid] 20 mg PO BID tab 12/10/20 [Rx] Furosemide [Lasix] 40 mg PO BID@0900,1600 #60 tab 12/10/20 [Rx] Magnesium Oxide [Mag-Ox] 400 mg PO BID #60 tablet 12/10/20 [Rx] Follow up Appointment(s)/Referral(s): Estrella Fox MD [STAFF PHYSICIAN] - As Needed (Evaluation for possible right heart cath due to mild pulmonary hypertension and increased right atrial pressure) Priscila Olvera MD [STAFF PHYSICIAN] - 2 Weeks (Follow-up outpatient for chronic hepatitis) Eloisa Cordova MD [Primary Care Provider] - 1-2 days Ambulatory/Diagnostic Orders: Complete Blood Count w/diff [LAB.AMB] Time Frame: 3 Days, Location: None Selected Comprehensive Metabolic Panel [LAB.AMB] Time Frame: 3 Days, Location: None Selected Patient Instructions/Handouts: Leg Edema (ED), Hypomagnesemia (DC), Edema (DC) Activity/Diet/Wound Care/Special Instructions: Patient is to receive all 3 bags of IV magnesium prior to discharge Discharge Disposition: HOME SELF-CARE
--- NOTE | 2020-12-13 09:39 | CDI ---
Documentation Clarification Form Date: 12/13/2020 09:34:22 AM From: Darío Montano Admit Date: 12/07/2020 05:49:00 PM Patient Name: Jazz Cortez Visit Number: [id number] Discharge Date: 12/10/2020 04:38:00 PM ATTENTION: The Clinical Documentation Specialists (CDI) and [facility] Coding Staff appreciate your assistance in clarifying documentation. Please respond to the clarification below the line at the bottom and electronically sign. The CDI & [facility] Coding staff will review the response and follow-up if needed. Please note: Queries are made part of the Legal Health Record. If you have any questions, please contact the author of this message via ITS. Dr. Herbert Solorio Your patient has the documented diagnosis of possible mild diastolic CHF in the discharge summary. We need to know the acuity to code this. History/Risk Factors: Clinical Indicators: VS/Pulse OX: BNP: elevated Echocardiogram Results: EF 55-60% Chest X Ray: Treatment: IV lasix In your professional opinion, can you please clarify the [acuity and type] of CHF if known? [ ] Acute Systolic Heart Failure (reduced EF) [ ] Chronic Systolic Heart Failure (reduced EF) [ ] Acute on Chronic Systolic Heart Failure (reduced EF) [ ] Acute Diastolic Heart Failure (preserved EF) [ x] Chronic Diastolic Heart Failure (preserved EF) [ ] Acute on Chronic Diastolic Heart Failure (preserved EF) [ ] Acute Systolic & Diastolic Heart Failure [ ] Chronic Systolic & Diastolic Heart Failure [ ] Acute on Chronic Heart Failure Systolic & Diastolic Heart Failure [ ] Other, please specify [ ] Unable to determine MTDD
== END 2020-12-10 16:38 | disposition home or self-care (01) | DRG 641 ==
LOC: EC 13:47 → 4SSUR 17:49
PROVIDERS: ADMIT Hospitalist; ATTEND Hospitalist
DX: E83.42 Hypomagnesemia (principal); I50.32 Chronic diastolic (congestive) heart failure; E87.6 Hypokalemia; B18.2 Chronic viral hepatitis C; E03.9 Hypothyroidism, unspecified; E78.5 Hyperlipidemia, unspecified; F17.210 Nicotine dependence, cigarettes, uncomplicated; G40.909 Epilepsy, unspecified, not intractable, without status epilepticus; I27.20 Pulmonary hypertension, unspecified; J45.909 Unspecified asthma, uncomplicated; K21.9 Gastro-esophageal reflux disease without esophagitis; Z20.822 Contact with and (suspected) exposure to COVID-19; H66.90 Otitis media, unspecified, unspecified ear; M41.9 Scoliosis, unspecified; F32.9 Major depressive disorder, single episode, unspecified; Z79.890 Hormone replacement therapy; Z79.899 Other long term (current) drug therapy; Z86.718 Personal history of other venous thrombosis and embolism; Z85.89 Personal history of malignant neoplasm of other organs and systems; Z86.14 Personal history of Methicillin resistant Staphylococcus aureus infection; Z88.8 Allergy status to other drugs, medicaments and biological substances; Z91.013 Allergy to seafood; F11.90 Opioid use, unspecified, uncomplicated; I27.29 Other secondary pulmonary hypertension
CPT/HCPCS: 36415; 71046; 76705; 80048; 80053; 81001; 83735; 83880; 84443; 85025; 85027; 85610; 86140; 87635; 93005; 93306; 99284

== ENCOUNTER 2021-03-05 10:07 | Emergency (ER) | payer OTHER ==
[2021-03-05 10:14] VITALS: RESP 18; TEMP 97.9
--- NOTE | 2021-03-05 10:48 | XR ---
EXAMINATION TYPE: XR chest 2V DATE OF EXAM: 03/05/2021 COMPARISON: 12/07/2020 HISTORY: Chest pain TECHNIQUE: Frontal and lateral views of the chest are obtained. FINDINGS: There is no focal air space opacity. No evidence for pneumothorax. No pleural effusion. The cardiac silhouette size is within normal limits. The osseous structures are grossly intact. IMPRESSION: 1. No acute cardiopulmonary process.
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
[2021-03-05] MEDS ORDERED: KETOROLAC 15 MG/ML 1 ML VIAL IM STA (10:59)
[2021-03-05 12:07] VITALS: BP 109/67; PULSE 68
== END 2021-03-05 13:17 | disposition home or self-care (01) ==
LOC: EC 10:07
DX: M94.0 Chondrocostal junction syndrome [Tietze] (principal); Z20.822 Contact with and (suspected) exposure to COVID-19; J45.909 Unspecified asthma, uncomplicated; K21.9 Gastro-esophageal reflux disease without esophagitis; G40.909 Epilepsy, unspecified, not intractable, without status epilepticus; F32.A Depression, unspecified; E03.9 Hypothyroidism, unspecified; Z79.890 Hormone replacement therapy; Z79.899 Other long term (current) drug therapy; Z79.51 Long term (current) use of inhaled steroids; Z87.891 Personal history of nicotine dependence
CPT/HCPCS: 99284 ×2; 96372 ×2; 87502; 87635; 71046; J1885

== ENCOUNTER 2021-04-18 11:09 | Emergency (ER) | payer OTHER ==
[2021-04-18 11:24] VITALS: RESP 18; TEMP 97.6
[2021-04-18] MEDS ORDERED: SODIUM CHLORIDE 0.9% 500 ML 500 ML IV STA (11:30)
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
--- NOTE | 2021-04-18 12:09 | XR ---
EXAMINATION TYPE: XR chest 2V DATE OF EXAM: 04/18/2021 COMPARISON: 03/05/2021 HISTORY: Chest pain TECHNIQUE: Frontal and lateral views of the chest are obtained. FINDINGS: There is no focal air space opacity. No evidence for pneumothorax. No pleural effusion. The cardiac silhouette size is within normal limits. The osseous structures are grossly intact. IMPRESSION: 1. No acute cardiopulmonary process.
[2021-04-18 12:10] LABS: Basophils % (A) 1 %; Eosinophils # (A) 0.2 k/uL (0-0.7); Eosinophils % (A) 6 %; HCT 39.2 % (34.0-46.0); HGB 13.4 gm/dL (11.4-16.0); Lymphocytes # (A) 0.9 k/uL (1.0-4.8); Lymphocytes % (A) 24 %; MCH 31.9 pg (25.0-35.0); MCHC 34.1 g/dL (31.0-37.0); MCV 93.5 fL (80.0-100.0); Mean Platelet Volume 7.8; Monocytes # (A) 0.1 k/uL (0-1.0); Monocytes % (A) 3 %; Neutrophils # (A) 2.6 k/uL (1.3-7.7); Neutrophils % (A) 66 %; Platelet Count 154 k/uL (150-450); Poikilocytosis Slight; RBC 4.19 m/uL (3.80-5.40); RDW 13.7 % (11.5-15.5)
[2021-04-18 12:34] LABS: Appearance,Urine Clear (Clear); Bilirubin,Urine Negative (Negative); Blood,Urine Negative (Negative); Color,Urine Yellow; Glucose,Urine (UA) Negative (Negative); Ketones,Urine Negative (Negative); Leukocyte Esterase,Urine Negative (Negative); Nitrite,Urine Negative (Negative); Protein,Urine Negative (Negative); Specific Gravity,Urine 1.009 (1.001-1.035); Urobilinogen,Urine <2.0 mg/dL (<2.0)
[2021-04-18 13:31] LABS: ALT 21 U/L (4-34); AST 47 U/L (14-36); African American GFR (CKD) >90 (>60 ml/min/1.73 sqM); Alkaline Phosphatase 114 U/L (38-126); Anion Gap 7 mmol/L; Blood Urea Nitrogen 18 mg/dL (7-17); Calcium 8.2 mg/dL (8.4-10.2); Carbon Dioxide 39 mmol/L (22-30); Chloride 92 mmol/L (98-107); Glucose 92 mg/dL (74-99); Lipase 52 U/L (23-300); Non-African American GFR(CKD) 80 (>60 ml/min/1.73 sqM); Potassium 3.1 mmol/L (3.5-5.1); Sodium 138 mmol/L (137-145); Total Protein 7.1 g/dL (6.3-8.2)
[2021-04-18 13:35] VITALS: BP 108/75; PULSE 63
[2021-04-18] MEDS ORDERED: IBUPROFEN 600 MG TAB PO STA (13:52)
[2021-04-18] MEDS ORDERED: POTASSIUM CHLORIDE ER 20 MEQ TAB.ER PO STA (13:54)
[2021-04-18] MEDS ORDERED: LIDOCAINE 5% PATCH TOPICAL SCH (14:00)
== END 2021-04-18 14:26 | disposition home or self-care (01) ==
LOC: EC 11:09
DX: S39.011A Strain of muscle, fascia and tendon of abdomen, initial encounter (principal); J45.909 Unspecified asthma, uncomplicated; K21.9 Gastro-esophageal reflux disease without esophagitis; F32.A Depression, unspecified; Z86.718 Personal history of other venous thrombosis and embolism; Z87.891 Personal history of nicotine dependence; X58.XXXA Exposure to other specified factors, initial encounter
CPT/HCPCS: 36415; 71046; 80053; 81003; 83690; 85025; 85379; 99284

== ENCOUNTER 2022-01-13 19:59 | Inpatient (IN) | payer OTHER ==
[2022-01-13] MEDS ORDERED: SUCCINYLCHOLINE CHLORIDE 200 MG/10 ML VIAL IV ONE (20:53)
[2022-01-13] MEDS ORDERED: HYDROmorphone 1 MG/ML 1 ML SYRINGE IVP STA (20:54)
[2022-01-13] MEDS ORDERED: LORazepam 2 MG/ML INJ IV STA (20:54)
[2022-01-13] MEDS ORDERED: ETOMIDATE 2 MG/ML 10 ML VIAL IVP STA (20:55)
[2022-01-13] MEDS ORDERED: SODIUM CHLORIDE 0.9% 1,000 ML IV STA (20:56)
[2022-01-13] MEDS ORDERED: SODIUM CHLORIDE 0.9% 1,000 ML IV ONE ×2 (20:56)
[2022-01-13 21:07] LABS: Basophils # (A) 0.1 k/uL (0-0.2); Basophils % (A) 1 %; Eosinophils # (A) 0.9 k/uL (0-0.7); Eosinophils % (A) 6 %; HCT 41.6 % (34.0-46.0); HGB 13.4 gm/dL (11.4-16.0); Hypochromasia Moderate; Lymphocytes # (A) 5.7 k/uL (1.0-4.8); Lymphocytes % (A) 41 %; MCH 30.8 pg (25.0-35.0); MCHC 32.3 g/dL (31.0-37.0); MCV 95.5 fL (80.0-100.0); Mean Platelet Volume 8.8; Monocytes # (A) 0.3 k/uL (0-1.0); Monocytes % (A) 2 %; Neutrophils # (A) 6.5 k/uL (1.3-7.7); Neutrophils % (A) 47 %; Platelet Count 228 k/uL (150-450); RBC 4.35 m/uL (3.80-5.40); RDW 13.2 % (11.5-15.5); WBC 13.8 k/uL (3.8-10.6)
[2022-01-13 21:22] LABS: Potassium 3.6 mmol/L (3.5-5.1)
[2022-01-13 21:23] LABS: Albumin 4.2 g/dL (3.5-5.0); Calcium 7.7 mg/dL (8.4-10.2); Magnesium 1.4 mg/dL (1.6-2.3); Total Bilirubin 0.7 mg/dL (0.2-1.3); Total Protein 6.6 g/dL (6.3-8.2)
[2022-01-13] MEDS ORDERED: PROPOFOL 10 MG/ML 20 ML VIAL IV ONE ×2 (21:26→22:06)
[2022-01-13 21:27] LABS: ABG HCO3 30 mmol/L (21-25); ABG PCO2 61 mmHg (35-45); ABG PH 7.31 (7.35-7.45); ABG PO2 >400 mmHg (83-108); ABG TCO2 32 mmol/L (19-24); Allen Test Performed? Yes
[2022-01-13 21:52] LABS: Appearance,Urine Clear (Clear); Bilirubin,Urine Negative (Negative); Blood,Urine Negative (Negative); Color,Urine Light Yellow; Glucose,Urine (UA) Negative (Negative); Ketones,Urine Negative (Negative); Leukocyte Esterase,Urine Negative (Negative); Nitrite,Urine Negative (Negative); PH, Urine 6.5 (5.0-8.0); Protein,Urine Negative (Negative); Specific Gravity,Urine 1.014 (1.001-1.035); Urobilinogen,Urine <2.0 mg/dL (<2.0)
--- NOTE | 2022-01-13 22:05 | XR ---
EXAMINATION TYPE: XR chest 1V confirm line [facility] DATE OF EXAM: 01/13/2022 COMPARISON: 04/18/2021 HISTORY: Respiratory failure. Intubation. TECHNIQUE: Single view FINDINGS: Endotracheal tube is 1.7 cm from the gabriel. There is some mild perihilar pulmonary interst itial edema. Heart size is normal. There are old right side rib fractures. There are chest leads. No pneumothorax. No pleural effusion. IMPRESSION: There is some mild pulmonary interstitial edema which appears new compared to old exam. M ultiple right-sided old rib fractures.
[2022-01-13] MEDS ORDERED: INSULIN REGULAR 100 UNIT/ML VIAL (IV) SQ STA (22:06)
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
[2022-01-13 22:29] LABS: Partial Thromboplastin Time 22.5 sec (22.0-30.0)
[2022-01-13 22:31] LABS: Amphetamine Screen,Urine Not Detected (NotDetected); Barbiturate Screen,Urine Not Detected (NotDetected); Benzodiazepines Screen,Urine Not Detected (NotDetected); Cocaine Screen,Urine Not Detected (NotDetected); Methadone Screen, Urine Detected (NotDetected); Opiate Screen,Urine Not Detected (NotDetected); Oxycodone Screen, Urine Not Detected (NotDetected); Phencyclidine Screen,Urine Not Detected (NotDetected); Tricyclic Antidepressant,Urine Not Detected (NotDetected); Urn Cannabinoid Scrn Not Detected (NotDetected)
[2022-01-13] MEDS ORDERED: MORPHINE SULFATE 2 MG/ML SYRINGE IV PRN (22:34)
[2022-01-13] MEDS ORDERED: MORPHINE SULFATE 4 MG/ML SYRINGE IV PRN (22:34)
[2022-01-13] MEDS ORDERED: NALOXONE 0.4 MG/ML 1 ML VIAL IV PRN (22:34)
[2022-01-13] MEDS ORDERED: ARTIFICIAL TEARS OINTMENT 3.5 GM TUBE BOTH EYES PRN (22:34)
[2022-01-13] MEDS ORDERED: ACETAMINOPHEN SUPPOSITORY 650 MG SUPP RECTAL PRN (22:34)
[2022-01-13 22:55] LABS: Glucose,Whole Blood 206 mg/dL (70-110)
--- NOTE | 2022-01-13 22:56 | CT ---
EXAMINATION TYPE: CT brain wo con DATE OF EXAM: 01/13/2022 COMPARISON: 12/25/2017 HISTORY: AMS CT DLP: 1151.4 mGycm Automated exposure control for dose reduction was used. Images of the brain obtained with no contrast. Ventricles have normal size. There is no mass effect or midline shift. No sign of intracranial hemorr karyna. The calvarium is intact. There is normal aeration of the mastoid sinuses. There is mucosal thic kening in the right maxillary sinus. IMPRESSION: Negative CT scan of the brain. Right maxillary sinusitis. No change compared to old exam.
--- NOTE | 2022-01-13 23:56 | XR ---
EXAMINATION TYPE: XR chest 1V portable DATE OF EXAM: 01/13/2022 COMPARISON: Today HISTORY: Tube placement TECHNIQUE: Single view FINDINGS: There is nasogastric tube and the tip is over the stomach. There is endotracheal tube 1.5 c m from the gabriel. There is bilateral pulmonary interstitial edema that is mainly in the upper lobes. No pleural effusion. Heart size is normal. There are chest leads. IMPRESSION: Nasogastric tube is in the stomach. There is pulmonary interstitial edema not significant ly different than exam 2 hours ago.
[2022-01-14] MEDS ORDERED: IPRATROPIUM-ALBUTEROL 3 ML NEB INHALATION PRN (01:16)
[2022-01-14 04:37] LABS: African American GFR (CKD) >90 (>60 ml/min/1.73 sqM); Blood Urea Nitrogen 19 mg/dL (7-17); Carbon Dioxide 31 mmol/L (22-30); Glucose 64 mg/dL (74-99); Non-African American GFR(CKD) >90 (>60 ml/min/1.73 sqM)
[2022-01-14 04:38] LABS: Anion Gap 4 mmol/L; Chloride 104 mmol/L (98-107); Potassium 3.4 mmol/L (3.5-5.1); Sodium 139 mmol/L (137-145)
[2022-01-14 04:52] LABS: Calcium 6.4 mg/dL (8.4-10.2)
[2022-01-14] MEDS ORDERED: Potassium Replacement Protocol 1 EACH MISC MISCELLANE PRN (04:53)
[2022-01-14 05:00] LABS: HCT 37.6 % (34.0-46.0); HGB 11.5 gm/dL (11.4-16.0); Hypochromasia Moderate; MCHC 30.7 g/dL (31.0-37.0); MCV 94.4 fL (80.0-100.0); Mean Platelet Volume 10.4; Platelet Count 118 k/uL (150-450); RBC 3.98 m/uL (3.80-5.40); RDW 13.4 % (11.5-15.5); WBC 6.2 k/uL (3.8-10.6)
[2022-01-14] MEDS: POTASSIUM BICARBONATE/CIT AC 20 MEQ TABLET.EFF NG-TUBE SCH ×3 (05:00→10:08)
[2022-01-14 05:49] LABS: ABG Base Excess 7.1 mmol/L; ABG HCO3 32 mmol/L (21-25); ABG PCO2 49 mmHg (35-45); ABG PH 7.42 (7.35-7.45); ABG PO2 176 mmHg (83-108); ABG TCO2 33 mmol/L (19-24); Allen Test Performed? Yes
[2022-01-14 07:30] LABS: Glucose,Whole Blood 71 mg/dL (70-110)
[2022-01-14] MEDS ORDERED: DEXTROSE 50% SYRINGE 50 ML IVP ONE (07:35)
[2022-01-14 07:44] LABS: Ionized Calcium 3.8 mg/dL (4.5-5.3)
[2022-01-14 08:00] LABS: Magnesium 0.9 mg/dL (1.6-2.3)
[2022-01-14] MEDS ORDERED: Magnesium Replacement Protocol 1 EACH MISC MISCELLANE PRN (08:03)
[2022-01-14 08:10] LABS: Glucose,Whole Blood 189 mg/dL (70-110)
[2022-01-14] MEDS: IPRATROPIUM-ALBUTEROL 3 ML NEB INHALATION SCH ×4 (08:10→20:35)
[2022-01-14] MEDS ORDERED: CHLORHEXIDINE GLUCONATE 15 ML CUP MUCOUS MEM SCH (09:00)
[2022-01-14] MEDS: FAMOTIDINE 20 MG/2 ML VIAL IV SCH ×2 (09:15→20:39)
[2022-01-14] MEDS: MAGNESIUM SULFATE-D5W PMX 1 GM in DEXTROSE/WATER 1 100ML.BAG IVPB SCH ×4 (09:15→12:24)
[2022-01-14] MEDS ORDERED: FUROSEMIDE 10 MG/ML 2 ML VIAL IV ONE (10:00)
[2022-01-14] MEDS: SODIUM CHLORIDE 0.9% 1,000 ML IV SCH (10:01)
[2022-01-14] MEDS: POTASSIUM CHLORIDE 20 MEQ in WATER FOR INJECTION 1 100ML.BAG IVPB SCH ×2 (13:34→15:46)
[2022-01-14] MEDS ORDERED: CALCIUM GLUCONATE IN NACL 1 GM in SALINE 1 100ML.BAG IVPB ONE (14:03)
[2022-01-14] MEDS ORDERED: VANCOMYCIN IV PER PHARMACY 1 EACH MISC MISCELLANE PRN (14:04)
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
[2022-01-14] MEDS: VANCOMYCIN 1,250 MG in SODIUM CHLORIDE 0.9% 250 ML IVPB SCH ×2 (15:17→23:15)
[2022-01-14] MEDS: METHADONE 10 MG TAB PO SCH (20:13)
[2022-01-14] MEDS: METHADONE 5 MG TAB PO SCH (20:14)
[2022-01-14] MEDS: ACETAMINOPHEN TAB 325 MG TAB PO PRN (23:54)
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
[2022-01-15 00:54] LABS: Potassium 4.4 mmol/L (3.5-5.1)
[2022-01-15 00:55] LABS: Magnesium 1.6 mg/dL (1.6-2.3)
[2022-01-15] MEDS: HEPARIN SODIUM,PORCINE/PF 5,000 UNIT/0.5 ML SYRINGE SQ SCH ×3 (01:22→16:16)
[2022-01-15] MEDS: IPRATROPIUM-ALBUTEROL 3 ML NEB INHALATION SCH ×4 (08:11→20:34)
--- NOTE | 2022-01-15 08:35 | XR ---
EXAMINATION TYPE: XR chest 1V portable DATE OF EXAM: 01/15/2022 COMPARISON: 01/13/2022 INDICATION: Tube placement TECHNIQUE: Single frontal view of the chest is obtained. FINDINGS: The heart size is normal. The pulmonary vasculature is normal. Small infiltrate is at the left base. Correlate for atelectasis or developing pneumonia. Healing righ t rib fractures are evident. Endotracheal tube and nasogastric tube have been removed. IMPRESSION: 1. Interval development of a left lower lobe infiltrate. Correlate for atelectasis or pneumonia. Foll ow-up is recommended.
[2022-01-15] MEDS: FAMOTIDINE 20 MG/2 ML VIAL IV SCH ×2 (08:36→21:11)
[2022-01-15] MEDS: METHADONE 10 MG TAB PO SCH (08:36)
[2022-01-15] MEDS: METHADONE 5 MG TAB PO SCH (08:36)
[2022-01-15] MEDS: SODIUM CHLORIDE 0.9% 1,000 ML IV SCH (08:54)
[2022-01-15 09:11] LABS: African American GFR (CKD) >90 (>60 ml/min/1.73 sqM); Magnesium 1.4 mg/dL (1.6-2.3); Non-African American GFR(CKD) >90 (>60 ml/min/1.73 sqM)
[2022-01-15] MEDS: ACETAMINOPHEN TAB 325 MG TAB PO PRN ×3 (11:18→21:22)
[2022-01-15] MEDS: methylPREDNISolone SOD SUCCI 125 MG/2 ML VIAL IV SCH ×2 (11:50→17:31)
[2022-01-15] MEDS: MAGNESIUM SULFATE-D5W PMX 1 GM in DEXTROSE/WATER 1 100ML.BAG IVPB SCH ×3 (11:50→14:48)
--- NOTE | 2022-01-15 14:05 | P.PN ---
Subjective Progress Note Date: 01/15/22 Principal diagnosis: Acute hypercapnic respiratory failure, secondary to methadone overdose, and gram-positive bacteremia This is a 41 -year-old female, known history of methadone use, and known history of illicit drugs use, patient was brought in by EMS to be evaluated for altered mental status and respiratory distress. Family found the patient on the floor she was poorly responsive to them, and she was confused and disoriented. Apparently the patient has been tested in the methadone clinic and she was noted to have frequent abnormal dirty tests. Patient also developed some vomiting when EMS arrived, she was brought into the ER, and apparently she was complaining of difficulty breathing stating I can't breathe. Patient was noted to be in respiratory distress, she was intubated and shortly after intubation a blood gas was done which clearly reflected hypercapnic respiratory failure her pCO2 was 61 and her pH was 7.31 and her pO2 was over 400. Obviously that's indicative of acute hypercapnia with respiratory failure requiring intubation and mechanical ventilation. Today I saw the patient on rounds, her chest x-ray was noted to be fairly unremarkable. Her labs were also unremarkable. Patient was arousable and followed simple instructions on 25 mcg/kg/m of propofol. Hence I recommended holding sedation, addressing weaning and checking weaning parameters off propofol. A few hours later, the patient was extubated uneventfully. However blood cultures came back showing gram-positive cocci in chains, hence I recommended empiric vancomycin to be given and follow-up repeat blood cultures. Brain CT was negative she did have right maxillary sinusitis. Chest x-ray showed prominence of the pulmonary vasculature no clear-cut acute process was noted Reevaluated today on 01/15/22, patient remains in the ICU, she was extubated yesterday, and the extubation was successful. Blood cultures yesterday came back positive for alphahemolytic strep, and that's usually see in cases of strep throat, tonsillitis, impetigo, cellulitis, ear infection, sinus infection, pneumonia, osteomyelitis and septic arthritis. Clinically the patient does not have any of these, however on CT of the head she was noted to have maxillary sinusitis. At any rate the patient is now on Rocephin, she was given yesterday vancomycin 1 dose. Today I'm planning that we discontinue vancomycin, and may eventually transition the patient to oral penicillin. Overall the patient is doing great, she is relatively asymptomatic, she is back on her methadone. On physical examination she continues to have significant rhonchi and wheezes, patient is known to have history of underlying COPD/asthma. She had asthma when she was few years old. CBC was not done today. Negative easy remains low and being corrected as per protocol. Objective - Vital Signs Vital signs: Vital Signs Temp 98.8 F 01/15/22 08:00 Pulse 118 H 01/15/22 12:19 Resp 14 01/15/22 12:00 BP 114/90 01/15/22 13:00 Pulse Ox 94 L 01/15/22 12:00 FiO2 40 01/14/22 11:20 Intake & Output 01/14/22 01/15/22 01/15/22 18:59 06:59 18:59 Intake Total 1748.453 490 350 Output Total 2535 485 305 Balance -786.547 5 45 Weight 68.9 kg Intake: IV 440 240 100 Sodium Chloride 0.9% 1, 260 000 ml @ 130 mls/hr IV . Q7H42M [facility] Rx#:[id number] Sodium Chloride 0.9% 1, 180 240 100 000 ml @ 20 mls/hr IV . Q24H [facility] Rx#:[id number] Intake, IV Titration 908.453 250 50 Amount Calcium Gluconate in NaCl 100 1 gm In Saline 1 100ml. bag @ 100 mls/hr IVPB ONCE ONE Rx#:[id number] Magnesium Sulfate-D5w Pmx 300 1 gm In Dextrose/Water 1 100ml.bag @ 100 mls/hr IVPB Q1H [facility] Rx#: [id number] Potassium Chloride 20 meq 200 In Water For Injection 1 100ml.bag @ 50 mls/hr IVPB Q2H [facility] Rx#: [id number] Vancomycin 1,250 mg In 250 250 Sodium Chloride 0.9% 250 ml @ 125 mls/hr IVPB Q12HR [facility] Rx#:[id number] cefTRIAXone 2 gm In 50 Sodium Chloride 0.9% 50 ml @ 100 mls/hr IVPB Q24HR [facility] Rx#:[id number] propofoL 1,000 mg In 58.453 Empty Bag 1 bag @ 15 MCG/ KG/MIN 5.715 mls/hr IV . [id number] [facility] Rx#:[id number] Oral 400 200 Output: Urine 2535 485 305 Other: Voiding Method Indwelling Catheter Indwelling Catheter Indwelling Catheter - Exam Physical Exam: Revealed a 41-year-old female in no distress Head: Atraumatic, normocephalic. HEENT:[Neck is supple.] [No neck masses.] [No thyromegaly.] [No JVD.] Chest: Symmetrical chest expansion, rhonchi and wheezes noted bilaterally.] Cardiac Exam: [Normal S1 and S2, no S3 gallop, no murmur.] Abdomen: [Soft, nontender, no megaly, no rebound, no guarding, normal bowel sounds.] Extremities: [No clubbing, no edema, no cyanosis.] Neurological Exam: [No focal neurologic deficit.] Skin: Multiple tattoos noted all over otherwise unremarkable. Psychiatric: Normal mood, affect and normal mental status examination. - Labs CBC & Chem 7: 01/14/22 03:43 01/15/22 08:09 Labs: Abnormal Lab Results - Last 24 Hours (Table) 01/15/22 Range/Units 08:09 Magnesium 1.4 L (1.6-2.3) mg/dL Microbiology - Last 24 Hours (Table) 01/13/22 20:40 Blood Culture Gram Stain - Preliminary Blood Blood Culture - Preliminary Alpha Hemolytic Streptococcus 01/13/22 20:30 Blood Culture Gram Stain - Preliminary Blood 01/13/22 20:30 Blood Culture - Final Blood 01/13/22 20:40 Blood Culture - Final Blood 01/13/22 21:00 Gram Stain - Preliminary Sputum Sputum Culture - Preliminary Assessment and Plan Assessment: Impression: Acute hypercapnic respiratory failure, most likely secondary to methadone overdose. Acute exacerbation of COPD based on physical examination today. Electrolytes imbalance with hypokalemia, hypocalcemia, and hypomagnesemia, being addressed accordingly. Acute metabolic encephalopathy. Resolved. History of drugs abuse Alphahemolytic streptococcus bacteremia, exact source is not clear, could be sinuses related. Patient is on Rocephin Recommendation: Continue present supportive care measures Continue antibiotics/Rocephin continue bronchodilators. Continue IV Solu-Medrol. GI and DVT prophylaxis Advanced diet as tolerated transfer to medical surgical floor. Address hypomagnesemia accordingly Not quite ready for discharge planning We will continue to follow Time with Patient: Less than 30
--- NOTE | 2022-01-15 20:05 | P.PN ---
Subjective Progress Note Date: 01/15/22 Patient is a 41-year-old female with a known history of polysubstance abuse and is on methadone was brought to ER by EMS due to altered mental status. Patient was found on the floor and poorly responsive and confused. Patient states that she was at home and felt very drowsy and almost passed out. Patient called EMS by herself. Patient was also complaining of difficulty in breathing and was in respiratory distress. Patient was intubated and was brought to ER. In the ER patient had ABG showed pH 7.31, PCO2 61 and PO2 greater than 400 Patient was transferred to to MICU due to acute hypoxic and hypercapnic respiratory failure. Chest x-ray showed some mild pulmonary interstitial edema which appears new compared to old exam. Multiple right-sided vertebral fractures. Patient was extubated this morning. CT head is negative for any acute process. Right maxillary sinusitis. No change compared to old exam. Laboratory data showed WBC 13.8 hemoglobin 13.4 and platelets 228 INR 1.0, D-dimer 0.88 Sodium 138 potassium 3.6 chloride 92 bicarb is 30 BUN 18 and creatinine 1.05 and blood sugar is 268 Lactic acid 5.5 on admission magnesium 1.4 and troponin 0.072 and proBNP is 1180 UDS is positive for methadone and UA negative for infection. Coronavirus PCR not detected. 01/15/2022 Patient is currently sitting in the chair comfortably. Awake alert and oriented 3. No complaints of chest pain or worsening shortness of breath. Requiring oxygen at 1-2 L by nasal cannula. No cough or sputum production. Patient has been afebrile. Next chest x-ray showed interval development of left lower lobe infiltrate. According like atelectasis of pneumonia. Laboratory data reviewed. Continue to replace potassium. Patient is currently on ceftriaxone. Changed to Augmentin. Patient is being transferred out of MICU. Current medications reviewed. Objective - Vital Signs Vital signs: Vital Signs Temp 98.8 F 01/15/22 08:00 Pulse 112 H 01/15/22 17:00 Resp 10 L 01/15/22 17:00 BP 121/87 01/15/22 16:00 Pulse Ox 96 01/15/22 17:00 FiO2 40 01/14/22 11:20 Intake & Output 01/15/22 01/15/22 01/16/22 06:59 18:59 06:59 Intake Total 490 350 Output Total 485 305 Balance 5 45 Weight 68.9 kg Intake: IV 240 100 Sodium Chloride 0.9% 1, 240 100 000 ml @ 20 mls/hr IV . Q24H [facility] Rx#:[id number] Intake, IV Titration 250 50 Amount Vancomycin 1,250 mg In 250 Sodium Chloride 0.9% 250 ml @ 125 mls/hr IVPB Q12HR [facility] Rx#:[id number] cefTRIAXone 2 gm In 50 Sodium Chloride 0.9% 50 ml @ 100 mls/hr IVPB Q24HR [facility] Rx#:[id number] Oral 200 Output: Urine 485 305 Other: Voiding Method Indwelling Catheter Indwelling Catheter - Labs CBC & Chem 7: 01/14/22 03:43 01/16/22 06:13 Labs: Abnormal Lab Results - Last 24 Hours (Table) 01/15/22 Range/Units 08:09 Magnesium 1.4 L (1.6-2.3) mg/dL Microbiology - Last 24 Hours (Table) 01/13/22 20:30 Blood Culture Gram Stain - Preliminary Blood 01/13/22 20:40 Blood Culture Gram Stain - Preliminary Blood Blood Culture - Preliminary Alpha Hemolytic Streptococcus 01/13/22 20:30 Blood Culture - Final Blood Assessment and Plan Assessment: Acute hypoxic and hypercapnic respiratory failure likely due to opiate overdose. Patient is currently extubated. Acute metabolic encephalopathy secondary above. Improved Lactic acidosis on admission due to hypoxia Acute kidney injury likely prerenal Mildly elevated troponin level/troponin leak Acute Right maxillary sinusitis as per CT head Hypokalemia and hypomagnesemia History of DVT History of hepatitis C status posttreatment in normal 2020 Chronic low back pain Previous history of smoking DVT prophylaxis Heparin subcu Plan: Patient is currently in MICU. Status post mechanical ventilator. Extubated yesterday.. Continue with symptomatic management and replace potassium. On antibiotics, vancomycin.. Changed to ceftriaxone. Blood cultures positive for gram-positive cocci in chains. Alphahemolytic streptococcus. Patient is improving clinically.. Continue to follow closely. Prognosis guarded. Time with Patient: Greater than 30
[2022-01-16] MEDS: HEPARIN SODIUM,PORCINE/PF 5,000 UNIT/0.5 ML SYRINGE SQ SCH ×3 (00:08→16:32)
[2022-01-16] MEDS: methylPREDNISolone SOD SUCCI 125 MG/2 ML VIAL IV SCH ×4 (00:09→16:32)
[2022-01-16] MEDS: ONDANSETRON 4 MG/2 ML VIAL IVP PRN ×4 (02:28→20:37)
[2022-01-16 06:12] LABS: Glucose,Whole Blood 144 mg/dL (70-110)
[2022-01-16 06:44] LABS: African American GFR (CKD) >90 (>60 ml/min/1.73 sqM); Magnesium 1.8 mg/dL (1.6-2.3); Non-African American GFR(CKD) >90 (>60 ml/min/1.73 sqM)
[2022-01-16] MEDS: VANCOMYCIN 1,250 MG in SODIUM CHLORIDE 0.9% 250 ML IVPB SCH (07:41)
[2022-01-16] MEDS: IPRATROPIUM-ALBUTEROL 3 ML NEB INHALATION SCH ×4 (08:07→20:47)
[2022-01-16] MEDS: METHADONE 10 MG TAB PO SCH (08:57)
[2022-01-16] MEDS: FAMOTIDINE 20 MG/2 ML VIAL IV SCH (08:57)
[2022-01-16] MEDS: METHADONE 5 MG TAB PO SCH (09:00)
[2022-01-16] MEDS: SODIUM CHLORIDE 0.9% 1,000 ML IV SCH (09:02)
[2022-01-16] MEDS: ACETAMINOPHEN TAB 325 MG TAB PO PRN ×3 (09:13→20:32)
[2022-01-16 11:32] LABS: Anion Gap 10 mmol/L; Blood Urea Nitrogen 18 mg/dL (7-17); Calcium 9.2 mg/dL (8.4-10.2); Carbon Dioxide 29 mmol/L (22-30); Chloride 98 mmol/L (98-107); Glucose 157 mg/dL (74-99); Potassium 3.5 mmol/L (3.5-5.1); Sodium 137 mmol/L (137-145)
[2022-01-16 11:43] LABS: Basophils % (A) 0 %; Eosinophils # (A) 0.1 k/uL (0-0.7); Eosinophils % (A) 1 %; HCT 35.2 % (34.0-46.0); HGB 11.8 gm/dL (11.4-16.0); Hypochromasia Slight; Lymphocytes # (A) 0.5 k/uL (1.0-4.8); Lymphocytes % (A) 8 %; MCH 30.9 pg (25.0-35.0); MCHC 33.6 g/dL (31.0-37.0); Mean Platelet Volume 10.7; Monocytes # (A) 0.1 k/uL (0-1.0); Monocytes % (A) 2 %; Neutrophils # (A) 5.2 k/uL (1.3-7.7); Neutrophils % (A) 88 %; Platelet Count 106 k/uL (150-450); RBC 3.82 m/uL (3.80-5.40)
--- NOTE | 2022-01-16 14:14 | P.PN ---
Subjective Progress Note Date: 01/16/22 This is a 41 -year-old female, known history of methadone use, and known history of illicit drugs use, patient was brought in by EMS to be evaluated for altered mental status and respiratory distress. Family found the patient on the floor she was poorly responsive to them, and she was confused and disoriented. Apparently the patient has been tested in the methadone clinic and she was noted to have frequent abnormal dirty tests. Patient also developed some vomiting when EMS arrived, she was brought into the ER, and apparently she was complaining of difficulty breathing stating I can't breathe. Patient was noted to be in respiratory distress, she was intubated and shortly after intubation a blood gas was done which clearly reflected hypercapnic respiratory failure her pCO2 was 61 and her pH was 7.31 and her pO2 was over 400. Obviously that's indicative of acute hypercapnia with respiratory failure requiring intubation and mechanical ventilation. Today I saw the patient on rounds, her chest x-ray was noted to be fairly unremarkable. Her labs were also unremarkable. Patient was arousable and followed simple instructions on 25 mcg/kg/m of propofol. Hence I recommended holding sedation, addressing weaning and checking weaning parameters off propofol. A few hours later, the patient was extubated uneventfully. However blood cultures came back showing gram-positive cocci in chains, hence I recommended empiric vancomycin to be given and follow-up repeat blood cultures. Brain CT was negative she did have right maxillary sinusitis. Chest x-ray showed prominence of the pulmonary vasculature no clear-cut acute process was noted Reevaluated today on 01/15/22, patient remains in the ICU, she was extubated yesterday, and the extubation was successful. Blood cultures yesterday came back positive for alphahemolytic strep, and that's usually see in cases of strep throat, tonsillitis, impetigo, cellulitis, ear infection, sinus infection, pneumonia, osteomyelitis and septic arthritis. Clinically the patient does not have any of these, however on CT of the head she was noted to have maxillary sinusitis. At any rate the patient is now on Rocephin, she was given yesterday vancomycin 1 dose. Today I'm planning that we discontinue vancomycin, and may eventually transition the patient to oral penicillin. Overall the patient is doing great, she is relatively asymptomatic, she is back on her methadone. On physical examination she continues to have significant rhonchi and wheezes, patient is known to have history of underlying COPD/asthma. She had asthma when she was few years old. CBC was not done today. Negative easy remains low and being corrected as per protocol. The patient is seen today 01/16/2022 in follow-up on the regular medical floor. She is currently sitting in chair at the bedside. Awake and alert in no acute distress. She is maintaining good O2 saturations in the 90s on room air. She's afebrile. Hemodynamically stable. Initial blood cultures were positive for alpha hemolytic streptococcus. Sputum culture revealed no growth. White count 6.0. Hemoglobin 11.8. Sodium 137. Potassium 3.5. BUN 18. Creatinine 0.61. Glucose 144. She is continued on DuoNeb inhalations, ceftriaxone, IV Solu- Medrol. Objective - Vital Signs Vital signs: Vital Signs Temp 97.8 F 01/16/22 13:57 Pulse 110 H 01/16/22 13:57 Resp 18 01/16/22 13:57 BP 117/76 01/16/22 13:57 Pulse Ox 97 01/16/22 13:57 FiO2 40 01/14/22 11:20 Intake & Output 01/15/22 01/16/22 01/16/22 18:59 06:59 18:59 Intake Total 350 Output Total 305 Balance 45 Intake: IV 100 Sodium Chloride 0.9% 1, 100 000 ml @ 20 mls/hr IV . Q24H [facility] Rx#:[id number] Intake, IV Titration 50 Amount cefTRIAXone 2 gm In 50 Sodium Chloride 0.9% 50 ml @ 100 mls/hr IVPB Q24HR [facility] Rx#:[id number] Oral 200 Output: Urine 305 Other: Voiding Method Indwelling Catheter Toilet Toilet # Voids 0 - Exam GENERAL EXAM: Alert, pleasant 41-year-old female, on room air, up in a chair, comfortable in no apparent distress. HEAD: Normocephalic. EYES: Normal reaction of pupils, equal size. NOSE: Clear with pink turbinates. THROAT: No erythema or exudates. NECK: No masses, no JVD. CHEST: No chest wall deformity. LUNGS: Equal air entry with no crackles, wheeze, rhonchi or dullness. CVS: S1 and S2 normal with no audible murmur, regular rhythm. ABDOMEN: No hepatosplenomegaly, normal bowel sounds, no guarding or rigidity. SPINE: No scoliosis or deformity SKIN: No rashes CENTRAL NERVOUS SYSTEM: No focal deficits, tone is normal in all 4 extremities. EXTREMITIES: There is no peripheral edema. No clubbing, no cyanosis. Peripheral pulses are intact. - Labs CBC & Chem 7: 01/16/22 06:13 01/16/22 06:13 Labs: Abnormal Lab Results - Last 24 Hours (Table) 01/16/22 01/16/22 01/16/22 Range/Units 06:11 06:13 06:13 Plt Count 106 L (150-450) k/uL Lymphocytes # 0.5 L (1.0-4.8) k/uL BUN 18 H (7-17) mg/dL Glucose 157 H (74-99) mg/dL POC Glucose (mg/dL) 144 H (70-110) mg/dL Microbiology - Last 24 Hours (Table) 01/13/22 20:40 Blood Culture Gram Stain - Final Blood Blood Culture - Final Alpha Hemolytic Streptococcus 01/13/22 21:00 Gram Stain - Final Sputum Sputum Culture - Final 01/13/22 20:30 Blood Culture Gram Stain - Final Blood Blood Culture - Final Micrococcus species 01/13/22 20:30 Blood Culture - Final Blood Assessment and Plan Assessment: Acute hypercapnic respiratory failure, most likely secondary to methadone overdose. Acute exacerbation of COPD based on physical examination today. Electrolytes imbalance with hypokalemia, hypocalcemia, and hypomagnesemia, being addressed accordingly. Acute metabolic encephalopathy. Resolved. History of drugs abuse Alphahemolytic streptococcus bacteremia, exact source is not clear, could be sinuses related. Patient is on Rocephin Plan: The patient was seen and evaluated Labs and medications reviewed Stable and on room air Recheck blood culture 1 prior to discharge Ceftriaxone changed to Augmentin We will initiate change of Solu-Medrol to prednisone tomorrow We will continue to follow I have personally seen and examined the patient, performed the documentation and the assessment and plan as written. Number of minutes spent on the visit: 10.
[2022-01-16] MEDS: FAMOTIDINE 20 MG TAB PO SCH (20:32)
[2022-01-16] MEDS: AMOXIC-POT CLAV 875-125MG 1 EACH TAB PO SCH (20:32)
[2022-01-16] MEDS ORDERED: ALPRAZolam 0.25 MG TAB PO STA (21:02)
[2022-01-17] MEDS: HEPARIN SODIUM,PORCINE/PF 5,000 UNIT/0.5 ML SYRINGE SQ SCH ×3 (00:08→17:07)
[2022-01-17] MEDS: methylPREDNISolone SOD SUCCI 125 MG/2 ML VIAL IV SCH ×3 (00:08→12:01)
[2022-01-17 07:36] LABS: African American GFR (CKD) >90 (>60 ml/min/1.73 sqM); Anion Gap 5 mmol/L; Blood Urea Nitrogen 28 mg/dL (7-17); Calcium 9.7 mg/dL (8.4-10.2); Carbon Dioxide 33 mmol/L (22-30); Chloride 96 mmol/L (98-107); Glucose 108 mg/dL (74-99); Non-African American GFR(CKD) >90 (>60 ml/min/1.73 sqM); Potassium 3.8 mmol/L (3.5-5.1); Sodium 134 mmol/L (137-145)
[2022-01-17] MEDS: IPRATROPIUM-ALBUTEROL 3 ML NEB INHALATION SCH ×3 (08:17→16:50)
[2022-01-17] MEDS: FAMOTIDINE 20 MG TAB PO SCH (08:22)
[2022-01-17] MEDS: METHADONE 5 MG TAB PO SCH (08:22)
[2022-01-17] MEDS: AMOXIC-POT CLAV 875-125MG 1 EACH TAB PO SCH (08:22)
[2022-01-17] MEDS: METHADONE 10 MG TAB PO SCH (08:23)
[2022-01-17] MEDS: ACETAMINOPHEN TAB 325 MG TAB PO PRN (08:26)
[2022-01-17] MEDS: SODIUM CHLORIDE 0.9% 1,000 ML IV SCH (10:28)
[2022-01-17 11:01] LABS: Basophils # (A) 0 X 10*3/uL (0.00-0.10); Basophils % (A) 0 %; Eosinophils # (A) 0 X 10*3/uL (0.04-0.35); Eosinophils % (A) 0 %; HGB 12.2 g/dL (12.0-15.0); Immature Grans, Automated 0.5 %; Lymphocytes # (A) 0.77 X 10*3/uL (0.90-5.00); MCHC 32.1 g/dL (32.0-37.0); MCV 93.6 fL (80.0-97.0); Mean Platelet Volume 11.8 fL (9.5-12.2); Monocytes # (A) 0.19 X 10*3/uL (0.20-1.00); Monocytes % (A) 2.2 %; NRBC Per 100 WBC 0 /100 WBCS (0.0-0.0); Neutrophils # (A) 7.58 X 10*3/uL (1.80-7.70); Neutrophils % (A) 88.3 %; Platelet Count 174 X 10*3/uL (140-440); RBC 4.06 X 10*6/uL (4.10-5.20); WBC 8.58 X 10*3/uL (4.50-10.00)
--- NOTE | 2022-01-17 12:49 | P.PN ---
Subjective Progress Note Date: 01/17/22 This is a 41 -year-old female, known history of methadone use, and known history of illicit drugs use, patient was brought in by EMS to be evaluated for altered mental status and respiratory distress. Family found the patient on the floor she was poorly responsive to them, and she was confused and disoriented. Apparently the patient has been tested in the methadone clinic and she was noted to have frequent abnormal dirty tests. Patient also developed some vomiting when EMS arrived, she was brought into the ER, and apparently she was complaining of difficulty breathing stating I can't breathe. Patient was noted to be in respiratory distress, she was intubated and shortly after intubation a blood gas was done which clearly reflected hypercapnic respiratory failure her pCO2 was 61 and her pH was 7.31 and her pO2 was over 400. Obviously that's indicative of acute hypercapnia with respiratory failure requiring intubation and mechanical ventilation. Today I saw the patient on rounds, her chest x-ray was noted to be fairly unremarkable. Her labs were also unremarkable. Patient was arousable and followed simple instructions on 25 mcg/kg/m of propofol. Hence I recommended holding sedation, addressing weaning and checking weaning parameters off propofol. A few hours later, the patient was extubated uneventfully. However blood cultures came back showing gram-positive cocci in chains, hence I recommended empiric vancomycin to be given and follow-up repeat blood cultures. Brain CT was negative she did have right maxillary sinusitis. Chest x-ray showed prominence of the pulmonary vasculature no clear-cut acute process was noted Reevaluated today on 01/15/22, patient remains in the ICU, she was extubated yesterday, and the extubation was successful. Blood cultures yesterday came back positive for alphahemolytic strep, and that's usually see in cases of strep throat, tonsillitis, impetigo, cellulitis, ear infection, sinus infection, pneumonia, osteomyelitis and septic arthritis. Clinically the patient does not have any of these, however on CT of the head she was noted to have maxillary sinusitis. At any rate the patient is now on Rocephin, she was given yesterday vancomycin 1 dose. Today I'm planning that we discontinue vancomycin, and may eventually transition the patient to oral penicillin. Overall the patient is doing great, she is relatively asymptomatic, she is back on her methadone. On physical examination she continues to have significant rhonchi and wheezes, patient is known to have history of underlying COPD/asthma. She had asthma when she was few years old. CBC was not done today. Negative easy remains low and being corrected as per protocol. The patient is seen today 01/16/2022 in follow-up on the regular medical floor. She is currently sitting in chair at the bedside. Awake and alert in no acute distress. She is maintaining good O2 saturations in the 90s on room air. She's afebrile. Hemodynamically stable. Initial blood cultures were positive for alpha hemolytic streptococcus. Sputum culture revealed no growth. White count 6.0. Hemoglobin 11.8. Sodium 137. Potassium 3.5. BUN 18. Creatinine 0.61. Glucose 144. She is continued on DuoNeb inhalations, ceftriaxone, IV Solu- Medrol. The patient is seen today 01/17/2022 in follow-up on the regular medical floor. She is awake and alert in no acute distress. Sitting up in a chair at the bedside. No worsening shortness of breath, cough or congestion. Maintaining go od O2 saturations in the mid 90s on room air. Initial blood cultures positive for alphahemolytic streptococcus. Follow-up blood cultures are pending. Sputum culture revealed no growth. White count 8.5. Hemoglobin 12.2. Sodium 134. Potassium 3.8. BUN 28. Creatinine 0.72. Glucose 108. She remains on Augmentin. Continue with bronchodilators, IV Solu-Medrol, heparin for DVT prophylaxis Objective - Vital Signs Vital signs: Vital Signs Temp 97.8 F 01/17/22 08:00 Pulse 100 01/17/22 12:18 Resp 18 01/17/22 08:00 BP 112/79 01/17/22 08:00 Pulse Ox 96 01/17/22 08:17 FiO2 40 01/14/22 11:20 Intake & Output 01/16/22 01/17/22 01/17/22 18:59 06:59 18:59 Other: Voiding Method Toilet Toilet # Voids 3 # Bowel Movements 1 - Exam GENERAL EXAM: Alert, 41-year-old female, on room air, up in a chair, comfortable in no apparent distress. HEAD: Normocephalic. EYES: Normal reaction of pupils, equal size. NOSE: Clear with pink turbinates. THROAT: No erythema or exudates. NECK: No masses, no JVD. CHEST: No chest wall deformity. LUNGS: Equal air entry with no crackles, wheeze, rhonchi or dullness. CVS: S1 and S2 normal with no audible murmur, regular rhythm. ABDOMEN: No hepatosplenomegaly, normal bowel sounds, no guarding or rigidity. SPINE: No scoliosis or deformity SKIN: No rashes CENTRAL NERVOUS SYSTEM: No focal deficits, tone is normal in all 4 extremities. EXTREMITIES: There is no peripheral edema. No clubbing, no cyanosis. Mare pheral pulses are intact. - Labs CBC & Chem 7: 01/17/22 06:39 01/17/22 06:39 Labs: Abnormal Lab Results - Last 24 Hours (Table) 01/17/22 01/17/22 Range/Units 06:39 06:39 RBC 4.06 L (4.10-5.20) X 10*6/uL Lymphocytes # 0.77 L (0.90-5.00) X 10*3/uL Monocytes # 0.19 L (0.20-1.00) X 10*3/uL Eosinophils # 0 L (0.04-0.35) X 10*3/uL Sodium 134 L (137-145) mmol/L Chloride 96 L (98-107) mmol/L Carbon Dioxide 33 H (22-30) mmol/L BUN 28 H (7-17) mg/dL Glucose 108 H (74-99) mg/dL Microbiology - Last 24 Hours (Table) 01/13/22 20:40 Blood Culture Gram Stain - Final Blood Blood Culture - Final Alpha Hemolytic Streptococcus 01/13/22 21:00 Gram Stain - Final Sputum Sputum Culture - Final 01/13/22 20:30 Blood Culture Gram Stain - Final Blood Blood Culture - Final Micrococcus species Assessment and Plan Assessment: Acute hypercapnic respiratory failure, most likely secondary to methadone overdose. Recovered Acute exacerbation of COPD. Electrolytes imbalance with hypokalemia, hypocalcemia, and hypomagnesemia, being addressed accordingly. Acute metabolic encephalopathy. Resolved. History of drug abuse Alphahemolytic streptococcus bacteremia, exact source is not clear, could be sinuses related. Patient is on Augmentin Plan: The patient was seen and evaluated Labs and medications reviewed Stable and on room air Follow-up blood culture pending Continue Augmentin Home once follow up blood culture resulted. Hopefully later today She will continue her home Advair and albuterol. I have personally seen and examined the patient, performed the documentation and the assessment and plan as written. Number of minutes spent on the visit: 10.
[2022-01-17 14:42] VITALS: BP 104/69; RESP 17; TEMP 97.6
[2022-01-17 16:58] VITALS: PULSE 100
== END 2022-01-17 17:23 | disposition home or self-care (01) | DRG 917 ==
LOC: EC 19:59 → 2SICU 22:34 → 4SSUR 01-15 17:24
PROVIDERS: ADMIT Hospitalist; ATTEND Hospitalist
PROC: 5A1935Z Respiratory Ventilation, Less than 24 Consecutive Hours (ICD-10-PCS; principal; 2022-01-13)
PROC: 02HV33Z Insertion of Infusion Device into Superior Vena Cava, Percutaneous Approach (ICD-10-PCS; 2022-01-13)
PROC: 0BH17EZ Insertion of Endotracheal Airway into Trachea, Via Natural or Artificial Opening (ICD-10-PCS; 2022-01-13)
PROC: 0DH67UZ Insertion of Feeding Device into Stomach, Via Natural or Artificial Opening (ICD-10-PCS; 2022-01-13)
DX: T40.3X1A Poisoning by methadone, accidental (unintentional), initial encounter (principal); G93.41 Metabolic encephalopathy; J96.01 Acute respiratory failure with hypoxia; J96.02 Acute respiratory failure with hypercapnia; E87.20 Acidosis, unspecified; N17.9 Acute kidney failure, unspecified; J44.1 Chronic obstructive pulmonary disease with (acute) exacerbation; F11.20 Opioid dependence, uncomplicated; G40.909 Epilepsy, unspecified, not intractable, without status epilepticus; E03.9 Hypothyroidism, unspecified; E86.0 Dehydration; F17.210 Nicotine dependence, cigarettes, uncomplicated; J32.0 Chronic maxillary sinusitis; E87.6 Hypokalemia; F15.11 Other stimulant abuse, in remission; E83.42 Hypomagnesemia; G89.29 Other chronic pain; M54.50 Low back pain, unspecified; E83.51 Hypocalcemia; B95.4 Other streptococcus as the cause of diseases classified elsewhere; Z90.2 Acquired absence of lung [part of]; Z20.822 Contact with and (suspected) exposure to COVID-19; Z86.718 Personal history of other venous thrombosis and embolism; Z81.3 Family history of other psychoactive substance abuse and dependence; Z79.899 Other long term (current) drug therapy; Z79.890 Hormone replacement therapy; Z79.51 Long term (current) use of inhaled steroids; R77.8 Other specified abnormalities of plasma proteins; Z28.310 Unvaccinated for COVID-19
CPT/HCPCS: 31500; 36410; 36415; 36556; 36600; 70450; 71045; 76937; 80048; 80053; 80143; 80306; 81003; 81025; 82330; 82565; 82805; 83605; 83735; 83880; 84132; 84484; 85025; 85027; 85379; 85610; 85730; 87040; 87070; 87205; 87502; 87635; 93005; 94002; 94640; 94760; 96365; 96366; 96375; 99285; 99291

== ENCOUNTER 2022-07-01 09:06 | Emergency (ER) | payer OTHER ==
[2022-07-01] MEDS ORDERED: SODIUM CHLORIDE 0.9% 500 ML 500 ML IV STA (09:22)
[2022-07-01] MEDS ORDERED: IPRATROPIUM-ALBUTEROL 3 ML NEB INHALATION STA (09:23)
[2022-07-01] MEDS ORDERED: methylPREDNISolone SOD SUCCI 125 MG/2 ML VIAL IV STA (09:23)
[2022-07-01 09:59] LABS: Basophils % (A) 0 %; Eosinophils # (A) 0.3 k/uL (0-0.7); Eosinophils % (A) 7 %; HCT 41.7 % (34.0-46.0); Lymphocytes # (A) 1.2 k/uL (1.0-4.8); Lymphocytes % (A) 25 %; MCH 27.5 pg (25.0-35.0); MCHC 31.3 g/dL (31.0-37.0); MCV 87.8 fL (80.0-100.0); Mean Platelet Volume 7.5; Monocytes # (A) 0.2 k/uL (0-1.0); Monocytes % (A) 3 %; Neutrophils % (A) 63 %; Platelet Count 175 k/uL (150-450); RBC 4.74 m/uL (3.80-5.40); RDW 14.3 % (11.5-15.5); WBC 4.8 k/uL (3.8-10.6)
[2022-07-01 10:09] LABS: Appearance,Urine Clear (Clear); Bilirubin,Urine Negative (Negative); Blood,Urine Negative (Negative); Color,Urine Colorless; Glucose,Urine (UA) Negative (Negative); Ketones,Urine Negative (Negative); Leukocyte Esterase,Urine Negative (Negative); Nitrite,Urine Negative (Negative); PH, Urine 7.5 (5.0-8.0); Protein,Urine Negative (Negative); Specific Gravity,Urine 1.005 (1.001-1.035); Urobilinogen,Urine <2.0 mg/dL (<2.0)
[2022-07-01 10:09] LABS: ALT 29 U/L (4-34); AST 39 U/L (14-36); African American GFR (CKD) >90 (>60 ml/min/1.73 sqM); Albumin 4.6 g/dL (3.5-5.0); Alkaline Phosphatase 94 U/L (38-126); Anion Gap 8 mmol/L; Blood Urea Nitrogen 19 mg/dL (7-17); Calcium 9.1 mg/dL (8.4-10.2); Carbon Dioxide 37 mmol/L (22-30); Chloride 94 mmol/L (98-107); Glucose 73 mg/dL (74-99); INR 0.9 (<1.2); Magnesium 1.1 mg/dL (1.6-2.3); Non-African American GFR(CKD) 85 (>60 ml/min/1.73 sqM); Partial Thromboplastin Time 23.6 sec (22.0-30.0); Potassium 3.5 mmol/L (3.5-5.1); Prothrombin Time 10.1 sec (9.0-12.0); Sodium 139 mmol/L (137-145); Total Bilirubin 0.5 mg/dL (0.2-1.3); Total Protein 7.4 g/dL (6.3-8.2)
[2022-07-01] MEDS: MAGNESIUM SULFATE-D5W PMX 1 GM in DEXTROSE/WATER 1 100ML.BAG IVPB SCH ×3 (10:21→12:58)
--- NOTE | 2022-07-01 10:26 | XR ---
EXAMINATION TYPE: XR chest 2V DATE OF EXAM: 07/01/2022 COMPARISON: Chest x-ray January 15, 2022 HISTORY: Difficulty in breathing. TECHNIQUE: Frontal and lateral views of the chest are obtained. FINDINGS: Background chronic emphysematous change is redemonstrated. There is no suspicious new foca l air space opacity, pleural effusion, or pneumothorax seen. The cardiac silhouette size is stable a nd within normal limits. Scoliosis is redemonstrated. Age-indeterminate right lateral mid rib fractur es likely old are redemonstrated. IMPRESSION: Chronic emphysematous changes without acute pulmonary process.
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
[2022-07-01 13:03] VITALS: RESP 18
[2022-07-01 14:13] VITALS: BP 136/72; PULSE 100; TEMP 98.2
== END 2022-07-01 14:14 | disposition left against medical advice (07) ==
LOC: EC 09:06
DX: E83.42 Hypomagnesemia (principal); J44.1 Chronic obstructive pulmonary disease with (acute) exacerbation; J45.909 Unspecified asthma, uncomplicated; Z86.718 Personal history of other venous thrombosis and embolism; K21.9 Gastro-esophageal reflux disease without esophagitis; E03.9 Hypothyroidism, unspecified; F32.A Depression, unspecified; Z87.891 Personal history of nicotine dependence; Z91.013 Allergy to seafood; Z88.8 Allergy status to other drugs, medicaments and biological substances; Z79.890 Hormone replacement therapy; Z79.899 Other long term (current) drug therapy; Z20.822 Contact with and (suspected) exposure to COVID-19; Z53.29 Procedure and treatment not carried out because of patient's decision for other reasons
CPT/HCPCS: 36415; 94640; 93005; 80053; 83605; 83735; 84484; 85025; 85610; 85730; 81003; 87636; 71046; 99285; 96365; 96366 ×3; 96375; J2930; J3475

== ENCOUNTER 2022-08-21 14:38 | Emergency (ER) | payer OTHER ==
[2022-08-21 14:43] VITALS: BP 121/78; PULSE 86; RESP 20; TEMP 98
[2022-08-21] MEDS ORDERED: IBUPROFEN 400 MG TAB PO STA (14:56)
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
--- NOTE | 2022-08-21 15:26 | XR ---
EXAMINATION TYPE: XR knee complete LT DATE OF EXAM: 08/21/2022 CLINICAL HISTORY: pain TECHNIQUE: Three views of the left knee are obtained. COMPARISON: None. FINDINGS: There is no acute fracture/dislocation. The tri-compartment joint spaces appear within no rmal limits. Chondrocalcinosis lateral meniscus. The overlying soft tissue appears unremarkable. IMPRESSION: There is no acute fracture or dislocation ICD 10 NO FRACTURE, INITIAL EVALUATION
== END 2022-08-21 15:40 | disposition home or self-care (01) ==
LOC: EC 14:38
DX: S80.02XA Contusion of left knee, initial encounter (principal); J45.909 Unspecified asthma, uncomplicated; Z86.718 Personal history of other venous thrombosis and embolism; F32.A Depression, unspecified; Z87.891 Personal history of nicotine dependence; Z91.013 Allergy to seafood; Z88.8 Allergy status to other drugs, medicaments and biological substances; Z79.51 Long term (current) use of inhaled steroids; Z79.890 Hormone replacement therapy; Z79.899 Other long term (current) drug therapy; W01.0XXA Fall on same level from slipping, tripping and stumbling without subsequent striking against object, initial encounter
CPT/HCPCS: 99284

== ENCOUNTER 2022-09-21 12:58 | Observation (INO) | payer OTHER ==
[2022-09-21] MEDS ORDERED: FUROSEMIDE 10 MG/ML 4 ML VIAL IV STA (13:38)
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
[2022-09-21 14:12] LABS: Basophils % (A) 0 %; Eosinophils # (A) 0.1 k/uL (0-0.7); Eosinophils % (A) 4 %; HGB 11.4 gm/dL (11.4-16.0); Hypochromasia Slight; Lymphocytes # (A) 0.8 k/uL (1.0-4.8); Lymphocytes % (A) 20 %; MCH 28.6 pg (25.0-35.0); MCHC 32.7 g/dL (31.0-37.0); MCV 87.4 fL (80.0-100.0); Mean Platelet Volume 7.8; Monocytes # (A) 0.1 k/uL (0-1.0); Monocytes % (A) 3 %; Neutrophils # (A) 2.7 k/uL (1.3-7.7); Neutrophils % (A) 72 %; Platelet Count 151 k/uL (150-450); RDW 13.9 % (11.5-15.5); WBC 3.8 k/uL (3.8-10.6)
[2022-09-21 14:21] LABS: ALT 24 U/L (4-34); AST 39 U/L (14-36); African American GFR (CKD) 74 (>60 ml/min/1.73 sqM); Alkaline Phosphatase 88 U/L (38-126); Anion Gap 12 mmol/L; Blood Urea Nitrogen 19 mg/dL (7-17); Calcium 7.5 mg/dL (8.4-10.2); Carbon Dioxide 31 mmol/L (22-30); Chloride 95 mmol/L (98-107); Glucose 146 mg/dL (74-99); Non-African American GFR(CKD) 64 (>60 ml/min/1.73 sqM); Potassium 3.4 mmol/L (3.5-5.1); Sodium 138 mmol/L (137-145); Total Bilirubin 0.8 mg/dL (0.2-1.3); Total Protein 6.5 g/dL (6.3-8.2)
--- NOTE | 2022-09-21 14:22 | XR ---
EXAMINATION TYPE: XR chest 2V DATE OF EXAM: 09/21/2022 COMPARISON: 07/01/2022 HISTORY: 42-year-old female difficulty breathing and leg swelling TECHNIQUE: PA and lateral views FINDINGS: Heart normal size. Aorta and pulmonary vasculature within normal limits. Unchanged pleural-based thic kening lateral right upper lobe, probably related to old healed fracture deformity of the ribs. There is dextro convex scoliosis. Interstitial prominence is unchanged. Mild hyperinflation. No consolidat ion or pleural effusion. IMPRESSION: COPD with old healed right-sided rib fracture deformity. Dextroconvex scoliosis. No acute process see n.
[2022-09-21 14:29] LABS: Magnesium 0.6 mg/dL (1.6-2.3)
[2022-09-21] MEDS: MAGNESIUM SULFATE-D5W PMX 1 GM in DEXTROSE/WATER 1 100ML.BAG IVPB SCH ×4 (15:16→18:35)
[2022-09-21] MEDS ORDERED: ALBUTEROL NEBULIZED 2.5 MG/3 ML INHALATION PRN (17:16)
[2022-09-21] MEDS ORDERED: Potassium Replacement Protocol 1 EACH MISC MISCELLANE PRN (17:17)
[2022-09-21] MEDS ORDERED: Magnesium Replacement Protocol 1 EACH MISC MISCELLANE PRN (17:17)
[2022-09-21] MEDS: METHADONE 10 MG TAB PO SCH (18:25)
[2022-09-21] MEDS: METHADONE 5 MG TAB PO SCH (18:26)
--- NOTE | 2022-09-21 18:42 | US ---
EXAMINATION TYPE: US venous doppler duplex LE BI DATE OF EXAM: 09/21/2022 5:18 PM COMPARISON: None CLINICAL INDICATION: Female, 42 years old with history of DVT; Edema. Not on blood thinners. SIDE PERFORMED: Bilateral TECHNIQUE: The lower extremity deep venous system is examined utilizing real time linear array sonog eva with graded compression, doppler sonography and color-flow sonography. VESSELS IMAGED: Common Femoral Vein Deep Femoral Vein Greater Saphenous Vein * Femoral Vein Popliteal Vein Small Saphenous Vein * Proximal Calf Veins (* superficial vessels) Right Leg: Negative for DVT Left Leg: Negative for DVT IMPRESSION: No evidence for DVT within the bilateral lower extremities imaged from the groin to the u pper calves.
[2022-09-21 19:38] LABS: Appearance,Urine Clear (Clear); Bilirubin,Urine Negative (Negative); Blood,Urine Negative (Negative); Color,Urine Light Yellow; Glucose,Urine (UA) Negative (Negative); Ketones,Urine Negative (Negative); Leukocyte Esterase,Urine Small (Negative); Mucus,Urine Rare /hpf; Nitrite,Urine Negative (Negative); Protein,Urine Negative (Negative); RBC,Urine 1 /hpf (0-5); Specific Gravity,Urine 1.007 (1.001-1.035); Squamous Epithelial Cell,Urine 2 /hpf (0-4); Urobilinogen,Urine <2.0 mg/dL (<2.0); WBC,Urine 1 /hpf (0-5)
[2022-09-21] MEDS: HEPARIN SODIUM,PORCINE/PF 5,000 UNIT/0.5 ML SYRINGE SQ SCH (19:41)
[2022-09-21 19:47] LABS: Amphetamine Screen,Urine Not Detected (NotDetected); Benzodiazepines Screen,Urine Not Detected (NotDetected); Cocaine Screen,Urine Not Detected (NotDetected); Opiate Screen,Urine Not Detected (NotDetected); Phencyclidine Screen,Urine Not Detected (NotDetected); Tricyclic Antidepressant,Urine Not Detected (NotDetected); Urn Cannabinoid Scrn Not Detected (NotDetected)
[2022-09-21 19:48] LABS: Barbiturate Screen,Urine Not Detected (NotDetected); Methadone Screen, Urine Detected (NotDetected); Oxycodone Screen, Urine Not Detected (NotDetected)
[2022-09-21] MEDS: ACETAMINOPHEN TAB 325 MG TAB PO PRN (21:33)
[2022-09-21] MEDS: SYMBICORT 160-4.5 MCG INHALER INHALATION SCH (21:36)
--- NOTE | 2022-09-21 23:59 | HP ---
HISTORY AND PHYSICAL CHIEF COMPLAINTS: Bilateral leg swelling, hypomagnesemia, and chest pain. HISTORY OF PRESENT ILLNESS: This is a 42-year-old woman with a past medical history of multiple medical problems including asthma, history of DVT, history of GERD, history of substance abuse in 2017, is complaining of bilateral leg swelling. The patient also has chest pain and multiple other symptomatology. The patient had hypomagnesemia before and the patient noted bilateral leg swelling. The patient also had some right rib pain. The patient came to [facility] and admitted for further evaluation and treatment. Magnesium was found to be 0.6. PAST MEDICAL HISTORY: History of IV drug abuse remotely, history of asthma, history of DVT, GERD, liver disease, multiple medical issues. HOME MEDICATIONS: Reviewed include KCl, dose and rest of medications noted. ALLERGIES: Avelox. FAMILY HISTORY: History of overdose and from methadone and Xanax. SOCIAL HISTORY: Previous history of smoking and substance abuse, IV heroin in 2017, on methadone currently. REVIEW OF SYSTEMS: A 14-point review is negative except as mentioned earlier. PHYSICAL EXAMINATION: VITAL SIGNS: Pulse is 110, blood pressure 101/73, respirations 15. HEENT: Conjunctivae normal. NECK: No JVD. CARDIOVASCULAR: No murmurs. RESPIRATIONS: Breath sounds diminished at the bases. ABDOMEN: Soft, obese, nontender. LEGS: There is leg swelling and some rash also present. NERVOUS SYSTEM: Nonfocal. SKIN: No ulcer, rash, or bleeding. JOINTS: No active deforming arthropathy. LABORATORY DATA: Reviewed. ASSESSMENT: 1. Bilateral leg swelling and rash, rule out congestive heart failure. 2. Chest pain for evaluation, rule out unstable angina or musculoskeletal pain. 3. Severe hypomagnesemia. 4. Hypokalemia. 5. Remote history of IV drug abuse. 6. History of asthma. 7. History of deep venous thrombosis. 8. History of chronic liver disease. 9. History of seizure disorder. 10.History of rhabdomyosarcoma, left arm. 11.Multiple complex medical issues. RECOMMENDATIONS AND DISCUSSION: This is a 42-year-old woman, who presented with multiple complex medical issues. At this time, I recommend to continue the current management and continue symptomatic treatment. Otherwise, we will monitor the patient closely. Potassium supplementation and magnesium supplementation. Resume the home medications. Avoid Protonix. Otherwise, cardiology consultation 2D echo with Doppler. Ultrasound of the legs to rule out the possibility of DVT. Prognosis guarded because of multiple complex medical issues. Further recommendations to follow. See orders for further details. MMODL / IJN: [id number] /
[2022-09-22] MEDS: ACETAMINOPHEN TAB 325 MG TAB PO PRN ×2 (04:55→20:14)
[2022-09-22] MEDS: LEVOTHYROXINE 125 MCG TAB PO SCH (06:32)
[2022-09-22 07:00] LABS: Basophils % (A) 0 %; Eosinophils # (A) 0.2 k/uL (0-0.7); Eosinophils % (A) 6 %; HCT 39.5 % (34.0-46.0); HGB 12.2 gm/dL (11.4-16.0); Hypochromasia Slight; Lymphocytes # (A) 0.7 k/uL (1.0-4.8); Lymphocytes % (A) 18 %; MCH 27.3 pg (25.0-35.0); MCHC 30.8 g/dL (31.0-37.0); MCV 88.7 fL (80.0-100.0); Mean Platelet Volume 7.9; Monocytes # (A) 0.1 k/uL (0-1.0); Monocytes % (A) 4 %; Neutrophils # (A) 2.6 k/uL (1.3-7.7); Neutrophils % (A) 70 %; Platelet Count 152 k/uL (150-450); RBC 4.45 m/uL (3.80-5.40); RDW 14.2 % (11.5-15.5); WBC 3.7 k/uL (3.8-10.6)
[2022-09-22 07:33] LABS: African American GFR (CKD) >90 (>60 ml/min/1.73 sqM); Anion Gap 10 mmol/L; Blood Urea Nitrogen 22 mg/dL (7-17); Calcium 7.9 mg/dL (8.4-10.2); Carbon Dioxide 33 mmol/L (22-30); Chloride 93 mmol/L (98-107); Glucose 128 mg/dL (74-99); Non-African American GFR(CKD) 80 (>60 ml/min/1.73 sqM); Sodium 136 mmol/L (137-145)
[2022-09-22 07:41] LABS: Magnesium 1.6 mg/dL (1.6-2.3); Potassium 3.5 mmol/L (3.5-5.1)
[2022-09-22] MEDS: METHADONE 5 MG TAB PO SCH (07:44)
[2022-09-22] MEDS: HEPARIN SODIUM,PORCINE/PF 5,000 UNIT/0.5 ML SYRINGE SQ SCH ×2 (07:44→20:16)
[2022-09-22] MEDS: METHADONE 10 MG TAB PO SCH (07:45)
[2022-09-22] MEDS: MAGNESIUM OXIDE 400 MG TAB PO SCH (07:45)
[2022-09-22] MEDS: LORATADINE 10 MG TAB PO SCH (07:45)
[2022-09-22] MEDS: POTASSIUM CHLORIDE ER 20 MEQ TAB.ER PO SCH (07:45)
[2022-09-22] MEDS: SYMBICORT 160-4.5 MCG INHALER INHALATION SCH ×2 (09:07→21:03)
[2022-09-22] MEDS ORDERED: FUROSEMIDE 10 MG/ML 4 ML VIAL IV STA (09:36)
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
[2022-09-22] MEDS ORDERED: CALCIUM CARBONATE 500 MG CHEWABLE PO PRN (15:11)
[2022-09-22] MEDS: PANTOPRAZOLE 40 MG TABLET PO SCH (15:18)
[2022-09-22] MEDS: DOCUSATE 100 MG CAP PO SCH (20:13)
--- NOTE | 2022-09-23 00:26 | PN ---
PROGRESS NOTE DATE OF SERVICE: 09/22/2022 SUBJECTIVE: This is a 42-year-old woman, presented with bilateral leg edema. She is being closely monitored. Venous ultrasound is negative. CHF unlikely per Cardiology. The patient received 1 dose of Lasix. OBJECTIVE: VITAL SIGNS: Pulse is 101, blood pressure 111/76, respirations 17. CHEST: Clear to auscultation. CARDIOVASCULAR: S1, S2. ABDOMEN: Soft. LEGS: Bilateral leg edema. NERVOUS SYSTEM: Nonfocal. LABORATORY DATA: Magnesium is improved to 1.6. The rest of the labs are noted. ASSESSMENT: 1. Bilateral leg edema, congestive heart failure unlikely per Cardiology. 2. Chest pain, myocardial infarction ruled out. 3. Severe hypomagnesemia. 4. Hypokalemia. 5. Remote history of IV drug abuse. 6. History of asthma. 7. History of deep venous thrombosis. 8. Multiple medical problems. RECOMMENDATIONS: Recommend to continue current management. Continue symptomatic treatment. Otherwise, closely follow with Cardiology. Monitor lytes closely. Repeat labs in the morning. Further recommendations to follow. MMODL / IJN: [id number] /
[2022-09-23 05:37] LABS: African American GFR (CKD) >90 (>60 ml/min/1.73 sqM); Anion Gap 8 mmol/L; Blood Urea Nitrogen 21 mg/dL (7-17); Calcium 8.1 mg/dL (8.4-10.2); Carbon Dioxide 31 mmol/L (22-30); Chloride 95 mmol/L (98-107); Glucose 149 mg/dL (74-99); Magnesium 1.3 mg/dL (1.6-2.3); Non-African American GFR(CKD) 90 (>60 ml/min/1.73 sqM); Potassium 3.5 mmol/L (3.5-5.1); Sodium 134 mmol/L (137-145)
[2022-09-23] MEDS: LEVOTHYROXINE 125 MCG TAB PO SCH (06:39)
[2022-09-23] MEDS: PANTOPRAZOLE 40 MG TABLET PO SCH (06:39)
[2022-09-23] MEDS ORDERED: Magnesium Replacement Protocol 1 EACH MISC MISCELLANE PRN (08:28)
[2022-09-23] MEDS: METHADONE 10 MG TAB PO SCH (08:36)
[2022-09-23] MEDS: HEPARIN SODIUM,PORCINE/PF 5,000 UNIT/0.5 ML SYRINGE SQ SCH (08:36)
[2022-09-23] MEDS: DOCUSATE 100 MG CAP PO SCH (08:37)
[2022-09-23] MEDS: POTASSIUM CHLORIDE ER 20 MEQ TAB.ER PO SCH (08:37)
[2022-09-23] MEDS: METHADONE 5 MG TAB PO SCH (08:37)
[2022-09-23] MEDS: LORATADINE 10 MG TAB PO SCH (08:37)
[2022-09-23] MEDS: MAGNESIUM OXIDE 400 MG TAB PO SCH (08:37)
[2022-09-23] MEDS: MAGNESIUM SULFATE-D5W PMX 1 GM in DEXTROSE/WATER 1 100ML.BAG IVPB SCH ×4 (09:06→13:39)
[2022-09-23 09:53] LABS: Basophils # (A) 0.01 X 10*3/uL (0.00-0.10); Basophils % (A) 0.3 %; Eosinophils # (A) 0.18 X 10*3/uL (0.04-0.35); Eosinophils % (A) 5.5 %; HGB 11.9 d/dL (12.0-15.0); Lymphocytes # (A) 0.89 X 10*3/uL (0.90-5.00); Lymphocytes % (A) 27.3 %; MCH 28.1 pg (27.0-32.0); MCHC 31.3 d/dL (32.0-37.0); MCV 89.6 FL (80.0-97.0); Mean Platelet Volume 10.9 FL (9.5-12.2); Monocytes # (A) 0.28 X 10*3/uL (0.20-1.00); Monocytes % (A) 8.6 %; NRBC Per 100 WBC 0 X 10*3/uL (0.00-0.01); Neutrophils # (A) 1.88 X 10*3/uL (1.80-7.70); Neutrophils % (A) 57.7 %; Platelet Count 156 X 10*3/uL (140-440); RBC 4.24 X 10*6/uL (4.10-5.20); RDW 13.4 % (11.5-14.5); WBC 3.26 X 10*3/uL (4.50-10.00)
[2022-09-23] MEDS: SYMBICORT 160-4.5 MCG INHALER INHALATION SCH (10:28)
--- NOTE | 2022-09-23 14:26 | P.PN ---
Subjective HISTORY OF PRESENT ILLNESS: 09/22/2022 The patient is a 42-year-old female with known history of chronic peripheral edema who presented with worsening edema at this time. She was noted to have low magnesium and potassium. The patient denies any associated chest discomfort, change in her breathing, PND or orthopnea. She was in sinus mechanism. In 2020 she had a normal left ventricle systolic function. She is reasonably active physically without difficulty. She denies any palpitations, dizziness or syncope. She had a prior history of substance abuse and she is on methadone. She has stopped smoking. She denies any significant alcohol intake. She underwent an ultrasound of her lower extremities that showed no evidence of DVT. Her NT proBNP was 741 and her troponin was normal. Her QT interval was stable. Medications: Potassium 40 mg one daily, magnesium 400 mg daily, levothyroxine, Lasix 20 mg daily, methadone, Prilosec, pro-air 09/23/2022 Patient examined this afternoon at the bedside. Patient denies chest pain or pressure. She denies shortness of breath. She continues to have lower extremity edema. Patient's potassium 3.5. Magnesium 1.3. She is currently receiving magnesium supplementation. Patient's vital signs are stable. Most recent blood pressure 120/83. PHYSICAL EXAM: VITAL SIGNS: Reviewed. GENERAL: Well-developed in no acute distress. NECK: Supple. No JVD or thyromegaly LUNGS: Respirations even and unlabored. Lungs essentially clear to auscultation bilaterally. HEART: Regular rate and rhythm. S1 and S2 heard. EXTREMITIES: Normal range of motion. No clubbing or cyanosis. Peripheral pulses intact. 1+ bilateral lower extremity edema ASSESSMENT: Peripheral edema Hypomagnesemia Hypokalemia History of heroin use, patient states she has been clean 7 years History of right-sided heart failure, per patient PLAN: Continue to supplement electrolytes per protocol Continue oral Lasix 2-D echo has been ordered. Await results. Further recommendations pending patient's course Nurse practitioner note has been reviewed by physician. Signing provider agrees with the documented findings, assessment, and plan of care. Dr. Siu addendum Patient was personally seen by me. The case was discussed in detail with the nurse practitioner who helped with the above documentation. I agree with this assess and plan. Objective - Vital Signs Vital signs: Vital Signs Temp 97.9 F 09/23/22 07:00 Pulse 88 09/23/22 07:00 Resp 19 09/23/22 07:00 BP 120/83 09/23/22 07:00 Pulse Ox 94 L 09/23/22 07:00 FiO2 Intake & Output 09/22/22 09/23/22 09/23/22 18:59 06:59 18:59 Output Total 1350 Balance -1350 Weight 73 kg Output: Urine 1350 Other: Voiding Method Toilet Toilet # Voids 1 3 - Labs CBC & Chem 7: 09/23/22 04:45 09/23/22 04:45 Labs: Abnormal Lab Results - Last 24 Hours (Table) 09/23/22 09/23/22 Range/Units 04:45 04:45 WBC 3.26 L (4.50-10.00) X 10*3/uL Hgb 11.9 L (12.0-15.0) d/dL MCHC 31.3 L (32.0-37.0) d/dL Lymphocytes # 0.89 L (0.90-5.00) X 10*3/uL Sodium 134 L (137-145) mmol/L Chloride 95 L (98-107) mmol/L Carbon Dioxide 31 H (22-30) mmol/L BUN 21 H (7-17) mg/dL Glucose 149 H (74-99) mg/dL Calcium 8.1 L (8.4-10.2) mg/dL Magnesium 1.3 L (1.6-2.3) mg/dL
[2022-09-23 15:08] VITALS: BP 128/86; PULSE 98; RESP 17; TEMP 97.8
--- NOTE | 2022-09-23 15:54 | CA ---
Transthoracic Echo Report Name: Jazz Cortez Age: 42 Gender: F : 1980 Exam Date: 09/23/2022 09:38 Exam Location: [facility] Ht (in): 62 Wt (lb): 156 Ordering Physician: Vince Hansen MD ([id number]) Attending/Referring Phys: Supervisor Assembling Daniella Casarez RDCS Procedure CPT: Indications: edema Cardiac Hx: Technical Quality: technically difficult study Contrast 1: Total Dose (mL): Contrast 2: Total Dose (mL): MEASUREMENTS (Male / Female) Normal Values 2D ECHO LV Diastolic Diameter PLAX 4.1 cm 4.2 - 5.9 / 3.9 - 5.3 cm LV Systolic Diameter PLAX 2.7 cm IVS Diastolic Thickness 1.2 cm 0.6 - 1.0 / 0.6 - 0.9 cm LVPW Diastolic Thickness 1.0 cm 0.6 - 1.0 / 0.6 - 0.9 cm LV Relative Wall Thickness 0.5 RV Internal Dim ED PLAX 3.2 cm LA Volume 73.2 cm??? 18 - 58 / 22 - 52 cm??? M-MODE Aortic Root Diameter MM 2.5 cm LA Systolic Diameter MM 2.9 cm LA Ao Ratio MM 1.2 AV Cusp Separation MM 1.7 cm DOPPLER AV Peak Velocity 141.8 cm/s AV Peak Gradient 8.0 mmHg AV Mean Velocity 119.9 cm/s AV Mean Gradient 5.9 mmHg AV Velocity Time Integral 27.8 cm LVOT Peak Velocity 115.1 cm/s LVOT Peak Gradient 5.3 mmHg LVOT Velocity Time Integral 21.6 cm MV Area PHT 3.8 cm??? Mitral E Point Velocity 145.2 cm/s Mitral A Point Velocity 88.7 cm/s Mitral E to A Ratio 1.6 MV Deceleration Time 221.6 ms MV E' Velocity 7.1 cm/s Mitral E to MV E' Ratio 20.4 TR Peak Velocity 294.0 cm/s TR Peak Gradient 34.6 mmHg Right Ventricular Systolic Press 37.9 mmHg FINDINGS Left Ventricle Left ventricular cavity size is normal. Normal LV wall thickness. Mildly Reduced global left ventricular systolic function. Left ventricular ejection fraction is estimated at 45-50 %. Grade II diastolic dysfunction. Right Ventricle Normal right ventricular size . Mild pulmonary hypertension. Right ventricular systolic pressure estimated at 38 mm hg. Right Atrium Normal right atrial size. Left Atrium Moderate left atrial dilatation. Elevated left ventricular pressure Mitral Valve Mitral valve thickened. Mild mitral annular calcification. Moderate mitral regurgitation. Aortic Valve Trileaflet aortic valve. No aortic stenosis or aortic regurgitation. Tricuspid Valve Structurally normal tricuspid valve. Mild tricuspid regurgitation. Pulmonic Valve Trace pulmonic regurgitation. Pericardium No pericardial effusion. Aorta Normal size aortic root CONCLUSIONS Mildly reduced global systolic function with estimated EF 45-50% Grade II diastolic dysfunction No obvious regional wall motion abnormality Moderate mitral regurgitation Moderate left ventricular dilatation with elevated left atrial pressures No prior echo to compare with Previewed by: Dr Vincenzo Siu (Electronically Signed) Final Date: 23 September 2022 15:53
[2022-09-24] MEDS ORDERED: FUROSEMIDE 20 MG TAB PO SCH (09:00)
--- NOTE | 2022-09-27 09:26 | P.DS ---
Providers Date of admission: 09/21/22 14:49 Expected date of discharge: 09/23/22 Attending physician: Willem Dodd Consults: 09/21/22 17:16 Consult Physician Routine Consulting Provider: Vince Hansen Consult Reason/Comments: leg swelling Do you want consulting provider notified?: Yes [facility] care [facility] Course: Final diagnosis Bilateral leg edema, volume overload, CHF unlikely per cardiology Chest pain, myocardial infarction ruled out Severe hypomagnesemia Hypokalemia Remote history of IV drug abuse History of asthma, not an exacerbation History of deep vein thrombosis GI prophylaxis DVT prophylaxis Full code Discharge disposition Patient is being discharged in a stable condition with guarded prognosis to home. Patient will follow-up with Dr. Antoine Dodd in the outpatient setting upon discharge. Patient is to continue with current medications and close outpatient follow-up of repeat labs to monitor electrolytes as well as card iology follow-up as scheduled. Total time taken is greater than 35 minutes. Hospital course This is a 42-year-old female who was recently admitted with severe hypomagnesemia with bilateral leg swelling being closely monitored with cardiology following. CHF unlikely per cardiology. Venous ultrasound of the lower extremity is negative and patient did receive a dose of Lasix. Patient with significantly low hypomagnesemia replaced and improved. Would recommend follow-up labs and outpatient follow-up with cardiology as instructed. Patient has been cleared by cardiology for discharge today. Please refer to other consultation notes for further HPI. Patient is extremely anxious to go home as she wants to return to work. Currently no reports of chest pain, shortness of breath, or palpitations. Patient is afebrile. No reports of nausea or vomiting and patient is tolerating diet. Patient will be discharged home Physical exam: This is [id number] female who is awake, alert and oriented 3, well-developed, well-nourished HEENT: Head is atraumatic, normocephalic. Pupils equal, round. Sclerae is anicteric. NECK: Supple. No JVD. No lymphadenopathy. No thyromegaly. LUNGS: Clear to auscultation. No wheezes or rhonchi. No intercostal retractions. HEART: Regular rate and rhythm. No murmur. ABDOMEN: Soft. Bowel sounds are present. No masses. No tenderness. EXTREMITIES: No pedal edema. No calf tenderness. Bilateral lower extremity edema noted NEUROLOGICAL: Patient is awake, alert and oriented x3. Cranial nerves 2 through 12 are grossly intact. Please refer to medication reconciliation sheet for a list of medications. The impression and plan of care has been dictated by Chrissie Burton, Nurse Practitioner as directed. Dr. Jose Miguel MD I have performed a history and examination and MDM of this patient, discussed the same with the dictator, and agree with the dictator's assessment and plan as written ,documented as a scribe. Based on total visit time, I have performed more than 50% of the visit. Health Concerns: Follow up with an OB-ENERGY EFFICIENCY SPECIALIST for abnormal bleeding. Patient Condition at Discharge: Stable Plan - Discharge Summary New Discharge Prescriptions: Continue Levothyroxine Sodium 125 mcg PO DAILY Methadone HCl [Methadone Intensol] 105 mg PO DIRECTED Omeprazole [PriLOSEC] 20 mg PO DAILY #30 cap Potassium Chloride [Klor-Con M20] 40 meq PO DAILY Fluticasone Propion/Salmeterol [Advair 500-50 Diskus] 1 puff INHALATION RT- BID Albuterol Sulfate [Proair Hfa] 2 puff INHALATION RT-Q6H PRN PRN Reason: Shortness Of Breath Loratadine [Claritin] 10 mg PO DAILY Furosemide [Lasix] 20 mg PO DAILY Changed Magnesium Oxide [Mag-Ox] 400 mg PO BID 30 Days #60 tab Discharge Medication List Levothyroxine Sodium 125 mcg PO DAILY 12/25/17 [History] Albuterol Sulfate [Proair Hfa] 2 puff INHALATION RT-Q6H PRN 01/13/22 [History] Fluticasone Propion/Salmeterol [Advair 500-50 Diskus] 1 puff INHALATION RT-BID 01/13/22 [History] Methadone HCl [Methadone Intensol] 105 mg PO DIRECTED 01/14/22 [History] Omeprazole [PriLOSEC] 20 mg PO DAILY #30 cap 01/17/22 [Rx] Furosemide [Lasix] 20 mg PO DAILY 07/01/22 [History] Loratadine [Claritin] 10 mg PO DAILY 07/01/22 [History] Potassium Chloride [Klor-Con M20] 40 meq PO DAILY 07/01/22 [History] Magnesium Oxide [Mag-Ox] 400 mg PO BID 30 Days #60 tab 09/23/22 [Rx] Follow up Appointment(s)/Referral(s): Vince Hansen MD [STAFF PHYSICIAN] - 1 Week (Office is closed at time of discharge. Please call for a follow-up appointment.) Eloisa Cordova MD [Primary Care Provider] - 1-2 days (Office is closed at time of discharge. Please call for follow-up appointment.) Patient Instructions/Handouts: Hypomagnesemia (DC) Activity/Diet/Wound Care/Special Instructions: Activity Limited until follow-up Follow-up with primary care provider on discharge Follow-up cardiology as discussed in 1-2 weeks Continue with magnesium supplement once daily Continue taking medications as prescribed Discharge Disposition: HOME SELF-CARE
== END 2022-09-23 17:05 | disposition home or self-care (01) ==
LOC: EC 12:58 → INTOOBSV 14:49 → 3SCARD 14:49 → 4SSUR 09-22 16:36 → UNDODISIN 09-23 17:05
PROVIDERS: ADMIT Hospitalist; ATTEND Hospitalist
DX: R60.0 Localized edema (principal); E83.42 Hypomagnesemia; E87.6 Hypokalemia; J45.909 Unspecified asthma, uncomplicated; R07.9 Chest pain, unspecified; K21.9 Gastro-esophageal reflux disease without esophagitis; G89.29 Other chronic pain; M54.50 Low back pain, unspecified; E03.9 Hypothyroidism, unspecified; F32.A Depression, unspecified; K76.9 Liver disease, unspecified; F15.21 Other stimulant dependence, in remission; I11.0 Hypertensive heart disease with heart failure; I50.810 Right heart failure, unspecified; Z86.19 Personal history of other infectious and parasitic diseases; Z86.718 Personal history of other venous thrombosis and embolism; Z90.2 Acquired absence of lung [part of]; Z92.21 Personal history of antineoplastic chemotherapy; Z92.3 Personal history of irradiation; Z79.890 Hormone replacement therapy; Z79.51 Long term (current) use of inhaled steroids; Z79.899 Other long term (current) drug therapy; Z88.1 Allergy status to other antibiotic agents
CPT/HCPCS: 96376; 96365; 96366; 96372 ×2; 96375; 99285; 36415; 94640 ×3; 93005; 93306; 83880; 80053; 80048 ×2; 83735 ×3; 84484; 85025 ×3; 81001; 80306; 71046; 93970; G0378 ×3; J1940 ×2; S0109 ×6; J3475 ×2; J1644 ×2

== ENCOUNTER 2023-01-01 20:24 | Inpatient (IN) | payer OTHER ==
[2023-01-01] MEDS ORDERED: ACETAMINOPHEN TAB 500 MG TAB PO STA (21:36)
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
[2023-01-01 21:59] LABS: Basophils % (A) 0 %; Eosinophils # (A) 0.2 k/uL (0-0.7); Eosinophils % (A) 4 %; HCT 38.8 % (34.0-46.0); HGB 13.1 gm/dL (11.4-16.0); Lymphocytes # (A) 0.9 k/uL (1.0-4.8); Lymphocytes % (A) 15 %; MCHC 33.8 g/dL (31.0-37.0); MCV 85.7 fL (80.0-100.0); Mean Platelet Volume 7.7; Monocytes # (A) 0.1 k/uL (0-1.0); Monocytes % (A) 2 %; Neutrophils # (A) 4.9 k/uL (1.3-7.7); Neutrophils % (A) 79 %; Platelet Count 160 k/uL (150-450); RBC 4.53 m/uL (3.80-5.40); WBC 6.2 k/uL (3.8-10.6)
--- NOTE | 2023-01-01 22:04 | XR ---
EXAMINATION TYPE: XR chest 2V DATE OF EXAM: 01/01/2023 COMPARISON: Chest x-ray September 21, 2022 HISTORY: Chest pain TECHNIQUE: Frontal and lateral views of the chest are obtained. FINDINGS: There is no focal air space opacity, pleural effusion, or pneumothorax seen. The cardiac silhouette size is stable and within normal limits. Dextroconvex scoliosis redemonstrated. Old right mid rib fractures or deformity redemonstrated. IMPRESSION: No acute cardiopulmonary process. No significant change from prior.
[2023-01-01 22:13] LABS: INR 1.1 (<1.2); Partial Thromboplastin Time 26.1 sec (22.0-30.0); Prothrombin Time 11.4 sec (10.0-12.5)
[2023-01-01 22:17] LABS: ALT 57 U/L (4-34); AST 81 U/L (14-36); African American GFR (CKD) 57 (>60 ml/min/1.73 sqM); Albumin 4.6 g/dL (3.5-5.0); Alkaline Phosphatase 89 U/L (38-126); Blood Urea Nitrogen 46 mg/dL (7-17); Calcium 7.6 mg/dL (8.4-10.2); Chloride 85 mmol/L (98-107); Glucose 78 mg/dL (74-99); Non-African American GFR(CKD) 50 (>60 ml/min/1.73 sqM); Sodium 137 mmol/L (137-145); Total Bilirubin 1.1 mg/dL (0.2-1.3); Total Protein 7.7 g/dL (6.3-8.2)
[2023-01-01 22:23] LABS: Anion Gap 18 mmol/L
[2023-01-01 23:10] LABS: Magnesium 0.6 mg/dL (1.6-2.3); Potassium 2.1 mmol/L (3.5-5.1)
[2023-01-01 23:11] LABS: Carbon Dioxide 34 mmol/L (22-30)
[2023-01-01] MEDS ORDERED: NALOXONE 0.4 MG/ML 1 ML VIAL IV PRN (23:12)
[2023-01-01] MEDS ORDERED: POTASSIUM CHLORIDE ER 20 MEQ TAB.ER PO STA (23:13)
[2023-01-01] MEDS ORDERED: 0.9% NACL WITH KCL 40 MEQ/L 1,000 ML IV ONE (23:30)
[2023-01-01] MEDS: MAGNESIUM SULFATE-D5W PMX 1 GM in DEXTROSE/WATER 1 100ML.BAG IVPB SCH (23:50)
[2023-01-01] MEDS: POTASSIUM CHLORIDE 10 MEQ in WATER FOR INJECTION 1 100ML.BAG IVPB SCH (23:52)
[2023-01-02 00:45] LABS: Appearance,Urine Clear (Clear); Bilirubin,Urine Negative (Negative); Blood,Urine Negative (Negative); Color,Urine Light Yellow; Glucose,Urine (UA) Negative (Negative); Ketones,Urine Negative (Negative); Leukocyte Esterase,Urine Small (Negative); Nitrite,Urine Negative (Negative); Protein,Urine Negative (Negative); Specific Gravity,Urine 1.015 (1.001-1.035); Urobilinogen,Urine <2.0 mg/dL (<2.0)
[2023-01-02 00:48] LABS: RBC,Urine <1 /hpf (0-5); Squamous Epithelial Cell,Urine 1 /hpf (0-4); WBC,Urine 2 /hpf (0-5)
[2023-01-02 00:52] LABS: Amphetamine Screen,Urine Not Detected (NotDetected); Barbiturate Screen,Urine Not Detected (NotDetected); Benzodiazepines Screen,Urine Not Detected (NotDetected); Cocaine Screen,Urine Not Detected (NotDetected); Methadone Screen, Urine Detected (NotDetected); Opiate Screen,Urine Not Detected (NotDetected); Oxycodone Screen, Urine Not Detected (NotDetected); Phencyclidine Screen,Urine Not Detected (NotDetected); Tricyclic Antidepressant,Urine Detected (NotDetected); Urn Cannabinoid Scrn Not Detected (NotDetected)
[2023-01-02] MEDS: MAGNESIUM SULFATE-D5W PMX 1 GM in DEXTROSE/WATER 1 100ML.BAG IVPB SCH (01:27)
[2023-01-02] MEDS: POTASSIUM CHLORIDE 10 MEQ in WATER FOR INJECTION 1 100ML.BAG IVPB SCH ×3 (01:28→05:52)
[2023-01-02 08:04] LABS: Basophils % (A) 0 %; Eosinophils # (A) 0.2 k/uL (0-0.7); Eosinophils % (A) 4 %; HCT 35.6 % (34.0-46.0); HGB 11.7 gm/dL (11.4-16.0); Hypochromasia Slight; Lymphocytes # (A) 0.9 k/uL (1.0-4.8); Lymphocytes % (A) 20 %; MCH 29.1 pg (25.0-35.0); MCV 88.2 fL (80.0-100.0); Mean Platelet Volume 8.2; Monocytes # (A) 0.1 k/uL (0-1.0); Monocytes % (A) 2 %; Neutrophils # (A) 3.2 k/uL (1.3-7.7); Neutrophils % (A) 72 %; Platelet Count 165 k/uL (150-450); RBC 4.03 m/uL (3.80-5.40); WBC 4.4 k/uL (3.8-10.6)
[2023-01-02 08:29] LABS: African American GFR (CKD) >90 (>60 ml/min/1.73 sqM); Anion Gap 7 mmol/L; Blood Urea Nitrogen 32 mg/dL (7-17); Calcium 6.7 mg/dL (8.4-10.2); Carbon Dioxide 37 mmol/L (22-30); Chloride 93 mmol/L (98-107); Glucose 77 mg/dL (74-99); Magnesium 1.3 mg/dL (1.6-2.3); Non-African American GFR(CKD) 84 (>60 ml/min/1.73 sqM); Phosphorus 2.8 mg/dL (2.5-4.5); Sodium 137 mmol/L (137-145)
[2023-01-02 09:13] LABS: Potassium 2.5 mmol/L (3.5-5.1)
[2023-01-02] MEDS ORDERED: ALBUTEROL SULFATE INHALATION PRN (10:22)
[2023-01-02] MEDS: METHADONE 10 MG TAB PO SCH (14:46)
[2023-01-02] MEDS: POTASSIUM CHLORIDE ER 20 MEQ TAB.ER PO SCH (21:27)
[2023-01-02] MEDS: MAGNESIUM OXIDE 400 MG TAB PO SCH (21:27)
[2023-01-02] MEDS: ACETAMINOPHEN TAB 325 MG TAB PO PRN (21:30)
--- NOTE | 2023-01-03 05:44 | HP ---
HISTORY AND PHYSICAL CHIEF COMPLAINT: Weakness, anxiety, and muscle cramps. HISTORY OF PRESENT ILLNESS: First known admission for this 42-year-old white female who presented to the emergency room with the above-mentioned complaints. In the ER, she was found to have potassium of 2.1 and a magnesium of 0.6. She is on a diuretic. REVIEW OF SYSTEMS: She has had no diarrhea, melena, hematochezia, hematemesis, nausea, confusion, etc. She has been having muscle cramps. PAST MEDICAL HISTORY, FAMILY HISTORY PERSONAL AND SOCIAL HISTORIES: Otherwise unremarkable and noncontributory. She is on methadone. PHYSICAL EXAMINATION: VITAL SIGNS: Normal. HEENT: Head, ears, eyes, nose, mouth and throat are normal. CHEST: Clear. CARDIAC: Demonstrated sinus tachycardia. ABDOMEN: Soft, nontender. EXTREMITIES: Normal. NEUROLOGIC: She is intact. IMPRESSION: 1. Hypokalemia. 2. Hypomagnesemia. 3. History of narcotic abuse. PLAN: 1. Bed rest. 2. IV fluids. 3. Replace serum sodium and magnesium. MMODL / IJN: [id number] /
--- NOTE | 2023-01-03 06:29 | PN ---
PROGRESS NOTE DATE OF SERVICE: 01/02/2023 CHIEF COMPLAINT: Hypomagnesemia and hypokalemia. HISTORY OF PRESENT ILLNESS: This lady is doing fairly well. She is not dizzy, nauseated, short of breath or having any muscle pain or cramps. PHYSICAL EXAMINATION: CHEST: Clear. CARDIAC: Normal. ABDOMEN: Soft and nontender. IMPRESSION: Electrolyte imbalance with hypokalemia and hypomagnesemia. PLAN: Continue with electrolyte correction and increase activity and diet and probably home tomorrow. MMODL / IJN: [id number] /
[2023-01-03] MEDS: PANTOPRAZOLE 40 MG TABLET PO SCH (06:35)
[2023-01-03] MEDS: ACETAMINOPHEN TAB 325 MG TAB PO PRN ×2 (06:35→17:55)
[2023-01-03] MEDS ORDERED: METHADONE HCL 10 MG/ML PO SCH (09:00)
[2023-01-03] MEDS: METHADONE 10 MG TAB PO SCH (09:46)
[2023-01-03] MEDS: POTASSIUM CHLORIDE ER 20 MEQ TAB.ER PO SCH ×2 (09:46→20:20)
[2023-01-03] MEDS: MAGNESIUM OXIDE 400 MG TAB PO SCH ×2 (09:46→20:20)
[2023-01-03 11:37] LABS: Magnesium 1.2 mg/dL (1.6-2.3); Potassium 3.3 mmol/L (3.5-5.1)
[2023-01-03] MEDS: ALBUTEROL NEBULIZED 2.5 MG/3 ML INHALATION PRN (12:53)
[2023-01-03] MEDS ORDERED: Magnesium Replacement Protocol 1 EACH MISC MISCELLANE PRN (13:10)
[2023-01-03] MEDS: MAGNESIUM SULFATE-D5W PMX 1 GM in DEXTROSE/WATER 1 100ML.BAG IVPB SCH ×4 (17:29→23:42)
[2023-01-03] MEDS: polyethylene glycoL 3350 17 GM POWD.PACK PO SCH (20:19)
[2023-01-04] MEDS: ACETAMINOPHEN TAB 325 MG TAB PO PRN (00:54)
[2023-01-04] MEDS: PANTOPRAZOLE 40 MG TABLET PO SCH (06:24)
[2023-01-04] MEDS: ALBUTEROL NEBULIZED 2.5 MG/3 ML INHALATION PRN ×2 (08:23→15:23)
[2023-01-04] MEDS: POTASSIUM CHLORIDE ER 20 MEQ TAB.ER PO SCH (08:57)
[2023-01-04] MEDS: MAGNESIUM OXIDE 400 MG TAB PO SCH (08:57)
[2023-01-04] MEDS: polyethylene glycoL 3350 17 GM POWD.PACK PO SCH (08:57)
[2023-01-04] MEDS: METHADONE 10 MG TAB PO SCH (08:57)
[2023-01-04 12:53] VITALS: BP 124/91; TEMP 98.1
[2023-01-04 18:48] VITALS: PULSE 98; RESP 17
--- NOTE | 2023-01-07 03:07 | DS ---
DISCHARGE SUMMARY CHIEF COMPLAINT: Hypokalemia and hypomagnesemia. HISTORY OF PRESENT ILLNESS AND PHYSICAL EXAMINATION: Details of this lady's history and physical can be found in the initial workup. LABORATORY STUDIES: While she is in the hospital, she had laboratory studies, details of which can be found in the laboratory section of her chart. COURSE IN THE HOSPITAL: After admission, she was placed on bedrest and started on intravenous fluids and replacement of her magnesium and potassium. This was accomplished and she was doing well. It was felt she could go home and she will go home on usual activity, diet, medication and we will follow her in the office. FINAL DIAGNOSES: Electrolyte imbalance with hypokalemia and hypomagnesemia. OPERATIONS: None. CONSULTATION: None. She is improved. MMJEREMIAH / MARISA: [id number] /
== END 2023-01-04 17:58 | disposition home or self-care (01) | DRG 425 ==
LOC: EC 20:24 → 3SCARD 23:12
PROVIDERS: ADMIT Family Medicine; ATTEND Family Medicine
DX: E83.42 Hypomagnesemia (principal); E87.6 Hypokalemia; E03.9 Hypothyroidism, unspecified; G40.909 Epilepsy, unspecified, not intractable, without status epilepticus; G89.29 Other chronic pain; Z92.21 Personal history of antineoplastic chemotherapy; Z92.3 Personal history of irradiation; Z87.01 Personal history of pneumonia (recurrent); K21.9 Gastro-esophageal reflux disease without esophagitis; Z86.718 Personal history of other venous thrombosis and embolism; Z86.14 Personal history of Methicillin resistant Staphylococcus aureus infection; I10 Essential (primary) hypertension; Z87.891 Personal history of nicotine dependence; Z79.890 Hormone replacement therapy; Z88.8 Allergy status to other drugs, medicaments and biological substances; Z91.013 Allergy to seafood; M54.50 Low back pain, unspecified; M41.9 Scoliosis, unspecified
CPT/HCPCS: 36415; 71046; 80048; 80051; 80053; 80306; 81001; 81025; 83735; 84100; 84132; 84484; 85025; 85610; 85730; 94640; 94760; 96365; 96366; 96367; 96368; 99291

== ENCOUNTER 2023-01-12 15:55 | Inpatient (IN) | payer OTHER ==
[2023-01-12] MEDS ORDERED: IPRATROPIUM-ALBUTEROL 3 ML NEB INHALATION STA (16:35)
[2023-01-12] MEDS ORDERED: methylPREDNISolone SOD SUCCI 125 MG/2 ML VIAL IV STA (16:35)
[2023-01-12] MEDS ORDERED: FUROSEMIDE 10 MG/ML 4 ML VIAL IV STA (16:35)
[2023-01-12] MEDS ORDERED: LORazepam 2 MG/ML INJ IV STA (16:57)
--- NOTE | 2023-01-12 17:09 | XR ---
EXAMINATION TYPE: XR chest 1V portable DATE OF EXAM: 01/12/2023 COMPARISON: 01/15/2022 HISTORY: Shortness of breath TECHNIQUE: Single frontal view of the chest is obtained. FINDINGS: There are diffuse bilateral interstitial infiltrates. There is a large partially consolidative opacit y in the left mid to upper lung and possibly in the retrocardiac region as well. There is no pneumothorax or large pleural effusion. Heart size normal. The osseous structures are int act IMPRESSION: Marked acute cardiopulmonary disease with diffuse interstitial changes and large airspace/consolidati ve opacity in the left mid to upper lung zone most consistent with pneumonia.
[2023-01-12] MEDS ORDERED: PNEUMONIA PROTOCOL UTILIZED 1 EACH MISC PO PRN (17:24)
[2023-01-12] MEDS ORDERED: AZITHROMYCIN 500 MG in SODIUM CHLORIDE 0.9% 250 ML IVPB STA (17:24)
[2023-01-12 19:13] LABS: Basophils % (A) 0 %; Eosinophils # (A) 0.1 k/uL (0-0.7); Eosinophils % (A) 1 %; HCT 35.2 % (34.0-46.0); HGB 11.6 gm/dL (11.4-16.0); Hypochromasia Slight; Lymphocytes # (A) 0.5 k/uL (1.0-4.8); Lymphocytes % (A) 7 %; MCH 29.4 pg (25.0-35.0); MCV 89.2 fL (80.0-100.0); Mean Platelet Volume 7.3; Monocytes # (A) 0.2 k/uL (0-1.0); Monocytes % (A) 2 %; Neutrophils % (A) 90 %; Platelet Count 218 k/uL (150-450); RBC 3.94 m/uL (3.80-5.40); RDW 15.3 % (11.5-15.5); WBC 7.8 k/uL (3.8-10.6)
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
[2023-01-12 19:22] LABS: INR 0.9 (<1.2); Partial Thromboplastin Time 25.5 sec (22.0-30.0); Prothrombin Time 10.4 sec (10.0-12.5)
[2023-01-12 19:26] LABS: ALT 37 U/L (4-34); AST 48 U/L (14-36); African American GFR (CKD) >90 (>60 ml/min/1.73 sqM); Alkaline Phosphatase 105 U/L (38-126); Anion Gap 11 mmol/L; Blood Urea Nitrogen 16 mg/dL (7-17); Carbon Dioxide 26 mmol/L (22-30); Chloride 100 mmol/L (98-107); Glucose 105 mg/dL (74-99); Magnesium 1.2 mg/dL (1.6-2.3); Non-African American GFR(CKD) >90 (>60 ml/min/1.73 sqM); Potassium 4.3 mmol/L (3.5-5.1); Sodium 137 mmol/L (137-145); Total Protein 6.6 g/dL (6.3-8.2)
[2023-01-12 19:34] LABS: NT-Pro-B-Type Natriuretic Pept 5280 pg/mL
[2023-01-12] MEDS ORDERED: NALOXONE 0.4 MG/ML 1 ML VIAL IV PRN (19:38)
--- NOTE | 2023-01-12 20:31 | CT ---
EXAMINATION TYPE: CT chest angio for PE CT DLP: 293.3 mGycm, Automated exposure control for dose reduction was used. DATE OF EXAM: 01/12/2023 8:12 PM COMPARISON: Chest radiograph from same day. CLINICAL INDICATION:Female, 42 years old with history of elevated d-dimer, hypoxia; SOB, elevated d-d marisol TECHNIQUE/CONTRAST: CTA scan of the thorax is performed with IV Contrast, patient injected with 38ml mL of Isovue 370, [place] P images are created and reviewed these are created on a separate workstation.. FINDINGS: Pulmonary Artery: There is no evidence for a filling defect within the pulmonary vasculature to sugge st acute pulmonary embolism. The pulmonary trunk is dilated up to 3.6 cm. Lungs/Pleura: Scattered airspace opacities most pronounced in the left lower lung. Intralobular septa l thickening. Small left pleural effusion. Airway: Large airways are patent. Heart: Heart is within normal limits for size. Vasculature: No evidence of aortic aneurysm. Mild reflux of contrast into the IVC. Mediastinum: No gross evidence of adenopathy. Musculoskeletal: No acute osseous abnormalities, multilevel degeneration changes throughout the spine Soft Tissues: Unremarkable. Lower neck: No significant findings. Upper Abdomen: No significant findings. IMPRESSION: 1. No evidence of pulmonary embolism. 2. Diffuse scattered airspace opacities correlate for pneumonia. 3. Pulmonary edema, pulmonary hypertension with bilateral pleural effusions, correlate with serum BNP .
[2023-01-12] MEDS: MAGNESIUM SULFATE-D5W PMX 1 GM in DEXTROSE/WATER 1 100ML.BAG IVPB SCH (23:04)
[2023-01-12] MEDS: FUROSEMIDE 10 MG/ML 4 ML VIAL IV SCH (23:04)
[2023-01-13] MEDS: FUROSEMIDE 10 MG/ML 4 ML VIAL IV SCH ×3 (01:02→16:32)
[2023-01-13] MEDS: MAGNESIUM SULFATE-D5W PMX 1 GM in DEXTROSE/WATER 1 100ML.BAG IVPB SCH (01:40)
[2023-01-13] MEDS: PANTOPRAZOLE 40 MG TABLET PO SCH (06:31)
[2023-01-13] MEDS: LEVOTHYROXINE 125 MCG TAB PO SCH (06:31)
--- NOTE | 2023-01-13 07:19 | XR ---
EXAMINATION TYPE: XR chest 1V portable DATE OF EXAM: 01/13/2023 COMPARISON: 01/12/2023 INDICATION: Pneumonia TECHNIQUE: Frontal and lateral views of the chest are obtained. FINDINGS: The heart size is normal. The pulmonary vasculature is normal. Left perihilar infiltrate is present. Some mild scarring may be at the right base. This appears signi ficantly improved from comparison. Old right rib fractures are evident.. IMPRESSION: 1. Improving left perihilar and right lower lobe infiltrates. Continued follow-up is recommended.
[2023-01-13 07:31] LABS: Basophils % (A) 0 %; Eosinophils % (A) 0 %; HCT 35.6 % (34.0-46.0); HGB 11.7 gm/dL (11.4-16.0); Hypochromasia Slight; Lymphocytes # (A) 0.4 k/uL (1.0-4.8); Lymphocytes % (A) 5 %; MCHC 32.9 g/dL (31.0-37.0); Mean Platelet Volume 7.2; Monocytes # (A) 0.1 k/uL (0-1.0); Monocytes % (A) 1 %; Neutrophils # (A) 7.2 k/uL (1.3-7.7); Neutrophils % (A) 93 %; Platelet Count 212 k/uL (150-450); RBC 4.05 m/uL (3.80-5.40); RDW 15.1 % (11.5-15.5); WBC 7.7 k/uL (3.8-10.6)
[2023-01-13 08:18] LABS: African American GFR (CKD) >90 (>60 ml/min/1.73 sqM); Anion Gap 14 mmol/L; Blood Urea Nitrogen 20 mg/dL (7-17); Calcium 9.2 mg/dL (8.4-10.2); Carbon Dioxide 32 mmol/L (22-30); Chloride 91 mmol/L (98-107); Glucose 155 mg/dL (74-99); Non-African American GFR(CKD) >90 (>60 ml/min/1.73 sqM); Potassium 3.2 mmol/L (3.5-5.1); Sodium 137 mmol/L (137-145)
[2023-01-13] MEDS: MAGNESIUM OXIDE 400 MG TAB PO SCH ×2 (09:24→19:54)
[2023-01-13] MEDS: POTASSIUM CHLORIDE ER 20 MEQ TAB.ER PO SCH ×2 (09:25→19:54)
[2023-01-13] MEDS: METHADONE 10 MG TAB PO SCH (09:44)
[2023-01-13] MEDS ORDERED: POTASSIUM CHLORIDE ER 20 MEQ TAB.ER PO STA (09:52)
[2023-01-13] MEDS ORDERED: REGADENOSON 0.4 MG/5 ML SYRINGE IV PRN (10:00)
[2023-01-13] MEDS ORDERED: CAFFEINE CITRATE 60 MG/3 ML VIAL IV PRN (10:00)
[2023-01-13] MEDS ORDERED: AMINOPHYLLINE 500 MG/20 ML VIAL IV PRN (10:00)
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
[2023-01-13] MEDS: METOPROLOL TARTRATE 12.5 MG TAB PO SCH ×2 (11:02→19:54)
[2023-01-13] MEDS: ASPIRIN 81 MG PO SCH (11:02)
[2023-01-13] MEDS: AZITHROMYCIN 500 MG TAB PO SCH (11:04)
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
[2023-01-13] MEDS: ALBUTEROL NEBULIZED 2.5 MG/3 ML INHALATION PRN ×2 (15:16→20:50)
--- NOTE | 2023-01-13 23:01 | HP ---
HISTORY AND PHYSICAL CHIEF COMPLAINT: Shortness of breath. HISTORY OF PRESENT ILLNESS: This is another recent admission for this 42-year-old, who was discharged after she was treated for electrolyte imbalance. She came back in short of breath and in acute respiratory distress and congestive heart failure. In the emergency room, blood pressure and pulse were elevated. Potassium was low again at 3.2. BNP was 5280, and her liver function studies were elevated. She apparently has had cardiac history in the past that I am not aware of. REVIEW OF SYSTEMS: She denies any confusion, headache, neurologic deficits, syncope, hemoptysis, chest pain, abdominal pain, nausea, vomiting, melena, hematochezia, diarrhea, hematuria, dysuria, frequency, urgency, incontinence, etc. Past medical history, family history, and personal and social histories are all otherwise unremarkable and unchanged from her recent admitting and discharge summaries. ALLERGIES: She is not allergic to any medication. MEDICATIONS: She has been on, 1. Albuterol. 2. Magnesium. 3. Potassium. 4. Omeprazole. 5. Levothyroxine. 6. Methadone. PAST HISTORY: Includes treatment for rhabdomyosarcoma in 1983. She has had a right lower lobe lobectomy. SOCIAL HISTORY: She is a current smoker. PHYSICAL EXAMINATION: VITAL SIGNS: Blood pressure is 150/106 with a pulse of 145. Respirations were over 40. HEAD, EARS, EYES, NOSE, MOUTH AND THROAT: Normal. NECK: Neck veins were distended. CHEST: Demonstrated scattered rales and rhonchi and a prolonged expiratory phase. CARDIAC: Demonstrate tachycardia. ABDOMEN: Soft and nontender. EXTREMITIES: Normal. ASSESSMENT: She is admitted to the hospital with diagnosis of: 1. Acute congestive heart failure. 2. Hypertension. 3. History of previous malignancy as a youth. PLAN: 1. Bedrest. 2. IV fluids. 3. IV diuresis. 4. Echocardiogram. 5. Correct hypokalemia. 6. Cardiology referral for elevated troponins. MMODL / IJN: [id number] /
[2023-01-14] MEDS: FUROSEMIDE 10 MG/ML 4 ML VIAL IV SCH ×3 (00:01→16:46)
[2023-01-14] MEDS: LEVOTHYROXINE 125 MCG TAB PO SCH (04:08)
[2023-01-14] MEDS: PANTOPRAZOLE 40 MG TABLET PO SCH (04:08)
[2023-01-14] MEDS ORDERED: REGADENOSON 0.4 MG/5 ML SYRINGE IV ONE (08:00)
[2023-01-14] MEDS: ALBUTEROL NEBULIZED 2.5 MG/3 ML INHALATION PRN (08:11)
[2023-01-14] MEDS: ASPIRIN 81 MG PO SCH (08:34)
[2023-01-14] MEDS: MAGNESIUM OXIDE 400 MG TAB PO SCH ×2 (08:35→20:11)
[2023-01-14] MEDS: POTASSIUM CHLORIDE ER 20 MEQ TAB.ER PO SCH ×2 (08:35→20:11)
[2023-01-14] MEDS: METHADONE 10 MG TAB PO SCH (08:36)
--- NOTE | 2023-01-14 10:26 | CA ---
Lexiscan Nuclear Stress Test Report Name: Jazz Cortez Exam Date: 01/14/2023 09:45 Exam Location: [place] Stress Ht (in): 62 Wt (lb): 154 BSA: 1.71 Ordering Phys: Romeo Thorpe Referring Phys: ROMEO THORPE,, Technologist: Howie Chen Age: 42 Gender: F : 1980 Procedure CPT: Indications: Reflex order-Stress test ICD-10 Codes: Patient History: Medications: SEE CHART Meds past 24 hrs: Pretest Chest Pain: STRESS TEST Lexiscan Protocol Exercise Duration (min:sec): 02:[address] Depressions (mm): Angina Score: Ordonez Score: Resting HR (bpm): 98 Peak HR (bpm): 113 Resting BP (mmHg): 103 / 72 Peak BP (mmHg): 125 / 80 MPHR: 177 Target HR: 150 % MPHR: 64 METS: 1.0 Total Dose: Peak Dose: Atropine: Double Product: 94665 BP Response: Stress Termination: PROTOCOL COMPLETE Stress Symptoms: NO SYMPTOMS Stress Summary: ECG ANALYSIS Resting ECG: Sinus rhythm. Normal conduction. No arrhythmias. Normal repolarization. Stress ECG: No ECG changes from baseline with Lexiscan infusion. CONCLUSIONS No ECG evidence of ischemia with Lexiscan infusion. Nuclear test results to follow. Dr. Vince Hansen MD (Electronically Signed) Final Date: 14 January 2023 10:25
[2023-01-14] MEDS: AZITHROMYCIN 500 MG TAB PO SCH (11:04)
[2023-01-14] MEDS: METOPROLOL TARTRATE 12.5 MG TAB PO SCH ×2 (11:04→20:11)
--- NOTE | 2023-01-14 11:55 | NM ---
EXAMINATION TYPE: NM stress lexiscan cardiolite DATE OF EXAM: 01/14/2023 COMPARISON: NONE CLINICAL INDICATION: Female, 42 years old with history of cp; TECHNIQUE: After the intravenous administration of 10.4 mCi Tc 99m Sestamibi - Cardiolite resting SP ECT images acquired 45 minutes post injection. The patient received 0.4mg Lexiscan, 25.0 mCi Tc 99m Sestamibi - Stress images obtained [address] injection FINDINGS: Review of stress and rest SPECT images demonstrates extensive GI activity along the inferior wall. Ar eas of decreased perfusion on rest along the lateral wall and also mid anteroseptal wall. Also apical inferolateral wall. Review of SPECT images shows no corresponding defects on the stress images thoug h the GI activity is much more intense and polar maps suggest diffuse reversibility due to the intens ity of GI activity. Gated analysis shows diminished LVEF of 32 %. TID is normal at 1.06. IMPRESSION: Severe adjacent GI activity markedly limiting the exam. If high clinical suspicion, furth er evaluation should be considered, especially as the estimated LVEF is 32%. Visually, on SPECT image s, no obvious reversibility is seen.
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
[2023-01-15] MEDS: FUROSEMIDE 10 MG/ML 4 ML VIAL IV SCH ×2 (01:04→10:11)
[2023-01-15] MEDS: LEVOTHYROXINE 125 MCG TAB PO SCH (06:29)
[2023-01-15] MEDS: PANTOPRAZOLE 40 MG TABLET PO SCH (06:30)
[2023-01-15] MEDS: METHADONE 10 MG TAB PO SCH (09:10)
[2023-01-15] MEDS: METOPROLOL TARTRATE 12.5 MG TAB PO SCH ×2 (09:10→20:48)
[2023-01-15] MEDS: POTASSIUM CHLORIDE ER 20 MEQ TAB.ER PO SCH ×2 (09:10→20:47)
[2023-01-15] MEDS: ASPIRIN 81 MG PO SCH (09:10)
[2023-01-15] MEDS: MAGNESIUM OXIDE 400 MG TAB PO SCH ×2 (09:10→20:47)
[2023-01-15 11:55] LABS: African American GFR (CKD) 83 (>60 ml/min/1.73 sqM); Anion Gap 16 mmol/L; Blood Urea Nitrogen 44 mg/dL (7-17); Calcium 10.1 mg/dL (8.4-10.2); Carbon Dioxide 28 mmol/L (22-30); Chloride 93 mmol/L (98-107); Non-African American GFR(CKD) 72 (>60 ml/min/1.73 sqM); Sodium 137 mmol/L (137-145)
[2023-01-15 11:59] LABS: Glucose 92 mg/dL (74-99); Potassium 4.8 mmol/L (3.5-5.1)
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
--- NOTE | 2023-01-15 13:34 | PN ---
PROGRESS NOTE DATE OF SERVICE: 01/13/2023 CHIEF COMPLAINT: Acute congestive heart failure. HISTORY OF PRESENT ILLNESS: This lady is doing fairly well. Her breathing has improved slightly. She denies any chest pain, fever, chills, etc. PHYSICAL EXAMINATION: LUNGS: She still has occasional rales and rhonchi throughout. CARDIAC: Normal. ABDOMEN: Soft. IMPRESSION: 1. Acute congestive heart failure. 2. Probable acute myocardial infarction. 3. Elevated liver function studies. PLAN: Continue management for heart failure. Await for further studies by Cardiology. MMODL / IJN: [id number] /
[2023-01-15] MEDS ORDERED: LACTATED RINGERS 1,000 ML IV ONE (13:45)
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
[2023-01-15] MEDS ORDERED: DEXAMETHASONE SOD PHOSPHATE 4 MG/ML 1 ML VIAL IVP ONE (14:15)
[2023-01-15] MEDS ORDERED: ONDANSETRON 4 MG/2 ML VIAL IVP ONE (14:15)
[2023-01-15] MEDS ORDERED: ALBUTEROL NEBULIZED 2.5 MG/3 ML INHALATION ONE (14:15)
--- NOTE | 2023-01-15 15:00 | PN ---
PROGRESS NOTE DATE OF SERVICE: 01/14/2023 CHIEF COMPLAINT: Acute congestive heart failure. HISTORY OF PRESENT ILLNESS: This lady is slightly more short of breath. Troponins have been elevated. Her ejection fraction is down to 32%. PHYSICAL EXAMINATION: LUNGS: She does have rales at both bases. CARDIAC: Unremarkable. ABDOMEN: Soft, nontender. IMPRESSION: 1. Acute congestive heart failure. 2. Acute myocardial infarction. 3. Heart failure with reduced ejection fraction. PLAN: Await further guidelines and recommendations from Cardiology. MMODL / IJN: [id number] /
[2023-01-15] MEDS ORDERED: MIDAZOLAM 2 MG/2 ML VIAL IVP ONE (15:12)
--- NOTE | 2023-01-15 15:26 | P.ANPRN ---
Procedure Note - Anesthesia - Nerve Block Performed Right Supraclavicular Single Time Out Performed: Yes Date of Procedure: 01/15/23 Procedure Start Time: 15:11 Procedure Stop Time: 15:16 Location of Patient: PreOp Indication: Requested by Surgeon Sedation Type: Sedate with meaningful contact maintained Preparation: Sterile Prep Position: Sitting Catheter: None Needle Types: Pajunk Needle Gauge: 21 Ultrasound used to visualize needle placement: Yes Ultrasound used to observe medication spread: Yes Injectate: 0.5% Ropivacaine (see comment for volume) (Ropivac. 20ml) Blood Aspirated: No Pain Paresthesia on Injection Noted: No Resistance on Injection: Normal Image Stored and Saved: Yes Events: Uneventful and Well Tolerated
[2023-01-15] MEDS ORDERED: ROPIVACAINE 5 MG/ML 30 ML VIAL ONE (15:31)
[2023-01-15] MEDS ORDERED: LIDOCAINE 1% INJ 10MG/ML (20 ML MDV) ONE (15:31)
[2023-01-15] MEDS ORDERED: PROPOFOL 10 MG/ML 20 ML VIAL IV ONE (15:31)
[2023-01-15] MEDS ORDERED: MIDAZOLAM 2 MG/2 ML VIAL ONE (15:31)
[2023-01-15] MEDS ORDERED: fentaNYL (PF) 50 MCG/ML 2 ML AMP IV PRN (16:54)
[2023-01-15] MEDS ORDERED: ACETAMINOPHEN TAB 500 MG TAB PO ONE (17:29)
[2023-01-15] MEDS: FUROSEMIDE 40 MG TAB PO SCH (20:36)
[2023-01-15] MEDS: LACTATED RINGERS 1,000 ML IV SCH (23:50)
[2023-01-16] MEDS: PANTOPRAZOLE 40 MG TABLET PO SCH (06:36)
[2023-01-16] MEDS: LEVOTHYROXINE 125 MCG TAB PO SCH (06:36)
[2023-01-16] MEDS: POTASSIUM CHLORIDE ER 20 MEQ TAB.ER PO SCH ×2 (08:30→20:31)
[2023-01-16] MEDS: METHADONE 10 MG TAB PO SCH (08:30)
[2023-01-16] MEDS: METOPROLOL TARTRATE 12.5 MG TAB PO SCH ×2 (08:30→20:31)
[2023-01-16] MEDS: FUROSEMIDE 40 MG TAB PO SCH ×2 (08:30→17:15)
[2023-01-16] MEDS: ASPIRIN 81 MG PO SCH (08:30)
[2023-01-16] MEDS: MAGNESIUM OXIDE 400 MG TAB PO SCH ×2 (08:30→20:31)
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
[2023-01-16] MEDS: HYDROcodone/APAP 5-325MG 1 EACH TAB PO PRN ×2 (14:02→20:31)
[2023-01-16] MEDS: LACTATED RINGERS 1,000 ML IV SCH (17:15)
[2023-01-16 17:52] LABS: Chol/HDL Ratio 4.27 Ratio; LDL Cholesterol,Calculated 166.8 mg/dL (0.0-131.0)
[2023-01-17 00:03] VITALS: TEMP 97.9
--- NOTE | 2023-01-17 01:43 | PN ---
PROGRESS NOTE DATE OF SERVICE: 01/15/2023 CHIEF COMPLAINT: Acute congestive heart failure and right wrist pain. HISTORY OF PRESENT ILLNESS: This lady is doing fairly well. She has had her procedure on the right wrist. REVIEW OF SYSTEMS: She is still short of breath, but she is not complaining of chest pain. PHYSICAL EXAMINATION: CHEST: Quite clear. CARDIAC: Normal. ABDOMEN: Soft and nontender. IMPRESSION: 1. Acute congestive heart failure. 2. Right wrist injury. PLAN: Continue with management of her heart failure. Increase activity and follow Orthopedics recommendations for her right wrist. MMODL / IJN: [id number] /
--- NOTE | 2023-01-17 02:12 | PN ---
PROGRESS NOTE CHIEF COMPLAINT: Acute congestive heart failure and fracture of the right wrist. HISTORY OF PRESENT ILLNESS: This lady is having a lot of pain in the right wrist and right hand which is in a cast. The remainder of her exam is normal. She cannot move her fingers and her fingers are cold and bland slowly. IMPRESSION: 1. Acute congestive heart failure. 2. Chronic congestive heart failure. 3. Fractured right wrist. 4. Pain in the right wrist and hand due to a tight cast. PLAN: 1. Notify Orthopedics regarding the cast being too tight on the right. 2. Otherwise, continue to manage her heart failure. MMODL / IJN: [id number] /
[2023-01-17] MEDS: LEVOTHYROXINE 125 MCG TAB PO SCH (06:11)
[2023-01-17] MEDS: PANTOPRAZOLE 40 MG TABLET PO SCH (06:11)
[2023-01-17 07:59] VITALS: RESP 16
[2023-01-17] MEDS: POTASSIUM CHLORIDE ER 20 MEQ TAB.ER PO SCH (08:12)
[2023-01-17] MEDS: ASPIRIN 81 MG PO SCH (08:12)
[2023-01-17] MEDS: MAGNESIUM OXIDE 400 MG TAB PO SCH (08:12)
[2023-01-17] MEDS: METOPROLOL TARTRATE 12.5 MG TAB PO SCH (08:12)
[2023-01-17] MEDS: METHADONE 10 MG TAB PO SCH (08:12)
[2023-01-17] MEDS: FUROSEMIDE 40 MG TAB PO SCH (08:12)
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
[2023-01-17 11:41] VITALS: BMI 27.3
[2023-01-17] MEDS: HYDROcodone/APAP 5-325MG 1 EACH TAB PO PRN (12:34)
[2023-01-17 16:45] VITALS: BP 113/78; PULSE 86
[2023-01-17] MEDS ORDERED: ATORVASTATIN 80 MG TAB PO SCH (21:00)
--- NOTE | 2023-01-17 22:51 | DS ---
DISCHARGE SUMMARY CHIEF COMPLAINT: Acute respiratory failure. HISTORY OF PRESENT ILLNESS AND PHYSICAL EXAMINATION: Details of this lady's history and physical can be found in the initial workup. LABORATORY STUDIES: While she is in the hospital, she had laboratory studies, details of which can be found in the laboratory section of her chart. COURSE IN THE HOSPITAL: After admission, she was placed on bedrest, started on IV fluids and diuresed. It was determined that she had acute congestive heart failure. While in the hospital, she also was identified as having a fracture of the right wrist. This was attended to by Orthopedics. She was stabilized and it was felt that she could be discharged on the and she will go home on her usual activity medications and will be followed up in several days. FINAL DIAGNOSES: 1. Acute respiratory failure. 2. Acute congestive heart failure. 3. History of chronic obstructive pulmonary disease. 4. Fracture of right wrist. OPERATIONS: None. CONSULTATIONS: Orthopedics and Cardiology. CONDITION: She is improved. MMJEREMIAH / MITCHN: [id number] /
--- NOTE | 2023-02-04 09:20 | P.OP ---
Date of Procedure: 01/15/23 Preoperative Diagnosis: Right intra articular distal radius fracture Postoperative Diagnosis: Right intra articular distal radius fracture Procedure(s) Performed: Open reduction internal fixation of right intra articular distal radius fracture, 3 part. Implants: Arthrex 3 hole titanium volar distal radius locking plate, short, narrow. Anest[facility]: [facility], regional Surgeon: Sam Castañeda Photo Booth Operator #1: Aba Mc Estimated Blood Loss (ml): 0 Pathology: none sent Condition: stable Disposition: PACU Description of Procedure: This is a 42 year old female who sustained a displaced intra-articular distal radius fracture and presents today for open reduction internal fixation of their right distal radius fracture. Risks and benefits of surgery were discussed with the patient including bleeding, damage to surrounding tissue, infection, need for further surgery as well as risks of anesthesia including pulmonary embolism and even and the patient wished to proceed with surgical intervention. The patients was seen in the pre-operative area by myself. Consent and H&P were completed and updated. The correct extremity was marked in the pre-operative area by myself and all other questions were answered. Operative Narrative: The patient was brought to the operating room by the department of anesthesia. They remained on the portable stretcher and a rolling hand table was brought to the side of the operative extremity. Pre-operative time out was performed indicating the correct patient, procedure and laterality. All in the room agreed. Pre-operative antibiotics were given prior to skin incision. The patient was then drifted off to sleep by the department of anesthesia. A nonsterile tourniquet was then applied to the operative extremity and the right upper extremity was then prepped and draped in normal sterile fashion. The operative extremity was the exsanguinated with an esmarch bandage and the tourniquet was inflated to 250mmHg. A longitudinal incision centered over the FCR tendon was made with a 15-blade scalpel. Blunt dissection was taken down to the FCR tendon sheath using Bovie cautery for meticulous hemostasis. The FCR sheath was opened with tenotomy scissors. The floor of the FCR sheath was then incised with a 15-blade scalpel and the FPL tendon and muscle belly was swept bluntly in an ulnar direction to reveal the pronator quadratus. Pronator quadratus was sharply incised with a 15-blade scalpel along the radial border of the distal radius, coming across transversely parallel to the joint at the level of the watershed line, radial artery was identified and protected. Periosteal elevator was then used to elevate the pronator quadratus off the distal radius from a radial to ulnar fashion. A Biggers elevator was used to lever the distal piece back into place and free up the fractured fragments. A narrow width 3 hole Arthrex titanium volar locking distal radius plate was chosen to fit the patients anatomy best. This was placed on the distal radius under direct visualization and the oblong hole was drilled and filled with a non-locking screw. The fracture was then reduced to the plate distally and a k-wire was placed in the ulnar most k-wire hole in the proximal row. Fluoroscopy was then utilized to confirm correct placement of plate in the radial/ulnar plane and distal k-wire placement was confirmed to be proximal to the subchondral bone on 20 degree elevated lateral view confirming extra-articular screw placement. Evangelical of radial height, inclination and volar tilt was achieved. The distal rows and radial styloid screw holes were then drilled and filled from ulnar to radial with locking screws. Attention was then brought to the proximal shaft screws. Proximal nonlocking and locking shaft screws were drilled, measured, and filled. The wrist joint was the ranged and full smooth flexion/extension with no crepitus appreciated. Final imaging was taken confirming extra-articular placement of distal screws at DRUJ and radiocarpal joint. The wound was then irrigated. Subcutaneous closure was performed with 4-0 monocryl followed by skin closure with 4-0 nylon suture. Sterile dressing consisting of adaptic, 4x4s, and a volar plaster splint was applied. Tourniquet was let down and the hand had immediate perfusion. The patient was then woken by the department of anesthesia and transferred to PACU in stable condition. Aba SIMENTAL was present for the case and assisted in major portions of the operation and hardware placement. Sam Castañeda D.O. Orthopedic Hand/Upper Extremity Surgeon
== END 2023-01-17 17:29 | disposition home or self-care (01) | DRG 951 ==
LOC: EC 15:55 → 3SCARD 19:38
PROVIDERS: ADMIT Family Medicine; ATTEND Family Medicine
PROC: 5A09357 Assistance with Respiratory Ventilation, Less than 24 Consecutive Hours, Continuous Positive Airway Pressure (ICD-10-PCS; principal; 2023-01-12)
PROC: 3E0T3BZ Introduction of Anesthetic Agent into Peripheral Nerves and Plexi, Percutaneous Approach (ICD-10-PCS; 2023-01-15)
PROC: 0PSH04Z Reposition Right Radius with Internal Fixation Device, Open Approach (ICD-10-PCS; 2023-01-15)
DX: I21.9 Acute myocardial infarction, unspecified (principal); I50.23 Acute on chronic systolic (congestive) heart failure; J96.01 Acute respiratory failure with hypoxia; I50.82 Biventricular heart failure; J18.9 Pneumonia, unspecified organism; J44.1 Chronic obstructive pulmonary disease with (acute) exacerbation; I11.0 Hypertensive heart disease with heart failure; G40.909 Epilepsy, unspecified, not intractable, without status epilepticus; I34.0 Nonrheumatic mitral (valve) insufficiency; E03.9 Hypothyroidism, unspecified; K21.9 Gastro-esophageal reflux disease without esophagitis; E87.6 Hypokalemia; G89.29 Other chronic pain; M41.9 Scoliosis, unspecified; M54.50 Low back pain, unspecified; E83.42 Hypomagnesemia; F11.91 Opioid use, unspecified, in remission; G89.18 Other acute postprocedural pain; S52.571A Other intraarticular fracture of lower end of right radius, initial encounter for closed fracture; Z20.822 Contact with and (suspected) exposure to COVID-19; Z92.3 Personal history of irradiation; Z90.2 Acquired absence of lung [part of]; Z87.891 Personal history of nicotine dependence; Z92.21 Personal history of antineoplastic chemotherapy; Z86.718 Personal history of other venous thrombosis and embolism; Z79.890 Hormone replacement therapy; Z85.831 Personal history of malignant neoplasm of soft tissue; Z86.14 Personal history of Methicillin resistant Staphylococcus aureus infection; Z79.899 Other long term (current) drug therapy; Z88.1 Allergy status to other antibiotic agents; Z91.013 Allergy to seafood; Z87.01 Personal history of pneumonia (recurrent); Z86.19 Personal history of other infectious and parasitic diseases; Z81.3 Family history of other psychoactive substance abuse and dependence
CPT/HCPCS: 36415; 64415; 71045; 71275; 78452; 80048; 80053; 80061; 81025; 83605; 83735; 83880; 84145; 84484; 85025; 85379; 85610; 85730; 87040; 87070; 87205; 87449; 87635; 93005; 93017; 94640; 94660; 94760; 96365; 96375; 99291

== ENCOUNTER 2023-01-15 13:35 | Day surgery (SDC) | payer OTHER ==
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
[2023-01-15] MEDS ORDERED: ONDANSETRON 4 MG/2 ML VIAL ONE (13:37)
--- NOTE | 2023-01-15 16:34 | P.OP ---
Date of Procedure: 01/15/23 Preoperative Diagnosis: Right intra articular distal radius fracture Postoperative Diagnosis: Right intra articular distal radius fracture Procedure(s) Performed: Open reduction internal fixation of right intra articular distal radius fracture, 3 part. Implants: Arthrex 3 hole titanium volar distal radius locking plate, short, narrow. [facility], regional Surgeon: Sam Castañeda Crystal Flat Grinder #1: Aba Mc Estimated Blood Loss (ml): 0 Pathology: none sent Condition: stable Disposition: PACU Description of Procedure: This is a 42 year old female who sustained a displaced intra-articular distal radius fracture and presents today for open reduction internal fixation of their right distal radius fracture. Risks and benefits of surgery were discussed with the patient including bleeding, damage to surrounding tissue, infection, need for further surgery as well as risks of anesthesia including pulmonary embolism and even and the patient wished to proceed with surgical intervention. The patients was seen in the pre-operative area by myself. Consent and H&P were completed and updated. The correct extremity was marked in the pre-operative area by myself and all other questions were answered. Operative Narrative: The patient was brought to the operating room by the department of anesthesia. They remained on the portable stretcher and a rolling hand table was brought to the side of the operative extremity. Pre-operative time out was performed indicating the correct patient, procedure and laterality. All in the room agreed. Pre-operative antibiotics were given prior to skin incision. The patient was then drifted off to sleep by the department of anesthesia. A nonsterile tourniquet was then applied to the operative extremity and the right upper extremity was then prepped and draped in normal sterile fashion. The operative extremity was the exsanguinated with an esmarch bandage and the tourniquet was inflated to 250mmHg. A longitudinal incision centered over the FCR tendon was made with a 15-blade scalpel. Blunt dissection was taken down to the FCR tendon sheath using Bovie cautery for meticulous hemostasis. The FCR sheath was opened with tenotomy scissors. The floor of the FCR sheath was then incised with a 15-blade scalpel and the FPL tendon and muscle belly was swept bluntly in an ulnar direction to reveal the pronator quadratus. Pronator quadratus was sharply incised with a 15-blade scalpel along the radial border of the distal radius, coming across transversely parallel to the joint at the level of the watershed line, radial artery was identified and protected. Periosteal elevator was then used to elevate the pronator quadratus off the distal radius from a radial to ulnar fashion. A Grant elevator was used to lever the distal piece back into place and free up the fractured fragments. A narrow width 3 hole Arthrex titanium volar locking distal radius plate was chosen to fit the patients anatomy best. This was placed on the distal radius under direct visualization and the oblong hole was drilled and filled with a non-locking screw. The fracture was then reduced to the plate distally and a k-wire was placed in the ulnar most k-wire hole in the proximal row. Fluoroscopy was then utilized to confirm correct placement of plate in the radial/ulnar plane and distal k-wire placement was confirmed to be proximal to the subchondral bone on 20 degree elevated lateral view confirming extra-articular screw placement. Sabianism of radial height, inclination and volar tilt was achieved. The distal rows and radial styloid screw holes were then drilled and filled from ulnar to radial with locking screws. Attention was then brought to the proximal shaft screws. Proximal nonlocking and locking shaft screws were drilled, measured, and filled. The wrist joint was the ranged and full smooth flexion/extension with no crepitus appreciated. Final imaging was taken confirming extra-articular placement of distal screws at DRUJ and radiocarpal joint. The wound was then irrigated. Subcutaneous closure was performed with 4-0 monocryl followed by skin closure with 4-0 nylon suture. Sterile dressing consisting of adaptic, 4x4s, and a volar plaster splint was applied. Tourniquet was let down and the hand had immediate perfusion. The patient was then woken by the department of anesthesia and transferred to PACU in stable condition. Aba SIMENTAL was present for the case and assisted in major portions of the operation and hardware placement. Sam Castañeda D.O. Orthopedic Hand/Upper Extremity Surgeon
[2023-01-15] MEDS ORDERED: ACETAMINOPHEN TAB 500 MG TAB ONE (17:27)
== END 2023-01-15 15:35 | disposition home or self-care (01) ==
LOC: OR 13:35
PROVIDERS: ATTEND Orthopaedic Surgery Hand Surgery
DX: S52.571A Other intraarticular fracture of lower end of right radius, initial encounter for closed fracture (principal); J45.909 Unspecified asthma, uncomplicated; I82.409 Acute embolism and thrombosis of unspecified deep veins of unspecified lower extremity; K21.9 Gastro-esophageal reflux disease without esophagitis; G40.909 Epilepsy, unspecified, not intractable, without status epilepticus; K76.9 Liver disease, unspecified; J18.9 Pneumonia, unspecified organism; C49.9 Malignant neoplasm of connective and soft tissue, unspecified; G89.29 Other chronic pain; E03.9 Hypothyroidism, unspecified; M41.9 Scoliosis, unspecified; B19.20 Unspecified viral hepatitis C without hepatic coma; J86.9 Pyothorax without fistula; F32.A Depression, unspecified; K59.00 Constipation, unspecified; Z87.891 Personal history of nicotine dependence; Z79.890 Hormone replacement therapy; Z79.51 Long term (current) use of inhaled steroids; Z79.891 Long term (current) use of opiate analgesic; Z79.899 Other long term (current) drug therapy; Z98.890 Other specified postprocedural states; Z88.1 Allergy status to other antibiotic agents; Z91.013 Allergy to seafood; W01.0XXA Fall on same level from slipping, tripping and stumbling without subsequent striking against object, initial encounter; X58.XXXA Exposure to other specified factors, initial encounter

== ENCOUNTER 2023-03-14 15:41 | Emergency (ER) | payer OTHER ==
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
[2023-03-14 17:04] VITALS: BP 111/79; PULSE 90; RESP 20; TEMP 98.4
[2023-03-14 17:23] LABS: Basophils % (A) 0 %; Eosinophils # (A) 0.4 k/uL (0-0.7); Eosinophils % (A) 10 %; HCT 37.3 % (34.0-46.0); HGB 12.5 gm/dL (11.4-16.0); Hypochromasia Slight; Lymphocytes # (A) 0.9 k/uL (1.0-4.8); Lymphocytes % (A) 21 %; MCH 29.7 pg (25.0-35.0); MCHC 33.4 g/dL (31.0-37.0); MCV 88.8 fL (80.0-100.0); Mean Platelet Volume 8.4; Monocytes # (A) 0.1 k/uL (0-1.0); Monocytes % (A) 2 %; Neutrophils # (A) 2.9 k/uL (1.3-7.7); Neutrophils % (A) 65 %; Platelet Count 168 k/uL (150-450); WBC 4.4 k/uL (3.8-10.6)
[2023-03-14 17:35] LABS: Partial Thromboplastin Time 24.6 sec (22.0-30.0); Prothrombin Time 11.1 sec (10.0-12.5)
[2023-03-14 18:15] LABS: ALT 25 U/L (4-34); AST 42 U/L (14-36); African American GFR (CKD) 50 (>60 ml/min/1.73 sqM); Albumin 4.3 g/dL (3.5-5.0); Alkaline Phosphatase 130 U/L (38-126); Anion Gap 11 mmol/L; Blood Urea Nitrogen 40 mg/dL (7-17); Calcium 9.2 mg/dL (8.4-10.2); Carbon Dioxide 39 mmol/L (22-30); Chloride 93 mmol/L (98-107); Glucose 83 mg/dL (74-99); Non-African American GFR(CKD) 44 (>60 ml/min/1.73 sqM); Potassium 3.3 mmol/L (3.5-5.1); Sodium 143 mmol/L (137-145); Total Bilirubin 0.8 mg/dL (0.2-1.3); Total Protein 7.2 g/dL (6.3-8.2)
[2023-03-14 18:23] LABS: NT-Pro-B-Type Natriuretic Pept 1480 pg/mL
--- NOTE | 2023-03-14 18:31 | XR ---
EXAMINATION TYPE: XR chest 2V DATE OF EXAM: 03/14/2023 6:11 PM CLINICAL INDICATION:Female, 43 years old with history of difficulty breathing; [facility] COMPARISON: Chest radiographs from 01/13/2023. TECHNIQUE: XR chest 2V Frontal and lateral views of the chest. FINDINGS: Lungs/Pleura: There is no evidence of pleural effusion, focal consolidation, or pneumothorax. Pulmonary vascularity: Unremarkable. Heart/mediastinum: Cardiomediastinal silhouette is unremarkable. Musculoskeletal: Multiple level degenerative disc disease changes seen throughout the spine. Multiple remote rib injuries on the right. Other findings: None IMPRESSION: 1. No acute cardiopulmonary disease process. 2. COPD changes.
== END 2023-03-14 20:03 | disposition left against medical advice (07) ==
LOC: EC 15:41
DX: Z53.29 Procedure and treatment not carried out because of patient's decision for other reasons (principal); J43.9 Emphysema, unspecified; Z86.59 Personal history of other mental and behavioral disorders; Z87.891 Personal history of nicotine dependence; Z91.013 Allergy to seafood; Z88.8 Allergy status to other drugs, medicaments and biological substances; Z79.899 Other long term (current) drug therapy
CPT/HCPCS: 36415; 71046; 80053; 83880; 84484; 85025; 85610; 85730; 93005; 99285

== ENCOUNTER 2023-03-18 09:23 | Emergency (ER) | payer OTHER ==
[2023-03-18] MEDS ORDERED: IPRATROPIUM-ALBUTEROL 3 ML NEB INHALATION STA (09:42)
[2023-03-18 09:48] VITALS: TEMP 98.3
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
--- NOTE | 2023-03-18 10:04 | XR ---
EXAMINATION TYPE: XR chest 2V DATE OF EXAM: 03/18/2023 COMPARISON: 03/14/2023 HISTORY: 43 year-old female shortness of breath, difficulty breathing TECHNIQUE: PA and lateral views FINDINGS: Heart normal size. Hyperinflation. Interstitial prominence. Old healed right-sided rib fracture defor mities. No consolidation or pleural effusion. Accentuated midthoracic kyphosis. S-shaped scoliosis. IMPRESSION: 1. COPD. Peribronchial cuffing could represent a prominent component of chronic bronchitis versus sup erimposed acute bronchitis. Clinically correlate. No focal infiltrate seen. 2. S-shaped scoliosis and accentuated thoracic kyphosis. Old right-sided rib fracture deformities.
[2023-03-18 11:15] LABS: Basophils % (A) 0 %; Eosinophils # (A) 0.4 k/uL (0-0.7); Eosinophils % (A) 10 %; HCT 39.5 % (34.0-46.0); HGB 12.9 gm/dL (11.4-16.0); Hypochromasia Slight; Lymphocytes # (A) 0.8 k/uL (1.0-4.8); Lymphocytes % (A) 20 %; MCHC 32.6 g/dL (31.0-37.0); MCV 88.8 fL (80.0-100.0); Mean Platelet Volume 8.3; Monocytes # (A) 0.2 k/uL (0-1.0); Monocytes % (A) 4 %; Neutrophils # (A) 2.8 k/uL (1.3-7.7); Neutrophils % (A) 64 %; Platelet Count 165 k/uL (150-450); Poikilocytosis Slight; RBC 4.45 m/uL (3.80-5.40); RDW 14.9 % (11.5-15.5); WBC 4.3 k/uL (3.8-10.6)
[2023-03-18 11:17] LABS: Prothrombin Time 10.6 sec (10.0-12.5)
[2023-03-18 11:25] LABS: ALT 27 U/L (4-34); AST 48 U/L (14-36); African American GFR (CKD) 54 (>60 ml/min/1.73 sqM); Albumin 4.4 g/dL (3.5-5.0); Alkaline Phosphatase 135 U/L (38-126); Anion Gap 16 mmol/L; Blood Urea Nitrogen 47 mg/dL (7-17); Calcium 9.5 mg/dL (8.4-10.2); Carbon Dioxide 33 mmol/L (22-30); Chloride 90 mmol/L (98-107); Glucose 116 mg/dL (74-99); Non-African American GFR(CKD) 47 (>60 ml/min/1.73 sqM); Potassium 3.7 mmol/L (3.5-5.1); Sodium 139 mmol/L (137-145); Total Protein 7.3 g/dL (6.3-8.2)
[2023-03-18 11:34] LABS: NT-Pro-B-Type Natriuretic Pept 670 pg/mL
[2023-03-18] MEDS ORDERED: methylPREDNISolone SOD SUCCI 125 MG/2 ML VIAL IV STA (11:34)
[2023-03-18 11:35] LABS: HCG,Qualitative Serum Not Detected
[2023-03-18] MEDS ORDERED: BENZONATATE 100 MG CAP PO STA (11:55)
[2023-03-18 12:40] VITALS: BP 99/62; PULSE 83; RESP 18
== END 2023-03-18 13:04 | disposition home or self-care (01) ==
LOC: EC 09:23
DX: J45.901 Unspecified asthma with (acute) exacerbation (principal); F17.200 Nicotine dependence, unspecified, uncomplicated; Z86.59 Personal history of other mental and behavioral disorders; Z88.8 Allergy status to other drugs, medicaments and biological substances; Z91.013 Allergy to seafood; Z20.822 Contact with and (suspected) exposure to COVID-19
CPT/HCPCS: 36415; 94640; 93005; 85379; 83880; 80053; 83605; 84484; 85025; 85610; 85730; 84703; 87636; 71046; 99284; 96374; J2930; 99285

== ENCOUNTER 2023-09-19 09:13 | Emergency (ER) | payer OTHER ==
[2023-09-19 09:29] VITALS: RESP 16
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
--- NOTE | 2023-09-19 10:45 | XR ---
EXAMINATION TYPE: XR chest 2V DATE OF EXAM: 09/19/2023 COMPARISON: 03/18/2023 INDICATION: Cough TECHNIQUE: Single frontal view of the chest is obtained. FINDINGS: The heart size is normal. The pulmonary vasculature is normal. The lungs are clear. Scoliosis present with convexity to the right centered in the midthoracic region IMPRESSION: 1. No acute pulmonary process.
[2023-09-19 11:03] VITALS: TEMP 98.1
[2023-09-19] MEDS: IPRATROPIUM-ALBUTEROL 3 ML NEB INHALATION STA (11:24)
[2023-09-19 11:55] VITALS: BP 112/81; PULSE 74
== END 2023-09-19 11:55 | disposition home or self-care (01) ==
LOC: EC 09:13
DX: J40 Bronchitis, not specified as acute or chronic (principal); Z91.013 Allergy to seafood; Z88.8 Allergy status to other drugs, medicaments and biological substances; Z87.891 Personal history of nicotine dependence
CPT/HCPCS: 71046; 87636; 94640; 99283

== ENCOUNTER 2024-08-09 05:19 | Emergency (ER) | payer OTHER ==
[2024-08-09 05:25] VITALS: RESP 16; TEMP 97.9
[2024-08-09] MEDS: ACETAMINOPHEN TAB 325 MG TAB PO STA (05:58)
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
[2024-08-09 06:48] VITALS: BP 137/85; PULSE 89
== END 2024-08-09 06:02 | disposition home or self-care (01) ==
LOC: EC 05:19
DX: S00.03XA Contusion of scalp, initial encounter (principal); Z87.891 Personal history of nicotine dependence; Z91.013 Allergy to seafood; Z88.1 Allergy status to other antibiotic agents; W01.10XA Fall on same level from slipping, tripping and stumbling with subsequent striking against unspecified object, initial encounter; Y93.01 Activity, walking, marching and hiking
CPT/HCPCS: 99283

== ENCOUNTER → 2024-08-23 | Outpatient (CLI) | payer OTHER ==
--- NOTE | 2024-08-23 14:02 | MM ---
Reason for Exam: Screening (asymptomatic). Baseline mammogram. Patient History: Menarche at age 10. First Full-Term at age 26. Perimenopausal. Risk Values: Kaia 5 year model risk: 1.0%. NCI Lifetime model risk: 11.6%. Prior Study Comparison: Patient's first Mammogram. Tissue Density: The breasts are heterogeneously dense, which may obscure small masses. Findings: Analyzed By CAD. Focal asymmetry lower inner aspect of the left breast middle depth. This may represent superimposition shadow but further evaluation is recommended. Otherwise, no suspicious microcalcification or other discrete abnormality is seen. Overall Assessment: Incomplete: need additional imaging evaluation, BI-RAD 0 Management: Special View Mammogram of the left breast. [facility] will attempt to contact patient to return for supplemental views and ultrasound if indicated. [facility], , 08/23/2024 2:00 PM. Electronically signed and approved by: Silvia Valdez M.D. Radiologist
== END | disposition home or self-care (01) ==
LOC: RADMAMWWP 13:13
PROVIDERS: ATTEND Family Medicine
DX: Z12.31 Encounter for screening mammogram for malignant neoplasm of breast (principal); R92.333 Mammographic heterogeneous density, bilateral breasts
CPT/HCPCS: 77067

== ENCOUNTER → 2024-09-14 | Outpatient (CLI) | payer OTHER ==
--- NOTE | 2024-09-14 13:24 | US ---
EXAMINATION TYPE: US kidneys/renal and bladder DATE OF EXAM: 09/14/2024 COMPARISON: Ultrasound. CLINICAL INDICATION: Female, 44 years old with history of N93.8 OTHER SPECIFIED ABNORMAL UTERINE AND VAGINAL; CKD TECHNIQUE: Grayscale imaging of the bilateral kidneys and urinary bladder: FINDINGS: EXAM MEASUREMENTS: Right Kidney: 7.8 x 4.5 x 3.9 cm Left Kidney: not seen Right Kidney: limited due to bowel gas, appears wnl Left Kidney: not seen due to bowel gas Bladder: mostly contracted, appears wnl Bilateral Jets seen: No IMPRESSION: 1. No evidence for obstructive uropathy or renal calculus. 2. Nonvisualization left kidney due to bowel gas. [facility], , 09/14/2024 1:22 PM
--- NOTE | 2024-09-14 13:29 | US ---
EXAMINATION TYPE: US transvaginal DATE OF EXAM: 09/14/2024 COMPARISON: NONE CLINICAL INDICATION: Female, 44 years old with history of N93.8 OTHER SPECIFIED ABNORMAL UTERINE AND VAGINAL; abnormal bleeding. . No pelvic surgeries TECHNIQUE: Transvaginal (TV). Doppler imaging: Not performed. FINDINGS: Date of LMP: 05/10/24 EXAM MEASUREMENTS: Uterus: 9.5 x 5.9 x 4.3 cm Endometrial Stripe: 0.7 cm Right Ovary: 1.7 x 1.2 x 1.4 cm Left Ovary: 3.1 x 2.5 x 1.5 cm 1. Uterus: Anteverted hypoechoic area seen on rt side of UT measuring 0.9 x 0.9 x 0.6cm. Fluid see n in cervix 2. Endometrium: wnl 3. Right Ovary: wnl 4. Left Ovary: dominant follicle measuring 2.0cm 5. Bilateral Adnexa: wnl 6. Posterior cul-de-sac: wnl IMPRESSION: 1. No evidence for acute process. 2. Probable uterine fibroid. 3. Left ovarian dominant follicle measuring up to 2.0 cm. 4. Endometrium within normal limits for thickness. [facility], , 09/14/2024 1:26 PM
== END | disposition home or self-care (01) ==
LOC: RADUSWWP 12:24
PROVIDERS: ATTEND Family Medicine
DX: N93.8 Other specified abnormal uterine and vaginal bleeding (principal); N95.0 Postmenopausal bleeding; N18.31 Chronic kidney disease, stage 3a
CPT/HCPCS: 76770; 76830